=== PATIENT | male | born 1950 | race Caucasian/White ===

== ENCOUNTER 2022-01-24 10:38 | Emergency (ER) | payer MEDICARE, MEDICAID, SELFPAY ==
--- NOTE | ~2022-01-24 | CT_ITS ---
EXAMINATION: CT HEAD WITHOUT CONTRAST CLINICAL INFORMATION: Fall plus head strike. COMPARISON: None TECHNIQUE: Contiguous axial imaging was performed from the skull base to vertex without intravenous administration of contrast. This CT examination was performed using dose optimization techniques as appropriate, variously including the following: *Automated exposure control *Adjustment of mA and/or kV according to patient size (this includes techniques or standardized protocols for targeted exams where dose is matched to indication/reason for exam; i.e. extremities or head) *Use of iterative reconstruction technique DLP: 806 mGy-cm FINDINGS: There is no evidence of acute intracranial hemorrhage or territorial infarction. No abnormal mass effect or midline shift is seen. [place] to white matter differentiation is well preserved. No extra-axial fluid collections are identified. The lateral ventricles are symmetrical and but mildly enlarged. There is no abnormal attenuation within the brain parenchyma. The osseous structures and soft tissues are normal. The mastoid air cells and visualized portions of the paranasal sinuses are well aerated. CT/CT head/brain wo con IMPRESSION: No acute intracranial process seen.
[2022-01-24 11:05] VITALS: BP 107/49; PULSE 92; RESP 18; TEMP 36.3; O2SAT 95; BMI 19.2
--- NOTE | 2022-01-24 11:30 | ECG_ITS ---
Test Reason : FALL Blood Pressure : / mmHG Vent. Rate : 087 BPM Atrial Rate : 087 BPM P-R Int : 172 ms QRS Dur : 098 ms QT Int : 356 ms P-R-T Axes : 057 045 079 degrees QTc Int : 428 ms Normal sinus rhythm Moderate voltage criteria for LVH, may be normal variant ( Sokolow-Freire , Jan product ) Borderline ECG No previous ECGs available Referred By: Joe Camara Electronically Signed By:BRANDON SHANE MD
[2022-01-24 11:34] VITALS: BP 146/68; PULSE 89; RESP 21; O2SAT 98
--- NOTE | 2022-01-24 11:45 | ED_ITS ---
HPI - Fall General Chief Complaint: Fall Stated Complaint: Fall/ forehead lac Time Seen by Provider: 01/24/22 11:30 Source: family Mode of arrival: ambulatory Limitations: other (Patient with intellectual disability at baseline) History of Present Illness HPI Narrative: This is a 71-year-old male past medical history significant for known intellectual disability, schitzophrenia presenting to the emergency department with his brother who is his healthcare proxy who tells me that today patient was standing became dizzy, off balance, he helped his brother into a chair and patient fell forward hitting his head on a baseboard in front of him. Causing a laceration to to the middle of his forehead. According to brother this has been happening often. Patient has been having dizzy spells and hitting his head. At no time has he loss consciousness, he is not on anticoagulation. Patient is unable to answer questions due to his baseline mental status. He appears to be in no signs of acute distress, no distracting injuries. MD complaint: fall Onset (ago): hour(s) (3) Fall from: chair Fall witnessed: yes, by family Place fall occurred: home Loss of consciousness: none Prolonged down time: no Symptoms prior to fall: none Location of injury: head Related Data Allergies Allergy/AdvReac Type Severity Reaction Status Date / Time No Known Allergies Allergy Verified 01/24/22 11:04 [No Known Allergies*] Review of Systems Review of Systems: Yes Unobtainable due to mental status PMFSH Past Medical History Attestation statement: The following information was validated with the patient. Source: old records reviewed and nursing notes reviewed Medical History (Updated 01/24/22 @ 14:37 by JOSEPH Mcfadden) Developmental delay, borderline Schizophrenia Surgical History (Updated 01/24/22 @ 11:10 by Cris Burgos) History of hip replacement Social History Social History Advance Directives: Yes Advance Directives Information Provided: Yes Advance Directives on File: No Physical Exam Vital Signs: Vital Signs: Last Vital Signs Temp 97.8 F 01/24/22 11:56 Pulse 87 01/24/22 16:00 Resp 24 H 01/24/22 16:00 BP 162/93 H 01/24/22 16:00 Pulse Ox 97 01/24/22 16:00 BMI result Body Mass Index 19.2 VSS Appearance: Alert.? Awake. No acute distress.? Head: Normocephalic, atraumatic, no step-offs or deformities Eyes: Pupils equal, round and reactive to light.? ENT: Pharynx normal.? Neck: Normal inspection.? Neck supple.? CVS: Normal heart rate and rhythm.? Pulses normal.? Respiratory: No respiratory distress.? Breath sounds normal.? Abdomen: Soft and nontender.? Skin: Skin warm and dry.? Normal skin color.? Normal skin turgor.?+ linear laceration to forehead 4 cm Extremities: No lower extremity edema.? No calf ttp. 5/5 strength to bilateral upper and lower extremities Back: No midline tenderness, no C-spine tenderness, full range of motion, no CVA tenderness bilaterally Neuro: Awake, alert, moving all extremities, normal tone. No motor deficit.? No sensory deficit. Course Reevaluation(s) Reevaluation #1: Successfully a sutured laceration on patient's forehead using 5, 5-0 sutures. Patient tolerated procedure well. Time: 14:36 Reevaluation #2: Due to this severity of patient's laceration, mechanism of injury and the fact that patient has been feeling dizzy, and has syncopized in the past and has not had a head CT it is important to get 1 today. As patient is not able to hold still I spoke to my attending about this who recommends IM ketamine. Time: 15:19 Reevaluation #3: CT with no acute intracranial process seen. At this time patient will be discharged home. Should return in 3-5 days for suture removal. Troponin flat. Unlikely ACS. Patient appears well. Appears to be at his baseline. At this time I feel comfortable discharge home with PCP follow-up and follow-up with his neurologist. Time: 17:27 MDM - Fall MDM Narrative Medical decision making narrative: 1130 71 yo m pmhx intellectual disability presents to ed w/ head lac s/p dizzy spell and falling forward. Witnessed by patient's brother. Patient's brother tells me that this has been happening often. Physical examination significant for a linear laceration to forehead. Plan at this time labs, EKG, head CT, sutures. Medical Records Attestation: I reviewed the patient's medical records. Lab Data Attestation: I reviewed the patient's lab results. Result diagrams: 01/24/22 11:50 01/24/22 12:22 Labs: Lab Results 01/24/22 01/24/22 01/24/22 Range/Units 11:50 11:50 11:50 WBC 6.0 (4.8-10.8) X10*3/uL RBC 3.38 L (4.60-5.80) X10*6/uL Hgb 10.6 L (14.0-18.0) g/dl Hct 31.4 L (42.0-52.0) % MCV 92.9 (80.0-98.0) fL MCH 31.4 (27.0-33.0) pg MCHC 33.8 (31.0-36.0) g/dl RDW 12.9 (11.0-16.0) % Plt Count 291 (160-400) X10*3/uL MPV 9.4 (9.4-12.4) fL Immature Gran % (Auto) 0.2 (0.0-0.4) % Neut % (Auto) 65.5 (45-73) % Lymph % (Auto) 19.0 L (20-40) % [place] % (Auto) 14.2 H (2-11) % Eos % (Auto) 0.8 (0-4) % Baso % (Auto) 0.3 (0-2) % Lymph # (Auto) 1.1 L (1.2-4.9) X10*3/uL [place] # (Auto) 0.9 (0.1-1.2) X10*3/uL Eos # (Auto) 0.1 (0.0-0.4) X10*3/uL Baso # (Auto) 0.0 (0.0-0.2) X10*3/uL Abs Immat Gran (auto) 0.01 (0.00-0.03) X10*3/uL Absolute Neuts (auto) 3.9 (2.0-8.3) x10*3/uL Absolute Nucleated RBC 0.000 (0.0-0.012) X10*3/uL Nucleated RBC % (auto) 0.0 (0.0-0.2) /100WBC Sodium (135-145) mmol/L Potassium (3.3-5.1) mmol/L Chloride (96-108) mmol/L Carbon Dioxide (22-29) mmol/L Anion Gap (12-20) BUN (9-16) mg/dL Creatinine (0.5-1.4) mg/dL Estim Creat Clear Calc Estimated GFR Random Glucose (60-115) mg/dL Calcium (8.4-10.2) mg/dL Magnesium (1.6-2.6) mg/dL Total Bilirubin (0.0-1.0) mg/dL AST (5-37) U/L ALT (0-40) U/L Alkaline Phosphatase (39-117) U/L Troponin I High Sens 9.9 (<3.5-35.0) ng/L Total Protein (6.5-8.0) g/dL Albumin (3.5-5.0) g/dL COVID-19 ([facility]) Negative (Negative) COVID-19 Clin Com See Note 01/24/22 01/24/22 Range/Units 12:22 15:00 WBC (4.8-10.8) X10*3/uL RBC (4.60-5.80) X10*6/uL Hgb (14.0-18.0) g/dl Hct (42.0-52.0) % MCV (80.0-98.0) fL MCH (27.0-33.0) pg MCHC (31.0-36.0) g/dl RDW (11.0-16.0) % Plt Count (160-400) X10*3/uL MPV (9.4-12.4) fL Immature Gran % (Auto) (0.0-0.4) % Neut % (Auto) (45-73) % Lymph % (Auto) (20-40) % [place] % (Auto) (2-11) % Eos % (Auto) (0-4) % Baso % (Auto) (0-2) % Lymph # (Auto) (1.2-4.9) X10*3/uL [place] # (Auto) (0.1-1.2) X10*3/uL Eos # (Auto) (0.0-0.4) X10*3/uL Baso # (Auto) (0.0-0.2) X10*3/uL Abs Immat Gran (auto) (0.00-0.03) X10*3/uL Absolute Neuts (auto) (2.0-8.3) x10*3/uL Absolute Nucleated RBC (0.0-0.012) X10*3/uL Nucleated RBC % (auto) (0.0-0.2) /100WBC Sodium 132 L (135-145) mmol/L Potassium 4.7 (3.3-5.1) mmol/L Chloride 101 (96-108) mmol/L Carbon Dioxide 23 (22-29) mmol/L Anion Gap 13 (12-20) BUN 27 H (9-16) mg/dL Creatinine 0.87 (0.5-1.4) mg/dL Estim Creat Clear Calc 63.0 Estimated GFR > 60 Random Glucose 87 (60-115) mg/dL Calcium 9.3 (8.4-10.2) mg/dL Magnesium 1.9 (1.6-2.6) mg/dL Total Bilirubin 0.3 (0.0-1.0) mg/dL AST 24 (5-37) U/L ALT 25 (0-40) U/L Alkaline Phosphatase 130 H (39-117) U/L Troponin I High Sens 9.7 (<3.5-35.0) ng/L Total Protein 6.6 (6.5-8.0) g/dL Albumin 3.6 (3.5-5.0) g/dL COVID-19 ([facility]) (Negative) COVID-19 Clin Com Critical Care Time Critical Care Time Critical Care Time: No Discharge Plan Discharge Clinical Impression: Concussion without loss of consciousness, Forehead laceration Patient Disposition: Home, Self-Care Instructions: Laceration (ED), Concussion (ED) Additional Instructions: Take your medications as prescribed. If you were prescribed antibiotics today, it is important that you take your medication to their entirety, do not skip any doses, do not finish them early. Follow-up with your primary care provider this week. Return to the emergency department with new or worsening symptoms. Such as fevers, chills, chest pain, shortness of breath, nausea, vomiting, dizziness, headache, vision changes, lethargy, weakness, changes in mentation Return in 3-5 days for suture removal. In case of emergency call 911 Referrals: Mary Styles MD [Primary Care Provider] - 2 days Nirali Frank MD [Physician] - 2 weeks Stand Alone Forms: Work/School Release
[2022-01-24 11:55] LABS: MANUAL DIFF FLAG NO
[2022-01-24 11:56] VITALS: BP 155/71; PULSE 88; RESP 12; TEMP 36.6; O2SAT 97
[2022-01-24 11:58] LABS: Basophils Percent Auto 0.3 % (0-2); Eosinophils Absolute Auto 0.1 X10*3/uL (0.0-0.4); Eosinophils Percent Auto 0.8 % (0-4); Hematocrit 31.4 % (42.0-52.0); Hemoglobin 10.6 g/dl (14.0-18.0); Imm Gran Abs Auto 0.01 X10*3/uL (0.00-0.03); Imm Gran Pct Auto 0.2 % (0.0-0.4); Lymphocytes Absolute Auto 1.1 X10*3/uL (1.2-4.9); Mean Corpuscular HGB Conc 33.8 g/dl (31.0-36.0); Mean Corpuscular Hemoglobin 31.4 pg (27.0-33.0); Mean Corpuscular Volume 92.9 fL (80.0-98.0); Mean Platelet Volume 9.4 fL (9.4-12.4); Monocytes Absolute Auto 0.9 X10*3/uL (0.1-1.2); Monocytes Percent Auto 14.2 % (2-11); Neutrophils Absolute Auto 3.9 x10*3/uL (2.0-8.3); Neutrophils Percent Auto 65.5 % (45-73); Platelet Count 291 X10*3/uL (160-400); Red Blood Count 3.38 X10*6/uL (4.60-5.80); Red Cell Distribution Width 12.9 % (11.0-16.0)
[2022-01-24] MEDS: LORazepam 2 MG/ML VIAL 1 MG IVPUSH (12:06)
[2022-01-24 12:13] LABS: COVID-19 Test Negative (Negative)
[2022-01-24 12:31] LABS: Troponin-I High Sensitivity 9.9 ng/L (<3.5-35.0)
[2022-01-24 12:47] LABS: Alanine Aminotransferase 25 U/L (0-40); Albumin Level 3.6 g/dL (3.5-5.0); Alkaline Phosphatase 130 U/L (39-117); Anion Gap 13 (12-20); Aspartate Amino Transferase 24 U/L (5-37); Bilirubin Total 0.3 mg/dL (0.0-1.0); Blood Urea Nitrogen 27 mg/dL (9-16); Calcium 9.3 mg/dL (8.4-10.2); Carbon Dioxide 23 mmol/L (22-29); Chloride 101 mmol/L (96-108); Estimated Glomerular Filt Rate > 60; Glucose Random 87 mg/dL (60-115); Magnesium 1.9 mg/dL (1.6-2.6); Potassium 4.7 mmol/L (3.3-5.1); Sodium 132 mmol/L (135-145); Total Protein 6.6 g/dL (6.5-8.0)
[2022-01-24] MEDS: 0.9 % Sodium Chloride 1,000 ML 999 ML IV (13:33)
[2022-01-24 14:52] VITALS: BP 172/84; PULSE 88; RESP 17; O2SAT 96
[2022-01-24 15:23] LABS: Troponin-I High Sensitivity 9.7 ng/L (<3.5-35.0)
[2022-01-24 16:00] VITALS: BP 162/93; PULSE 87; RESP 24; O2SAT 97
[2022-01-24] MEDS: Lidocaine HCl 2 % MPF 5 ML VIAL SUBCUT (16:06)
[2022-01-24] MEDS: Ketamine HCl 500 MG/5 ML VIAL 25 MG IM (16:06)
== END 2022-01-24 17:48 | disposition home or self-care (01) ==
PROVIDERS: Physician Assistant; Emergency Provider Emergency Medicine; PCP Internal Medicine
DX: S01.81XA Laceration without foreign body of other part of head, initial encounter (principal); S06.0X0A Concussion without loss of consciousness, initial encounter; R62.50 Unspecified lack of expected normal physiological development in childhood; W07.XXXA Fall from chair, initial encounter; Y93.9 Activity, unspecified; Y92.009 Unspecified place in unspecified non-institutional (private) residence as the place of occurrence of the external cause; Y99.9 Unspecified external cause status; Z20.822 Contact with and (suspected) exposure to COVID-19
CPT/HCPCS: 12013; 36415; 70450; 80053; 83735; 84484; 85025; 87635; 93005; 96361; 96372; 96374; 99284; J2060

== ENCOUNTER 2022-04-03 20:24 | Inpatient (IN) | payer MEDICARE, MEDICAID, SELFPAY ==
--- NOTE | ~2022-04-03 | CT_ITS ---
EXAMINATION: CT HEAD WITHOUT CONTRAST CLINICAL INFORMATION: Fever and seizure COMPARISON: Head CT 01/24/2022 TECHNIQUE: Imaging was performed from the skull base to vertex without intravenous administration of contrast. This CT examination was performed using dose optimization techniques as appropriate, variously including the following: *Automated exposure control *Adjustment of mA and/or kV according to patient size (this includes techniques or standardized protocols for targeted exams where dose is matched to indication/reason for exam; i.e. extremities or head) *Use of iterative reconstruction technique Total exam dose length product: 776 mGy-cm FINDINGS: No intra or extra-axial fluid collection, hemorrhage, or mass. No ventriculomegaly. No midline shift or herniation. Basal cisterns are patent. Alba-white matter differentiation is maintained. No territorial encephalomalacia. Proportional prominence of the ventricles and sulcal spaces is consistent with mild volume loss. There is no abnormal attenuation within the brain parenchyma. No calvarial fracture or soft tissue abnormality. The mastoid air cells and visualized portions of the paranasal sinuses are well aerated. CT/CT head/brain wo con IMPRESSION: 1. No acute intracranial pathology.
--- NOTE | ~2022-04-03 | XR_ITS ---
EXAMINATION: XR CHEST CLINICAL INFORMATION: Fever COMPARISON: None TECHNIQUE: Frontal view of the chest was obtained. FINDINGS: Hypoinflated lungs. Hazy attenuation increased vascular/reticular markings within both lungs, likely due to pulmonary vascular crowding and atelectasis related to low lung volumes. No appreciable pleural effusion. No pneumothorax. Overall heart size is within normal limits. Prominent gaseous distention of bowel loops in the upper abdomen noted. No acute osseous injury. XR/XR chest 1V IMPRESSION: 1. Hypoinflated lungs with probable bilateral atelectasis and pulmonary vascular crowding. No definite/dense airspace consolidation or appreciable pleural effusion.
[2022-04-03 20:32] VITALS: BP 132/79; BP 154/50; PULSE 112; PULSE 115; RESP 34; TEMP 40.4; O2SAT 94; O2SAT 95; BMI 21.4
--- NOTE | 2022-04-03 20:48 | ECG_ITS ---
Test Reason : FEVER Blood Pressure : / mmHG Vent. Rate : 103 BPM Atrial Rate : 103 BPM P-R Int : 182 ms QRS Dur : 098 ms QT Int : 346 ms P-R-T Axes : 002 041 090 degrees QTc Int : 453 ms Sinus tachycardia Minimal voltage criteria for LVH, may be normal variant ( Jan product ) Cannot rule out Inferior infarct , age undetermined Abnormal ECG When compared with ECG of 24-JAN-2022 11:38, No significant change was found Referred By: Tamy Birmingham Electronically Signed By:BRANDON SHANE MD
[2022-04-03] MEDS: 0.9 % Sodium Chloride 2,259 ML 2259 ML IV (21:00)
[2022-04-03 21:05] LABS: MANUAL DIFF FLAG NO
[2022-04-03 21:10] VITALS: BP 134/76; PULSE 106; RESP 19; O2SAT 99
[2022-04-03 21:10] LABS: Basophils Percent Auto 0.4 % (0-2); Eosinophils Percent Auto 0.2 % (0-4); Hematocrit 29.9 % (42.0-52.0); Hemoglobin 10.3 g/dl (14.0-18.0); Imm Gran Abs Auto 0.04 X10*3/uL (0.00-0.03); Imm Gran Pct Auto 0.5 % (0.0-0.4); Lymphocytes Absolute Auto 0.9 X10*3/uL (1.2-4.9); Lymphocytes Percent Auto 11.1 % (20-40); Mean Corpuscular HGB Conc 34.4 g/dl (31.0-36.0); Mean Corpuscular Hemoglobin 31.9 pg (27.0-33.0); Mean Corpuscular Volume 92.6 fL (80.0-98.0); Mean Platelet Volume 9.4 fL (9.4-12.4); Monocytes Absolute Auto 0.8 X10*3/uL (0.1-1.2); Monocytes Percent Auto 9.6 % (2-11); Neutrophils Absolute Auto 6.4 x10*3/uL (2.0-8.3); Neutrophils Percent Auto 78.2 % (45-73); Platelet Count 299 X10*3/uL (160-400); Red Blood Count 3.23 X10*6/uL (4.60-5.80); Red Cell Distribution Width 12.9 % (11.0-16.0); White Blood Count 8.2 X10*3/uL (4.8-10.8)
[2022-04-03 21:22] LABS: Alanine Aminotransferase 28 U/L (0-40); Albumin Level 4.1 g/dL (3.5-5.0); Alkaline Phosphatase 100 U/L (39-117); Anion Gap 15 (12-20); Aspartate Amino Transferase 34 U/L (5-37); Bilirubin Direct 0.2 mg/dL (0.0-0.5); Bilirubin Total 0.5 mg/dL (0.0-1.0); Blood Urea Nitrogen 35 mg/dL (9-16); Carbon Dioxide 20 mmol/L (22-29); Chloride 98 mmol/L (96-108); Creatinine Clr Calc Pharmacy 38.6; Estimated Glomerular Filt Rate 40; Glucose Random 109 mg/dL (60-115); Lipase 13 U/L (8-78); Potassium 4.7 mmol/L (3.3-5.1); Sodium 128 mmol/L (135-145); Total Protein 7.1 g/dL (6.5-8.0)
[2022-04-03 21:24] LABS: Appearance Urine CLEAR; Color Urine YELLOW; Glucose Urine UA NEG (NEG); Leukocyte Esterase Urine 2+ (NEG); Nitrite Urine NEG (NEG); UACC Culture Trigger YES; Urine Blood NEG (NEG); Urine Ketones 5 MG/DL (NEG); Urine Protein TRACE MG/DL (NEG-TRACE)
--- NOTE | 2022-04-03 21:26 | PC.NURSE ---
Jaime catheter placed per MD verbal order, 350cc urine output noted. Will monitor.
[2022-04-03 21:30] LABS: Lactic Acid 2.4 mmol/L (0.5-2.0)
--- NOTE | 2022-04-03 21:34 | PC.NURSE ---
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
[2022-04-03 21:36] LABS: Bacteria Urine 4+ /LPF; Squamous Epithelial Cell Urine TRACE /LPF
[2022-04-03 21:38] LABS: B Type Natriuretic Peptide 27 pg/mL (<100); Troponin-I High Sensitivity 96.7 ng/L (<3.5-35.0)
[2022-04-03 21:41] VITALS: BP 131/53; PULSE 99; RESP 20; TEMP 39.6; O2SAT 98
[2022-04-03 21:56] LABS: Influenza A PCR NEGATIVE (Negative); Influenza B PCR NEGATIVE (Negative); Resp Syncy Virus RNA Qual PCR NEGATIVE (Negative); SARS COV2 PCR INHOUSE NEGATIVE (Negative)
[2022-04-03 22:00] VITALS: BP 136/66; PULSE 106; RESP 20; TEMP 39; O2SAT 98
[2022-04-03] MEDS: Acetaminophen 325 MG TABLET 650 MG PO (22:00)
[2022-04-03] MEDS: cefTRIAXone sodium 1 GM in 0.9 % Sodium Chloride 50 ML IV (22:29)
[2022-04-03 22:47] VITALS: BP 130/61; PULSE 106; RESP 22; TEMP 38.8; O2SAT 100
[2022-04-03 23:02] LABS: Reflex Lactate? Lactic Acid Added
[2022-04-03 23:29] LABS: ~Lactic Acid-LAB USE ONLY 1.3 mmol/L (0.5-2.0)
[2022-04-04] VITALS (11 sets, daily range): BP systolic 120–140; BP diastolic 58–99; PULSE 76–102; RESP 16–21; TEMP 36.8–38.6; O2SAT 95–100
--- NOTE | 2022-04-04 | ECG_ITS ---
Test Reason : REPECT Blood Pressure : / mmHG Vent. Rate : 095 BPM Atrial Rate : 095 BPM P-R Int : 190 ms QRS Dur : 086 ms QT Int : 354 ms P-R-T Axes : 052 043 085 degrees QTc Int : 444 ms Sinus rhythm with Fusion complexes Nonspecific T wave abnormality Abnormal ECG When compared with ECG of 03-APR-2022 21:21, Fusion complexes are now Present Referred By: Manish Chilel Electronically Signed By:BRANDON SHANE MD
--- NOTE | 2022-04-04 00:21 | PM.IMHP ---
History of Present Illness Date of Service: 04/04/22 Chief Complaint: seizure-like acitivity This is a 71-year-old male with past medical history of developmental delay as well as schizophrenia who is brought into the hospital by his brother after the brother witnessed as seizure. The mother reports that the patient has a documented history of seizure but he has not been on any seizure medications and he has never had a seizure in the past 20 years that he has been living with his brother. Patient is noncommunicative at baseline and history is obtained mostly from his brother who is his primary caregiver. Brother reports that patient was noted to be more weak for the past 1 day, but had no other symptoms. He had no complaints or any new changes. Unable to obtain review of system due to patient's mental status. On arrival to the ED patient was noted to have a temperature of 104.7 degrees, heart rate of 112, respiratory rate of 34, blood pressure 154/50 satting 95% on room air Labs are significant for WBC count of 9.9, hemoglobin of 9.4, hematocrit of 20.2 sodium 128, BUN of 35, creatinine of 1.68 with a baseline of 0. Eight 7, lactic acid of 2.4, troponin of 96.7, increased to 357.9, UA positive for leukocyte Estrace and WBC, patient underwent LP, no significant findings. COVID-19 and influenza negative Patient will be admitted for further management Review of Systems Review of Systems: Yes all other systems are reviewed and are negative [facility] Medical History Developmental delay, borderline Schizophrenia Family History (Updated 04/04/22 @ 07:51 by Manish Chilel MD) Other No family history of coronary artery disease Surgical History History of hip replacement Social History (Updated 04/04/22 @ 07:53 by Manish Chilel MD) Alcohol intake: never Patient Tobacco Use Status: Never used Tobacco Use of substances other than those prescribed or required for medical reasons: No Advance Directives: No Advance Directives Information Provided: No Meds Allergies Allergy/AdvReac Type Severity Reaction Status Date / Time No Known Allergies Allergy Verified 04/03/22 21:30 [No Known Allergies*] Active Medications: Current Medications Pharmacy Consult (Consult Rx Perform Med Rec) 1 each MISCELLANE ONCE PRN PRN Reason: Consult order Home Medications Medication Instructions Recorded Confirmed Last Taken Type alendronate 70 mg tablet tab PO QWEEK 04/03/22 Unknown History budesonide 0.5 mg/2 mL suspension ml inhalation QPM 04/03/22 Unknown History for nebulization cholecalciferol (vitamin D3) 25 cap QAM 04/03/22 04/03/22 07:00 History mcg (1,000 unit) capsule (Vitamin D3) fluoxetine 40 mg capsule 1 cap PO QAM 04/03/22 04/03/22 04/03/22 07:00 History folic acid 1 mg tablet 1 tab PO DAILY 04/03/22 04/03/22 04/03/22 07:00 History lorazepam 1 mg tablet 1 tab PO BID PRN Anxiety 04/03/22 04/03/22 04/03/22 07:00 History nebulizer and compressor (Vios 04/03/22 04/03/22 Unknown History Aerosol Delivery System) quetiapine 300 mg tablet 1 tab PO BID 04/03/22 04/03/22 04/03/22 07:00 History Physical Exam Vital Signs and Narrative: Vital Signs: Last Vital Signs Temp 101.8 F H 04/03/22 22:47 Pulse 106 H 04/03/22 22:47 Resp 22 H 04/03/22 22:47 BP 130/61 04/03/22 22:47 Pulse Ox 100 04/03/22 22:47 O2 Del Method 04/03/22 22:47 O2 Flow Rate 4 04/03/22 22:47 Oxygen Flow Rate 2 04/03/22 20:32 BMI result Body Mass Index 21.4 Const: General: cooperative and no acute distress Eyes: General: appearance normal, both eyes and all related structures Resp: Effort & Inspection: normal respiratory effort Auscultation: clear to auscultation bilaterally Cardio: Rate: regular rate Rhythm: regular rhythm GI: Palpation (GI): Soft to palpation Auscultation: normal bowel sounds Skin: General skin exam: no rashes or lesions noted Extrem: General: Yes normal to inspection and Yes no pedal edema Results Labs CBC and Chem 7: 04/04/22 04:46 04/04/22 04:46 Labs: Laboratory Results - last 24 hr 04/03/22 04/03/22 04/03/22 20:57 20:57 20:58 MCV 92.6 MCH 31.9 MCHC 34.4 RDW 12.9 Plt Count 299 MPV 9.4 Immature Gran % (Auto) 0.5 H Neut % (Auto) 78.2 H Lymph % (Auto) 11.1 L Hand % (Auto) 9.6 Eos % (Auto) 0.2 Baso % (Auto) 0.4 Lymph # (Auto) 0.9 L Hand # (Auto) 0.8 Eos # (Auto) 0.0 Baso # (Auto) 0.0 Abs Immat Gran (auto) 0.04 H Absolute Neuts (auto) 6.4 Absolute Nucleated RBC 0.000 Nucleated RBC % (auto) 0.0 Anion Gap 15 Estim Creat Clear Calc 38.6 Estimated GFR 40 Random Glucose 109 Lactic Acid 2.4 H* Lactic Acid F/U @ 2Hr Calcium 9.0 Total Bilirubin 0.5 Direct Bilirubin 0.2 AST 34 D ALT 28 Alkaline Phosphatase 100 D Troponin I High Sens B-Natriuretic Peptide Total Protein 7.1 Albumin 4.1 Lipase 13 Urine Color Urine Appearance Urine pH Ur Specific [place] Urine Protein Urine Glucose (UA) Urine Ketones Urine Blood Urine Nitrite Ur Leukocyte Esterase Urine RBC Urine WBC Ur Squamous Epith Cells Urine Bacteria Influenza Type A (PCR) Influenza Type B (PCR) RSV RNA Qual (PCR) SARS-CoV-2 RNA (RT-PCR) 04/03/22 04/03/22 04/03/22 21:10 21:11 21:13 MCV MCH MCHC RDW Plt Count MPV Immature Gran % (Auto) Neut % (Auto) Lymph % (Auto) Hand % (Auto) Eos % (Auto) Baso % (Auto) Lymph # (Auto) Hand # (Auto) Eos # (Auto) Baso # (Auto) Abs Immat Gran (auto) Absolute Neuts (auto) Absolute Nucleated RBC Nucleated RBC % (auto) Anion Gap Estim Creat Clear Calc Estimated GFR Random Glucose Lactic Acid Lactic Acid F/U @ 2Hr Calcium Total Bilirubin Direct Bilirubin AST ALT Alkaline Phosphatase Troponin I High Sens 96.7 H D B-Natriuretic Peptide 27 Total Protein Albumin Lipase Urine Color YELLOW Urine Appearance CLEAR Urine pH 7.0 Ur Specific [place] 1.010 Urine Protein TRACE Urine Glucose (UA) NEG Urine Ketones 5 Urine Blood NEG Urine Nitrite NEG Ur Leukocyte Esterase 2+ H Urine RBC 1-4 Urine WBC 5-9 H Ur Squamous Epith Cells TRACE Urine Bacteria 4+ Influenza Type A (PCR) NEGATIVE Influenza Type B (PCR) NEGATIVE RSV RNA Qual (PCR) NEGATIVE SARS-CoV-2 RNA (RT-PCR) NEGATIVE 04/03/22 23:14 MCV MCH MCHC RDW Plt Count MPV Immature Gran % (Auto) Neut % (Auto) Lymph % (Auto) Hand % (Auto) Eos % (Auto) Baso % (Auto) Lymph # (Auto) Hand # (Auto) Eos # (Auto) Baso # (Auto) Abs Immat Gran (auto) Absolute Neuts (auto) Absolute Nucleated RBC Nucleated RBC % (auto) Anion Gap Estim Creat Clear Calc Estimated GFR Random Glucose Lactic Acid Lactic Acid F/U @ 2Hr 1.3 Calcium Total Bilirubin Direct Bilirubin AST ALT Alkaline Phosphatase Troponin I High Sens B-Natriuretic Peptide Total Protein Albumin Lipase Urine Color Urine Appearance Urine pH Ur Specific [place] Urine Protein Urine Glucose (UA) Urine Ketones Urine Blood Urine Nitrite Ur Leukocyte Esterase Urine RBC Urine WBC Ur Squamous Epith Cells Urine Bacteria Influenza Type A (PCR) Influenza Type B (PCR) RSV RNA Qual (PCR) SARS-CoV-2 RNA (RT-PCR) Imaging Radiologist's Impressions: Impressions Chest X-Ray 04/03/22 21:39 IMPRESSION: 1. Hypoinflated lungs with probable bilateral atelectasis and pulmonary vascular crowding. No definite/dense airspace consolidation or appreciable pleural effusion. Head CT 04/03/22 22:07 IMPRESSION: 1. No acute intracranial pathology. Assessment and Plan (1) Sepsis: Status: Acute (2) Acute UTI: Status: Acute (3) Acute hyponatremia: Status: Acute (4) Elevated troponin: Status: Acute (5) Seizure-like activity: Status: Acute Plan 71-year-old male with past medical history of developmental delay as well as schizophrenia presents to the hospital after brother witnesses seizure-like activity # sepsis - secondary to UTI - febrile, tachycardic, tachypneic - will treat with IV antibiotics - follow cultures # acute UTI - UA positive - treat with IV antibiotics - follow cultures # seizure-like activity - brother reports documented history of seizure but no witnessed seizure in the past 20 years - patient not on antiepileptics - possibly driven by acute infection - will consult neurology for further evaluation - will hold off starting any antiepileptics at this time until further evaluated by Neurology # elevated troponin - no evidence of EKG changes suggestive of ACS - there are ST T wave changes that were present on previous EKG - likely acute infection - will continue to monitor # hyponatremia - unclear etiology - will obtain urine studies - NS - follow BMP - nephrology consulted # schizophrenia and developmental delay - continue home medications DVT prophylaxis: Lovenox Given the acute sepsis, requirement for IV antibiotics patient will require a minimum tonight hospital stay for further management Quality Stroke Does the patient have a stroke diagnosis?: No VTE Prior VTE?: No VTE Risk Level:: Medical - moderate - high VTE Device Contraindication: Treatment Not Indicated VTE Drug Contraindication: N/A - Med Ordered
--- NOTE | 2022-04-04 00:35 | PC.NURSE ---
Patient's brother, Loc Rosales: [phone]
[2022-04-04 00:40] LABS: Appearance CSF BLOODY; CSF Tube # 4; CSF Volume 0.3 ML; Color CSF PINK; Red Blood Cell CSF 898 MM*3; White Blood Cell CSF 7 MM*3
[2022-04-04] MEDS: Lactated Ringers 1,000 ML 100 ML IVCONT (00:51)
[2022-04-04] MEDS: Enoxaparin Sodium 40 MG/0.4 ML SYRINGE SUBCUT (00:51)
[2022-04-04 00:53] LABS: Glucose CSF 64 mg/dL; Total Protein CSF 44.5 mg/dL (15-45)
[2022-04-04 00:57] LABS: Lymphocytes CSF 20 %; Neutrophils CSF 80 %
[2022-04-04 01:05] LABS: CSF Appearance Hazy; CSF Tube # 1
--- NOTE | 2022-04-04 01:11 | ED_ITS ---
HPI - General Adult General Chief complaint: Fever Stated complaint: ?SEIZURE/FEVER Time Seen by Provider: 04/03/22 20:48 Source: family (Brother and legal guardian) and EMS Mode of arrival: EMS Limitations: physical limitation (Mentally challenged) History of Present Illness HPI narrative: 71-year-old male history of intellectual disability, schizophrenia, presented after witnessed seizure with fever. Patient was witnessed to have a seizure described by his brother (legal guardian and caregiver) as generalized tonic clonic seizure lasted for few minutes followed by periods of confusion, found by EMS to have high fever of 104. As better brother patient did not have recent sickness, no sick contact, patient received 3 vaccination for COVID. Patient is not taking any anticoagulation, no recent fever coughing, patient was not complaining of chest pain or abdominal pain to his brother. Related Data Home Medications Medication Instructions Recorded Confirmed alendronate 70 mg tablet tab PO QWEEK 04/03/22 budesonide 0.5 mg/2 mL suspension ml inhalation QPM 04/03/22 for nebulization cholecalciferol (vitamin D3) 25 cap QAM 04/03/22 mcg (1,000 unit) capsule (Vitamin D3) fluoxetine 40 mg capsule 1 cap PO QAM 04/03/22 04/03/22 folic acid 1 mg tablet 1 tab PO DAILY 04/03/22 04/03/22 lorazepam 1 mg tablet 1 tab PO BID PRN Anxiety 04/03/22 04/03/22 nebulizer and compressor (Vios 04/03/22 04/03/22 Aerosol Delivery System) quetiapine 300 mg tablet 1 tab PO BID 04/03/22 04/03/22 Allergies Allergy/AdvReac Type Severity Reaction Status Date / Time No Known Allergies Allergy Verified 04/03/22 21:30 [No Known Allergies*] Review of Systems Review of Systems: Yes Unobtainable due to mental condition PMFSH Past Medical History Medical History Developmental delay, borderline Schizophrenia Surgical History History of hip replacement Social History Social History Advance Directives: No Advance Directives Information Provided: No Physical Exam ED Vital Signs: Vital Signs - 24 hr 04/03/22 20:32 04/03/22 21:10 04/03/22 21:41 Temperature 104.7 F H 103.3 F H Pulse Rate 112 H 106 H 99 Respiratory Rate 34 H 19 20 Blood Pressure 154/50 H 134/76 131/53 L Pulse Oximetry 95 99 98 Oxygen Delivery Method Nasal Cannula Nasal Cannula Nasal Cannula Oxygen Flow Rate 4 4 04/03/22 22:00 04/03/22 22:47 Temperature 102.2 F H 101.8 F H Pulse Rate 106 H 106 H Respiratory Rate 20 22 H Blood Pressure 136/66 130/61 Pulse Oximetry 98 100 Oxygen Delivery Method Nasal Cannula Nasal Cannula Oxygen Flow Rate 4 4 BMI result Body Mass Index 21.4 Vital signs have been reviewed as appeared to be correct. Blood pressure normal. Heart rate elevated. Respiration rate normal. Temperature elevated. Oxygen saturation normal. Appearance: Alert. Non historian, slightly agitated. No acute distress. Head: Normal external exam. Normocephalic. Atraumatic. No [place] signs noted. No raccoon eyes noted Eyes: PERRLA. EOMI. Conjunctiva and sclera normal. Eyelids normal. ENT: TM's Normal. Pharynx normal. Uvula midline. Moist mucous membranes. No trismus noted. No drooling noted. No muffled voice noted. Neck: Normal inspection. Neck supple. FROM. No adenopathy. Thyroid Normal. No meningeal signs. No neck mass noted. CVS: Normal heart rate and rhythm. Heart sound normal. No murmurs noted. Pulses normal throughout. Respiratory: No respiratory distress. Painless inspiration. Breath sounds normal. No wheezes/rales/rhonchi noted. Chest nontender. No accessory muscle usage noted or decreased air movement noted. Abdomen: Soft and nontender. Bowel sounds normal in all 4 quadrants. No distention noted. No organomegaly noted. No visible injury noted. Back: No CVA tenderness. Full range of motion noted. Skin: Skin warm and dry. Normal skin color. Normal skin turgor. No rashes/lesions/lacerations noted. Extremities: No lower extremity edema. Extremities exhibit normal range of motion. Extremities nontender. Neuro: Alert, regards examiner only answer ?yes ? for all questions Cranial nerve exam: II-XII are grossly intact No motor deficit. No sensory deficit. Reflexes normal. Course Course Course Narrative: 71 years old male with history of intellectual disability presented with high fever and seizure, labs revealed mild UTI which does not explain the high fever and elevated heart rate patient needed an LP to rule out meningitis. Patient received IV fluids/ceftriaxone to cover for UTI (the only source of patient's high fever). Mild hyponatremia patient is receiving normal saline which should correct the mild hyponatremia. Elevated troponin will do a serial troponin. Procedures Lumbar Puncture Time Out Performed: Yes Patient Position: right lateral decubitus Skin Prep: Povidone-Iodine 1% Local Anesthetic: lidocaine 1% Amount of anesthesia used (mL): 3 Spinal Needle Gauge: 22G Interspace Used: L4-L5 Fluid Initially Obtained: bloody Complications: none Medical Decision Making Lab Data Lab results reviewed: Yes I reviewed the patient's lab results. Result diagrams: 04/03/22 20:57 04/03/22 20:58 Labs: Lab Results 04/03/22 04/03/22 04/03/22 Range/Units 20:57 20:57 20:58 WBC 8.2 (4.8-10.8) X10*3/uL RBC 3.23 L (4.60-5.80) X10*6/uL Hgb 10.3 L (14.0-18.0) g/dl Hct 29.9 L (42.0-52.0) % MCV 92.6 (80.0-98.0) fL MCH 31.9 (27.0-33.0) pg MCHC 34.4 (31.0-36.0) g/dl RDW 12.9 (11.0-16.0) % Plt Count 299 (160-400) X10*3/uL MPV 9.4 (9.4-12.4) fL Immature Gran % (Auto) 0.5 H (0.0-0.4) % Neut % (Auto) 78.2 H (45-73) % Lymph % (Auto) 11.1 L (20-40) % [place] % (Auto) 9.6 (2-11) % Eos % (Auto) 0.2 (0-4) % Baso % (Auto) 0.4 (0-2) % Lymph # (Auto) 0.9 L (1.2-4.9) X10*3/uL [place] # (Auto) 0.8 (0.1-1.2) X10*3/uL Eos # (Auto) 0.0 (0.0-0.4) X10*3/uL Baso # (Auto) 0.0 (0.0-0.2) X10*3/uL Abs Immat Gran (auto) 0.04 H (0.00-0.03) X10*3/uL Absolute Neuts (auto) 6.4 (2.0-8.3) x10*3/uL Absolute Nucleated RBC 0.000 (0.0-0.012) X10*3/uL Nucleated RBC % (auto) 0.0 (0.0-0.2) /100WBC Sodium 128 L (135-145) mmol/L Potassium 4.7 (3.3-5.1) mmol/L Chloride 98 (96-108) mmol/L Carbon Dioxide 20 L (22-29) mmol/L Anion Gap 15 (12-20) BUN 35 H (9-16) mg/dL Creatinine 1.68 H (0.5-1.4) mg/dL Estim Creat Clear Calc 38.6 Estimated GFR 40 Random Glucose 109 (60-115) mg/dL Lactic Acid 2.4 H* (0.5-2.0) mmol/L Lactic Acid F/U @ 2Hr (0.5-2.0) mmol/L Calcium 9.0 (8.4-10.2) mg/dL Total Bilirubin 0.5 (0.0-1.0) mg/dL Direct Bilirubin 0.2 (0.0-0.5) mg/dL AST 34 D (5-37) U/L ALT 28 (0-40) U/L Alkaline Phosphatase 100 D (39-117) U/L Troponin I High Sens (<3.5-35.0) ng/L B-Natriuretic Peptide (<100) pg/mL Total Protein 7.1 (6.5-8.0) g/dL Albumin 4.1 (3.5-5.0) g/dL Lipase 13 (8-78) U/L Urine Color Urine Appearance Urine pH (5.0-8.0) Ur Specific [place] (1.005-1.025) Urine Protein (NEG-TRACE) MG/DL Urine Glucose (UA) (NEG) MG/DL Urine Ketones (NEG) MG/DL Urine Blood (NEG) Urine Nitrite (NEG) Ur Leukocyte Esterase (NEG) Urine RBC (0) /HPF Urine WBC (0-4) /HPF Ur Squamous Epith Cells /LPF Urine Bacteria /LPF CSF Tube Number CSF Volume ML CSF Appearance CSF Color CSF WBC MM*3 CSF RBC MM*3 CSF Neutrophils % CSF Lymphocytes % CSF Appearance (b) CSF Glucose mg/dL CSF Total Protein (15-45) mg/dL Influenza Type A (PCR) (Negative) Influenza Type B (PCR) (Negative) RSV RNA Qual (PCR) (Negative) SARS-CoV-2 RNA (RT-PCR) (Negative) 04/03/22 04/03/22 04/03/22 Range/Units 21:10 21:11 21:13 WBC (4.8-10.8) X10*3/uL RBC (4.60-5.80) X10*6/uL Hgb (14.0-18.0) g/dl Hct (42.0-52.0) % MCV (80.0-98.0) fL MCH (27.0-33.0) pg MCHC (31.0-36.0) g/dl RDW (11.0-16.0) % Plt Count (160-400) X10*3/uL MPV (9.4-12.4) fL Immature Gran % (Auto) (0.0-0.4) % Neut % (Auto) (45-73) % Lymph % (Auto) (20-40) % [place] % (Auto) (2-11) % Eos % (Auto) (0-4) % Baso % (Auto) (0-2) % Lymph # (Auto) (1.2-4.9) X10*3/uL [place] # (Auto) (0.1-1.2) X10*3/uL Eos # (Auto) (0.0-0.4) X10*3/uL Baso # (Auto) (0.0-0.2) X10*3/uL Abs Immat Gran (auto) (0.00-0.03) X10*3/uL Absolute Neuts (auto) (2.0-8.3) x10*3/uL Absolute Nucleated RBC (0.0-0.012) X10*3/uL Nucleated RBC % (auto) (0.0-0.2) /100WBC Sodium (135-145) mmol/L Potassium (3.3-5.1) mmol/L Chloride (96-108) mmol/L Carbon Dioxide (22-29) mmol/L Anion Gap (12-20) BUN (9-16) mg/dL Creatinine (0.5-1.4) mg/dL Estim Creat Clear Calc Estimated GFR Random Glucose (60-115) mg/dL Lactic Acid (0.5-2.0) mmol/L Lactic Acid F/U @ 2Hr (0.5-2.0) mmol/L Calcium (8.4-10.2) mg/dL Total Bilirubin (0.0-1.0) mg/dL Direct Bilirubin (0.0-0.5) mg/dL AST (5-37) U/L ALT (0-40) U/L Alkaline Phosphatase (39-117) U/L Troponin I High Sens 96.7 H D (<3.5-35.0) ng/L B-Natriuretic Peptide 27 (<100) pg/mL Total Protein (6.5-8.0) g/dL Albumin (3.5-5.0) g/dL Lipase (8-78) U/L Urine Color YELLOW Urine Appearance CLEAR Urine pH 7.0 (5.0-8.0) Ur Specific [place] 1.010 (1.005-1.025) Urine Protein TRACE (NEG-TRACE) MG/DL Urine Glucose (UA) NEG (NEG) MG/DL Urine Ketones 5 (NEG) MG/DL Urine Blood NEG (NEG) Urine Nitrite NEG (NEG) Ur Leukocyte Esterase 2+ H (NEG) Urine RBC 1-4 (0) /HPF Urine WBC 5-9 H (0-4) /HPF Ur Squamous Epith Cells TRACE /LPF Urine Bacteria 4+ /LPF CSF Tube Number CSF Volume ML CSF Appearance CSF Color CSF WBC MM*3 CSF RBC MM*3 CSF Neutrophils % CSF Lymphocytes % CSF Appearance (b) CSF Glucose mg/dL CSF Total Protein (15-45) mg/dL Influenza Type A (PCR) NEGATIVE (Negative) Influenza Type B (PCR) NEGATIVE (Negative) RSV RNA Qual (PCR) NEGATIVE (Negative) SARS-CoV-2 RNA (RT-PCR) NEGATIVE (Negative) 04/03/22 04/03/22 04/03/22 Range/Units 23:14 23:57 23:57 WBC (4.8-10.8) X10*3/uL RBC (4.60-5.80) X10*6/uL Hgb (14.0-18.0) g/dl Hct (42.0-52.0) % MCV (80.0-98.0) fL MCH (27.0-33.0) pg MCHC (31.0-36.0) g/dl RDW (11.0-16.0) % Plt Count (160-400) X10*3/uL MPV (9.4-12.4) fL Immature Gran % (Auto) (0.0-0.4) % Neut % (Auto) (45-73) % Lymph % (Auto) (20-40) % [place] % (Auto) (2-11) % Eos % (Auto) (0-4) % Baso % (Auto) (0-2) % Lymph # (Auto) (1.2-4.9) X10*3/uL [place] # (Auto) (0.1-1.2) X10*3/uL Eos # (Auto) (0.0-0.4) X10*3/uL Baso # (Auto) (0.0-0.2) X10*3/uL Abs Immat Gran (auto) (0.00-0.03) X10*3/uL Absolute Neuts (auto) (2.0-8.3) x10*3/uL Absolute Nucleated RBC (0.0-0.012) X10*3/uL Nucleated RBC % (auto) (0.0-0.2) /100WBC Sodium (135-145) mmol/L Potassium (3.3-5.1) mmol/L Chloride (96-108) mmol/L Carbon Dioxide (22-29) mmol/L Anion Gap (12-20) BUN (9-16) mg/dL Creatinine (0.5-1.4) mg/dL Estim Creat Clear Calc Estimated GFR Random Glucose (60-115) mg/dL Lactic Acid (0.5-2.0) mmol/L Lactic Acid F/U @ 2Hr 1.3 (0.5-2.0) mmol/L Calcium (8.4-10.2) mg/dL Total Bilirubin (0.0-1.0) mg/dL Direct Bilirubin (0.0-0.5) mg/dL AST (5-37) U/L ALT (0-40) U/L Alkaline Phosphatase (39-117) U/L Troponin I High Sens (<3.5-35.0) ng/L B-Natriuretic Peptide (<100) pg/mL Total Protein (6.5-8.0) g/dL Albumin (3.5-5.0) g/dL Lipase (8-78) U/L Urine Color Urine Appearance Urine pH (5.0-8.0) Ur Specific [place] (1.005-1.025) Urine Protein (NEG-TRACE) MG/DL Urine Glucose (UA) (NEG) MG/DL Urine Ketones (NEG) MG/DL Urine Blood (NEG) Urine Nitrite (NEG) Ur Leukocyte Esterase (NEG) Urine RBC (0) /HPF Urine WBC (0-4) /HPF Ur Squamous Epith Cells /LPF Urine Bacteria /LPF CSF Tube Number 1 4 CSF Volume 0.3 ML CSF Appearance BLOODY CSF Color PINK CSF WBC 7 MM*3 CSF RBC 898 MM*3 CSF Neutrophils 80 % CSF Lymphocytes 20 % CSF Appearance (b) Hazy CSF Glucose 64 mg/dL CSF Total Protein 44.5 (15-45) mg/dL Influenza Type A (PCR) (Negative) Influenza Type B (PCR) (Negative) RSV RNA Qual (PCR) (Negative) SARS-CoV-2 RNA (RT-PCR) (Negative) Imaging Data CT scan - head: Attestation: I personally reviewed and interpreted this imaging study as follows: Radiologist's impression: No acute intracranial pathology. Chest x-ray: Attestation: I personally reviewed and interpreted this imaging study as follows: Radiologist's impression: 1. Hypoinflated lungs with probable bilateral atelectasis and pulmonary vascular crowding. No definite/dense airspace consolidation or appreciable pleural effusion. ? ECG Data Attestation: I personally reviewed and interpreted this ECG as follows: Interpretation: Normal sinus rhythm at 99 beats per minutes, normal axis deviation, normal intervals, LVH. Discharge Plan Discharge Clinical Impression: Acute UTI, Acute hyponatremia, Elevated troponin Patient Disposition: Admitted As Inpatient
[2022-04-04 02:11] LABS: Troponin-I High Sensitivity 357.9 ng/L (<3.5-35.0)
[2022-04-04] MEDS: 0.9 % Sodium Chloride 1,000 ML 80 ML IVCONT ×2 (02:39→15:15)
[2022-04-04 04:51] LABS: MANUAL DIFF FLAG NO
[2022-04-04 04:52] LABS: Basophils Percent Auto 0.2 % (0-2); Eosinophils Percent Auto 0.1 % (0-4); Hematocrit 28.2 % (42.0-52.0); Hemoglobin 9.4 g/dl (14.0-18.0); Imm Gran Abs Auto 0.04 X10*3/uL (0.00-0.03); Imm Gran Pct Auto 0.4 % (0.0-0.4); Lymphocytes Absolute Auto 1.6 X10*3/uL (1.2-4.9); Lymphocytes Percent Auto 16.3 % (20-40); Mean Corpuscular HGB Conc 33.3 g/dl (31.0-36.0); Mean Corpuscular Hemoglobin 31.3 pg (27.0-33.0); Mean Platelet Volume 9.4 fL (9.4-12.4); Monocytes Absolute Auto 1.5 X10*3/uL (0.1-1.2); Monocytes Percent Auto 15.1 % (2-11); Neutrophils Absolute Auto 6.7 x10*3/uL (2.0-8.3); Neutrophils Percent Auto 67.9 % (45-73); Platelet Count 247 X10*3/uL (160-400); Red Cell Distribution Width 13.2 % (11.0-16.0); White Blood Count 9.9 X10*3/uL (4.8-10.8)
[2022-04-04 05:09] LABS: Anion Gap 10 (12-20); Blood Urea Nitrogen 29 mg/dL (9-16); Calcium 7.9 mg/dL (8.4-10.2); Carbon Dioxide 19 mmol/L (22-29); Chloride 103 mmol/L (96-108); Creatinine Clr Calc Pharmacy 59.6; Estimated Glomerular Filt Rate > 60; Glucose Random 99 mg/dL (60-115); Potassium 4.1 mmol/L (3.3-5.1); Sodium 128 mmol/L (135-145)
[2022-04-04 05:15] LABS: Troponin-I High Sensitivity 253.5 ng/L (<3.5-35.0)
--- NOTE | 2022-04-04 08:08 | PHA.MEDREC ---
Pharmacy Consult ? Medication Reconciliation Pharmacy has completed the medication reconciliation. Reviewed med rec done by Christine Christopher
[2022-04-04 08:42] LABS: Anion Gap 10 (12-20); Blood Urea Nitrogen 26 mg/dL (9-16); Calcium 8.2 mg/dL (8.4-10.2); Carbon Dioxide 21 mmol/L (22-29); Chloride 103 mmol/L (96-108); Creatinine Clr Calc Pharmacy 62.5; Estimated Glomerular Filt Rate > 60; Glucose Random 103 mg/dL (60-115); Potassium 3.8 mmol/L (3.3-5.1); Sodium 130 mmol/L (135-145)
[2022-04-04] MEDS: FLUoxetine HCl 20 MG CAPSULE 40 MG PO (09:00)
[2022-04-04] MEDS: QUEtiapine Fumarate 300 MG TABLET PO ×2 (09:00→20:31)
[2022-04-04] MEDS: Folic Acid 1 MG TABLET PO (09:00)
[2022-04-04 12:55] LABS: Creatinine Urine 13.62 mg/dL
[2022-04-04 13:15] LABS: Osmolality Urine 145 mosm/kg (373-1093)
--- NOTE | 2022-04-04 14:21 | P.PNIM_ITS ---
Subjective Subjective Date of Service: 04/04/22 Interval History: cc: seizure interval history:no complaints Cardiovascular Cardiovascular: Reports no additional cardiovascular complaints Respiratory Respiratory: Reports no additional respiratory complaints Physical Exam Vital Signs: Vital Signs: Last Vital Signs Temp 98.2 F 04/04/22 10:49 Pulse 76 04/04/22 11:24 Resp 16 04/04/22 11:24 BP 129/61 04/04/22 11:24 Pulse Ox 97 04/04/22 11:24 O2 Del Method 04/04/22 11:24 O2 Flow Rate 2 04/04/22 10:49 Oxygen Flow Rate 2 04/03/22 20:32 BMI result Body Mass Index 21.4 General: AO X 3, no acute distress Resp: CTA bilateral, no accessory muscles used CVS: S1,S2,RRR GI: soft, non tender, non distended Neuro: motor grossly intact, alert Psych: appropriate affect, impaired insight Objective Data Active Medications Acetaminophen (Acetaminophen 325 Mg Tablet) 650 mg PO Q6H PRN PRN Reason: Pain, Mild (Pain Scale 1-3) Docusate Sodium (Docusate Sodium 100 Mg Capsule) 100 mg PO DAILY PRN PRN Reason: Constipation Enoxaparin Sodium (Enoxaparin Sodium 40 Mg/0.4 Ml Syringe) 40 mg SUBCUT Q24H [facility] Last Admin: 04/04/22 00:51 Dose: 40 mg Documented By: KAYLA Fluoxetine HCl (Fluoxetine Hcl 20 Mg Capsule) 40 mg PO DAILY [facility] Last Admin: 04/04/22 09:00 Dose: 40 mg Documented By: JYOTHI Folic Acid (Folic Acid 1 Mg Tablet) 1 mg PO DAILY [facility] Last Admin: 04/04/22 09:00 Dose: 1 mg Documented By: JYOTHI Ceftriaxone Sodium 1 gm/ (Sodium Chloride) 50 mls @ 100 mls/hr IV Q24H [facility] Sodium Chloride (Ns) 1,000 mls @ 80 mls/hr IVCONT .[id number] [facility] Last Admin: 04/04/22 02:39 Dose: 80 mls/hr Documented By: KAYLA Lorazepam (Lorazepam 1 Mg Tablet) 1 mg PO BID PRN PRN Reason: Anxiety Ondansetron HCl (Ondansetron Hcl 4 Mg/2 Ml Vial) 4 mg IVPUSH Q8H PRN PRN Reason: Nausea and Vomiting Pharmacy Consult (Consult Rx Perform Med Rec) 1 each MISCELLANE ONCE PRN PRN Reason: Consult order Quetiapine Fumarate (Quetiapine Fumarate 300 Mg Tablet) 300 mg PO BID [facility] Last Admin: 04/04/22 09:00 Dose: 300 mg Documented By: JYOTHI Sodium Chloride (0.9 % Sodium Chloride Flush 3 Ml Syringe) 3 ml IVFLUSH QSHIFT [facility] Last Admin: 04/04/22 06:57 Dose: Not Given Documented By: CHETAN Non-Admin Reason: Med Not Available Labs CBC & Chem 7: 04/04/22 04:46 04/04/22 08:17 Labs: Laboratory Results - last 24 hr 04/03/22 04/03/22 04/03/22 20:57 20:57 20:58 MCV 92.6 MCH 31.9 MCHC 34.4 RDW 12.9 Plt Count 299 MPV 9.4 Immature Gran % (Auto) 0.5 H Neut % (Auto) 78.2 H Lymph % (Auto) 11.1 L [place] % (Auto) 9.6 Eos % (Auto) 0.2 Baso % (Auto) 0.4 Lymph # (Auto) 0.9 L [place] # (Auto) 0.8 Eos # (Auto) 0.0 Baso # (Auto) 0.0 Abs Immat Gran (auto) 0.04 H Absolute Neuts (auto) 6.4 Absolute Nucleated RBC 0.000 Nucleated RBC % (auto) 0.0 Anion Gap 15 Estim Creat Clear Calc 38.6 Estimated GFR 40 Random Glucose 109 Lactic Acid 2.4 H* Lactic Acid F/U @ 2Hr Calcium 9.0 Total Bilirubin 0.5 Direct Bilirubin 0.2 AST 34 D ALT 28 Alkaline Phosphatase 100 D Troponin I High Sens B-Natriuretic Peptide Total Protein 7.1 Albumin 4.1 Lipase 13 Urine Color Urine Appearance Urine pH Ur Specific [place] Urine Protein Urine Glucose (UA) Urine Ketones Urine Blood Urine Nitrite Ur Leukocyte Esterase Urine RBC Urine WBC Ur Squamous Epith Cells Urine Bacteria Urine Osmolality Ur Random Sodium Urine Creatinine CSF Tube Number CSF Volume CSF Appearance CSF Color CSF WBC CSF RBC CSF Neutrophils CSF Lymphocytes CSF Appearance (b) CSF Glucose CSF Total Protein Influenza Type A (PCR) Influenza Type B (PCR) RSV RNA Qual (PCR) SARS-CoV-2 RNA (RT-PCR) 04/03/22 04/03/22 04/03/22 21:10 21:11 21:13 MCV MCH MCHC RDW Plt Count MPV Immature Gran % (Auto) Neut % (Auto) Lymph % (Auto) [place] % (Auto) Eos % (Auto) Baso % (Auto) Lymph # (Auto) [place] # (Auto) Eos # (Auto) Baso # (Auto) Abs Immat Gran (auto) Absolute Neuts (auto) Absolute Nucleated RBC Nucleated RBC % (auto) Anion Gap Estim Creat Clear Calc Estimated GFR Random Glucose Lactic Acid Lactic Acid F/U @ 2Hr Calcium Total Bilirubin Direct Bilirubin AST ALT Alkaline Phosphatase Troponin I High Sens 96.7 H D B-Natriuretic Peptide 27 Total Protein Albumin Lipase Urine Color YELLOW Urine Appearance CLEAR Urine pH 7.0 Ur Specific [place] 1.010 Urine Protein TRACE Urine Glucose (UA) NEG Urine Ketones 5 Urine Blood NEG Urine Nitrite NEG Ur Leukocyte Esterase 2+ H Urine RBC 1-4 Urine WBC 5-9 H Ur Squamous Epith Cells TRACE Urine Bacteria 4+ Urine Osmolality Ur Random Sodium Urine Creatinine CSF Tube Number CSF Volume CSF Appearance CSF Color CSF WBC CSF RBC CSF Neutrophils CSF Lymphocytes CSF Appearance (b) CSF Glucose CSF Total Protein Influenza Type A (PCR) NEGATIVE Influenza Type B (PCR) NEGATIVE RSV RNA Qual (PCR) NEGATIVE SARS-CoV-2 RNA (RT-PCR) NEGATIVE 04/03/22 04/03/22 04/03/22 23:14 23:57 23:57 MCV MCH MCHC RDW Plt Count MPV Immature Gran % (Auto) Neut % (Auto) Lymph % (Auto) [place] % (Auto) Eos % (Auto) Baso % (Auto) Lymph # (Auto) [place] # (Auto) Eos # (Auto) Baso # (Auto) Abs Immat Gran (auto) Absolute Neuts (auto) Absolute Nucleated RBC Nucleated RBC % (auto) Anion Gap Estim Creat Clear Calc Estimated GFR Random Glucose Lactic Acid Lactic Acid F/U @ 2Hr 1.3 Calcium Total Bilirubin Direct Bilirubin AST ALT Alkaline Phosphatase Troponin I High Sens B-Natriuretic Peptide Total Protein Albumin Lipase Urine Color Urine Appearance Urine pH Ur Specific [place] Urine Protein Urine Glucose (UA) Urine Ketones Urine Blood Urine Nitrite Ur Leukocyte Esterase Urine RBC Urine WBC Ur Squamous Epith Cells Urine Bacteria Urine Osmolality Ur Random Sodium Urine Creatinine CSF Tube Number 1 4 CSF Volume 0.3 CSF Appearance BLOODY CSF Color PINK CSF WBC 7 CSF RBC 898 CSF Neutrophils 80 CSF Lymphocytes 20 CSF Appearance (b) Hazy CSF Glucose 64 CSF Total Protein 44.5 Influenza Type A (PCR) Influenza Type B (PCR) RSV RNA Qual (PCR) SARS-CoV-2 RNA (RT-PCR) 04/04/22 04/04/22 04/04/22 01:42 04:46 04:46 MCV 94.0 MCH 31.3 MCHC 33.3 RDW 13.2 Plt Count 247 MPV 9.4 Immature Gran % (Auto) 0.4 Neut % (Auto) 67.9 Lymph % (Auto) 16.3 L [place] % (Auto) 15.1 H Eos % (Auto) 0.1 Baso % (Auto) 0.2 Lymph # (Auto) 1.6 [place] # (Auto) 1.5 H Eos # (Auto) 0.0 Baso # (Auto) 0.0 Abs Immat Gran (auto) 0.04 H Absolute Neuts (auto) 6.7 Absolute Nucleated RBC 0.000 Nucleated RBC % (auto) 0.0 Anion Gap 10 L Estim Creat Clear Calc 59.6 Estimated GFR > 60 Random Glucose 99 Lactic Acid Lactic Acid F/U @ 2Hr Calcium 7.9 L D Total Bilirubin Direct Bilirubin AST ALT Alkaline Phosphatase Troponin I High Sens 357.9 H* D B-Natriuretic Peptide Total Protein Albumin Lipase Urine Color Urine Appearance Urine pH Ur Specific [place] Urine Protein Urine Glucose (UA) Urine Ketones Urine Blood Urine Nitrite Ur Leukocyte Esterase Urine RBC Urine WBC Ur Squamous Epith Cells Urine Bacteria Urine Osmolality Ur Random Sodium Urine Creatinine CSF Tube Number CSF Volume CSF Appearance CSF Color CSF WBC CSF RBC CSF Neutrophils CSF Lymphocytes CSF Appearance (b) CSF Glucose CSF Total Protein Influenza Type A (PCR) Influenza Type B (PCR) RSV RNA Qual (PCR) SARS-CoV-2 RNA (RT-PCR) 04/04/22 04/04/22 04/04/22 04:46 08:17 12:28 MCV MCH MCHC RDW Plt Count MPV Immature Gran % (Auto) Neut % (Auto) Lymph % (Auto) [place] % (Auto) Eos % (Auto) Baso % (Auto) Lymph # (Auto) [place] # (Auto) Eos # (Auto) Baso # (Auto) Abs Immat Gran (auto) Absolute Neuts (auto) Absolute Nucleated RBC Nucleated RBC % (auto) Anion Gap 10 L Estim Creat Clear Calc 62.5 Estimated GFR > 60 Random Glucose 103 Lactic Acid Lactic Acid F/U @ 2Hr Calcium 8.2 L Total Bilirubin Direct Bilirubin AST ALT Alkaline Phosphatase Troponin I High Sens 253.5 H* B-Natriuretic Peptide Total Protein Albumin Lipase Urine Color Urine Appearance Urine pH Ur Specific [place] Urine Protein Urine Glucose (UA) Urine Ketones Urine Blood Urine Nitrite Ur Leukocyte Esterase Urine RBC Urine WBC Ur Squamous Epith Cells Urine Bacteria Urine Osmolality Ur Random Sodium 23.0 Urine Creatinine 13.62 CSF Tube Number CSF Volume CSF Appearance CSF Color CSF WBC CSF RBC CSF Neutrophils CSF Lymphocytes CSF Appearance (b) CSF Glucose CSF Total Protein Influenza Type A (PCR) Influenza Type B (PCR) RSV RNA Qual (PCR) SARS-CoV-2 RNA (RT-PCR) 04/04/22 12:28 MCV MCH MCHC RDW Plt Count MPV Immature Gran % (Auto) Neut % (Auto) Lymph % (Auto) [place] % (Auto) Eos % (Auto) Baso % (Auto) Lymph # (Auto) [place] # (Auto) Eos # (Auto) Baso # (Auto) Abs Immat Gran (auto) Absolute Neuts (auto) Absolute Nucleated RBC Nucleated RBC % (auto) Anion Gap Estim Creat Clear Calc Estimated GFR Random Glucose Lactic Acid Lactic Acid F/U @ 2Hr Calcium Total Bilirubin Direct Bilirubin AST ALT Alkaline Phosphatase Troponin I High Sens B-Natriuretic Peptide Total Protein Albumin Lipase Urine Color Urine Appearance Urine pH Ur Specific [place] Urine Protein Urine Glucose (UA) Urine Ketones Urine Blood Urine Nitrite Ur Leukocyte Esterase Urine RBC Urine WBC Ur Squamous Epith Cells Urine Bacteria Urine Osmolality 145 L Ur Random Sodium Urine Creatinine CSF Tube Number CSF Volume CSF Appearance CSF Color CSF WBC CSF RBC CSF Neutrophils CSF Lymphocytes CSF Appearance (b) CSF Glucose CSF Total Protein Influenza Type A (PCR) Influenza Type B (PCR) RSV RNA Qual (PCR) SARS-CoV-2 RNA (RT-PCR) Microbiology Microbiology Results: Microbiology 04/03/22 Unknown Urine Culture - Preliminary Urine clean catch - Urine luz top Culture in progress. 04/03/22 23:57 Gram Stain - Final Cerebrospinal Fluid CSF Examination - Final Fluid Description - Final Assessment and Plan (1) Seizure-like activity: Status: Acute Plan 71M presented with seizure and fevers sepsis due to uti vs fevers from chemical aspiration and seizure continue rocpehin, follow up cultures seizure first epsidoe in 20 years follow up neuro seizure precautions elevated troponin due to seizure, no acs schizophrenica seroquel dvt prophyalxis - lovenox dnr/dni reason for continued hospitalization: awaiting deferevensence Quality Stroke Does the patient have a stroke diagnosis?: No VTE Prior VTE?: No VTE Risk Level:: Medical - moderate - high VTE Device Contraindication: Treatment Not Indicated VTE Drug Contraindication: N/A - Med Ordered
[2022-04-04] MEDS: Acetaminophen 325 MG TABLET 650 MG PO (20:31)
[2022-04-04] MEDS: cefTRIAXone sodium 1 GM in 0.9 % Sodium Chloride 50 ML IV (20:31)
--- NOTE | 2022-04-04 21:23 | PC.NURSE ---
pt incontinent of bowel. incont care by property maintenance technician, pt had a large formed BM during incont care. difficulty following directions. pt pocketed medications in his cheek. subsequent meds were crushed in pudding. brother/HCP at bedside. pt has no complaints
[2022-04-05] VITALS (7 sets, daily range): BP systolic 113–163; BP diastolic 58–82; PULSE 76–93; RESP 16–20; TEMP 36.7–38.1; O2SAT 95–98; BMI 20.6
[2022-04-05] MEDS: Enoxaparin Sodium 40 MG/0.4 ML SYRINGE SUBCUT ×2 (01:06→23:30)
[2022-04-05] MEDS: 0.9 % Sodium Chloride 1,000 ML 80 ML IVCONT ×2 (01:10→16:36)
[2022-04-05 07:21] LABS: Hematocrit 30.5 % (42.0-52.0); Mean Corpuscular HGB Conc 32.8 g/dl (31.0-36.0); Mean Corpuscular Hemoglobin 31.1 pg (27.0-33.0); Mean Corpuscular Volume 94.7 fL (80.0-98.0); Mean Platelet Volume 9.6 fL (9.4-12.4); Platelet Count 264 X10*3/uL (160-400); Red Blood Count 3.22 X10*6/uL (4.60-5.80); Red Cell Distribution Width 13.1 % (11.0-16.0); White Blood Count 6.2 X10*3/uL (4.8-10.8)
[2022-04-05 07:42] LABS: Anion Gap 7 (12-20); Anion Gap 8 (12-20); Blood Urea Nitrogen 21 mg/dL (9-16); Calcium 8.2 mg/dL (8.4-10.2); Carbon Dioxide 20 mmol/L (22-29); Carbon Dioxide 21 mmol/L (22-29); Chloride 111 mmol/L (96-108); Chloride 112 mmol/L (96-108); Creatinine Clr Calc Pharmacy 86.5; Estimated Glomerular Filt Rate > 60; Glucose Fasting 105 mg/dL (60-99); Glucose Random 105 mg/dL (60-115); Potassium 4.1 mmol/L (3.3-5.1); Sodium 135 mmol/L (135-145); Sodium 136 mmol/L (135-145)
--- NOTE | 2022-04-05 09:00 | MHC.CM.PN ---
IMM 04/05/22 Male 71 DX UTI Sepsis SZ. Patient lives with his Brother/Guardian/HCP. A copy of HCP and Guardianship papers have been requested. requested. Patient requires assist and supervision all functional mobility. He goes to a Day Program Daily. He is currently weak and unable to stand r/t UTI SEPSIS. DP is contingent on the patient's mobility, when medically clear. If he is able to use his walker, home is the plan. STR if he qualifies via BLS.
--- NOTE | 2022-04-05 10:32 | P.CNNE_ITS ---
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 History was obtained from chart and his brother who was sitting next to him. Brother said that he was not sure if he had a seizure but he was generally weak and lethargic for few days. There has been mention of seizure disorder and his history but no definite seizure- like episode recent years. He was unable to provide any meaningful history Review of Systems Review of Systems: no recent cold or flu-like illness PMFSH Past Medical History Medical History Developmental delay, borderline Schizophrenia Family History Family History (Updated 04/04/22 @ 07:51 by Manish Chilel MD) Other No family history of coronary artery disease Surgical History Surgical History History of hip replacement Social History Social History (Updated 04/04/22 @ 07:53 by Manish Chilel MD) Household Members: Other Housing: Care Home Do you presently have visiting nurse or other home services: No Unable to assess alcohol history related to: Unknown Alcohol intake: never Patient Tobacco Use Status: Never used Tobacco service: No Current occupational status: disabled Meds Allergies Allergy/AdvReac Type Severity Reaction Status Date / Time No Known Allergies Allergy Verified 04/03/22 21:30 [No Known Allergies*] Active Medications: Current Medications Acetaminophen (Acetaminophen 325 Mg Tablet) 650 mg PO Q6H PRN PRN Reason: Pain, Mild (Pain Scale 1-3) Last Admin: 04/04/22 20:31 Dose: 650 mg Docusate Sodium (Docusate Sodium 100 Mg Capsule) 100 mg PO DAILY PRN PRN Reason: Constipation Enoxaparin Sodium (Enoxaparin Sodium 40 Mg/0.4 Ml Syringe) 40 mg SUBCUT Q24H [facility] Last Admin: 04/05/22 01:06 Dose: 40 mg Fluoxetine HCl (Fluoxetine Hcl 20 Mg Capsule) 40 mg PO DAILY [facility] Last Admin: 04/04/22 09:00 Dose: 40 mg Folic Acid (Folic Acid 1 Mg Tablet) 1 mg PO DAILY [facility] Last Admin: 04/04/22 09:00 Dose: 1 mg Ceftriaxone Sodium 1 gm/ (Sodium Chloride) 50 mls @ 100 mls/hr IV Q24H [facility] Last Infusion: 04/04/22 21:01 Dose: Infused Sodium Chloride (Ns) 1,000 mls @ 80 mls/hr IVCONT .[id number] [facility] Last Admin: 04/05/22 01:10 Dose: 80 mls/hr Lorazepam (Lorazepam 1 Mg Tablet) 1 mg PO BID PRN PRN Reason: Anxiety Ondansetron HCl (Ondansetron Hcl 4 Mg/2 Ml Vial) 4 mg IVPUSH Q8H PRN PRN Reason: Nausea and Vomiting Pharmacy Consult (Consult Rx Perform Med Rec) 1 each MISCELLANE ONCE PRN PRN Reason: Consult order Quetiapine Fumarate (Quetiapine Fumarate 300 Mg Tablet) 300 mg PO BID [facility] Last Admin: 04/04/22 20:31 Dose: 300 mg Sodium Chloride (0.9 % Sodium Chloride Flush 3 Ml Syringe) 3 ml IVFLUSH QSHIFT [facility] Last Admin: 04/05/22 01:10 Dose: Not Given Home Medications Medication Instructions Recorded Confirmed Last Taken Type budesonide 0.5 mg/2 mL suspension 2 ml inhalation QPM PRN Shortness 04/03/22 04/04/22 Unknown History for nebulization Of Breath cholecalciferol (vitamin D3) 25 1 cap PO DAILY 04/03/22 04/04/22 04/03/22 07:00 History mcg (1,000 unit) capsule (Vitamin D3) fluoxetine 40 mg capsule 1 cap PO QAM 04/03/22 04/03/22 04/03/22 07:00 History folic acid 1 mg tablet 1 tab PO DAILY 04/03/22 04/03/22 04/03/22 07:00 History lorazepam 1 mg tablet 1 tab PO BID PRN Anxiety 04/03/22 04/03/22 04/03/22 07:00 History nebulizer and compressor (Vios 04/03/22 04/03/22 Unknown History Aerosol Delivery System) quetiapine 300 mg tablet 1 tab PO BID 04/03/22 04/03/22 04/03/22 07:00 History Physical Exam Vital Signs: Vital Signs: Last Vital Signs Temp 98.2 F 04/05/22 07:41 Pulse 76 04/05/22 07:41 Resp 20 04/05/22 07:41 BP 163/72 H 04/05/22 07:41 Pulse Ox 96 04/05/22 07:41 O2 Del Method 04/05/22 07:41 O2 Flow Rate 2 04/04/22 10:49 Oxygen Flow Rate 2 04/03/22 20:32 BMI result Body Mass Index 20.6 Neuro: Other: he is alert and awake speaking in nonsensical speech and did not follow commands. Face was symmetrical. Visual villanueva are full. Pupils were equal and reactive to light. There was no obvious focal arm or leg weakness. Plantars were flexors. Deep tendon reflexes were 2+. Results Labs CBC & Chem 7: 04/05/22 06:39 04/05/22 06:39 Labs: Short CBC 04/05/22 Range/Units 06:39 WBC 6.2 (4.8-10.8) X10*3/uL Hgb 10.0 L (14.0-18.0) g/dl Hct 30.5 L (42.0-52.0) % Plt Count 264 (160-400) X10*3/uL BMP 04/05/22 04/05/22 06:39 06:39 Sodium 135 136 Potassium 4.1 4.1 Chloride 111 H 112 H Carbon Dioxide 21 L 20 L BUN 21 H 21 H Creatinine 0.72 0.72 Calcium 8.2 L 8.[address] revealed moderately severe cerebellar and cerebral atrophy. Microbiology Microbiology Results: Microbiology 04/03/22 23:57 Cerebrospinal Fluid Gram Stain - Final 04/03/22 23:57 Cerebrospinal Fluid CSF Examination - Final 04/03/22 23:57 Cerebrospinal Fluid Fluid Description - Final 04/03/22 23:57 Cerebrospinal Fluid CSF Culture - Preliminary No growth after 1 day 04/03/22 21:10 Blood - Venous Blood Culture - Preliminary No growth after 24 hours. 04/03/22 20:57 Blood - Venous Blood Culture - Preliminary No growth after 24 hours. 04/03/22 Unknown Urine clean catch - Urine luz top Urine Culture - Preliminary Culture in progress. 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 Initially he was febrile and a lumbar puncture was performed to rule out meningoence phalitis, which was negative. Head CT did not reveal any obvious abnormality. Overall history was not typical of seizure disorder. Encephalopathy from fever might be the reason for weakness and lethargy. At this time treatment of infection is recommended. As far as seizure disorder is concerned, an outpatient EEG can be arranged for screening. Procedures Date of Service Date of Service: 04/05/22
[2022-04-05] MEDS: Folic Acid 1 MG TABLET PO (12:42)
[2022-04-05] MEDS: QUEtiapine Fumarate 300 MG TABLET PO ×2 (12:42→20:37)
[2022-04-05] MEDS: FLUoxetine HCl 20 MG CAPSULE 40 MG PO (12:42)
--- NOTE | 2022-04-05 12:48 | P.PNIM_ITS ---
Subjective Subjective Date of Service: 04/05/22 Interval History: cc: seizure interval history:no complaints Cardiovascular Cardiovascular: Reports no additional cardiovascular complaints Respiratory Respiratory: Reports no additional respiratory complaints Physical Exam Vital Signs: Vital Signs: Last Vital Signs Temp 99.3 F 04/05/22 11:26 Pulse 91 04/05/22 11:26 Resp 20 04/05/22 11:26 BP 150/66 H 04/05/22 11:26 Pulse Ox 97 04/05/22 11:26 O2 Del Method 04/05/22 11:26 O2 Flow Rate 2 04/04/22 10:49 Oxygen Flow Rate 2 04/03/22 20:32 BMI result Body Mass Index 20.6 General: AO X 3, no acute distress Resp: CTA bilateral, no accessory muscles used CVS: S1,S2,RRR GI: soft, non tender, non distended Neuro: motor grossly intact, alert Psych: appropriate affect, impaired insight Objective Data Active Medications Acetaminophen (Acetaminophen 325 Mg Tablet) 650 mg PO Q6H PRN PRN Reason: Pain, Mild (Pain Scale 1-3) Last Admin: 04/04/22 20:31 Dose: 650 mg Documented By: JOSE Docusate Sodium (Docusate Sodium 100 Mg Capsule) 100 mg PO DAILY PRN PRN Reason: Constipation Enoxaparin Sodium (Enoxaparin Sodium 40 Mg/0.4 Ml Syringe) 40 mg SUBCUT Q24H [facility] Last Admin: 04/05/22 01:06 Dose: 40 mg Documented By: CHI Fluoxetine HCl (Fluoxetine Hcl 20 Mg Capsule) 40 mg PO DAILY [facility] Last Admin: 04/05/22 12:42 Dose: 40 mg Documented By: CTORRMadelaine Folic Acid (Folic Acid 1 Mg Tablet) 1 mg PO DAILY [facility] Last Admin: 04/05/22 12:42 Dose: 1 mg Documented By: CTLILIA Ceftriaxone Sodium 1 gm/ (Sodium Chloride) 50 mls @ 100 mls/hr IV Q24H [facility] Last Infusion: 04/04/22 21:01 Dose: 0 mls/hr Documented By: JOSE Sodium Chloride (Ns) 1,000 mls @ 80 mls/hr IVCONT .[id number] [facility] Last Admin: 04/05/22 01:10 Dose: 80 mls/hr Documented By: CHI Lorazepam (Lorazepam 1 Mg Tablet) 1 mg PO BID PRN PRN Reason: Anxiety Ondansetron HCl (Ondansetron Hcl 4 Mg/2 Ml Vial) 4 mg IVPUSH Q8H PRN PRN Reason: Nausea and Vomiting Pharmacy Consult (Consult Rx Perform Med Rec) 1 each MISCELLANE ONCE PRN PRN Reason: Consult order Quetiapine Fumarate (Quetiapine Fumarate 300 Mg Tablet) 300 mg PO BID [facility] Last Admin: 04/05/22 12:42 Dose: 300 mg Documented By: ADAM Sodium Chloride (0.9 % Sodium Chloride Flush 3 Ml Syringe) 3 ml IVFLUSH QSHIFT [facility] Last Admin: 04/05/22 12:43 Dose: Not Given Documented By: ADAM Non-Admin Reason: IV Running Labs CBC & Chem 7: 04/05/22 06:39 04/05/22 06:39 Labs: Laboratory Results - last 24 hr 04/04/22 04/04/22 04/05/22 12:28 12:28 06:39 MCV MCH MCHC RDW Plt Count MPV Absolute Nucleated RBC Nucleated RBC % (auto) Anion Gap 7 L Estim Creat Clear Calc 86.5 Estimated GFR > 60 Random Glucose 105 Fasting Glucose Calcium 8.2 L Urine Osmolality 145 L Ur Random Sodium 23.0 Urine Creatinine 13.62 04/05/22 04/05/22 06:39 06:39 MCV 94.7 MCH 31.1 MCHC 32.8 RDW 13.1 Plt Count 264 MPV 9.6 Absolute Nucleated RBC 0.000 Nucleated RBC % (auto) 0.0 Anion Gap 8 L Estim Creat Clear Calc 86.5 Estimated GFR > 60 Random Glucose Fasting Glucose 105 H Calcium 8.0 L Urine Osmolality Ur Random Sodium Urine Creatinine Microbiology Microbiology Results: Microbiology 04/03/22 Unknown Urine Culture - Final Urine clean catch - Urine luz top 04/03/22 23:57 Gram Stain - Final Cerebrospinal Fluid CSF Examination - Final Fluid Description - Final CSF Culture - Preliminary No growth after 1 day 04/03/22 21:10 Blood Culture - Preliminary Blood - Venous No growth after 24 hours. 04/03/22 20:57 Blood Culture - Preliminary Blood - Venous No growth after 24 hours. 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
[2022-04-05] MEDS: Acetaminophen 325 MG TABLET 650 MG PO (13:04)
--- NOTE | 2022-04-05 13:05 | PC.NURSE ---
pT FELT WAR, TO TOUCH, CHECK ORAL; 100.5. TYLENOL GIVEN; AWARE
--- NOTE | 2022-04-05 15:35 | MHC.SL.SWA ---
Speech Pathologist Impression: Oropharyngeal dysphagia Risk of Aspiration Due to: Reduced Cognition Dysphasia Diet Status: Downgrade Liquid Consistency and Strategies for Safe Swallow: Liquid Intake Recommendation: [place] Thick Liquid Intake Strategies: Small Sips No Straws Solid Food Consistency: Dietary Recommendations: Chopped/Advanced (NDD3) Additional Modifications to Solid Foods: Recommend start patient on CHOPPED/ADVANCED (NDD3) diet with NECTAR THICK liquids, pills CRUSHED in PUREE. Recommend 1:1 feeding assistance and aspiration precautions. Diet order updated by ROOFING TECHNICIAN. Sent [place] Message to , RN, RD updating of recommendations. ROOFING TECHNICIAN will continue to follow. Oral Medication Intake: Crushed with Puree Please contact the pharmacy regarding appropriate crushable or liquid drug formulations that are available whenever modified delivery is recommended. Compensatory Strategies and Precautions to be Taken for Safe Swallow: Sitting Upright (90 deg) No Straw Small Bites and Sips Alternate Liquids/Solids Rate of Ingestion Change Oral Check Avoid Specific Foods Supervision While Eating and Drinking for Safe Swallow: Total Assistance (1:1) Foods to Avoid: Tough difficult to chew solids, mixed consistencies Swallowing Recommended Treatments: Compens. Strategy Educat. Recommendation for Speech: Inpatient Speech Therapy Comment: ROOFING TECHNICIAN will continue to follow. Assessor Clinican/Clinical Fellow: No Supervisory Statement: I have reviewed and agree with the student/clinical fellow's documentation: N/A Speech Language Pathologist: Camilla Palmer M.A., [facility]-ROOFING TECHNICIAN
[2022-04-05] MEDS: cefTRIAXone sodium 1 GM in 0.9 % Sodium Chloride 50 ML IV (20:37)
[2022-04-05] MEDS: 0.9 % Sodium Chloride Flush 3 ML SYRINGE IVFLUSH (20:38)
[2022-04-06] VITALS: BP 145/68; PULSE 86; RESP 16; TEMP 36.1; O2SAT 94
[2022-04-06 03:05] VITALS: BP 150/71; PULSE 84; RESP 16; TEMP 37; O2SAT 96
[2022-04-06 07:29] LABS: Anion Gap 9 (12-20); Blood Urea Nitrogen 16 mg/dL (9-16); Calcium 7.9 mg/dL (8.4-10.2); Carbon Dioxide 19 mmol/L (22-29); Chloride 111 mmol/L (96-108); Estimated Glomerular Filt Rate > 60; Glucose Random 96 mg/dL (60-115); Potassium 3.6 mmol/L (3.3-5.1); Sodium 135 mmol/L (135-145)
[2022-04-06 08:00] VITALS: BP 134/74; PULSE 90; RESP 20; TEMP 37.2; O2SAT 96
[2022-04-06] MEDS: FLUoxetine HCl 20 MG CAPSULE 40 MG PO (10:56)
[2022-04-06] MEDS: QUEtiapine Fumarate 300 MG TABLET PO (10:56)
[2022-04-06] MEDS: Folic Acid 1 MG TABLET PO (10:57)
[2022-04-06] MEDS: 0.9 % Sodium Chloride Flush 3 ML SYRINGE IVFLUSH ×2 (11:01→19:36)
--- NOTE | 2022-04-06 11:38 | HO.PM.IMPN ---
Subjective Subjective Date of Service: 04/06/22 Interval History: cc: seizure interval history:no complaints Cardiovascular Cardiovascular: Reports no additional cardiovascular complaints Respiratory Respiratory: Reports no additional respiratory complaints Physical Exam Vital Signs: Vital Signs: Last Vital Signs Temp 98.9 F 04/06/22 08:00 Pulse 90 04/06/22 08:00 Resp 20 04/06/22 08:00 BP 134/74 04/06/22 08:00 Pulse Ox 96 04/06/22 08:00 O2 Del Method 04/06/22 08:00 O2 Flow Rate 2 04/04/22 10:49 Oxygen Flow Rate 2 04/03/22 20:32 BMI result Body Mass Index 20.6 General: AO X 3, no acute distress Resp: CTA bilateral, no accessory muscles used CVS: S1,S2,RRR GI: soft, non tender, non distended Neuro: motor grossly intact, alert Psych: appropriate affect, impaired insight Objective Data Active Medications Acetaminophen (Acetaminophen 325 Mg Tablet) 650 mg PO Q6H PRN PRN Reason: Pain, Mild (Pain Scale 1-3) Last Admin: 04/05/22 13:04 Dose: 650 mg Documented By: ADAM Docusate Sodium (Docusate Sodium 100 Mg Capsule) 100 mg PO DAILY PRN PRN Reason: Constipation Enoxaparin Sodium (Enoxaparin Sodium 40 Mg/0.4 Ml Syringe) 40 mg SUBCUT Q24H [facility] Last Admin: 04/05/22 23:30 Dose: 40 mg Documented By: CAROLYNE Fluoxetine HCl (Fluoxetine Hcl 20 Mg Capsule) 40 mg PO DAILY [facility] Last Admin: 04/06/22 10:56 Dose: 40 mg Documented By: ADAM Folic Acid (Folic Acid 1 Mg Tablet) 1 mg PO DAILY [facility] Last Admin: 04/06/22 10:57 Dose: 1 mg Documented By: ADAM Ceftriaxone Sodium 1 gm/ (Sodium Chloride) 50 mls @ 100 mls/hr IV Q24H [facility] Last Infusion: 04/05/22 21:32 Dose: 0 mls/hr Documented By: CAROLYNE Lorazepam (Lorazepam 1 Mg Tablet) 1 mg PO BID PRN PRN Reason: Anxiety Ondansetron HCl (Ondansetron Hcl 4 Mg/2 Ml Vial) 4 mg IVPUSH Q8H PRN PRN Reason: Nausea and Vomiting Pharmacy Consult (Consult Rx Perform Med Rec) 1 each MISCELLANE ONCE PRN PRN Reason: Consult order Quetiapine Fumarate (Quetiapine Fumarate 300 Mg Tablet) 300 mg PO BID [facility] Last Admin: 04/06/22 10:56 Dose: 300 mg Documented By: ADAM Sodium Chloride (0.9 % Sodium Chloride Flush 3 Ml Syringe) 3 ml IVFLUSH QSHIFT [facility] Last Admin: 04/06/22 11:01 Dose: 3 ml Documented By: ADAM Labs CBC & Chem 7: 04/05/22 06:39 04/06/22 06:13 Labs: Laboratory Results - last 24 hr 04/06/22 06:13 Anion Gap 9 L Estim Creat Clear Calc 82.0 Estimated GFR > 60 Random Glucose 96 Calcium 7.9 L Microbiology Microbiology Results: Microbiology 04/03/22 23:57 Gram Stain - Final Cerebrospinal Fluid CSF Examination - Final Fluid Description - Final CSF Culture - Preliminary No growth after 2 days 04/03/22 21:10 Blood Culture - Preliminary Blood - Venous No growth after 48 hours. 04/03/22 20:57 Blood Culture - Preliminary Blood - Venous No growth after 48 hours. 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
[2022-04-06 12:00] VITALS: BP 140/65; PULSE 92; RESP 19; TEMP 36.9; O2SAT 97
[2022-04-06 15:24] VITALS: BP 113/56; PULSE 87; RESP 20; TEMP 36.9; O2SAT 96
[2022-04-06 18:58] VITALS: BP 160/89; PULSE 89; RESP 18; TEMP 36.8; O2SAT 97
[2022-04-07] VITALS: BP 172/84; PULSE 88; RESP 16; TEMP 37.8; O2SAT 93
[2022-04-07] MEDS: Enoxaparin Sodium 40 MG/0.4 ML SYRINGE SUBCUT (00:14)
[2022-04-07] MEDS: QUEtiapine Fumarate 300 MG TABLET PO ×3 (00:15→22:22)
[2022-04-07] MEDS: 0.9 % Sodium Chloride Flush 3 ML SYRINGE IVFLUSH (00:15)
[2022-04-07] MEDS: cefTRIAXone sodium 1 GM in 0.9 % Sodium Chloride 50 ML IV ×2 (00:15→22:19)
[2022-04-07 04:00] VITALS: BP 150/74; PULSE 90; RESP 15; TEMP 37.7; O2SAT 97
[2022-04-07 07:26] LABS: Blood Urea Nitrogen 18 mg/dL (9-16); Calcium 8.1 mg/dL (8.4-10.2); Estimated Glomerular Filt Rate > 60; Glucose Random 101 mg/dL (60-115)
[2022-04-07 07:34] LABS: Anion Gap 10 (12-20); Carbon Dioxide 22 mmol/L (22-29); Chloride 108 mmol/L (96-108); Potassium 2.7 mmol/L (3.3-5.1); Sodium 137 mmol/L (135-145)
[2022-04-07 08:00] VITALS: BP 152/72; PULSE 84; RESP 20; TEMP 36.9; O2SAT 96
--- NOTE | 2022-04-07 09:31 | MHC.CM.PN ---
Male 71 DX Sepsis DP [facility] [place] VS Home with services. A clinical update has been sent. Spoke with BRO/HCP/Guardian re discharge. He is hoping that the patient gains strength, so that he can go home. [facility] [place] is 1st choice for STR. Patient will transport via BLS.
[2022-04-07] MEDS: Folic Acid 1 MG TABLET PO (09:37)
[2022-04-07] MEDS: FLUoxetine HCl 20 MG CAPSULE 40 MG PO (09:37)
[2022-04-07] MEDS: Potassium Chloride/H20 10 MEQ/100 ML PIGGYBACK 100 MEQ IV ×2 (10:59→11:04)
[2022-04-07] MEDS: Potassium Chloride Packet 20 MEQ PACKET 40 MEQ PO ×2 (10:59→13:56)
[2022-04-07 11:59] VITALS: BP 95/56; PULSE 88; RESP 19; TEMP 37.2; O2SAT 97
--- NOTE | 2022-04-07 12:01 | MHC.SLORD ---
Speech Language Pathology Order Status: BATCH PLANT SUPERVISOR attempted to see patient for PO trials, patient unavailable receiving nursing care. Patient is on chopped/advanced (NDD3) diet with nectar thick liquids. Please contact BATCH PLANT SUPERVISOR via [place] or ext. [phone] if there are any concerns. Otherwise, will f/u tomorrow.
[2022-04-07 15:27] VITALS: BP 166/80; PULSE 93; RESP 18; TEMP 36.8; O2SAT 97
--- NOTE | 2022-04-07 15:38 | P.PNIM_ITS ---
Subjective Subjective Date of Service: 04/07/22 Interval History: the patient was seen and evaluated this morning Laying in bed, feels comfortable Denies any fever, chills or shortness of breath No reported other overnight events. Systemic review: No fever, chills No chest pain, palpitation No shortness of breath or coughing No abdominal pain, nausea or vomiting No urinary symptoms No any rash or wounds Physical Exam Vital Signs: Vital Signs: Last Vital Signs Temp 98.3 F 04/07/22 15:27 Pulse 93 04/07/22 15:27 Resp 18 04/07/22 15:27 BP 166/80 H 04/07/22 15:27 Pulse Ox 97 04/07/22 15:27 O2 Del Method 04/07/22 15:27 O2 Flow Rate 2 04/04/22 10:49 Oxygen Flow Rate 2 04/03/22 20:32 BMI result Body Mass Index 20.6 Const: Other: Constitutional : Alert, not in distress Neck : Normal inspection, Supple Cardiovascular : RRR, no JVP, no lower extremity edema Respiratory : fair bilateral air entry, no crackles, wheezes or rhonchi Gastrointestinal: soft, lax, Normal bowel sounds, Non tender Skin : Warm, Dry Neurological : Alert & disoriented, No focal deficit Objective Data Active Medications Acetaminophen (Acetaminophen 325 Mg Tablet) 650 mg PO Q6H PRN PRN Reason: Pain, Mild (Pain Scale 1-3) Last Admin: 04/05/22 13:04 Dose: 650 mg Documented By: CTORRMadelaine Docusate Sodium (Docusate Sodium 100 Mg Capsule) 100 mg PO DAILY PRN PRN Reason: Constipation Enoxaparin Sodium (Enoxaparin Sodium 40 Mg/0.4 Ml Syringe) 40 mg SUBCUT Q24H [facility] Last Admin: 04/07/22 00:14 Dose: 40 mg Documented By: DESROA Fluoxetine HCl (Fluoxetine Hcl 20 Mg Capsule) 40 mg PO DAILY [facility] Last Admin: 04/07/22 09:37 Dose: 40 mg Documented By: WANDER-SOFFA Folic Acid (Folic Acid 1 Mg Tablet) 1 mg PO DAILY [facility] Last Admin: 04/07/22 09:37 Dose: 1 mg Documented By: N-SOFFA Ceftriaxone Sodium 1 gm/ (Sodium Chloride) 50 mls @ 100 mls/hr IV Q24H [facility] Last Infusion: 04/07/22 04:48 Dose: 0 mls/hr Documented By: ELYSSA Lorazepam (Lorazepam 1 Mg Tablet) 1 mg PO BID PRN PRN Reason: Anxiety Ondansetron HCl (Ondansetron Hcl 4 Mg/2 Ml Vial) 4 mg IVPUSH Q8H PRN PRN Reason: Nausea and Vomiting Pharmacy Consult (Consult Rx Perform Med Rec) 1 each MISCELLANE ONCE PRN PRN Reason: Consult order Quetiapine Fumarate (Quetiapine Fumarate 300 Mg Tablet) 300 mg PO BID [facility] Last Admin: 04/07/22 09:37 Dose: 300 mg Documented By: WANDER-SOFTERRENCE Sodium Chloride (0.9 % Sodium Chloride Flush 3 Ml Syringe) 3 ml IVFLUSH QSHIFT [facility] Last Admin: 04/07/22 07:33 Dose: Not Given Documented By: WANDER-SOFTERRENCE Non-Admin Reason: assessed Labs CBC & Chem 7: 04/05/22 06:39 04/07/22 06:46 Labs: Laboratory Results - last 24 hr 04/07/22 06:46 Anion Gap 10 L Estim Creat Clear Calc 82.0 Estimated GFR > 60 Random Glucose 101 Calcium 8.1 L Microbiology Microbiology Results: Microbiology 04/03/22 23:57 Gram Stain - Final Cerebrospinal Fluid CSF Examination - Final Fluid Description - Final CSF Culture - Final No growth after 3 days. Assessment and Plan (1) Acute UTI: Status: Acute (2) Seizure-like activity: Status: Acute (3) Acute hyponatremia: Status: Acute Plan 71M presented with convulasions and fevers sepsis , resolved due to uti & apiration pneuomnia complicated by metbaolic encephlaopathy Mental status improved continue rocephin, cultures negative so far No fever for last 24 hours metabolic encephalopathy, convulations neuro appreciated, seizure unlikely, outpatient eeg dysphagia edi developer appreciated - ndd3 solids, nectar thick liquids elevated troponin due to fevers, no acs schizophrenica seroquel weakness PT eval dvt prophyalxis - lovenox dnr/dni reason for continued hospitalization: pending placement. Quality Stroke Does the patient have a stroke diagnosis?: No VTE Prior VTE?: No VTE Risk Level:: Medical - moderate - high VTE Device Contraindication: Treatment Not Indicated VTE Drug Contraindication: N/A - Med Ordered
--- NOTE | 2022-04-07 15:53 | PC.NURSE ---
Pt's brother at bedside assisting with care and was updated by . Alcira replaced as ordered. pt gotten up to chair with walker. safety and fall precautions in place. call hale within reach.
[2022-04-07 19:24] VITALS: BP 127/86; PULSE 76; RESP 18; TEMP 37.1; O2SAT 98
[2022-04-08] VITALS (9 sets, daily range): BP systolic 108–170; BP diastolic 54–80; PULSE 81–91; RESP 14–20; TEMP 36–37.4; O2SAT 95–98
[2022-04-08] MEDS: Enoxaparin Sodium 40 MG/0.4 ML SYRINGE SUBCUT (01:07)
[2022-04-08] MEDS: 0.9 % Sodium Chloride Flush 3 ML SYRINGE IVFLUSH ×3 (01:07→20:30)
[2022-04-08 07:37] LABS: Anion Gap 10 (12-20); Blood Urea Nitrogen 23 mg/dL (9-16); Calcium 8.3 mg/dL (8.4-10.2); Carbon Dioxide 23 mmol/L (22-29); Chloride 111 mmol/L (96-108); Estimated Glomerular Filt Rate > 60; Glucose Random 108 mg/dL (60-115); Sodium 140 mmol/L (135-145)
[2022-04-08 07:52] LABS: Potassium 3.6 mmol/L (3.3-5.1)
[2022-04-08] MEDS: FLUoxetine HCl 20 MG CAPSULE 40 MG PO (09:57)
[2022-04-08] MEDS: Folic Acid 1 MG TABLET PO (09:57)
[2022-04-08] MEDS: QUEtiapine Fumarate 300 MG TABLET PO ×2 (09:57→20:30)
[2022-04-08 11:01] LABS: COVID-19 Test Positive (Negative); IDNOW Serial# 16C4AD1C
--- NOTE | 2022-04-08 12:32 | MHC.CM.PN ---
Patient tested Covid+. Discharge to [facility] is on hold. 04/18/22 Patient will be covid recovered. He will transport via BLS. The patient is not able to ambulate r/t le weakness. He lives with his brother. He is not able to care for him, safely at home.
--- NOTE | 2022-04-08 12:45 | MHC.SL.SWA ---
Speech Pathologist Impression: Oropharyngeal dysphagia Risk of Aspiration Due to: Reduced Cognition Dysphasia Diet Status: Patient lives with brother/guardian/HCP. Patient goes to a Day Program daily. Patient w/ hx intellectual disability, schizophrenia, developmental delay. Liquid Consistency and Strategies for Safe Swallow: Liquid Intake Recommendation: [place] Thick Liquid Intake Strategies: Small Sips Solid Food Consistency: Dietary Recommendations: Chopped/Advanced (NDD3) Additional Modifications to Solid Foods: Continue on CHOPPED/ADVANCED (NDD3) diet with NECTAR THICK liquids, pills CRUSHED in PUREE. Recommend 1:1 feeding assistance and aspiration precautions. No changes made to diet order at this time. STRATEGIC MANAGER will continue to follow. Oral Medication Intake: Crushed with Puree Please contact the pharmacy regarding appropriate crushable or liquid drug formulations that are available whenever modified delivery is recommended. Compensatory Strategies and Precautions to be Taken for Safe Swallow: Sitting Upright (90 deg) Small Bites and Sips Alternate Liquids/Solids Rate of Ingestion Change Supervision While Eating and Drinking for Safe Swallow: Total Supervision (1:1) Foods to Avoid: Tough difficult to chew solids, mixed consistencies Swallowing Recommended Treatments: Compens. Strategy Educat. Recommendation for Speech: Inpatient Speech Therapy Comment: STRATEGIC MANAGER will continue to follow. Cfd Engineer Clinican/Clinical Fellow: No Supervisory Statement: I have reviewed and agree with the student/clinical fellow's documentation: N/A Speech Language Pathologist: Camilla Palmer M.A., [facility] [place]-STRATEGIC MANAGER
--- NOTE | 2022-04-08 15:55 | HO.PM.IMPN ---
Subjective Subjective Date of Service: 04/08/22 Interval History: the patient was seen and evaluated this morning Laying in bed, feels comfortable Tested positive for COVID Denies any fever, chills or shortness of breath No reported other overnight events. Systemic review: No fever, chills No chest pain, palpitation No shortness of breath or coughing No abdominal pain, nausea or vomiting No urinary symptoms No any rash or wounds Physical Exam Vital Signs: Vital Signs: Last Vital Signs Temp 96.8 F 04/08/22 15:37 Pulse 83 04/08/22 15:37 Resp 16 04/08/22 15:37 BP 138/67 04/08/22 15:37 Pulse Ox 98 04/08/22 15:37 O2 Del Method 04/08/22 15:37 O2 Flow Rate 2 04/04/22 10:49 Oxygen Flow Rate 2 04/03/22 20:32 BMI result Body Mass Index 20.6 Const: Other: Constitutional : Alert, not in distress Neck : Normal inspection, Supple Cardiovascular : RRR, no JVP, no lower extremity edema Respiratory : fair bilateral air entry, no crackles, wheezes or rhonchi Gastrointestinal: soft, lax, Normal bowel sounds, Non tender Skin : Warm, Dry Neurological : Alert & disoriented, No focal deficit Objective Data Active Medications Acetaminophen (Acetaminophen 325 Mg Tablet) 650 mg PO Q6H PRN PRN Reason: Pain, Mild (Pain Scale 1-3) Last Admin: 04/05/22 13:04 Dose: 650 mg Documented By: KEMORRMadelaine Docusate Sodium (Docusate Sodium 100 Mg Capsule) 100 mg PO DAILY PRN PRN Reason: Constipation Enoxaparin Sodium (Enoxaparin Sodium 40 Mg/0.4 Ml Syringe) 40 mg SUBCUT Q24H [facility] Last Admin: 04/08/22 01:07 Dose: 40 mg Documented By: TISHA Fluoxetine HCl (Fluoxetine Hcl 20 Mg Capsule) 40 mg PO DAILY [facility] Last Admin: 04/08/22 09:57 Dose: 40 mg Documented By: ALYCIA Folic Acid (Folic Acid 1 Mg Tablet) 1 mg PO DAILY [facility] Last Admin: 04/08/22 09:57 Dose: 1 mg Documented By: ALYCIA Ceftriaxone Sodium 1 gm/ (Sodium Chloride) 50 mls @ 100 mls/hr IV Q24H [facility] Last Infusion: 04/07/22 23:42 Dose: 0 mls/hr Documented By: MALLORY Lorazepam (Lorazepam 1 Mg Tablet) 1 mg PO BID PRN PRN Reason: Anxiety Ondansetron HCl (Ondansetron Hcl 4 Mg/2 Ml Vial) 4 mg IVPUSH Q8H PRN PRN Reason: Nausea and Vomiting Pharmacy Consult (Consult Rx Perform Med Rec) 1 each MISCELLANE ONCE PRN PRN Reason: Consult order Quetiapine Fumarate (Quetiapine Fumarate 300 Mg Tablet) 300 mg PO BID [facility] Last Admin: 04/08/22 09:57 Dose: 300 mg Documented By: ALYCIA Sodium Chloride (0.9 % Sodium Chloride Flush 3 Ml Syringe) 3 ml IVFLUSH QSHIFT [facility] Last Admin: 04/08/22 09:57 Dose: 3 ml Documented By: ALYCIA Labs CBC & Chem 7: 04/05/22 06:39 04/08/22 06:18 Labs: Laboratory Results - last 24 hr 04/08/22 04/08/22 06:18 10:10 Anion Gap 10 L Estim Creat Clear Calc 89.0 Estimated GFR > 60 Random Glucose 108 Calcium 8.3 L COVID-19 (MIRTHA) Positive A COVID-19 Clin Com See Note Microbiology Microbiology Results: Microbiology 04/03/22 23:57 Gram Stain - Final Cerebrospinal Fluid CSF Examination - Final Fluid Description - Final CSF Culture - Final No growth after 3 days. 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 Quality Stroke Does the patient have a stroke diagnosis?: No VTE Prior VTE?: No VTE Risk Level:: Medical - moderate - high VTE Device Contraindication: Treatment Not Indicated VTE Drug Contraindication: N/A - Med Ordered
--- NOTE | 2022-04-08 18:35 | PC.NURSE ---
patient tested positive for covid, stable, precautions instituted.
[2022-04-08] MEDS: cefTRIAXone sodium 1 GM in 0.9 % Sodium Chloride 50 ML IV (20:30)
[2022-04-09] MEDS: Enoxaparin Sodium 40 MG/0.4 ML SYRINGE SUBCUT (01:49)
[2022-04-09 07:54] VITALS: BP 175/83; PULSE 82; RESP 18; TEMP 36.8; O2SAT 98
[2022-04-09 08:19] LABS: Hematocrit 30.5 % (42.0-52.0); Hemoglobin 10.2 g/dl (14.0-18.0); Mean Corpuscular HGB Conc 33.4 g/dl (31.0-36.0); Mean Corpuscular Hemoglobin 31.7 pg (27.0-33.0); Mean Corpuscular Volume 94.7 fL (80.0-98.0); Mean Platelet Volume 9.6 fL (9.4-12.4); Platelet Count 291 X10*3/uL (160-400); Red Blood Count 3.22 X10*6/uL (4.60-5.80); Red Cell Distribution Width 13.5 % (11.0-16.0); White Blood Count 6.2 X10*3/uL (4.8-10.8)
[2022-04-09 08:36] LABS: C Reactive Protein 0.69 mg/dL (< or = 0.50); Lactate Dehydrogenase 242 U/L (118-273)
[2022-04-09 08:38] LABS: Anion Gap 9 (12-20); Blood Urea Nitrogen 25 mg/dL (9-16); Calcium 8.5 mg/dL (8.4-10.2); Carbon Dioxide 26 mmol/L (22-29); Chloride 109 mmol/L (96-108); Estimated Glomerular Filt Rate > 60; Glucose Random 99 mg/dL (60-115); Potassium 3.2 mmol/L (3.3-5.1); Sodium 141 mmol/L (135-145)
--- NOTE | 2022-04-09 08:54 | MHC.CM.PN ---
PT LIKELY TO REQUIRE STR. HOME WILL ONLY BE AN OPTION OF PT IS AMBULATORY. REFERRALS HAVE BEEN MADE HOWEVER PT TESTED POSITIVE FOR COVID-19 ON 04/08/22 [facility] IS FOLLOWING FOR COVID RECOVERED BED ON 04/19/22 UNLESS PT TESTS NEGATIVE FOR COVID PRIOR TO THAT DATE.
[2022-04-09] MEDS: FLUoxetine HCl 20 MG CAPSULE 40 MG PO (10:58)
[2022-04-09] MEDS: 0.9 % Sodium Chloride Flush 3 ML SYRINGE IVFLUSH ×3 (10:58→22:59)
[2022-04-09] MEDS: Folic Acid 1 MG TABLET PO (10:59)
[2022-04-09] MEDS: QUEtiapine Fumarate 300 MG TABLET PO ×2 (10:59→22:53)
[2022-04-09 12:00] VITALS: BP 170/83; PULSE 82; RESP 18; TEMP 36.8; O2SAT 98
--- NOTE | 2022-04-09 15:06 | P.PNIM_ITS ---
Subjective Subjective Date of Service: 04/09/22 Interval History: the patient was seen and evaluated this morning Laying in bed, feels comfortable Denies any fever, chills or shortness of breath No reported other overnight events. Systemic review: No fever, chills No chest pain, palpitation No shortness of breath or coughing No abdominal pain, nausea or vomiting No urinary symptoms No any rash or wounds Physical Exam Vital Signs: Vital Signs: Last Vital Signs Temp 98.3 F 04/09/22 12:00 Pulse 82 04/09/22 12:00 Resp 18 04/09/22 12:00 BP 170/83 H 04/09/22 12:00 Pulse Ox 98 04/09/22 12:00 O2 Del Method 04/09/22 12:00 O2 Flow Rate 2 04/04/22 10:49 Oxygen Flow Rate 2 04/03/22 20:32 BMI result Body Mass Index 20.6 Const: Other: Constitutional : Alert, not in distress Neck : Normal inspection, Supple Cardiovascular : RRR, no JVP, no lower extremity edema Respiratory : fair bilateral air entry, no crackles, wheezes or rhonchi Gastrointestinal: soft, lax, Normal bowel sounds, Non tender Skin : Warm, Dry Neurological : Alert & disoriented, No focal deficit Objective Data Active Medications Acetaminophen (Acetaminophen 325 Mg Tablet) 650 mg PO Q6H PRN PRN Reason: Pain, Mild (Pain Scale 1-3) Last Admin: 04/05/22 13:04 Dose: 650 mg Documented By: ADAM Docusate Sodium (Docusate Sodium 100 Mg Capsule) 100 mg PO DAILY PRN PRN Reason: Constipation Enoxaparin Sodium (Enoxaparin Sodium 40 Mg/0.4 Ml Syringe) 40 mg SUBCUT Q24H [facility] Last Admin: 04/09/22 01:49 Dose: 40 mg Documented By: CY Fluoxetine HCl (Fluoxetine Hcl 20 Mg Capsule) 40 mg PO DAILY [facility] Last Admin: 04/09/22 10:58 Dose: 40 mg Documented By: LILIANA Folic Acid (Folic Acid 1 Mg Tablet) 1 mg PO DAILY [facility] Last Admin: 04/09/22 10:59 Dose: 1 mg Documented By: LILIANA Ceftriaxone Sodium 1 gm/ (Sodium Chloride) 50 mls @ 100 mls/hr IV Q24H [facility] Last Infusion: 04/08/22 22:00 Dose: 0 mls/hr Documented By: CY Ondansetron HCl (Ondansetron Hcl 4 Mg/2 Ml Vial) 4 mg IVPUSH Q8H PRN PRN Reason: Nausea and Vomiting Pharmacy Consult (Consult Rx Perform Med Rec) 1 each MISCELLANE ONCE PRN PRN Reason: Consult order Quetiapine Fumarate (Quetiapine Fumarate 300 Mg Tablet) 300 mg PO BID [facility] Last Admin: 04/09/22 10:59 Dose: 300 mg Documented By: LILIANA Sodium Chloride (0.9 % Sodium Chloride Flush 3 Ml Syringe) 3 ml IVFLUSH QSHIFT [facility] Last Admin: 04/09/22 10:58 Dose: 3 ml Documented By: LILIANA Labs CBC & Chem 7: 04/09/22 07:53 04/09/22 07:53 Labs: Laboratory Results - last 24 hr 04/09/22 04/09/22 04/09/22 07:53 07:53 07:53 MCV 94.7 MCH 31.7 MCHC 33.4 RDW 13.5 Plt Count 291 MPV 9.6 Absolute Nucleated RBC 0.000 Nucleated RBC % (auto) 0.0 Anion Gap 9 L Estim Creat Clear Calc 89.0 Estimated GFR > 60 Random Glucose 99 Calcium 8.5 Lactate Dehydrogenase 242 C-Reactive Protein 0.69 H Microbiology Microbiology Results: Microbiology 04/03/22 21:10 Blood Culture - Final Blood - Venous No growth after 5 days. 04/03/22 20:57 Blood Culture - Final Blood - Venous No growth after 5 days. 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 Quality Stroke Does the patient have a stroke diagnosis?: No VTE Prior VTE?: No VTE Risk Level:: Medical - moderate - high VTE Device Contraindication: Treatment Not Indicated VTE Drug Contraindication: N/A - Med Ordered
[2022-04-09 15:35] VITALS: BP 128/66; PULSE 88; RESP 16; TEMP 36.9; O2SAT 98
[2022-04-09] MEDS: amLODIPine Besylate 5 MG TABLET PO (15:58)
[2022-04-09] MEDS: cefTRIAXone sodium 1 GM in 0.9 % Sodium Chloride 50 ML IV (22:53)
[2022-04-10] VITALS (7 sets, daily range): BP systolic 94–179; BP diastolic 49–83; PULSE 79–91; RESP 16–20; TEMP 36.6–38.1; O2SAT 95–97
[2022-04-10] MEDS: Folic Acid 1 MG TABLET PO (10:08)
[2022-04-10] MEDS: FLUoxetine HCl 20 MG CAPSULE 40 MG PO (10:08)
[2022-04-10] MEDS: QUEtiapine Fumarate 300 MG TABLET PO ×2 (10:08→21:29)
[2022-04-10] MEDS: 0.9 % Sodium Chloride Flush 3 ML SYRINGE IVFLUSH ×3 (10:08→21:32)
[2022-04-10] MEDS: amLODIPine Besylate 5 MG TABLET PO (10:08)
--- NOTE | 2022-04-10 12:27 | P.PNIM_ITS ---
Subjective Subjective Date of Service: 04/10/22 Interval History: the patient was seen and evaluated this morning Laying in bed, feels comfortable Denies any fever, chills or shortness of breath No reported other overnight events. Systemic review: No fever, chills No chest pain, palpitation No shortness of breath or coughing No abdominal pain, nausea or vomiting No urinary symptoms No any rash or wounds Physical Exam Vital Signs: Vital Signs: Last Vital Signs Temp 97.8 F 04/10/22 12:00 Pulse 85 04/10/22 12:00 Resp 20 04/10/22 12:00 BP 111/52 L 04/10/22 12:00 Pulse Ox 95 04/10/22 12:00 O2 Del Method 04/10/22 12:00 O2 Flow Rate 2 04/04/22 10:49 Oxygen Flow Rate 2 04/03/22 20:32 BMI result Body Mass Index 20.6 Const: Other: Constitutional : Alert, not in distress Neck : Normal inspection, Supple Cardiovascular : RRR, no JVP, no lower extremity edema Respiratory : fair bilateral air entry, no crackles, wheezes or rhonchi Gastrointestinal: soft, lax, Normal bowel sounds, Non tender Skin : Warm, Dry Neurological : Alert & disoriented, No focal deficit Objective Data Active Medications Acetaminophen (Acetaminophen 325 Mg Tablet) 650 mg PO Q6H PRN PRN Reason: Pain, Mild (Pain Scale 1-3) Last Admin: 04/05/22 13:04 Dose: 650 mg Documented By: ADAM Amlodipine Besylate (Amlodipine Besylate 5 Mg Tablet) 5 mg PO DAILY [facility]; Protocol Last Admin: 04/10/22 10:08 Dose: 5 mg Documented By: HUA Docusate Sodium (Docusate Sodium 100 Mg Capsule) 100 mg PO DAILY PRN PRN Reason: Constipation Enoxaparin Sodium (Enoxaparin Sodium 40 Mg/0.4 Ml Syringe) 40 mg SUBCUT Q24H [facility] Last Admin: 04/10/22 02:04 Dose: Not Given Documented By: LI Non-Admin Reason: Patient Refused Fluoxetine HCl (Fluoxetine Hcl 20 Mg Capsule) 40 mg PO DAILY [facility] Last Admin: 04/10/22 10:08 Dose: 40 mg Documented By: HUA Folic Acid (Folic Acid 1 Mg Tablet) 1 mg PO DAILY [facility] Last Admin: 04/10/22 10:08 Dose: 1 mg Documented By: HUA Ondansetron HCl (Ondansetron Hcl 4 Mg/2 Ml Vial) 4 mg IVPUSH Q8H PRN PRN Reason: Nausea and Vomiting Pharmacy Consult (Consult Rx Perform Med Rec) 1 each MISCELLANE ONCE PRN PRN Reason: Consult order Quetiapine Fumarate (Quetiapine Fumarate 300 Mg Tablet) 300 mg PO BID [facility] Last Admin: 04/10/22 10:08 Dose: 300 mg Documented By: HUA Sodium Chloride (0.9 % Sodium Chloride Flush 3 Ml Syringe) 3 ml IVFLUSH QSHIFT [facility] Last Admin: 04/10/22 10:08 Dose: 3 ml Documented By: HUA Labs CBC & Chem 7: 04/09/22 07:53 04/09/22 07:53 Assessment and Plan (1) COVID-19 virus infection: Status: Acute Plan 71M presented with convulasions and fevers sepsis , resolved due to uti & apiration 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 Quality Stroke Does the patient have a stroke diagnosis?: No VTE Prior VTE?: No VTE Risk Level:: Medical - moderate - high VTE Device Contraindication: Treatment Not Indicated VTE Drug Contraindication: N/A - Med Ordered
[2022-04-11] MEDS: Enoxaparin Sodium 40 MG/0.4 ML SYRINGE SUBCUT (01:21)
[2022-04-11 04:00] VITALS: BP 135/67; PULSE 84; RESP 16; TEMP 36.6; O2SAT 96
[2022-04-11 07:31] LABS: Anion Gap 9 (12-20); Blood Urea Nitrogen 31 mg/dL (9-16); Calcium 8.2 mg/dL (8.4-10.2); Carbon Dioxide 26 mmol/L (22-29); Chloride 109 mmol/L (96-108); Creatinine Clr Calc Pharmacy 90.3; Estimated Glomerular Filt Rate > 60; Glucose Random 107 mg/dL (60-115); Potassium 2.6 mmol/L (3.3-5.1); Sodium 141 mmol/L (135-145)
[2022-04-11 08:00] VITALS: BP 143/65; PULSE 84; RESP 20; TEMP 37.1; O2SAT 95
[2022-04-11] MEDS: FLUoxetine HCl 20 MG CAPSULE 40 MG PO (08:35)
[2022-04-11] MEDS: amLODIPine Besylate 5 MG TABLET PO (08:35)
[2022-04-11] MEDS: Folic Acid 1 MG TABLET PO (08:35)
[2022-04-11] MEDS: QUEtiapine Fumarate 300 MG TABLET PO ×2 (08:35→20:27)
[2022-04-11] MEDS: 0.9 % Sodium Chloride Flush 3 ML SYRINGE IVFLUSH ×2 (08:40→20:29)
[2022-04-11 12:00] VITALS: BP 124/57; PULSE 81; RESP 19; TEMP 36.8; O2SAT 95
--- NOTE | 2022-04-11 12:08 | P.PNIM_ITS ---
Subjective Subjective Date of Service: 04/11/22 Interval History: the patient was seen and evaluated this morning Laying in bed, feels comfortable Denies any fever, chills or shortness of breath No reported other overnight events. Systemic review: No fever, chills No chest pain, palpitation No shortness of breath or coughing No abdominal pain, nausea or vomiting No urinary symptoms No any rash or wounds Physical Exam Vital Signs: Vital Signs: Last Vital Signs Temp 98.8 F 04/11/22 08:00 Pulse 84 04/11/22 08:00 Resp 20 04/11/22 08:00 BP 143/65 H 04/11/22 08:00 Pulse Ox 95 04/11/22 08:00 O2 Del Method 04/11/22 08:00 O2 Flow Rate 2 04/04/22 10:49 Oxygen Flow Rate 2 04/03/22 20:32 BMI result Body Mass Index 20.6 Const: Other: Constitutional : Alert, not in distress Neck : Normal inspection, Supple Cardiovascular : RRR, no JVP, no lower extremity edema Respiratory : fair bilateral air entry, no crackles, wheezes or rhonchi Gastrointestinal: soft, lax, Normal bowel sounds, Non tender Skin : Warm, Dry Neurological : Alert & disoriented, No focal deficit Objective Data Active Medications Acetaminophen (Acetaminophen 325 Mg Tablet) 650 mg PO Q6H PRN PRN Reason: Pain, Mild (Pain Scale 1-3) Last Admin: 04/05/22 13:04 Dose: 650 mg Documented By: ADAM Amlodipine Besylate (Amlodipine Besylate 5 Mg Tablet) 5 mg PO DAILY [facility]; Protocol Last Admin: 04/11/22 08:35 Dose: 5 mg Documented By: MICKI Docusate Sodium (Docusate Sodium 100 Mg Capsule) 100 mg PO DAILY PRN PRN Reason: Constipation Enoxaparin Sodium (Enoxaparin Sodium 40 Mg/0.4 Ml Syringe) 40 mg SUBCUT Q24H [facility] Last Admin: 04/11/22 01:21 Dose: 40 mg Documented By: LI Fluoxetine HCl (Fluoxetine Hcl 20 Mg Capsule) 40 mg PO DAILY [facility] Last Admin: 04/11/22 08:35 Dose: 40 mg Documented By: MICKI Folic Acid (Folic Acid 1 Mg Tablet) 1 mg PO DAILY [facility] Last Admin: 04/11/22 08:35 Dose: 1 mg Documented By: MICKI Ondansetron HCl (Ondansetron Hcl 4 Mg/2 Ml Vial) 4 mg IVPUSH Q8H PRN PRN Reason: Nausea and Vomiting Pharmacy Consult (Consult Rx Perform Med Rec) 1 each MISCELLANE ONCE PRN PRN Reason: Consult order Quetiapine Fumarate (Quetiapine Fumarate 300 Mg Tablet) 300 mg PO BID [facility] Last Admin: 04/11/22 08:35 Dose: 300 mg Documented By: MICKI Sodium Chloride (0.9 % Sodium Chloride Flush 3 Ml Syringe) 3 ml IVFLUSH QSHIFT [facility] Last Admin: 04/11/22 08:40 Dose: 3 ml Documented By: MICKI Labs CBC & Chem 7: 04/09/22 07:53 04/11/22 06:29 Labs: Laboratory Results - last 24 hr 04/11/22 06:29 Anion Gap 9 L Estim Creat Clear Calc 90.3 Estimated GFR > 60 Random Glucose 107 Calcium 8.2 L Assessment and Plan (1) COVID-19 virus infection: Status: Acute (2) Seizure-like activity: Status: Acute (3) Hypokalemia: Status: Acute Plan 71M presented with convulasions and fevers sepsis , resolved due to uti & apiration 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 Quality Stroke Does the patient have a stroke diagnosis?: No VTE Prior VTE?: No VTE Risk Level:: Medical - moderate - high VTE Device Contraindication: Treatment Not Indicated VTE Drug Contraindication: N/A - Med Ordered
[2022-04-11] MEDS: Potassium Chloride Packet 20 MEQ PACKET 40 MEQ PO ×2 (13:09→17:39)
[2022-04-11 15:10] VITALS: BP 114/62; PULSE 81; RESP 18; TEMP 36.4; O2SAT 95
[2022-04-11] MEDS: Potassium Chloride/H20 10 MEQ/100 ML PIGGYBACK 100 MEQ IV ×2 (15:18→17:37)
[2022-04-11 18:57] VITALS: BP 164/82; PULSE 97; RESP 20; TEMP 37.3; O2SAT 96
[2022-04-12] VITALS: BP 129/73; PULSE 83; RESP 18; TEMP 36.8; O2SAT 96
[2022-04-12] MEDS: Enoxaparin Sodium 40 MG/0.4 ML SYRINGE SUBCUT (01:13)
[2022-04-12 04:00] VITALS: BP 158/76; PULSE 81; RESP 18; TEMP 37.1; O2SAT 98
[2022-04-12 07:25] LABS: Hematocrit 31.2 % (42.0-52.0); Hemoglobin 10.2 g/dl (14.0-18.0); Mean Corpuscular HGB Conc 32.7 g/dl (31.0-36.0); Mean Corpuscular Hemoglobin 31.6 pg (27.0-33.0); Mean Corpuscular Volume 96.6 fL (80.0-98.0); Mean Platelet Volume 9.4 fL (9.4-12.4); Platelet Count 326 X10*3/uL (160-400); Red Blood Count 3.23 X10*6/uL (4.60-5.80); White Blood Count 5.6 X10*3/uL (4.8-10.8)
[2022-04-12 07:35] LABS: C Reactive Protein 0.36 mg/dL (< or = 0.50)
[2022-04-12 07:44] LABS: Anion Gap 8 (12-20); Blood Urea Nitrogen 29 mg/dL (9-16); Calcium 8.5 mg/dL (8.4-10.2); Carbon Dioxide 26 mmol/L (22-29); Chloride 112 mmol/L (96-108); Creatinine Clr Calc Pharmacy 90.3; Estimated Glomerular Filt Rate > 60; Glucose Random 106 mg/dL (60-115); Lactate Dehydrogenase 237 U/L (118-273); Potassium 3.4 mmol/L (3.3-5.1); Sodium 143 mmol/L (135-145)
[2022-04-12 08:00] VITALS: BP 157/76; PULSE 87; RESP 20; TEMP 36.8; O2SAT 93
[2022-04-12] MEDS: QUEtiapine Fumarate 300 MG TABLET PO ×2 (10:30→20:56)
[2022-04-12] MEDS: amLODIPine Besylate 5 MG TABLET PO (10:30)
[2022-04-12] MEDS: Folic Acid 1 MG TABLET PO (10:31)
[2022-04-12] MEDS: FLUoxetine HCl 20 MG CAPSULE 40 MG PO (10:33)
[2022-04-12] MEDS: Potassium Chloride Packet 20 MEQ PACKET 40 MEQ PO (10:35)
[2022-04-12] MEDS: 0.9 % Sodium Chloride Flush 3 ML SYRINGE IVFLUSH ×3 (10:38→21:00)
[2022-04-12 11:54] VITALS: BP 115/55; PULSE 93; RESP 20; TEMP 36.8; O2SAT 96
--- NOTE | 2022-04-12 12:14 | HO.PM.IMPN ---
Subjective Subjective Date of Service: 04/12/22 Interval History: the patient was seen and evaluated this morning Laying in bed, feels comfortable Denies any fever, chills or shortness of breath No reported other overnight events. Systemic review: No fever, chills No chest pain, palpitation No shortness of breath or coughing No abdominal pain, nausea or vomiting No urinary symptoms No any rash or wounds Physical Exam Vital Signs: Vital Signs: Last Vital Signs Temp 98.3 F 04/12/22 11:54 Pulse 93 04/12/22 11:54 Resp 20 04/12/22 11:54 BP 115/55 L 04/12/22 11:54 Pulse Ox 96 04/12/22 11:54 O2 Del Method 04/12/22 11:54 O2 Flow Rate 2 04/04/22 10:49 Oxygen Flow Rate 2 04/03/22 20:32 BMI result Body Mass Index 20.6 Const: Other: Constitutional : Alert, not in distress Neck : Normal inspection, Supple Cardiovascular : RRR, no JVP, no lower extremity edema Respiratory : fair bilateral air entry, no crackles, wheezes or rhonchi Gastrointestinal: soft, lax, Normal bowel sounds, Non tender Skin : Warm, Dry Neurological : Alert & disoriented, No focal deficit Objective Data Active Medications Acetaminophen (Acetaminophen 325 Mg Tablet) 650 mg PO Q6H PRN PRN Reason: Pain, Mild (Pain Scale 1-3) Last Admin: 04/05/22 13:04 Dose: 650 mg Documented By: ADAM Amlodipine Besylate (Amlodipine Besylate 5 Mg Tablet) 5 mg PO DAILY [facility]; Protocol Last Admin: 04/12/22 10:30 Dose: 5 mg Documented By: MICKI Docusate Sodium (Docusate Sodium 100 Mg Capsule) 100 mg PO DAILY PRN PRN Reason: Constipation Enoxaparin Sodium (Enoxaparin Sodium 40 Mg/0.4 Ml Syringe) 40 mg SUBCUT Q24H [facility] Last Admin: 04/12/22 01:13 Dose: 40 mg Documented By: HIEN Fluoxetine HCl (Fluoxetine Hcl 20 Mg Capsule) 40 mg PO DAILY [facility] Last Admin: 04/12/22 10:33 Dose: 40 mg Documented By: MICKI Folic Acid (Folic Acid 1 Mg Tablet) 1 mg PO DAILY [facility] Last Admin: 04/12/22 10:31 Dose: 1 mg Documented By: MICKI Ondansetron HCl (Ondansetron Hcl 4 Mg/2 Ml Vial) 4 mg IVPUSH Q8H PRN PRN Reason: Nausea and Vomiting Pharmacy Consult (Consult Rx Perform Med Rec) 1 each MISCELLANE ONCE PRN PRN Reason: Consult order Quetiapine Fumarate (Quetiapine Fumarate 300 Mg Tablet) 300 mg PO BID [facility] Last Admin: 04/12/22 10:30 Dose: 300 mg Documented By: MICKI Sodium Chloride (0.9 % Sodium Chloride Flush 3 Ml Syringe) 3 ml IVFLUSH QSHIFT [facility] Last Admin: 04/12/22 10:38 Dose: 3 ml Documented By: MICKI Labs CBC & Chem 7: 04/12/22 07:08 04/12/22 07:08 Labs: Laboratory Results - last 24 hr 04/12/22 04/12/22 04/12/22 07:08 07:08 07:08 MCV 96.6 MCH 31.6 MCHC 32.7 RDW 14.0 Plt Count 326 MPV 9.4 Absolute Nucleated RBC 0.000 Nucleated RBC % (auto) 0.0 Anion Gap 8 L Estim Creat Clear Calc 90.3 Estimated GFR > 60 Random Glucose 106 Calcium 8.5 Lactate Dehydrogenase 237 C-Reactive Protein 0.36 Assessment and Plan (1) COVID-19 virus infection: Status: Acute (2) Hypokalemia: Status: Acute Plan 71M presented with convulasions and fevers sepsis , resolved due to uti & apiration 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 Quality Stroke Does the patient have a stroke diagnosis?: No VTE Prior VTE?: No VTE Risk Level:: Medical - moderate - high VTE Device Contraindication: Treatment Not Indicated VTE Drug Contraindication: N/A - Med Ordered
--- NOTE | 2022-04-12 12:43 | MHC.SLORD ---
Speech Language Pathology Order Status: Patient is on chopped/advanced diet (NDD3) with nectar thick liquids. Per RN, patient is tolerating diet well, no reported concerns at this time. [employer] will continue to follow.
[2022-04-12 15:28] VITALS: BP 122/74; PULSE 86; RESP 17; TEMP 36.9; O2SAT 96
[2022-04-12 20:00] VITALS: BP 157/74; PULSE 92; RESP 17; TEMP 37; O2SAT 97
[2022-04-13] VITALS (8 sets, daily range): BP systolic 102–168; BP diastolic 54–73; PULSE 66–90; RESP 16–20; TEMP 36.8–37.7; O2SAT 93–97
[2022-04-13] MEDS: Enoxaparin Sodium 40 MG/0.4 ML SYRINGE SUBCUT (00:01)
[2022-04-13 07:19] LABS: Anion Gap 9 (12-20); Blood Urea Nitrogen 25 mg/dL (9-16); Calcium 8.4 mg/dL (8.4-10.2); Carbon Dioxide 26 mmol/L (22-29); Chloride 112 mmol/L (96-108); Creatinine Clr Calc Pharmacy 95.9; Estimated Glomerular Filt Rate > 60; Glucose Random 106 mg/dL (60-115); Potassium 3.6 mmol/L (3.3-5.1); Sodium 143 mmol/L (135-145)
[2022-04-13 07:23] LABS: CDiff Gene PCR NEGATIVE (Negative)
[2022-04-13 08:14] LABS: Leukocytes Stool Qualitative NEGATIVE (NEGATIVE)
[2022-04-13] MEDS: 0.9 % Sodium Chloride Flush 3 ML SYRINGE IVFLUSH ×3 (09:13→20:31)
[2022-04-13] MEDS: FLUoxetine HCl 20 MG CAPSULE 40 MG PO (09:13)
[2022-04-13] MEDS: QUEtiapine Fumarate 300 MG TABLET PO ×2 (09:13→20:31)
[2022-04-13] MEDS: amLODIPine Besylate 5 MG TABLET PO (09:13)
[2022-04-13] MEDS: Folic Acid 1 MG TABLET PO (09:13)
--- NOTE | 2022-04-13 15:57 | HO.PM.IMPN ---
Subjective Subjective Date of Service: 04/13/22 Interval History: the patient was seen and evaluated this morning Laying in bed, feels comfortable Denies any fever, chills or shortness of breath No reported other overnight events. Systemic review: No fever, chills No chest pain, palpitation No shortness of breath or coughing No abdominal pain, nausea or vomiting No urinary symptoms No any rash or wounds Physical Exam Vital Signs: Vital Signs: Last Vital Signs Temp 99.2 F 04/13/22 15:04 Pulse 90 04/13/22 15:04 Resp 18 04/13/22 15:04 BP 129/60 04/13/22 15:04 Pulse Ox 95 04/13/22 15:04 O2 Del Method 04/13/22 15:04 O2 Flow Rate 2 04/04/22 10:49 Oxygen Flow Rate 2 04/03/22 20:32 BMI result Body Mass Index 20.6 Const: Other: Constitutional : Alert, not in distress Neck : Normal inspection, Supple Cardiovascular : RRR, no JVP, no lower extremity edema Respiratory : fair bilateral air entry, no crackles, wheezes or rhonchi Gastrointestinal: soft, lax, Normal bowel sounds, Non tender Skin : Warm, Dry Neurological : Alert & disoriented, No focal deficit Objective Data Active Medications Acetaminophen (Acetaminophen 325 Mg Tablet) 650 mg PO Q6H PRN PRN Reason: Pain, Mild (Pain Scale 1-3) Last Admin: 04/05/22 13:04 Dose: 650 mg Documented By: ADAM Amlodipine Besylate (Amlodipine Besylate 5 Mg Tablet) 5 mg PO DAILY COUNT [facility]CLUD[facility]; Protocol Last Admin: 04/13/22 09:13 Dose: 5 mg Documented By: JOSE Docusate Sodium (Docusate Sodium 100 Mg Capsule) 100 mg PO DAILY PRN PRN Reason: Constipation Enoxaparin Sodium (Enoxaparin Sodium 40 Mg/0.4 Ml Syringe) 40 mg SUBCUT Q24H COUNT INCLUDES THE [facility] Last Admin: 04/13/22 00:01 Dose: 40 mg Documented By: HIEN Fluoxetine HCl (Fluoxetine Hcl 20 Mg Capsule) 40 mg PO DAILY COUNT INCLUDES [facility] Last Admin: 04/13/22 09:13 Dose: 40 mg Documented By: JOSE Folic Acid (Folic Acid 1 Mg Tablet) 1 mg PO DAILY COUNT INCLUDES [facility] Last Admin: 04/13/22 09:13 Dose: 1 mg Documented By: JOSE Ondansetron HCl (Ondansetron Hcl 4 Mg/2 Ml Vial) 4 mg IVPUSH Q8H PRN PRN Reason: Nausea and Vomiting Pharmacy Consult (Consult Rx Perform Med Rec) 1 each MISCELLANE ONCE PRN PRN Reason: Consult order Quetiapine Fumarate (Quetiapine Fumarate 300 Mg Tablet) 300 mg PO BID COUNT INCLUDES THE [facility] Last Admin: 04/13/22 09:13 Dose: 300 mg Documented By: JOSE Sodium Chloride (0.9 % Sodium Chloride Flush 3 Ml Syringe) 3 ml IVFLUSH QSHIFT COUNT INCLUDES THE [facility] Last Admin: 04/13/22 09:13 Dose: 3 ml Documented By: JOSE Labs CBC & Chem 7: 04/12/22 07:08 04/13/22 06:33 Labs: Laboratory Results - last 24 hr 04/13/22 04/13/22 04/13/22 05:45 05:45 06:33 Anion Gap 9 L Estim Creat Clear Calc 95.9 Estimated GFR > 60 Random Glucose 106 Calcium 8.4 Stool Leukocytes, Qual NEGATIVE C. 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 Quality Stroke Does the patient have a stroke diagnosis?: No VTE Prior VTE?: No VTE Risk Level:: Medical - moderate - high VTE Device Contraindication: Treatment Not Indicated VTE Drug Contraindication: N/A - Med Ordered
[2022-04-13 16:45] LABS: COVID-19 Test Positive (Negative)
--- NOTE | 2022-04-13 17:28 | MHC.SL.SWA ---
Speech Pathologist Impression: Risk of Aspiration Due to: Reduced Cognition Dysphasia Diet Status: Patient lives with brother/guardian/HCP. Patient goes to a Day Program daily. Patient w/ hx intellectual disability, schizophrenia, developmental delay. Liquid Consistency and Strategies for Safe Swallow: Liquid Intake Recommendation: [place] Thick Liquid Intake Strategies: Small Sips Solid Food Consistency: Dietary Recommendations: Chopped/Advanced (NDD3) Additional Modifications to Solid Foods: Recommend start patient on CHOPPED/ADVANCED (NDD3) diet with NECTAR THICK liquids, pills CRUSHED in PUREE. Recommend 1:1 feeding assistance and aspiration precautions. Diet order updated by LEATHERSMITH. Sent [place] Message to , RN, RD updating of recommendations. LEATHERSMITH will continue to follow. Oral Medication Intake: Crushed with Puree Please contact the pharmacy regarding appropriate crushable or liquid drug formulations that are available whenever modified delivery is recommended. Compensatory Strategies and Precautions to be Taken for Safe Swallow: Sitting Upright (90 deg) Small Bites and Sips Alternate Liquids/Solids Rate of Ingestion Change Supervision While Eating and Drinking for Safe Swallow: Total Supervision (1:1) Foods to Avoid: Tough difficult to chew solids, mixed consistencies Swallowing Recommended Treatments: Compens. Strategy Educat. Recommendation for Speech: Inpatient Speech Therapy: Patient seen for dysphagia treatment during lunch, re-evaluation for potential upgrade. Patient is currently on chopped/advanced diet (NDD3) with nectar thick liquids. Lunch had arrived and was present in the room, notably there were thin liquids on the tray ([place] and juices) as well as a pitcher of water in the room and the patient had an empty cup with a straw. Observed patient taking a sip of thin liquid by straw, Pt took large, chain sip, then coughed repeatedly. Thickened juice that came with tray to nectar thick, and gave by tsp and cup sip, with no clinical signs of aspiration noted on swallow. Lunch tray was chopped chicken, mashed potatoes, chopped carrots. Pt managed puree/mashed potato well, with maladaptive tongue pumping noted but more timely oral phase and timely swallow, no clinical signs of aspiration. On more solid texture (chicken), Pt had more prolonged period of mastication, mostly appeared to mash chicken piece with tongue and gums, produced a timely swallow, but had oral residual which was cleared with a liquid was of NT liquid. Recommend PT continue on Ground/Mechanical w/NECTAR THICK liquids, by cup sip (NO STRAW). No change to current diet. Nursing advised re: thin liquids present on tray and in room, Patients need for FULL SUPPORT through meal. Comment: LEATHERSMITH will continue to follow. Frequency/Duration: Date Range for Service Req: Timeline to reassess: Precipitator Clinican/Clinical Fellow: No Supervisory Statement: I have reviewed and agree with the student/clinical fellow's documentation: N/A Speech Language Pathologist: Bren Ford M.A., CCC-LEATHERSMITH
[2022-04-14] VITALS (8 sets, daily range): BP systolic 103–162; BP diastolic 56–94; PULSE 63–92; RESP 16–20; TEMP 36.8–37.4; O2SAT 91–98
[2022-04-14] MEDS: Enoxaparin Sodium 40 MG/0.4 ML SYRINGE SUBCUT (00:41)
[2022-04-14] MEDS: FLUoxetine HCl 20 MG CAPSULE 40 MG PO (11:00)
[2022-04-14] MEDS: amLODIPine Besylate 5 MG TABLET PO (11:00)
[2022-04-14] MEDS: QUEtiapine Fumarate 300 MG TABLET PO ×2 (11:00→21:10)
[2022-04-14] MEDS: 0.9 % Sodium Chloride Flush 3 ML SYRINGE IVFLUSH ×2 (11:01→18:15)
[2022-04-14] MEDS: Folic Acid 1 MG TABLET PO (11:01)
--- NOTE | 2022-04-14 14:50 | HO.PM.IMPN ---
Subjective Subjective Date of Service: 04/14/22 Interval History: the patient was seen and evaluated this morning Laying in bed, feels comfortable Denies any fever, chills or shortness of breath No reported other overnight events. Systemic review: No fever, chills No chest pain, palpitation No shortness of breath or coughing No abdominal pain, nausea or vomiting No urinary symptoms No any rash or wounds Physical Exam Vital Signs: Vital Signs: Last Vital Signs Temp 99.2 F 04/14/22 11:13 Pulse 92 04/14/22 11:13 Resp 20 04/14/22 11:13 BP 124/94 H 04/14/22 11:13 Pulse Ox 93 04/14/22 11:13 O2 Del Method 04/14/22 11:13 O2 Flow Rate 2 04/04/22 10:49 Oxygen Flow Rate 2 04/03/22 20:32 BMI result Body Mass Index 20.6 Const: Other: Constitutional : Alert, not in distress Neck : Normal inspection, Supple Cardiovascular : RRR, no JVP, no lower extremity edema Respiratory : fair bilateral air entry, no crackles, wheezes or rhonchi Gastrointestinal: soft, lax, Normal bowel sounds, Non tender Skin : Warm, Dry Neurological : Alert & disoriented, No focal deficit Objective Data Active Medications Acetaminophen (Acetaminophen 325 Mg Tablet) 650 mg PO Q6H PRN PRN Reason: Pain, Mild (Pain Scale 1-3) Last Admin: 04/05/22 13:04 Dose: 650 mg Documented By: ADAM Amlodipine Besylate (Amlodipine Besylate 5 Mg Tablet) 5 mg PO DAILY [facility]; Protocol Last Admin: 04/14/22 11:00 Dose: 5 mg Documented By: ANA Docusate Sodium (Docusate Sodium 100 Mg Capsule) 100 mg PO DAILY PRN PRN Reason: Constipation Enoxaparin Sodium (Enoxaparin Sodium 40 Mg/0.4 Ml Syringe) 40 mg SUBCUT Q24H [facility] Last Admin: 04/14/22 00:41 Dose: 40 mg Documented By: TISHA Fluoxetine HCl (Fluoxetine Hcl 20 Mg Capsule) 40 mg PO DAILY [facility] Last Admin: 04/14/22 11:00 Dose: 40 mg Documented By: ANA Folic Acid (Folic Acid 1 Mg Tablet) 1 mg PO DAILY [facility] Last Admin: 04/14/22 11:01 Dose: 1 mg Documented By: ANA Ondansetron HCl (Ondansetron Hcl 4 Mg/2 Ml Vial) 4 mg IVPUSH Q8H PRN PRN Reason: Nausea and Vomiting Pharmacy Consult (Consult Rx Perform Med Rec) 1 each MISCELLANE ONCE PRN PRN Reason: Consult order Quetiapine Fumarate (Quetiapine Fumarate 300 Mg Tablet) 300 mg PO BID [facility] Last Admin: 04/14/22 11:00 Dose: 300 mg Documented By: ANA Sodium Chloride (0.9 % Sodium Chloride Flush 3 Ml Syringe) 3 ml IVFLUSH QSHIFT [facility] Last Admin: 04/14/22 11:01 Dose: 3 ml Documented By: ANA Labs CBC & Chem 7: 04/12/22 07:08 04/13/22 06:33 Labs: Laboratory Results - last 24 hr 04/13/22 04/13/22 10:08 16:22 COVID-19 ([facility]) Cancelled Positive A COVID-19 Clin Com Cancelled See Note Assessment and Plan (1) COVID-19 virus infection: Status: Acute Plan 71M presented with convulasions and fevers sepsis , resolved due to uti & apiration pneuomnia complicated by metbaolic encephlaopathy Mental status improved continue rocephin, cultures negative so far No fever for last 24 hours hypokalemia Potassium of 3.6 Follow BMP convulsions neuro appreciated, seizure unlikely, outpatient eeg COVID-19 infection asymptomatic No active treatment needed at this point Isolation dysphagia electrician ship appreciated - ndd3 solids, nectar thick liquids elevated troponin due to fevers, no acs schizophrenica seroquel weakness PT eval dvt prophyalxis - lovenox dnr/dni reason for continued hospitalization: pending placement Given positive COVID test. Quality Stroke Does the patient have a stroke diagnosis?: No VTE Prior VTE?: No VTE Risk Level:: Medical - moderate - high VTE Device Contraindication: Treatment Not Indicated VTE Drug Contraindication: N/A - Med Ordered
--- NOTE | 2022-04-14 15:47 | MHC.CM.PN ---
Male 71 DX Sepsis UTI. He was ready to discharge last week. He was covid + at dc. He will be covid recovered 04/19/22. He has a few facilities following for dc. 1st choice is [facility]. He will travel via [facility].
--- NOTE | 2022-04-14 16:58 | MHC.SL.SWA ---
Speech Pathologist Impression: Oropharyngeal dysphagia Risk of Aspiration Due to: Reduced Cognition Dysphasia Diet Status: No Change Liquid Consistency and Strategies for Safe Swallow: Liquid Intake Recommendation: [place] Thick Liquid Intake Strategies: Small Sips Solid Food Consistency: Dietary Recommendations: Chopped/Advanced (NDD3) Additional Modifications to Solid Foods: Patient has been tolerating recommended diet CHOPPED/ADVANCED solids (NDD3) and NECTAR THICK liquids, pills CRUSHED in PUREE. Patient is able to feed himself, but requires total supervision during meals, provide assistance as needed w/ tray set up and throughout meal. Continue aspiration precautions. Further ST intervention no longer warranted at this level of care. Please re-refer w/ any changes or concerns. Oral Medication Intake: Crushed with Puree Please contact the pharmacy regarding appropriate crushable or liquid drug formulations that are available whenever modified delivery is recommended. Compensatory Strategies and Precautions to be Taken for Safe Swallow: Sitting Upright (90 deg) Small Bites and Sips Alternate Liquids/Solids Rate of Ingestion Change Supervision While Eating and Drinking for Safe Swallow: Total Supervision (1:1) Foods to Avoid: Tough difficult to chew solids, mixed consistencies Swallowing Recommended Treatments: Compens. Strategy Educat. Recommendation for Speech: D/C Heel Cementer Clinican/Clinical Fellow: No Supervisory Statement: I have reviewed and agree with the student/clinical fellow's documentation: N/A Speech Language Pathologist: Camilla Palmer M.A., [facility]-COMPUTER SYSTEM SPECIALIST
[2022-04-15] VITALS (8 sets, daily range): BP systolic 113–158; BP diastolic 51–94; PULSE 54–112; RESP 12–18; TEMP 36.6–37.8; O2SAT 94–99
[2022-04-15] MEDS: Enoxaparin Sodium 40 MG/0.4 ML SYRINGE SUBCUT ×2 (00:05→23:35)
[2022-04-15] MEDS: 0.9 % Sodium Chloride Flush 3 ML SYRINGE IVFLUSH ×4 (00:06→20:22)
[2022-04-15] MEDS: amLODIPine Besylate 5 MG TABLET PO (08:13)
[2022-04-15] MEDS: QUEtiapine Fumarate 300 MG TABLET PO ×2 (08:13→20:20)
[2022-04-15] MEDS: Folic Acid 1 MG TABLET PO (08:14)
[2022-04-15] MEDS: FLUoxetine HCl 20 MG CAPSULE 40 MG PO (08:14)
--- NOTE | 2022-04-15 09:40 | MHC.CM.PN ---
TANVI MET WITH PTS BROTHER, SALIMA TO REQUEST A COPY OF PTS GUARDIANSHIP. SALIMA HAD A COPY IN HIS WALLET A COPY WAS MADE FOR PTS CHART IT IS UNCLEAR IF SALIMA HAS THE RIGHT TO ADMIT PT TO A STR PER GUARDIANSHIP CM WILL CLARIFY SALIMA DOES REPORT HE HAS SIGNED PT INTO SNFS IN THE PAST
--- NOTE | 2022-04-15 15:24 | P.PNIM_ITS ---
Subjective Subjective Date of Service: 04/15/22 Interval History: Seen and examined this morning Tested positive for [id number] placement No overnight events noted No specific complaints this morning Review of Systems no recent cold or flu-like illness Review of Systems: Yes all other systems are reviewed and are negative Constitutional Constitutional: Denies chills Cardiovascular Cardiovascular: Denies chest pain and Denies dyspnea Respiratory Respiratory: Denies cough and Denies dyspnea Physical Exam Vital Signs: Vital Signs: Last Vital Signs Temp 98.6 F 04/15/22 15:09 Pulse 88 04/15/22 15:09 Resp 18 04/15/22 15:09 BP 125/58 L 04/15/22 15:09 Pulse Ox 95 04/15/22 15:09 O2 Del Method 04/15/22 15:09 O2 Flow Rate 2 04/04/22 10:49 Oxygen Flow Rate 2 04/03/22 20:32 BMI result Body Mass Index 20.6 Const: General: cooperative, comfortable, alert and awake Resp: Effort & Inspection: normal respiratory effort and able to speak in co mplete sentences Cardio: Rate: regular rate Heart sounds: S1 normal heart sound present and S2 normal heart sound present GI: Palpation (GI): Soft to palpation and nontender Extrem: General: Yes no pedal edema Objective Data Active Medications Acetaminophen (Acetaminophen 325 Mg Tablet) 650 mg PO Q6H PRN PRN Reason: Pain, Mild (Pain Scale 1-3) Last Admin: 04/05/22 13:04 Dose: 650 mg Documented By: ADAM Amlodipine Besylate (Amlodipine Besylate 5 Mg Tablet) 5 mg PO DAILY [facility]; Protocol Last Admin: 04/15/22 08:13 Dose: 5 mg Documented By: LILIANA Docusate Sodium (Docusate Sodium 100 Mg Capsule) 100 mg PO DAILY PRN PRN Reason: Constipation Enoxaparin Sodium (Enoxaparin Sodium 40 Mg/0.4 Ml Syringe) 40 mg SUBCUT Q24H [facility] Last Admin: 04/15/22 00:05 Dose: 40 mg Documented By: CHI Fluoxetine HCl (Fluoxetine Hcl 20 Mg Capsule) 40 mg PO DAILY [facility] Last Admin: 04/15/22 08:14 Dose: 40 mg Documented By: LILIANA Folic Acid (Folic Acid 1 Mg Tablet) 1 mg PO DAILY [facility] Last Admin: 04/15/22 08:14 Dose: 1 mg Documented By: LILIANA Ondansetron HCl (Ondansetron Hcl 4 Mg/2 Ml Vial) 4 mg IVPUSH Q8H PRN PRN Reason: Nausea and Vomiting Pharmacy Consult (Consult Rx Perform Med Rec) 1 each MISCELLANE ONCE PRN PRN Reason: Consult order Quetiapine Fumarate (Quetiapine Fumarate 300 Mg Tablet) 300 mg PO BID [facility] Last Admin: 04/15/22 08:13 Dose: 300 mg Documented By: LILIANA Sodium Chloride (0.9 % Sodium Chloride Flush 3 Ml Syringe) 3 ml IVFLUSH QSHIFT [facility] Last Admin: 04/15/22 08:18 Dose: 3 ml Documented By: LILIANA Labs CBC & Chem 7: 04/12/22 07:08 04/13/22 06:33 Assessment and Plan (1) COVID-19 virus infection: Status: Acute Plan 71M presented with convulasions and fevers sepsis , resolved due to uti & apiration pneuomnia complicated by metbaolic encephlaopathy Mental status improved continue rocephin, cultures negative so far Afebrile hypokalemia Resolved with replacement convulsions neuro appreciated, seizure unlikely, outpatient eeg COVID-19 infection asymptomatic No active treatment needed at this point Isolation dysphagia can sterilizer appreciated - ndd3 solids, nectar thick liquids elevated troponin due to fevers, no acs schizophrenia seroquel weakness PT eval dvt prophyalxis - lovenox dnr/dni Attending-Dr. Lam reason for continued hospitalization: pending placement Given positive COVID test- considered recovered on April 19 Quality Stroke Does the patient have a stroke diagnosis?: No VTE Prior VTE?: No VTE Risk Level:: Medical - moderate - high VTE Device Contraindication: Treatment Not Indicated VTE Drug Contraindication: N/A - Med Ordered
[2022-04-16] VITALS (8 sets, daily range): BP systolic 132–193; BP diastolic 63–86; PULSE 58–115; RESP 18–22; TEMP 36.7–38.3; O2SAT 94–97
--- NOTE | 2022-04-16 | ECG_ITS ---
Test Reason : covid Blood Pressure : / mmHG Vent. Rate : 105 BPM Atrial Rate : 105 BPM P-R Int : 166 ms QRS Dur : 090 ms QT Int : 372 ms P-R-T Axes : 054 038 084 degrees QTc Int : 491 ms Sinus tachycardia Left ventricular hypertrophy with repolarization abnormality ( Sokolow-Freire ) Abnormal ECG When compared with ECG of 04-APR-2022 02:22, Fusion complexes are no longer Present Referred By: Neha Hauser Electronically Signed By:Hayder Pan
[2022-04-16] MEDS: QUEtiapine Fumarate 300 MG TABLET PO ×2 (09:21→23:12)
[2022-04-16] MEDS: amLODIPine Besylate 5 MG TABLET PO (09:21)
[2022-04-16] MEDS: 0.9 % Sodium Chloride Flush 3 ML SYRINGE IVFLUSH ×3 (09:22→23:12)
[2022-04-16] MEDS: Folic Acid 1 MG TABLET PO (09:22)
[2022-04-16] MEDS: FLUoxetine HCl 20 MG CAPSULE 40 MG PO (09:22)
--- NOTE | 2022-04-16 12:10 | MHC.CM.PN ---
per rounds pt will be ready for dc 04/19 when pt will be covid recovered,guardianship requires a notice of intent w/less than 30 days
--- NOTE | 2022-04-16 12:30 | MHC.CM.PN ---
per rounds pt is dc ready bed search in progress
--- NOTE | 2022-04-16 12:38 | P.PNIM_ITS ---
Subjective Subjective Date of Service: 04/16/22 Interval History: Seen and examined this morning Observed sitting up in chair Appears comfortable, frequent unintentional movements Patient is non communicative at baseline per previous documentation (h/o developmental delay, schizophrenia) Review of Systems Review of Systems: Yes Unobtainable due to mental condition Physical Exam Vital Signs: Vital Signs: Last Vital Signs Temp 99.8 F 04/16/22 08:00 Pulse 115 H 04/16/22 12:00 Resp 22 H 04/16/22 12:00 BP 171/81 H 04/16/22 12:00 Pulse Ox 96 04/16/22 12:00 O2 Del Method 04/16/22 12:00 O2 Flow Rate 2 04/04/22 10:49 Oxygen Flow Rate 2 04/03/22 20:32 BMI result Body Mass Index 20.6 Const: General: cooperative, comfortable, alert and awake Resp: Effort & Inspection: normal respiratory effort Cardio: Rate: regular rate Heart sounds: S1 normal heart sound present and S2 normal heart sound present GI: Palpation (GI): Soft to palpation and nontender Extrem: General: Yes no pedal edema Objective Data Active Medications Acetaminophen (Acetaminophen 325 Mg Tablet) 650 mg PO Q6H PRN PRN Reason: Pain, Mild (Pain Scale 1-3) Last Admin: 04/05/22 13:04 Dose: 650 mg Documented By: ADAM Amlodipine Besylate (Amlodipine Besylate 10 Mg Tablet) 10 mg PO DAILY [facility]; Protocol Docusate Sodium (Docusate Sodium 100 Mg Capsule) 100 mg PO DAILY PRN PRN Reason: Constipation Enoxaparin Sodium (Enoxaparin Sodium 40 Mg/0.4 Ml Syringe) 40 mg SUBCUT Q24H [facility] Last Admin: 04/15/22 23:35 Dose: 40 mg Documented By: HIEN Fluoxetine HCl (Fluoxetine Hcl 20 Mg Capsule) 40 mg PO DAILY [facility] Last Admin: 04/16/22 09:22 Dose: 40 mg Documented By: ANNEMARIE Folic Acid (Folic Acid 1 Mg Tablet) 1 mg PO DAILY [facility] Last Admin: 04/16/22 09:22 Dose: 1 mg Documented By: ANNEMARIE Ondansetron HCl (Ondansetron Hcl 4 Mg/2 Ml Vial) 4 mg IVPUSH Q8H PRN PRN Reason: Nausea and Vomiting Pharmacy Consult (Consult Rx Perform Med Rec) 1 each MISCELLANE ONCE PRN PRN Reason: Consult order Quetiapine Fumarate (Quetiapine Fumarate 300 Mg Tablet) 300 mg PO BID [facility] Last Admin: 04/16/22 09:21 Dose: 300 mg Documented By: ANNEMARIE Sodium Chloride (0.9 % Sodium Chloride Flush 3 Ml Syringe) 3 ml IVFLUSH QSHIFT [facility] Last Admin: 04/16/22 09:22 Dose: 3 ml Documented By: ANNEMARIE Labs CBC & Chem 7: 04/12/22 07:08 04/13/22 06:33 Assessment and Plan (1) COVID-19 virus infection: Status: Acute Plan 71M presented with convulasions and fevers Tachycardia will check EKG,basic labs sepsis , resolved due to uti & aspiration pneuomnia complicated by metabolic encephlaopathy Mental status improved completed course of ceftriaxone Afebrile hypokalemia Resolved with replacement convulsions neuro appreciated, seizure unlikely, outpatient eeg COVID-19 infection asymptomatic, on room air No active treatment needed at this point Isolation dysphagia metal cnc operator appreciated - ndd3 solids, nectar thick liquids Aspiration precautions elevated troponin due to fevers, no acs schizophrenia seroquel weakness PT eval- PT rec STR dvt prophyalxis - lovenox dnr/dni Attending-Dr. Lam reason for continued hospitalization: pending placement Given positive COVID test- considered recovered on April 19 Quality Stroke Does the patient have a stroke diagnosis?: No VTE Prior VTE?: No VTE Risk Level:: Medical - moderate - high VTE Device Contraindication: Treatment Not Indicated VTE Drug Contraindication: N/A - Med Ordered
[2022-04-16 13:23] LABS: Hematocrit 32.8 % (42.0-52.0); Hemoglobin 10.8 g/dl (14.0-18.0); Mean Corpuscular HGB Conc 32.9 g/dl (31.0-36.0); Mean Corpuscular Hemoglobin 31.9 pg (27.0-33.0); Mean Corpuscular Volume 96.8 fL (80.0-98.0); Mean Platelet Volume 9.5 fL (9.4-12.4); Platelet Count 390 X10*3/uL (160-400); Red Blood Count 3.39 X10*6/uL (4.60-5.80); Red Cell Distribution Width 13.8 % (11.0-16.0); White Blood Count 10.4 X10*3/uL (4.8-10.8)
[2022-04-16 13:56] LABS: Anion Gap 12 (12-20); Blood Urea Nitrogen 33 mg/dL (9-16); Calcium 8.8 mg/dL (8.4-10.2); Carbon Dioxide 23 mmol/L (22-29); Chloride 112 mmol/L (96-108); Creatinine Clr Calc Pharmacy 72.4; Estimated Glomerular Filt Rate > 60; Glucose Random 246 mg/dL (60-115); Sodium 144 mmol/L (135-145)
--- NOTE | 2022-04-16 15:20 | PC.NURSE ---
Rai with very minimal urine output for shift. Started having some blood in catheter. Attempted irrigation per provider order. Not able to get return with irrigation. Provider ok'd to change rai. Upon removing rai, bright red blood came from penis. Once new rai placed, no further bleeding. Urine output tea colored, milky with sediment. Urine sent for culture. 1800cc urine output.
[2022-04-16] MEDS: Potassium Chloride Packet 20 MEQ PACKET 40 MEQ PO (16:40)
[2022-04-16 16:44] LABS: Appearance Urine TURBID; Color Urine DK YELLOW; Glucose Urine UA NEG (NEG); Leukocyte Esterase Urine 2+ (NEG); Nitrite Urine POS (NEG); Specific Gravity - Urine >= 1.030 (1.005-1.025); UACC Culture Trigger YES; Urine Blood 3+ (NEG); Urine Ketones 5 MG/DL (NEG); Urine Protein 2+ MG/DL (NEG-TRACE)
[2022-04-16 16:57] LABS: Bacteria Urine 4+ /LPF; RBC Urine TNTC /HPF (0); UACC CULT YES; WBC Urine TNTC /HPF (0-4)
[2022-04-16] MEDS: cefTRIAXone sodium 1 GM in 0.9 % Sodium Chloride 50 ML IV (18:34)
[2022-04-16] MEDS: Enoxaparin Sodium 40 MG/0.4 ML SYRINGE SUBCUT (23:11)
[2022-04-16] MEDS: Acetaminophen 325 MG TABLET 650 MG PO (23:11)
[2022-04-17 03:49] VITALS: BP 130/67; PULSE 92; RESP 16; TEMP 37.2; O2SAT 96
[2022-04-17 07:53] LABS: Anion Gap 8 (12-20); Blood Urea Nitrogen 33 mg/dL (9-16); Carbon Dioxide 28 mmol/L (22-29); Chloride 115 mmol/L (96-108); Creatinine Clr Calc Pharmacy 85.4; Estimated Glomerular Filt Rate > 60; Glucose Random 116 mg/dL (60-115); Magnesium 2.3 mg/dL (1.6-2.6); Potassium 3.4 mmol/L (3.3-5.1); Sodium 148 mmol/L (135-145)
[2022-04-17 08:00] VITALS: BP 131/61; PULSE 90; RESP 18; TEMP 36.8; O2SAT 98
--- NOTE | 2022-04-17 10:37 | P.PNIM_ITS ---
Subjective Subjective Date of Service: 04/17/22 Review of Systems follow up COVid, UTI, sepsis minimal communication due to Developmental delay Physical Exam Vital Signs: Vital Signs: Last Vital Signs Temp 98.2 F 04/17/22 08:00 Pulse 90 04/17/22 08:00 Resp 18 04/17/22 08:00 BP 131/61 04/17/22 08:00 Pulse Ox 98 04/17/22 08:00 O2 Del Method 04/17/22 08:00 O2 Flow Rate 2 04/04/22 10:49 Oxygen Flow Rate 2 04/03/22 20:32 BMI result Body Mass Index 20.6 Appearing in no acute distress lung sounds are clear to auscultation heart regular rate rhythm, clear S1, S2 positive bowel sounds, abdomen is soft, nontender neuro patient is alert Objective Data Active Medications Acetaminophen (Acetaminophen 325 Mg Tablet) 650 mg PO Q6H PRN PRN Reason: Pain, Mild (Pain Scale 1-3) Last Admin: 04/16/22 23:11 Dose: 650 mg Documented By: CHASE Amlodipine Besylate (Amlodipine Besylate 10 Mg Tablet) 10 mg PO DAILY [facility]; Protocol Docusate Sodium (Docusate Sodium 100 Mg Capsule) 100 mg PO DAILY PRN PRN Reason: Constipation Enoxaparin Sodium (Enoxaparin Sodium 40 Mg/0.4 Ml Syringe) 40 mg SUBCUT Q24H [facility] Last Admin: 04/16/22 23:11 Dose: 40 mg Documented By: CHASE Fluoxetine HCl (Fluoxetine Hcl 20 Mg Capsule) 40 mg PO DAILY [facility] Last Admin: 04/16/22 09:22 Dose: 40 mg Documented By: ANNEMARIE Folic Acid (Folic Acid 1 Mg Tablet) 1 mg PO DAILY [facility] Last Admin: 04/16/22 09:22 Dose: 1 mg Documented By: ANNEMARIE Ceftriaxone Sodium 1 gm/ (Sodium Chloride) 50 mls @ 100 mls/hr IV Q24H [facility] Last Infusion: 04/16/22 19:59 Dose: 0 mls/hr Documented By: CHASE Ondansetron HCl (Ondansetron Hcl 4 Mg/2 Ml Vial) 4 mg IVPUSH Q8H PRN PRN Reason: Nausea and Vomiting Pharmacy Consult (Consult Rx Perform Med Rec) 1 each MISCELLANE ONCE PRN PRN Reason: Consult order Quetiapine Fumarate (Quetiapine Fumarate 300 Mg Tablet) 300 mg PO BID [facility] Last Admin: 04/16/22 23:12 Dose: 300 mg Documented By: CHASE Sodium Chloride (0.9 % Sodium Chloride Flush 3 Ml Syringe) 3 ml IVFLUSH QSHIFT [facility] Last Admin: 04/16/22 23:12 Dose: 3 ml Documented By: CHASE Labs CBC & Chem 7: 04/16/22 13:12 04/17/22 07:00 Labs: Laboratory Results - last 24 hr 04/16/22 04/16/22 04/16/22 13:12 13:12 Unknown MCV 96.8 MCH 31.9 MCHC 32.9 RDW 13.8 Plt Count 390 MPV 9.5 Absolute Nucleated RBC 0.000 Nucleated RBC % (auto) 0.0 Anion Gap 12 Estim Creat Clear Calc 72.4 Estimated GFR > 60 Random Glucose 246 H D Calcium 8.8 Magnesium Urine Color DK YELLOW Urine Appearance TURBID Urine pH 6.0 Ur Specific [facility] >= 1.030 H Urine Protein 2+ H Urine Glucose (UA) NEG Urine Ketones 5 Urine Blood 3+ H Urine Nitrite POS H Ur Leukocyte Esterase 2+ H Urine RBC TNTC H Urine WBC TNTC H Ur Squamous Epith Cells NONE Urine Bacteria 4+ Urine Yeast 4+ 04/17/22 07:00 MCV MCH MCHC RDW Plt Count MPV Absolute Nucleated RBC Nucleated RBC % (auto) Anion Gap 8 L Estim Creat Clear Calc 85.4 Estimated GFR > 60 Random Glucose 116 H D Calcium 9.0 Magnesium 2.3 Urine Color Urine Appearance Urine pH Ur Specific [facility] Urine Protein Urine Glucose (UA) Urine Ketones Urine Blood Urine Nitrite Ur Leukocyte Esterase Urine RBC Urine WBC Ur Squamous Epith Cells Urine Bacteria Urine Yeast Assessment and Plan (1) COVID-19 virus infection: Status: Acute Plan 71M presented with convulsions and fevers UTI Urine cx pending IV rocephin Sepsis. Resolved due to uti & aspiration pneumonia complicated by metabolic encephalopathy Mental status improved completed course of ceftriaxone Afebrile hypokalemia Resolved with replacement convulsions neuro appreciated, seizure unlikely, outpatient eeg COVID-19 infection asymptomatic, on room air No active treatment needed at this point Isolation Covid recovered as of 04/19/22 dysphagia automatic data processing planner appreciated - ndd3 solids, nectar thick liquids Aspiration precautions elevated troponin due to fevers, no acs schizophrenia seroquel weakness PT eval- PT rec STR dvt prophyalxis - lovenox dnr/dni Attending-Dr. Wilcox reason for continued hospitalization: pending placement Given positive COVID test- considered recovered on April 19 Quality Stroke Does the patient have a stroke diagnosis?: No VTE Prior VTE?: No VTE Risk Level:: Medical - moderate - high VTE Device Contraindication: Treatment Not Indicated VTE Drug Contraindication: N/A - Med Ordered
[2022-04-17] MEDS: QUEtiapine Fumarate 300 MG TABLET PO ×2 (10:40→21:18)
[2022-04-17] MEDS: amLODIPine Besylate 10 MG TABLET PO (10:40)
[2022-04-17] MEDS: 0.9 % Sodium Chloride Flush 3 ML SYRINGE IVFLUSH ×3 (10:41→21:18)
[2022-04-17] MEDS: FLUoxetine HCl 20 MG CAPSULE 40 MG PO (10:41)
[2022-04-17] MEDS: Folic Acid 1 MG TABLET PO (10:41)
[2022-04-17 11:12] VITALS: BP 125/55; PULSE 95; RESP 18; TEMP 36.9; O2SAT 98
[2022-04-17] MEDS: 0.9 % Sodium Chloride 500 ML 100 ML IVCONT ×2 (13:32→18:32)
[2022-04-17 15:12] VITALS: BP 117/75; PULSE 92; RESP 20; TEMP 36.7; O2SAT 96
[2022-04-17 15:50] LABS: Anion Gap 12 (12-20); Blood Urea Nitrogen 32 mg/dL (9-16); Calcium 8.8 mg/dL (8.4-10.2); Carbon Dioxide 24 mmol/L (22-29); Chloride 117 mmol/L (96-108); Creatinine Clr Calc Pharmacy 86.5; Estimated Glomerular Filt Rate > 60; Glucose Random 113 mg/dL (60-115); Potassium 3.2 mmol/L (3.3-5.1); Sodium 150 mmol/L (135-145)
[2022-04-17] MEDS: cefTRIAXone sodium 1 GM in 0.9 % Sodium Chloride 50 ML IV (18:31)
[2022-04-17 19:21] VITALS: BP 132/67; PULSE 96; RESP 20; TEMP 36.6; O2SAT 96
[2022-04-17 23:23] VITALS: BP 108/53; RESP 18; TEMP 37; O2SAT 94
[2022-04-18] MEDS: 0.9 % Sodium Chloride 500 ML 100 ML IVCONT ×2 (00:02→04:55)
[2022-04-18] MEDS: Enoxaparin Sodium 40 MG/0.4 ML SYRINGE SUBCUT (00:05)
[2022-04-18 03:58] VITALS: BP 140/67; PULSE 87; RESP 18; TEMP 36.6; O2SAT 96
[2022-04-18] MEDS: FLUoxetine HCl 20 MG CAPSULE 40 MG PO (07:40)
[2022-04-18] MEDS: QUEtiapine Fumarate 300 MG TABLET PO ×2 (07:40→22:09)
[2022-04-18] MEDS: Folic Acid 1 MG TABLET PO (07:40)
[2022-04-18 07:41] VITALS: BP 161/81; PULSE 93; RESP 18; TEMP 37.1; O2SAT 96
[2022-04-18] MEDS: amLODIPine Besylate 10 MG TABLET PO (07:41)
[2022-04-18] MEDS: 0.9 % Sodium Chloride Flush 3 ML SYRINGE IVFLUSH ×2 (07:57→18:43)
--- NOTE | 2022-04-18 10:03 | P.PNIM_ITS ---
Subjective Subjective Date of Service: 04/18/22 Review of Systems follow up COVid, UTI, sepsis minimal communication due to Developmental delay Physical Exam Vital Signs: Vital Signs: Last Vital Signs Temp 98.8 F 04/18/22 07:41 Pulse 93 04/18/22 07:41 Resp 18 04/18/22 07:41 BP 161/81 H 04/18/22 07:41 Pulse Ox 96 04/18/22 07:41 O2 Del Method 04/18/22 07:41 O2 Flow Rate 2 04/04/22 10:49 Oxygen Flow Rate 2 04/03/22 20:32 BMI result Body Mass Index 20.6 Appearing in no acute distress normal lung expansion heart regular rate rhythm positive bowel sounds neuro patient is alert Objective Data Active Medications Acetaminophen (Acetaminophen 325 Mg Tablet) 650 mg PO Q6H PRN PRN Reason: Pain, Mild (Pain Scale 1-3) Last Admin: 04/16/22 23:11 Dose: 650 mg Documented By: CHASE Amlodipine Besylate (Amlodipine Besylate 10 Mg Tablet) 10 mg PO DAILY [facility]; Protocol Last Admin: 04/18/22 07:41 Dose: 10 mg Documented By: ANA Docusate Sodium (Docusate Sodium 100 Mg Capsule) 100 mg PO DAILY PRN PRN Reason: Constipation Enoxaparin Sodium (Enoxaparin Sodium 40 Mg/0.4 Ml Syringe) 40 mg SUBCUT Q24H [facility] Last Admin: 04/18/22 00:05 Dose: 40 mg Documented By: TRAVIS Fluoxetine HCl (Fluoxetine Hcl 20 Mg Capsule) 40 mg PO DAILY [facility] Last Admin: 04/18/22 07:40 Dose: 40 mg Documented By: ANA Folic Acid (Folic Acid 1 Mg Tablet) 1 mg PO DAILY [facility] Last Admin: 04/18/22 07:40 Dose: 1 mg Documented By: ANA Ceftriaxone Sodium 1 gm/ (Sodium Chloride) 50 mls @ 100 mls/hr IV Q24H [facility] Last Infusion: 04/17/22 19:16 Dose: 0 mls/hr Documented By: JOSE Dextrose (D5w) 1,000 mls @ 75 mls/hr IVCONT .[id number] [facility] Ondansetron HCl (Ondansetron Hcl 4 Mg/2 Ml Vial) 4 mg IVPUSH Q8H PRN PRN Reason: Nausea and Vomiting Pharmacy Consult (Consult Rx Perform Med Rec) 1 each MISCELLANE ONCE PRN PRN Reason: Consult order Quetiapine Fumarate (Quetiapine Fumarate 300 Mg Tablet) 300 mg PO BID [facility] Last Admin: 04/18/22 07:40 Dose: 300 mg Documented By: ANA Sodium Chloride (0.9 % Sodium Chloride Flush 3 Ml Syringe) 3 ml IVFLUSH QSHIFT [facility] Last Admin: 04/18/22 07:57 Dose: 3 ml Documented By: JOSE Labs CBC & Chem 7: 04/16/22 13:12 04/17/22 15:16 Labs: Laboratory Results - last 24 hr 04/17/22 15:16 Anion Gap 12 Estim Creat Clear Calc 86.5 Estimated GFR > 60 Random Glucose 113 Calcium 8.8 Microbiology Microbiology Results: Microbiology 04/16/22 Unknown Urine Culture - Preliminary Urine clean catch - Urine luz top Culture in progress. Assessment and Plan (1) COVID-19 virus infection: Status: Acute Plan 71M presented with convulsions and fevers Hypernatremia D5W recheck this afternoon UTI Urine cx pending IV rocephin Sepsis. Resolved due to uti & aspiration pneumonia complicated by metabolic encephalopathy Mental status improved completed course of ceftriaxone Afebrile hypokalemia Resolved with replacement convulsions neuro appreciated, seizure unlikely, outpatient eeg COVID-19 infection asymptomatic, on room air No active treatment needed at this point Isolation Covid recovered as of 04/19/22 dysphagia upholstery cutter appreciated - ndd3 solids, nectar thick liquids Aspiration precautions elevated troponin due to fevers, no acs schizophrenia seroquel weakness PT eval- PT rec STR dvt prophyalxis - lovenox dnr/dni Attending-Dr. Wilcox reason for continued hospitalization: pending placement Given positive COVID test- considered recovered on April 19 Quality Stroke Does the patient have a stroke diagnosis?: No VTE Prior VTE?: No VTE Risk Level:: Medical - moderate - high VTE Device Contraindication: Treatment Not Indicated VTE Drug Contraindication: N/A - Med Ordered
[2022-04-18 11:29] VITALS: BP 131/65; PULSE 89; RESP 18; TEMP 36.7; O2SAT 97
[2022-04-18] MEDS: Dextrose 5 % 1,000 ML 75 ML IVCONT (11:34)
[2022-04-18 16:00] VITALS: BP 124/63; PULSE 92; RESP 18; TEMP 36.8; O2SAT 97
[2022-04-18] MEDS: cefTRIAXone sodium 1 GM in 0.9 % Sodium Chloride 50 ML IV (18:32)
[2022-04-18 20:00] VITALS: BP 110/64; PULSE 86; RESP 17; TEMP 36.7; O2SAT 94
[2022-04-18 23:32] VITALS: BP 129/67; PULSE 74; RESP 18; TEMP 36.9; O2SAT 97
[2022-04-19] VITALS (7 sets, daily range): BP systolic 99–147; BP diastolic 49–70; PULSE 75–83; RESP 17–20; TEMP 36.6–37.2; O2SAT 96–98
[2022-04-19] MEDS: Enoxaparin Sodium 40 MG/0.4 ML SYRINGE SUBCUT
[2022-04-19] MEDS: amLODIPine Besylate 10 MG TABLET PO (07:54)
[2022-04-19] MEDS: QUEtiapine Fumarate 300 MG TABLET PO ×2 (07:54→21:06)
[2022-04-19] MEDS: Folic Acid 1 MG TABLET PO (07:55)
[2022-04-19] MEDS: 0.9 % Sodium Chloride Flush 3 ML SYRINGE IVFLUSH ×3 (07:55→21:07)
[2022-04-19] MEDS: FLUoxetine HCl 20 MG CAPSULE 40 MG PO (07:55)
[2022-04-19] MEDS: Dextrose 5 % 1,000 ML 100 ML IVCONT ×2 (08:24)
[2022-04-19 09:12] LABS: Anion Gap 10 (12-20); Blood Urea Nitrogen 20 mg/dL (9-16); Calcium 8.3 mg/dL (8.4-10.2); Carbon Dioxide 26 mmol/L (22-29); Chloride 106 mmol/L (96-108); Creatinine Clr Calc Pharmacy 100.5; Estimated Glomerular Filt Rate > 60; Glucose Random 107 mg/dL (60-115); Sodium 139 mmol/L (135-145)
--- NOTE | 2022-04-19 09:50 | P.PNIM_ITS ---
Subjective Subjective Date of Service: 04/19/22 Review of Systems follow up COVid, UTI, sepsis minimal communication due to Developmental delay Physical Exam Vital Signs: Vital Signs: Last Vital Signs Temp 98.9 F 04/19/22 08:52 Pulse 75 04/19/22 08:52 Resp 18 04/19/22 08:52 BP 147/70 H 04/19/22 08:52 Pulse Ox 98 04/19/22 08:52 O2 Del Method 04/19/22 08:52 O2 Flow Rate 2 04/04/22 10:49 Oxygen Flow Rate 2 04/03/22 20:32 BMI result Body Mass Index 20.6 Appearing in no acute distress head is normocephalic atraumatic eyes pupils are PERRLA sclera is anicteric mouth throat mucous membranes are intact and moist neck is supple no lymphadenopathy, no JVD noted lung sounds are clear to auscultation heart regular rate rhythm, clear S1, S2 positive bowel sounds, abdomen is soft, nontender neuro patient is alert x3, no focal deficits Objective Data Active Medications Acetaminophen (Acetaminophen 325 Mg Tablet) 650 mg PO Q6H PRN PRN Reason: Pain, Mild (Pain Scale 1-3) Last Admin: 04/16/22 23:11 Dose: 650 mg Documented By: CHASE Amlodipine Besylate (Amlodipine Besylate 10 Mg Tablet) 10 mg PO DAILY [facility]; Protocol Last Admin: 04/19/22 07:54 Dose: 10 mg Documented By: MARICHUY Docusate Sodium (Docusate Sodium 100 Mg Capsule) 100 mg PO DAILY PRN PRN Reason: Constipation Enoxaparin Sodium (Enoxaparin Sodium 40 Mg/0.4 Ml Syringe) 40 mg SUBCUT Q24H [facility] Last Admin: 04/19/22 00:00 Dose: 40 mg Documented By: ELIE Fluoxetine HCl (Fluoxetine Hcl 20 Mg Capsule) 40 mg PO DAILY [facility] Last Admin: 04/19/22 07:55 Dose: 40 mg Documented By: MARICHUY Folic Acid (Folic Acid 1 Mg Tablet) 1 mg PO DAILY [facility] Last Admin: 04/19/22 07:55 Dose: 1 mg Documented By: MARICHUY Ceftriaxone Sodium 1 gm/ (Sodium Chloride) 50 mls @ 100 mls/hr IV Q24H [facility] Last Infusion: 04/18/22 19:06 Dose: 0 mls/hr Documented By: JOSE Dextrose (D5w) 1,000 mls @ 100 mls/hr IVCONT .Q10H [facility] Last Admin: 04/19/22 08:24 Dose: 100 mls/hr Documented By: MARICHUY Ondansetron HCl (Ondansetron Hcl 4 Mg/2 Ml Vial) 4 mg IVPUSH Q8H PRN PRN Reason: Nausea and Vomiting Pharmacy Consult (Consult Rx Perform Med Rec) 1 each MISCELLANE ONCE PRN PRN Reason: Consult order Quetiapine Fumarate (Quetiapine Fumarate 300 Mg Tablet) 300 mg PO BID [facility] Last Admin: 04/19/22 07:54 Dose: 300 mg Documented By: MARICHUY Sodium Chloride (0.9 % Sodium Chloride Flush 3 Ml Syringe) 3 ml IVFLUSH QSHIFT [facility] Last Admin: 04/19/22 07:55 Dose: 3 ml Documented By: MARICHUY Labs CBC & Chem 7: 04/16/22 13:12 04/19/22 08:26 Labs: Laboratory Results - last 24 hr 04/19/22 08:26 Anion Gap 10 L Estim Creat Clear Calc 100.5 Estimated GFR > 60 Random Glucose 107 Calcium 8.3 L Microbiology Microbiology Results: Microbiology 04/16/22 Unknown Urine Culture - Preliminary Urine clean catch - Urine luz top Gram negative kedar Gram positive cocci Assessment and Plan (1) COVID-19 virus infection: Status: Acute Plan 71M presented with convulsions and fevers Hypernatremia. Resolved D5W stopped Hypokalemia. 3.0 replaced follow BMP GNR/GPC UTI IV rocephin ID consult pending Sepsis. Resolved due to uti & aspiration pneumonia complicated by metabolic encephalopathy Mental status improved completed course of ceftriaxone Afebrile convulsions neuro appreciated, seizure unlikely, outpatient eeg COVID-19 infection asymptomatic, on room air No active treatment needed at this point Isolation Covid recovered as of 04/19/22 dysphagia router tender appreciated - ndd3 solids, nectar thick liquids Aspiration precautions elevated troponin due to fevers, no acs schizophrenia seroquel weakness PT eval- PT rec STR dvt prophyalxis - lovenox dnr/dni Attending-Dr. Wilcox reason for continued hospitalization: pending placement Given positive COVID test- considered recovered on April 19 Quality Stroke Does the patient have a stroke diagnosis?: No VTE Prior VTE?: No VTE Risk Level:: Medical - moderate - high VTE Device Contraindication: Treatment Not Indicated VTE Drug Contraindication: N/A - Med Ordered
--- NOTE | 2022-04-19 11:45 | MHC.CM.PN ---
Per ROUNDS discussion, Patient is not yet medically cleared for dc r/t IV Ceftriaxone, positive Covid on 04/13/22, NA value, need for Intent to Place on Guardianship; Broad SNF search in progress.
[2022-04-19] MEDS: Potassium Chloride ER 20 MEQ TAB.ER.PRT 40 MEQ PO (12:23)
--- NOTE | 2022-04-19 14:48 | P.CNID_ITS ---
History of Present Illness Data of Consult Service Date: 04/19/22 Requesting physician: Berna Reina Primary Care Provider: Mary Styles MD [facility] Reason for consult: fever of unknown origin He is a developmentally challenged male presents with weakness after seizure He came to hospital and given IV Ceftriaxone for urine and lung source possible infection and has been on it better part of 13 days. [facility] Past Medical History Medical History (Updated 04/19/22 @ 14:51 by Laura Mays MD) Developmental delay, borderline Pyuria Schizophrenia Family History Family History Other No family history of coronary artery disease Family history: reviewed and not pertinent Surgical History Surgical History History of hip replacement Social History Social History Household Members: Other Housing: [facility] Do you presently have visiting nurse or other home services: No Unable to assess alcohol history related to: Unknown Alcohol intake: never Patient Tobacco Use Status: Never used Tobacco service: No Current occupational status: disabled [employer] Allergies Allergy/AdvReac Type Severity Reaction Status Date / Time No Known Allergies Allergy Verified 04/03/22 21:30 [No Known Allergies*] Active Medications: Current Medications Acetaminophen (Acetaminophen 325 Mg Tablet) 650 mg PO Q6H PRN PRN Reason: Pain, Mild (Pain Scale 1-3) Last Admin: 04/16/22 23:11 Dose: 650 mg Amlodipine Besylate (Amlodipine Besylate 10 Mg Tablet) 10 mg PO DAILY [facility]; Protocol Last Admin: 04/19/22 07:54 Dose: 10 mg Docusate Sodium (Docusate Sodium 100 Mg Capsule) 100 mg PO DAILY PRN PRN Reason: Constipation Enoxaparin Sodium (Enoxaparin Sodium 40 Mg/0.4 Ml Syringe) 40 mg SUBCUT Q24H [facility] Last Admin: 04/19/22 00:00 Dose: 40 mg Fluoxetine HCl (Fluoxetine Hcl 20 Mg Capsule) 40 mg PO DAILY [facility] Last Admin: 04/19/22 07:55 Dose: 40 mg Folic Acid (Folic Acid 1 Mg Tablet) 1 mg PO DAILY [facility] Last Admin: 04/19/22 07:55 Dose: 1 mg Ceftriaxone Sodium 1 gm/ (Sodium Chloride) 50 mls @ 100 mls/hr IV Q24H [facility] Last Infusion: 04/18/22 19:06 Dose: Infused Ondansetron HCl (Ondansetron Hcl 4 Mg/2 Ml Vial) 4 mg IVPUSH Q8H PRN PRN Reason: Nausea and Vomiting Pharmacy Consult (Consult Rx Perform Med Rec) 1 each MISCELLANE ONCE PRN PRN Reason: Consult order Quetiapine Fumarate (Quetiapine Fumarate 300 Mg Tablet) 300 mg PO BID [facility] Last Admin: 04/19/22 07:54 Dose: 300 mg Sodium Chloride (0.9 % Sodium Chloride Flush 3 Ml Syringe) 3 ml IVFLUSH QSHIFT [facility] Last Admin: 04/19/22 07:55 Dose: 3 ml Home Medications Medication Instructions Recorded Confirmed Last Taken Type budesonide 0.5 mg/2 mL suspension 2 ml inhalation QPM PRN Shortness 04/03/22 04/04/22 Unknown History for nebulization Of Breath cholecalciferol (vitamin D3) 25 1 cap PO DAILY 04/03/22 04/04/22 04/03/22 07:00 History mcg (1,000 unit) capsule (Vitamin D3) fluoxetine 40 mg capsule 1 cap PO QAM 04/03/22 04/03/22 04/03/22 07:00 History folic acid 1 mg tablet 1 tab PO DAILY 04/03/22 04/03/22 04/03/22 07:00 History lorazepam 1 mg tablet 1 tab PO BID PRN Anxiety 04/03/22 04/03/22 04/03/22 07:00 History nebulizer and compressor (Vios 04/03/22 04/03/22 Unknown History Aerosol Delivery System) quetiapine 300 mg tablet 1 tab PO BID 04/03/22 04/03/22 04/03/22 07:00 History Physical Exam Vital Signs: Vital Signs: Last Vital Signs Temp 98.0 F 04/19/22 12:04 Pulse 78 04/19/22 12:04 Resp 17 04/19/22 12:04 BP 99/49 L 04/19/22 12:04 Pulse Ox 98 04/19/22 12:04 O2 Del Method 04/19/22 12:04 O2 Flow Rate 2 04/04/22 10:49 Oxygen Flow Rate 2 04/03/22 20:32 BMI result Body Mass Index 20.6 Const: General: cooperative HEENT: Head: Yes normal to inspection Face and sinus: Yes normal facial exam Mouth: Normal oral and palatal mucosa present Teeth and gingiva: dentition normal Eyes: General: appearance normal, both eyes and all related structures Pupils: Equal, round and reactive pupils present Resp: Effort & Inspection: normal respiratory effort Cardio: Rate: regular rate Rhythm: regular rhythm GI: Palpation (GI): Soft to palpation and nontender : General: Yes no CVA tenderness Back/Spine/Pelvis: Back: no CVA tenderness Skin: General skin exam: no rashes or lesions noted Neuro: General: moves all extremities Cranial nerves: Yes Equal, round and reactive pupils present Extrem: General: Yes normal to inspection Psych: Appearance: well kempt Results Labs CBC & Chem 7: 04/16/22 13:12 04/19/22 08:26 Labs: BMP 04/19/22 08:26 Sodium 139 Potassium 3.0 L Chloride 106 Carbon Dioxide 26 BUN 20 H Creatinine 0.62 Calcium 8.3 L Microbiology Microbiology Results: Microbiology 04/16/22 Unknown Urine clean catch - Urine luz top Urine Culture - Preliminary Gram negative kedar Gram positive cocci 04/03/22 21:10 Blood - Venous Blood Culture - Final No growth after 5 days. 04/03/22 20:57 Blood - Venous Blood Culture - Final No growth after 5 days. 04/03/22 23:57 Cerebrospinal Fluid Gram Stain - Final 04/03/22 23:57 Cerebrospinal Fluid CSF Examination - Final 04/03/22 23:57 Cerebrospinal Fluid Fluid Description - Final 04/03/22 23:57 Cerebrospinal Fluid CSF Culture - Final No growth after 3 days. 04/03/22 Unknown Urine clean catch - Urine luz top Urine Culture - Final Assessment and Plan (1) Pyuria: Status: Acute He may have some colonization in bladder. He had brief fever 7/8 only ?mucus plugging He had been on antibiotics about sixteen days Opportunistic pathogens can appear in urine but doesnt look ill (2) COVID-19 virus infection: Status: Acute asymptomatic no oxygen (3) Acute UTI: Status: Acute Plan Would discontinue Ceftriaxone as been many days Await cultures urine but if afebrile and alert may not treat,may be colonization and isolated fever spike
[2022-04-19 18:52] LABS: Anion Gap 10 (12-20); Blood Urea Nitrogen 21 mg/dL (9-16); Calcium 8.8 mg/dL (8.4-10.2); Carbon Dioxide 26 mmol/L (22-29); Chloride 106 mmol/L (96-108); Creatinine Clr Calc Pharmacy 84.2; Estimated Glomerular Filt Rate > 60; Glucose Random 119 mg/dL (60-115); Potassium 3.1 mmol/L (3.3-5.1); Sodium 139 mmol/L (135-145)
[2022-04-20] VITALS (7 sets, daily range): BP systolic 103–152; BP diastolic 59–75; PULSE 77–98; RESP 15–20; TEMP 36.3–37.1; O2SAT 95–98
[2022-04-20] MEDS: Enoxaparin Sodium 40 MG/0.4 ML SYRINGE SUBCUT (01:25)
[2022-04-20 07:30] LABS: Anion Gap 10 (12-20); Blood Urea Nitrogen 20 mg/dL (9-16); Calcium 8.3 mg/dL (8.4-10.2); Carbon Dioxide 25 mmol/L (22-29); Chloride 108 mmol/L (96-108); Creatinine Clr Calc Pharmacy 97.4; Estimated Glomerular Filt Rate > 60; Glucose Random 96 mg/dL (60-115); Potassium 3.1 mmol/L (3.3-5.1); Sodium 140 mmol/L (135-145)
[2022-04-20] MEDS: QUEtiapine Fumarate 300 MG TABLET PO ×2 (08:08→20:37)
[2022-04-20] MEDS: 0.9 % Sodium Chloride Flush 3 ML SYRINGE IVFLUSH ×2 (08:08→16:49)
[2022-04-20] MEDS: amLODIPine Besylate 10 MG TABLET PO (08:08)
[2022-04-20] MEDS: Potassium Chloride ER 20 MEQ TAB.ER.PRT 40 MEQ PO (08:08)
[2022-04-20] MEDS: FLUoxetine HCl 20 MG CAPSULE 40 MG PO (08:08)
[2022-04-20] MEDS: Folic Acid 1 MG TABLET PO (08:08)
--- NOTE | 2022-04-20 11:34 | HO.PM.IMPN ---
Subjective Subjective Date of Service: 04/20/22 Review of Systems follow up COVid, UTI, sepsis minimal communication due to Developmental delay Physical Exam Vital Signs: Vital Signs: Last Vital Signs Temp 97.6 F 04/20/22 07:23 Pulse 98 04/20/22 09:12 Resp 20 04/20/22 07:23 BP 152/72 H 04/20/22 09:12 Pulse Ox 97 04/20/22 09:12 O2 Del Method 04/20/22 07:23 O2 Flow Rate 2 04/04/22 10:49 Oxygen Flow Rate 2 04/03/22 20:32 BMI result Body Mass Index 20.6 Appearing in no acute distress lungs normal expansion heart regular rate rhythm positive bowel sounds neuro patient is alert Objective Data Active Medications Acetaminophen (Acetaminophen 325 Mg Tablet) 650 mg PO Q6H PRN PRN Reason: Pain, Mild (Pain Scale 1-3) Last Admin: 04/16/22 23:11 Dose: 650 mg Documented By: CHASE Amlodipine Besylate (Amlodipine Besylate 10 Mg Tablet) 10 mg PO DAILY [facility]; Protocol Last Admin: 04/20/22 08:08 Dose: 10 mg Documented By: MIRIAM Docusate Sodium (Docusate Sodium 100 Mg Capsule) 100 mg PO DAILY PRN PRN Reason: Constipation Enoxaparin Sodium (Enoxaparin Sodium 40 Mg/0.4 Ml Syringe) 40 mg SUBCUT Q24H [facility] Last Admin: 04/20/22 01:25 Dose: 40 mg Documented By: CLIVE Fluoxetine HCl (Fluoxetine Hcl 20 Mg Capsule) 40 mg PO DAILY [facility] Last Admin: 04/20/22 08:08 Dose: 40 mg Documented By: MIRIAM Folic Acid (Folic Acid 1 Mg Tablet) 1 mg PO DAILY [facility] Last Admin: 04/20/22 08:08 Dose: 1 mg Documented By: MIRIAM Potassium Chloride () 20 meq in 100 mls @ 100 mls/hr IV ONCE ONE Stop: 04/20/22 12:32 Ondansetron HCl (Ondansetron Hcl 4 Mg/2 Ml Vial) 4 mg IVPUSH Q8H PRN PRN Reason: Nausea and Vomiting Pharmacy Consult (Consult Rx Perform Med Rec) 1 each MISCELLANE ONCE PRN PRN Reason: Consult order Quetiapine Fumarate (Quetiapine Fumarate 300 Mg Tablet) 300 mg PO BID [facility] Last Admin: 04/20/22 08:08 Dose: 300 mg Documented By: MIRIAM Sodium Chloride (0.9 % Sodium Chloride Flush 3 Ml Syringe) 3 ml IVFLUSH QSHIFT [facility] Last Admin: 04/20/22 08:08 Dose: 3 ml Documented By: MIRIAM Labs CBC & Chem 7: 04/16/22 13:12 04/20/22 06:33 Labs: Laboratory Results - last 24 hr 04/19/22 04/20/22 18:19 06:33 Anion Gap 10 L 10 L Estim Creat Clear Calc 84.2 97.4 Estimated GFR > 60 > 60 Random Glucose 119 H 96 Calcium 8.8 D 8.3 L Microbiology Microbiology Results: Microbiology 04/16/22 Unknown Urine Culture - Final Urine clean catch - Urine luz top Pseudomonas aeruginosa Enterococcus faecalis Assessment and Plan (1) COVID-19 virus infection: Status: Acute Plan 71M presented with convulsions and fevers Hypernatremia. Resolved D5W stopped Hypokalemia. 3.1 IV and po replacement follow BMP Pseudomonas aeruginosa/enterococcus faecalis UTI IV rocephin completed ID following, likely colonized Sepsis. Resolved due to uti & aspiration pneumonia complicated by metabolic encephalopathy Mental status improved completed course of ceftriaxone Afebrile convulsions neuro appreciated, seizure unlikely, outpatient eeg COVID-19 infection asymptomatic, on room air No active treatment needed at this point Isolation Covid recovered as of 04/19/22 dysphagia recorder gravity prospecting appreciated - ndd3 solids, nectar thick liquids Aspiration precautions elevated troponin due to fevers, no acs schizophrenia seroquel weakness PT eval- PT rec STR dvt prophyalxis - lovenox dnr/dni Attending-Dr. Wilcox reason for continued hospitalization: pending placement Given positive COVID test- considered recovered on April 19, still treating hypokalemia Quality Stroke Does the patient have a stroke diagnosis?: No VTE Prior VTE?: No VTE Risk Level:: Medical - moderate - high VTE Device Contraindication: Treatment Not Indicated VTE Drug Contraindication: N/A - Med Ordered
[2022-04-20] MEDS: Potassium Chloride/H20 10 MEQ/100 ML PIGGYBACK 100 MEQ IV ×2 (12:37→14:10)
[2022-04-20 16:09] LABS: Anion Gap 11 (12-20); Blood Urea Nitrogen 21 mg/dL (9-16); Calcium 8.6 mg/dL (8.4-10.2); Carbon Dioxide 23 mmol/L (22-29); Chloride 109 mmol/L (96-108); Creatinine Clr Calc Pharmacy 85.4; Estimated Glomerular Filt Rate > 60; Glucose Random 114 mg/dL (60-115); Potassium 3.9 mmol/L (3.3-5.1); Sodium 139 mmol/L (135-145)
[2022-04-21] MEDS: Enoxaparin Sodium 40 MG/0.4 ML SYRINGE SUBCUT (00:15)
[2022-04-21] MEDS: 0.9 % Sodium Chloride Flush 3 ML SYRINGE IVFLUSH ×2 (00:15→09:16)
[2022-04-21 03:33] VITALS: BP 119/75; PULSE 88; RESP 16; TEMP 36.3; O2SAT 96
[2022-04-21 07:39] VITALS: BP 146/71; PULSE 84; RESP 18; TEMP 37; O2SAT 100
[2022-04-21 08:52] VITALS: BP 146/71; PULSE 84; O2SAT 100
[2022-04-21] MEDS: FLUoxetine HCl 20 MG CAPSULE 40 MG PO (09:16)
[2022-04-21] MEDS: QUEtiapine Fumarate 300 MG TABLET PO (09:17)
[2022-04-21] MEDS: Folic Acid 1 MG TABLET PO (09:17)
[2022-04-21] MEDS: amLODIPine Besylate 10 MG TABLET PO (09:17)
--- NOTE | 2022-04-21 10:10 | P.PNIM_ITS ---
Subjective Subjective Date of Service: 04/21/22 Review of Systems follow up COVid, UTI, sepsis minimal communication due to Developmental delay Physical Exam Vital Signs: Vital Signs: Last Vital Signs Temp 98.6 F 04/21/22 07:39 Pulse 84 04/21/22 08:52 Resp 18 04/21/22 07:39 BP 146/71 H 04/21/22 08:52 Pulse Ox 100 04/21/22 08:52 O2 Del Method 04/21/22 07:39 O2 Flow Rate 2 04/04/22 10:49 Oxygen Flow Rate 2 04/03/22 20:32 BMI result Body Mass Index 20.6 Appearing in no acute distress lung normal expansion heart regular rate rhythm, clear S1, S2 positive bowel sounds, abdomen is soft, nontender neuro patient is alert, mostly non verbal Objective Data Active Medications Acetaminophen (Acetaminophen 325 Mg Tablet) 650 mg PO Q6H PRN PRN Reason: Pain, Mild (Pain Scale 1-3) Last Admin: 04/16/22 23:11 Dose: 650 mg Documented By: CHASE Amlodipine Besylate (Amlodipine Besylate 10 Mg Tablet) 10 mg PO DAILY [facility]; Protocol Last Admin: 04/21/22 09:17 Dose: 10 mg Documented By: MIRIAM Docusate Sodium (Docusate Sodium 100 Mg Capsule) 100 mg PO DAILY PRN PRN Reason: Constipation Enoxaparin Sodium (Enoxaparin Sodium 40 Mg/0.4 Ml Syringe) 40 mg SUBCUT Q24H [facility] Last Admin: 04/21/22 00:15 Dose: 40 mg Documented By: KAROL Fluoxetine HCl (Fluoxetine Hcl 20 Mg Capsule) 40 mg PO DAILY [facility] Last Admin: 04/21/22 09:16 Dose: 40 mg Documented By: MIRIAM Folic Acid (Folic Acid 1 Mg Tablet) 1 mg PO DAILY [facility] Last Admin: 04/21/22 09:17 Dose: 1 mg Documented By: MIRIAM Ondansetron HCl (Ondansetron Hcl 4 Mg/2 Ml Vial) 4 mg IVPUSH Q8H PRN PRN Reason: Nausea and Vomiting Pharmacy Consult (Consult Rx Perform Med Rec) 1 each MISCELLANE ONCE PRN PRN Reason: Consult order Quetiapine Fumarate (Quetiapine Fumarate 300 Mg Tablet) 300 mg PO BID [facility] Last Admin: 04/21/22 09:17 Dose: 300 mg Documented By: MIRIAM Sodium Chloride (0.9 % Sodium Chloride Flush 3 Ml Syringe) 3 ml IVFLUSH QSHIFT [facility] Last Admin: 04/21/22 09:16 Dose: 3 ml Documented By: MIRIAM Labs CBC & Chem 7: 04/16/22 13:12 04/20/22 15:27 Labs: Laboratory Results - last 24 hr 04/20/22 15:27 Anion Gap 11 L Estim Creat Clear Calc 85.4 Estimated GFR > 60 Random Glucose 114 Calcium 8.6 Microbiology Microbiology Results: Microbiology 04/16/22 Unknown Urine Culture - Final Urine clean catch - Urine luz top Pseudomonas aeruginosa Enterococcus faecalis Assessment and Plan (1) COVID-19 virus infection: Status: Acute Plan 71M presented with convulsions and fevers Hypernatremia. Resolved D5W stopped Hypokalemia. Resolved IV and po replacement follow BMP Pseudomonas aeruginosa/enterococcus faecalis UTI IV rocephin completed ID following, likely colonized Sepsis. Resolved due to uti & aspiration pneumonia complicated by metabolic encephalopathy Mental status improved completed course of ceftriaxone Afebrile convulsions neuro appreciated, seizure unlikely, outpatient eeg COVID-19 infection asymptomatic, on room air No active treatment needed at this point Isolation Covid recovered as of 04/19/22 dysphagia olive packer appreciated - ndd3 solids, nectar thick liquids Aspiration precautions elevated troponin due to fevers, no acs schizophrenia seroquel weakness PT eval- PT rec STR dvt prophyalxis - lovenox dnr/dni Attending-Dr. Lam reason for continued hospitalization: Waiting for guardian placement paperwork to return back to long-term care facility Quality Stroke Does the patient have a stroke diagnosis?: No VTE Prior VTE?: No VTE Risk Level:: Medical - moderate - high VTE Device Contraindication: Treatment Not Indicated VTE Drug Contraindication: N/A - Med Ordered
[2022-04-21 11:20] VITALS: BP 102/49; PULSE 84; RESP 18; TEMP 36.8; O2SAT 96
--- NOTE | 2022-04-21 11:27 | MHC.CM.PN ---
Per ROUNDS discussion, Patient is medically cleared for dc today. CM spoke with Brother/Guardian/Jak @ [phone], who has agreed to accept a bed offer from [facility]. CM Director is assisting with Intent to Admit clause being added to the Guardianship. CM will continue to follow.
--- NOTE | 2022-04-21 14:28 | MHC.CM.PN ---
Per Medical, Patient will be medically cleared for dc to SNF/STR today. Patient will dc to [facility] today at 5PM, via [facility]. IMM addressed with Brother/Guardian/Jak here at the hospital and original has been given to him and a copy has been placed on the chart.Jak is aware of and in agreement with the dc plan.
--- NOTE | 2022-04-21 14:54 | MHC.CM.PN ---
Copy of Intent to Admit has been delivered to Patient's room, where Brother/Guardian/Jak is visiting and Jak has received the document.
--- NOTE | 2022-04-21 14:54 | PM.DS ---
DS: Providers Provider Date of Service: 04/21/22 Date of admission: 04/04/22 00:19 Primary care physician: Mary Styles MD Consults: 04/04/22 07:42 Consult to Neurology Routine Consulting Provider: [facility] Reason for consultation: witnessed seizure Has provider been notified: No 04/19/22 07:49 Consult to Infectious Diseases Routine Consulting Provider: Laura Mays Reason for consultation: GNR, GPC urine Has provider been notified: No DS: Diagnosis Discharge Diagnosis (1) COVID-19 virus infection: Status: Acute (2) Sepsis: Status: Acute (3) Acute UTI: Status: Acute (4) Seizure-like activity: Status: Acute (5) Hypokalemia: Status: Acute (6) Aspiration pneumonia: Status: Acute DS: Summary Hospital Course Hospital Course: HPI From the admission H&P: This is a 71-year-old male with past medical history of developmental delay as well as schizophrenia who is brought into the hospital by his brother after the brother witnessed as seizure.? The mother reports that the patient has a documented history of seizure but he has not been on any seizure medications and he has never had a seizure in the past 20 years that he has been living with his brother.? Patient is noncommunicative at baseline and history is obtained mostly from his brother who is his primary caregiver.? Brother reports that patient was noted to be more weak for the past 1 day, but had no other symptoms.? He had no complaints or any new changes.? Unable to obtain review of system due to patient's mental status.? On arrival to the ED patient was noted to have a temperature of 104.7 degrees, heart rate of 112, respiratory rate of 34, blood pressure 154/50 satting 95% on room air Labs are significant for WBC count of 9.9, hemoglobin of 9.4, hematocrit of 20.2 sodium 128, BUN of 35, creatinine of 1.68 with a baseline of 0.? Eight 7, lactic acid of 2.4, troponin of 96.7, increased to 357.9, UA positive for leukocyte Estrace and WBC, patient underwent LP, no significant findings.? COVID-19 and influenza negative Patient will be admitted for further management Hospital Course: Patient had a prolonged hospitalization, for the full records please see the EMR. The patient had a prolonged hospitalization, for the full details please see the EMR. In brief, the patient presented to [facility] on 04/04/2022 with seizure-like activity and was found to be in sepsis due to suspected aspiration versus urinary tract infection. He was treated with broad-spectrum IV antibiotics and had initial improvement in his symptoms. His hospital course was complicated by COVID-19 but given that he was asymptomatic and not hypoxic he did not require any treatment. In regards to this seizure-like activity which was suspected at the time of admission, neurology saw the patient and felt that this was unlikely seizures and recommended outpatient EEG. Hospital course was further complicated by fevers and Pseudomonas/Enterococcus urinary tract infection for which infectious disease consultation was sought. Given that the patient had completed multiple days of broad-spectrum IV antibiotics, Infectious Disease recommended discontinuation of antibiotics. Patient has remained afebrile for greater than 5 days at the time of discharge. Here are further details by discharge diagnosis: Hypernatremia. Resolved? D5W stopped Hypokalemia. Resolved IV and po replacement follow BMP Pseudomonas aeruginosa/enterococcus faecalis UTI IV rocephin completed ID following, likely colonized Sepsis. Resolved due to uti & aspiration pneumonia complicated by metabolic encephalopathy Mental status improved completed course of ceftriaxone Afebrile convulsions neuro appreciated, seizure unlikely, outpatient eeg COVID-19 infection asymptomatic, on room air No active treatment needed at this point dysphagia hose builder appreciated - ndd3 solids (Chopped), nectar thick liquids Aspiration precautions elevated troponin due to fevers, no acs schizophrenia seroquel, fluoxetine HTN started on norvasc, tolerating will continue Final Discharge diagnosis: 1. Sepsis secondary to aspiration pneumonia versus urinary tract infection 2. Aspiration pneumonia 3. Urinary tract infection with Pseudomonas and Enterococcus faecalis 4. Dysphagia 5. Schizophrenia 6. Elevated troponins due to demand ischemia from sepsis 7. Hypernatremia and hypokalemia 8. Generalized weakness 9. HTN I anticipate that the patient will need less than 30 days at senior living facility. Time Spent with Patient Time attestation: Total time spent providing and/or coordinating discharge services: Discharge coordination time: Greater than 30 minutes Quality: Safe Use of Opioids Does Pt have an Active Cancer Diagnosis on the Problem List?: No Quality: Stroke Does the patient have a stroke diagnosis?: No Physical Exam Vital Signs: Vital Signs: Last Vital Signs Temp 98.3 F 04/21/22 11:20 Pulse 84 04/21/22 11:20 Resp 18 04/21/22 11:20 BP 102/49 L 04/21/22 11:20 Pulse Ox 96 04/21/22 11:20 O2 Del Method 04/21/22 11:20 O2 Flow Rate 2 04/04/22 10:49 Oxygen Flow Rate 2 04/03/22 20:32 BMI result Body Mass Index 20.6 Const: Other: General - no acute distress, appears comfortable Cardiovascular - regular rate and rhythm, S1-S2 Lungs - normal respiratory effort, clear to auscultation bilaterally, no wheezing Abdomen - soft, non-tender, no rebound or guarding Extremities - no edema bilaterally Neuro - awake and alert, non-verbal DS: Data Data Completed and Pending Labs on day of discharge: Laboratory Results - last 24 hr 04/20/22 15:27 Sodium 139 Potassium 3.9 D Chloride 109 H Carbon Dioxide 23 Anion Gap 11 L BUN 21 H Creatinine 0.73 Estim Creat Clear Calc 85.4 Estimated GFR > 60 Random Glucose 114 Calcium 8.6 Discharge Plan Discharge Patient Disposition: Xfer [facility] Discharge Diagnosis: COVID UTI Sepsis dysphagia Referrals: [facility] [Outside] - 1 Week Physician,Unknown J [Physician] - 1 Week Discharge Medications: New amlodipine 10 mg Tablet 10 mg PO DAILY Qty: 30 0RF Protocol: Hold for SBP< HOLD for SBP < : 90 Continued fluoxetine 40 mg capsule 1 cap PO QAM quetiapine 300 mg tablet 1 tab PO BID budesonide 0.5 mg/2 mL suspension for nebulization 2 ml inhalation QPM PRN (Reason: Shortness Of Breath) folic acid 1 mg tablet 1 tab PO DAILY cholecalciferol (vitamin D3) [Vitamin D3] 25 mcg (1,000 unit) capsule 1 cap PO DAILY (DME) nebulizer and compressor [[employer]ios Aerosol Delivery System] Device MISCELLANEOUS DIRECTED lorazepam 1 mg tablet 1 tab PO BID PRN (Reason: Anxiety) Qty: 10 0RF Discharge Orders: Discharge Order (Routine); Ordered 04/21/22 Ordered By: Robinson Lam Diet: Chopped/Rotan Thick liqu Activity on Discharge: As tolerated Stand Alone Forms: Patient Portal Discharge page Care Plan Goals: To get rehab at [facility] Health Concerns: COVID UTI Sepsis dysphagia Plan of Treatment: To get PT/OT at [facility]. Assessment: see d/c summary
== END 2022-04-21 17:59 | disposition skilled nursing facility (03) | DRG 871 ==
LOC: HO.ED 21:00 → HO.EDOVER 04-04 00:36 → HO.IMC 04-04 22:58
PROVIDERS: Internal Medicine; Physician Assistant Medical; Student in an Organized Health Care Education/Training Program; Admitting Provider Internal Medicine; Emergency Provider Emergency Medicine; PCP Internal Medicine; Visit Provider Nurse Practitioner Acute Care
DX: A41.9 Sepsis, unspecified organism (principal); G93.41 Metabolic encephalopathy; J69.0 Pneumonitis due to inhalation of food and vomit; U07.1 COVID-19; G93.49 Other encephalopathy; N39.0 Urinary tract infection, site not specified; E87.1 Hypo-osmolality and hyponatremia; E87.0 Hyperosmolality and hypernatremia; I24.8 Other forms of acute ischemic heart disease; E87.6 Hypokalemia; B96.5 Pseudomonas (aeruginosa) (mallei) (pseudomallei) as the cause of diseases classified elsewhere; B95.2 Enterococcus as the cause of diseases classified elsewhere; R13.10 Dysphagia, unspecified; N36.8 Other specified disorders of urethra; Z66 Do not resuscitate; R62.50 Unspecified lack of expected normal physiological development in childhood; G40.909 Epilepsy, unspecified, not intractable, without status epilepticus; F20.9 Schizophrenia, unspecified; Z75.1 Person awaiting admission to adequate facility elsewhere; Z79.899 Other long term (current) drug therapy
CPT/HCPCS: 0241U; 36415; 70450; 71045; 80048; 80076; 81001; 82945; 83605; 83615; 83690; 83735; 83880; 83935; 84157; 84300; 84484; 85025; 85027; 86140; 87015; 87040; 87070; 87086; 87088; 87186; 87205; 87493; 87635; 89051; 89055; 92526; 92610; 93005; 96361; 96365; 97116; 97163; 97530; 99285; C1758; J0696; J1650

== ENCOUNTER 2023-07-06 15:00 | Outpatient (REF) | payer MEDICARE, MEDICAID, SELFPAY ==
--- NOTE | ~2023-07-06 | FL_ITS ---
EXAMINATION: XR BARIUM SWALLOW CLINICAL INFORMATION: Dysphagia. COMPARISON: None available. TECHNIQUE: Modified barium swallow was performed in lateral fluoroscopy with patient sitting and in presence of speech therapist. FINDINGS: On oral administration of thin, thick food coated barium including nectar honey consistency and solid food, there is slow oral phase with slow propagation bolus from the oral cavity through the pharynx into esophagus without any evidence of lateral penetration or aspiration. No retention of barium seen in the valleculae. FLUOROSCOPY TIME: 11 seconds DOSE AREA PRODUCT: 1998 uGy-m2 (microgray-meter squared) FL/FL barium swallow modified IMPRESSION: 1. Unremarkable modified barium swallow. 2. Correlation with speech therapy results which supersedes this reading.
--- NOTE | 2023-07-08 16:19 | MHC.SL.IMP ---
Date of Plan of Treatment: 07/06/23 Onset of Symptoms/Illness: 04/05/22 Date Treatment Started: 07/06/23 Admitting Diagnosis: Intellectual disability, schizophrenia, developmental delay Primary Speech & Language Diagnosis: R13.12 Oropharyngeal Phase Dysphagia Reason for Today's Visit: 80677 Modified Barium Swallow Study Pre-evaluation Dietary Consistencies: Regular Pre-evaluation Liquid Consistency: [place] Thick Pre-evaluation Medication Administration: Crushed with Puree Medical History: Modified Barium Swallow Study Fluoroscopic Evaluation of Swallowing Function CPT Code 35987 Evaluation Year: 2022 Reason for Study: Hx dysphagia Referring Physician: Mary Stlyes MD Evaluating Clinician: Camilla Palmer MA, [facility]-HOT POND OPERATOR Study Number: 1 Patient Name: Juanito Rosales Status: Outpatient, Wheelchair Age: 72 Gender: Male Medical History Intellectual disability, schizophrenia, developmental delay Current (pre-evaluation) Intake/Diet: Route: PO Diet Grade: Regular Liquid Consistencies: [place] Pre-Study Functional Oral Intake Scale (FOIS): 5- Total oral intake of multiple consistencies requiring special preparation Pain: None reported at time of study SUBJECTIVE: Pt is a 72 year old male referred for a modified barium swallow study (MBSS) by Mary Styles MD. Pt has history of developmental delay, elevated PSA, chronic cough, osteoporosis, macrocytic anemia, urinary incontinence, urinary tension, and vitamin D deficiency. Per review of pt?s electronic medical record, pt was previously hospitalized here at [facility] [place] in March 2022 for acute UTI, acute hyponatremia, and elevated troponin. During that hospitalization, he was evaluated by HOT POND OPERATOR at bedside for concerns of dysphagia, and was recommended a chopped diet (NDD3) and nectar thick liquids, as pt was observed by RN and HOT POND OPERATOR to be coughing on thin liquids. Per pt?s brother, at the time pt was living at home and had no modifications to his food there, but was on thickened liquids at the Day Program he attended. Pt was hospitalized in April 2022 for COVID19 infection, seen for a repeat-evaluation by HOT POND OPERATOR, and again was recommended a chopped diet (NDD3) with nectar thick liquids. Pt now lives in a half-way and is here today for an MBSS to evaluate the extent of his dysphagia and to provide recommendations for safest and least restrictive diet. Oral Motor Exam Oral-Facial Teeth Characteristics: Dentures Tongue Size: Normal Tongue Excursion Description: Normal Tongue Movement Characteristics: Normal/Absent Is patient able to produce volitional cough?: Yes Food and Liquid Trials: Oral Impairment: Lip Closure: 1=Interlabial escape; no progression to anterior tip Oral Impairment: Tongue Control During Bolus Hold: Did not test Oral Impairment: Bolus Preparation/Mastication: 2=Disorganized chewing/mashing with solid pieces of bolus Oral Impairment: Bolus Transport/Lingual Motion: 1= Delayed initiation of tongue motion Oral Impairment: Oral Residue: 2=Residue collection on oral structures Oral Impairment:Initiation of Pharyngeal Swallow: 3=Bolus head in pyriforms Pharyngeal Impairment: Soft Palate Elevation: 0=No bolus between soft palate (SP)/pharyngeal wall (PW) Pharyngeal Impairment: Laryngeal Elevation: 1=Partial thyroid cartilage/arytenoids to epiglottic petiole movement Pharyngeal Impairment: Anterior Hyoid Excursion: 1=Partial anterior movement Pharyngeal Impairment: Epiglottic Movement: 1=Partial inversion Pharyngeal Impairment: Laryngeal Vestibular Closure:: 1=Incomplete: narrow column air/contrast in laryngeal vestibule Pharyngeal Impairment: Pharyngeal Stripping Wave: 0=Present: complete Pharyngeal Impairment: Pharyngeal Contraction: Did not test Pharyngeal Impairment: Pharyngoesophageal Segment Openin=Partial distention/partial duration: partial obstruction of flow Pharyngeal Impairment: Tongue Base (TB) Retraction: 2=Narrow column of contrast/air between TB and posterior PW Pharyngeal Impairment: Pharyngeal Residue: 2=Collection of residue within or on pharyngeal structures Pharyngeal Impairment: Esophageal Clearance Upright Position: Did not test Impressions and Recommendations Clinical Observations: OBJECTIVE: Time-out: performed at 15:30 Evaluation Start: 15:00; Stop: 15:11 Patient Positioning: Seated 70-90 degrees Viewing Planes: LATERAL ONLY Contrast: MBSImP? Standardized Protocol using commercially prepared, standardized Barium viscosities, including: Varibar? THIN LIQUID (40% w/v, <15 cps) , Varibar? NECTAR (40% w/v, <150-450 cps) , Varibar? THIN HONEY (40% w/v, <800-1800 cps) , 1/2 Shortbread Cookie (1 x1 x.25 ) MBSImP ID: [id number] MBSImP Results: Lip closure for intraoral bolus containment resulted in interlabial escape, without progression to the anterior lip. Tongue control during bolus hold could not be assessed due to logistical reasons not related to physiologic impairment. Bolus preparation and mastication demonstrated disorganized chewing/mashing with solid pieces of the bolus unchewed. Bolus transport/lingual motion demonstrated delayed initiation of tongue motion. Oral residue was a collection on oral structures. Initiation of the pharyngeal swallow occurred when the bolus head was in the pyriform sinuses. Soft palate elevation resulted in no bolus between the soft palate and the pharyngeal wall. Laryngeal elevation was decreased, with partial superior movement of the thyroid cartilage/partial approximation of the arytenoids to the epiglottic petiole. Anterior hyoid excursion demonstrated partial anterior movement. Epiglottic movement resulted in partial inversion. Laryngeal vestibular closure was incomplete, with a narrow column of air/contrast noted within the laryngeal vestibule at the height of the swallow. Pharyngeal stripping wave was present and complete. Pharyngeal contraction could not be determined due to logistical reasons not related to physiologic impairment. Pharyngoesophageal segment opening demonstrated partial distension/partial duration, with partial obstruction of bolus flow. Tongue base retraction allowed a narrow column of contrast or air between the retracted tongue base and the posterior pharyngeal wall. Pharyngeal residue was a collection of residue within or on pharyngeal structures. Esophageal clearance in the upright position could not be assessed due to logistical reasons not related to physiologic impairment. Oral Impairment Score: 8 (absence of score, component 2) Pharyngeal Impairment Score: 9 (absence of score, component 13) Esophageal Impairment Score: --- (absence of score, component 17) Laryngeal Penetration and Aspiration: Both Penetration and Aspiration were observed in today's study. Honey-thick Contrast entered the airway, remained above the vocal folds, and was not ejected from the airway. Thin Contrast entered the airway, contacted the vocal folds, and was not ejected from the airway. [place]-thick Contrast entered the airway, passed below the vocal folds, and no effort was made to eject. ASSESSMENT: Clinician Assessment: This exam was conducted by a multidisciplinary team consisting of a speech pathologist, radiologist, and large animal husbandry technician. Pt was seated upright for lateral view only and was fed with 1:1 assistance. Pt trialed the following liquid and solid consistencies: -thin liquid barium by teaspoon and by cup sip -nectar thick liquid barium by teaspoon and by cup sip -honey thick liquid barium by cup sip -pureed solid (applesauce mixed with barium paste) -regular texture solid (Corinne Doone shortbread cookie coated in barium paste) There was interlabial escape on trials of liquids, with no progression to the anterior lip. Posterior lingual motion for the transport of bolus was delayed. Pt demonstrated slowed and prolonged mastication on ground texture, and a more disorganized pattern with regular texture with visible solid pieces of bolus unchewed. There was mild residue coating the tongue, palate, and floor of mouth, which was reduced with subsequent swallows. Pharyngeal swallow trigger was significantly delayed, initiated as the bolus head reached the pyriform sinuses. There was no nasopharyngeal reflux. Incomplete laryngeal elevation with partial anterior hyoid excursion and partial epiglottic inversion. Laryngeal vestibular closure was incomplete. There was kimberly aspiration during the swallow on nectar thick liquid administered via teaspoon. Pt did not produce a spontaneous cough in response to the aspiration event. He was cued for a volitional cough, which reduced contrast from the airway. There deep penetration to the vocal folds on thin liquid administered by cup, with question of possible subsequent aspiration, however, it was difficult to rule in/out due to motion artifact. There was penetration above the vocal folds with honey thick liquid administered by cup. Pt was cued to clear his throat, which reduced residual from airway. There was mild residue with both solids and liquids which coated the tongue base and posterior pharyngeal wall, and pooled in the valleculae. Pharyngeal residue was reduced with subsequent swallows. Liquid Intake Recommendation: Honey Thick Liquid Intake Strategies: Small Sips No Straws Dietary Recommendations: Chopped/Advanced (NDD3) Medication Administration: Crushed with Puree Please contact the pharmacy regarding appropriate crushable or liquid drug formulations that are available whenever modified delivery is recommended. Compensatory Strategies Recommended: Sitting Upright (90 deg) Double Swallow No Straw Small Bites and Sips Rate of Ingestion Change Oral Check Avoid Specific Foods Supervision during eating and or drinking: Total Assistance (1:1) Recommended Treatments: Compens. Strategy Educat. Recommendation for Speech Therapy: Outpatient Speech Therapy Text Comment: PLAN: Intake Recommendations: Route: PO Diet Grade: Chopped/Advanced (NDD3) Liquid Consistencies: Honey Post-Study Functional Oral Intake Scale (FOIS): 5- Total oral intake of multiple consistencies requiring special preparation During this exam, pt presented with kimberly aspiration on nectar thick liquid. Contrast entered the airway and passed below the vocal folds with no spontaneous cough. Pt was able to reduce contrast from the airway with a cued cough. There was trace penetration to the vocal folds with trials of thin liquid. Question possible trace aspiration subsequently, but we were unable to rule in/out d/t motion artifact. There was penetration above the vocal folds with honey thick liquid. Pt reduced contrast from the airway with a cued throat clear. Mild oral and pharyngeal residual, which pt was able to reduce with subsequent swallows. Based on the results of this exam, recommend DOWNGRADE to CHOPPED/ADVANCED solids (NDD3) and HONEY THICK liquids with STRICT ASPIRATION PRECAUTIONS and close monitoring: -1:1 feeding for all PO intake -Monitor closely for any overt signs of aspiration and provide cues as needed for safe eating strategies. -Ensure optimal positioning (upright at 90 degrees) during PO intake and for at least 30 minutes afterwards. -Moisten food with sauces and gravies as needed, which are to be at least honey thick in consistency and blended in well -Avoid mixed textures; hard, tough to chew solids; dry foods; foods that break and crumble into small pieces -Administer small bites of food, one bite at a time -Cue pt for dry swallow between bites to promote oral and pharyngeal clearance -Small sips of liquid administered via teaspoon or controlled cup sips, one sip at a time -No straws -Follow sips with a volitional cough or throat clear, followed by a dry swallow. -Ensure a rigorous daily oral care routine before first meal and after each subsequent meal -Pills crushed with puree (consult with pharmacy) Pt is additionally recommended dysphagia treatment with a speech language pathologist for further education RE: MBSS results, risks of aspiration, and recommended strategies. Recommend continued monitoring of pt?s dysphagia with a repeat-MBSS in 6 months. Suggested Referrals: The patient might benefit from a referral to: -Nutrition Services Indication for Referral: Risk of dehydration w/ conservatively thickened liquids Therapy Recommendations: Therapy will be continued Prognosis for Improvement: The prognosis for the patient to meet nutritional needs by mouth is fair based on degree of impairment, stimulability for treatment. Prison Goals: ? The patient will tolerate the least restrictive diet with a safe/efficient swallow to maintain adequate nutrition and hydration. ? The patient and/or family will participate in further education for swallowing goals. Short Term Goals: ? Guidelines - The patient will comply with/recall the following guidelines/strategies 100% of the time with moderate cuing: Honey-thick Liquid, Bolus Volume Change, Rate of Ingestion Change, Additional Swallow(s) per Bolus, Throat Clear, No Straws. ? Education - The patient, family, caregiver will verbalize/demonstrate understanding of the results of this evaluation, the above recommendations, and the swallowing guidelines. Frequency/Duration: 1x weekly x 4 weeks Date Range for Service Requested: Timeline to reassess: 6 months Clinician - Supplemental, Miscellaneous Communication: It is important to note MBSS objective studies are snapshots in time and Patient function might vary with factors such as time of day or concomitant medical conditions. For this reason, the final treatment plan for this patient should rest with their medical care team. Additional recommendations should be considered with the totality of the Patient in mind. Thank for the opportunity to participate in the care of this patient. If you have any questions about the content of this report, please contact the [facility] at [facility]. Education: Education regarding findings from today's study and plans for therapy were provided to Family/caregiver only through Verbal Instruction, Written Instruction. Understanding was expressed by the Family/caregiver only. Assistant Product Manager Clinician/Clinical Fellow: No Supervisory Statement: N/A Speech Language Pathologist: Camilla Palmer M.A., CCC-HOT POND OPERATOR
== END 2023-07-06 15:01 | disposition home or self-care (01) ==
LOC: HO.XRAY 15:00
PROVIDERS: PCP Internal Medicine; Visit Provider Internal Medicine
DX: R13.10 Dysphagia, unspecified (principal)
CPT/HCPCS: 74230; 92611

== ENCOUNTER → 2023-07-06 15:11 | Outpatient (BNV) | payer MEDICARE, MEDICAID, SELFPAY | PROVIDERS: PCP Internal Medicine; Visit Provider Radiology Diagnostic Radiology | DX: R13.10 Dysphagia, unspecified (principal) | CPT/HCPCS: 74230 ==

== ENCOUNTER 2023-08-09 11:00 | Outpatient (RCR) | payer MEDICARE, MEDICAID, SELFPAY | END 2023-10-05 15:55 | disposition home or self-care (01) | LOC: HO.SH 11:00 | PROVIDERS: Visit Provider Internal Medicine | DX: R13.12 Dysphagia, oropharyngeal phase (principal) | CPT/HCPCS: 92526 ==

== ENCOUNTER 2023-10-02 11:28 | Inpatient (IN) | payer MEDICARE, MEDICAID, SELFPAY ==
[2023-10-02] VITALS (16 sets, daily range): BP systolic 96–172; BP diastolic 40–92; PULSE 70–95; RESP 18–27; TEMP 31–37.9; O2SAT 96–100; BMI 24.4; BMI 21.7; BMI 22.1
--- NOTE | 2023-10-02 | ECG_ITS ---
Test Reason : s/p Cardiac Arrest Blood Pressure : / mmHG Vent. Rate : 085 BPM Atrial Rate : 085 BPM P-R Int : 180 ms QRS Dur : 142 ms QT Int : 428 ms P-R-T Axes : 052 080 -61 degrees QTc Int : 509 ms Normal sinus rhythm with sinus arrhythmia Possible Left atrial enlargement Left ventricular hypertrophy with QRS widening and repolarization abnormality ( Sokolow-Freire ) Abnormal ECG When compared with ECG of 16-APR-2022 13:46, QRS duration has increased ST less depressed in Lateral leads T wave inversion now evident in Inferior leads T wave inversion now evident in Anterolateral leads Referred By: Rosangela Glover Electronically Signed By:BRANDON SHANE MD
--- NOTE | 2023-10-02 | EEG_ITS ---
FINDINGS: The background activity consists of low-voltage with continuous low-voltage 3 hertz, sharp and slow wave complexes occurring over both hemisphere with right-sided predominant. This is a markedly abnormal EKG, consistent with status epilepticus with generalized low voltage discharges at 3 hertz. Clinical correlation suggested. MD SHAYY Donovan/PHILLIP / [id number]
--- NOTE | ~2023-10-02 | CT_ITS ---
EXAMINATION: CT CERVICAL SPINE WITHOUT CONTRAST; UNENHANCED CT OF THE HEAD. CLINICAL INFORMATION: Cardiac arrest. Fell to ground. COMPARISON: CT head 04/03/2022. TECHNIQUE: Routine unenhanced CT of the head with multiple coronal and sagittal reformatted images; routine unenhanced CT of the cervical spine with multiple coronal and sagittal reformatted images. This CT examination was performed using dose optimization techniques as appropriate, variously including the following: *Automated exposure control *Adjustment of mA and/or kV according to patient size (this includes techniques or standardized protocols for targeted exams where dose is matched to indication/reason for exam; i.e. extremities or head) *Use of iterative reconstruction technique DLP: 776 mGy-cm FINDINGS: CT head: Mild diffuse commensurate prominence of the ventricles and sulci is noted. No intracranial hemorrhage, tumors or acute infarcts visualized. No focal parenchymal lesions of the brain noted. Dense segmental calcific atherosclerotic plaques of the cavernous portions of the internal carotid arteries. Orbits and globes are normal in appearance. No gross extra cranial soft tissue inflammatory changes identified. No significant opacification of the visualized paranasal sinuses, mastoid air cells and middle ear cavities. CT cervical spine: Partial visualization is made of enteric and endotracheal tubes. No fractures or acute appearing subluxations of the cervical spine identified. 2 mm degenerative retrolisthesis C3-C4. Marked intervertebral disc space narrowing C3-C4. Elsewhere, mild 7 moderate multilevel intervertebral disc space narrowing and facet hypertrophic changes. No definitive prevertebral fluid collections or soft tissue inflammatory changes. CT/CT cervical spine wo IV con IMPRESSION: CT HEAD: No acute intracranial abnormalities. CT CERVICAL SPINE: 1. No acute abnormalities. 2. Multilevel chronic spondylosis.
--- NOTE | ~2023-10-02 | XR_ITS ---
EXAMINATION: XR CHEST CLINICAL INFORMATION: Fever COMPARISON: 10/02/2023. No vascular congestion, right lung is clear. TECHNIQUE: Frontal view of the chest was obtained. FINDINGS: NG tube is in place, tip not included but below the left hemidiaphragm. ET tube is approximately 3.9 cm above the justin. No vascular congestion, right lung is clear. Left base opacity with obscuration of the left hemidiaphragm and costophrenic angle. Degenerative changes bilateral shoulders, left greater than right. XR/XR chest 1V IMPRESSION: Left base opacity and costophrenic angle blunting, likely atelectasis/consolidation with small effusion. No vascular congestion.
--- NOTE | ~2023-10-02 | XR_ITS ---
EXAMINATION: XR chest 1V CLINICAL INFORMATION: Endotracheal tube placement. COMPARISON: 04/03/2022 TECHNIQUE: Single portable frontal view. Tubes and lines: Endotracheal tube tip is 5 cm above justin. Gastric tube however is in the esophagus, the tip is about 10 cm above the diaphragm. This needs to be advanced further Lungs and pleura: Diffuse increased interstitial lung marking and peribronchial cuffing might be a small airway disease such as bronchiolitis or interstitial pneumonitis, versus interstitial lung disease versus interstitial edema. No dense focal consolidation pneumonia. Heart and mediastinum: The mediastinum is within normal limits.. Bones/soft tissue: Skeletal structures included are normal for patient's age. XR/XR chest 1V IMPRESSION: * Endotracheal tube tip is 5 cm above justin. * Gastric tube tip is about 10 cm above the diaphragm, needs to be advanced further. * Diffuse increased interstitial lung marking and peribronchial cuffing might be a small airway disease such as bronchiolitis or interstitial pneumonitis, versus interstitial lung disease versus interstitial edema. No dense focal consolidation pneumonia. (Referring physician staff is being called, by physician staff assistance, to be alerted of the above critical findings and recommendations.) A Lisbet 10/02/2023 12:16 PM
--- NOTE | ~2023-10-02 | US_ITS ---
EXAMINATION: US VENOUS WITH DOPPLER UPPER EXTREMITY, LEFT CLINICAL INFORMATION: Left arm swelling. COMPARISON: 06/11/2020 TECHNIQUE: Ultrasound of the upper extremity is performed using compression sonography and color and pulse Doppler flow with assessment of augmentation of flow. There is also imaging and Doppler assessment of the jugular and subclavian veins. Spectral analysis with color-flow imaging is performed. FINDINGS: There is edema of subcutaneous tissues of the upper extremity. The grayscale and color Doppler images show normal appearance of the left internal jugular and subclavian veins. There is heterogeneous echotexture of thrombus within the lumen of the axillary vein. This could represent subacute thrombus, and color Doppler images show absence of flow within the occluded segment of the vein (images 26-27 of 30). No evidence of thrombus within the brachial or cephalic veins. There is noncompressible thrombus within the basilic vein of the mid-to upper aspect of the arm. Within the forearm, the radial and ulnar veins are compressible. US/US venous duplex UE LT IMPRESSION: * There is heterogeneous appearance of occlusive thrombus within the left axillary vein. This has the appearance of subacute thrombosis. * There is thrombosis of the basilic vein, which is a superficial vein, and the subcutaneous tissues of the arm are edematous. The critical test result was discussed with Dr. Fleming at 1:41 PM on 10/11/2023 and it was ascertained that the content and the importance of the findings was understood at the time of the direct communication.
--- NOTE | ~2023-10-02 | US_ITS ---
EXAMINATION: ARTERIAL DUPLEX ARMS, left CLINICAL INFORMATION: thrombus? COMPARISON: CT chest 10/02/2023 TECHNIQUE: Vascular ultrasound of the left upper extremity arterial systems was performed using luz scale, color Doppler, and spectral Doppler imaging. FINDINGS: LEFT: Proximal subclavian: PSV 136 cm/s. Triphasic waveform. Mid subclavian: PSV 152 cm/s. Triphasic waveform. Distal subclavian: PSV 113 cm/s. Triphasic waveform. Axillary: PSV 167 cm/s. Triphasic waveform. Proximal brachial: PSV 110 cm/s. Triphasic waveform. Mid brachial: PSV 122 cm/s. Triphasic waveform. Distal brachial: PSV 106 cm/s. Triphasic waveform. Radial: PSV 86 cm/s. Biphasic waveform. Ulnar: PSV 65 cm/s. Biphasic waveform. US/US arterial duplex UE LT IMPRESSION: Small volume of atherosclerotic plaque resulting in mild stenoses of the proximal to mid subclavian artery and axillary artery.
--- NOTE | ~2023-10-02 | US_ITS ---
EXAMINATION: US VENOUS WITH DOPPLER UPPER EXTREMITY, RIGHT CLINICAL INFORMATION: Swelling. COMPARISON: None available. TECHNIQUE: Ultrasound of the upper extremity is performed using compression sonography and color and pulse Doppler flow with assessment of augmentation of flow. There is also imaging and Doppler assessment of the jugular and subclavian veins. Spectral analysis with color-flow imaging is performed. FINDINGS: Respiratory variation, normal compression, and augmented flow are noted throughout the upper extremity deep vein including the axillary, brachial, cubital, and radial and ulnar veins. There is normal flow in the internal jugular and subclavian veins. There is noncompressible thrombus within the distal basilar vein and the cephalic vein. If the patient's symptoms progress, a followup ultrasound in 5 -7 days might be of value to exclude proximal propagation from a nonvisualized distal arm vein. US/US venous duplex UE RT IMPRESSION: No DVT demonstrated in the right upper extremity. There is noncompressible thrombus within the distal basilar vein and the cephalic vein consistent with superficial thrombophlebitis.
--- NOTE | ~2023-10-02 | XR_ITS ---
EXAMINATION: XR CHEST CLINICAL INFORMATION: Endotracheal tube and orogastric tube placement. COMPARISON: Multiple priors with the last chest x-ray of 10/05/2023. TECHNIQUE: Frontal view of the chest was obtained. FINDINGS: An endotracheal tube terminates approximately 3.5 cm above the justin. An orogastric tube terminates in the expected location of the proximal to mid stomach. Multiple cardiac leads and wires overlie the chest. The cardiomediastinal silhouette is stable with normal cardiac size. The lungs are mildly hypoexpanded. Patchy opacities are noted at the left lung base, increased compared to last x-ray. Stable streaky right basilar opacities. Small left pleural effusion is suspected. No evidence of changes of overt pulmonary edema or pneumothorax. XR/XR chest 1V IMPRESSION: An endotracheal tube terminates 3.5 cm above the justin. An orogastric tube terminates in the expected location of the stomach. Mild interval worsening in the patchy opacities at the left lung base.
--- NOTE | ~2023-10-02 | CT_ITS ---
EXAMINATION: CT CHEST WITHOUT CONTRAST CLINICAL INFORMATION: Rib fracture left with CPR. Pain. COMPARISON: None available. TECHNIQUE: Multidetector volumetric CT imaging of the chest was done. Axial MIP volume rendering provided. Sagittal and coronal reformatted images were obtained. This CT examination was performed using dose optimization techniques as appropriate, variously including the following: *Automated exposure control *Adjustment of mA and/or kV according to patient size (this includes techniques or standardized protocols for targeted exams where dose is matched to indication/reason for exam; i.e. extremities or head) *Use of iterative reconstruction technique DLP: 772 mGy-cm FINDINGS: RECOVERY AGENT: Unremarkable. LUNGS: The lungs are well-expanded with patchy bibasilar atelectasis/infiltrate. Bilateral apical parenchymal scarring and/or atelectasis seen as well. Prominent interstitial markings are seen throughout both lungs. There is mild peribronchiolar wall thickening throughout both lungs likely small airway disease. No bronchiectasis seen.. There are small subcentimeter nodules largest measuring 6 mm right lower lobe axial image 226/26, 3 and a nodule parahilar left lower lobe axial image 204/26 MEDIASTINUM: Thyroid lobes are symmetric and normal. The central trachea and the bronchi widely patent. There is endotracheal tube with its tip 2.9 cm above the justin heart size and the great vessels are normal caliber. There is an enteric tube with its tip in the stomach. No pericardial effusion. There is aortic valve prosthesis. No abnormal size mediastinal lymph nodes seen. CORONARY ARTERY CALCIFICATION: There is mild coronary artery calcifications present. PLEURA: There is no pleural effusion. No pleural mass or thickening. AXILLA: No lymphadenopathy. UPPER ABDOMEN: Visualized liver, spleen, pancreas and bilateral adrenal glands unremarkable. OSSEOUS STRUCTURES: No aggressive lytic or sclerotic process seen. There is mild hypertrophic changes at the mandible sternal junction. A nondisplaced fracture left anterior fifth, sixth and seventh ribs. CT/CT chest wo IV con IMPRESSION: Nondisplaced fractures left anterior fifth, sixth and seventh ribs. No pneumothorax or pleural effusion. There is bilateral apical parenchymal scarring and atelectasis. There is bibasilar chronic atelectasis or scarring as well. There is bilateral peribronchial thickening likely sequelae of chronic small airway disease. No parenchymal bases seen. Fleischner guidelines were followed.
--- NOTE | ~2023-10-02 | XR_ITS ---
EXAMINATION: XR CHEST CLINICAL INFORMATION: NG tube advancement. COMPARISON: Chest x-ray 10/02/2023 TECHNIQUE: Frontal view of the chest was obtained. FINDINGS: The endotracheal tube is 5 cm above the justin. Enteric tube tip is in the fundus. The lungs are expanded with interval improvement in the bilateral parahilar prominent markings. Mild peribronchial cuffing is stable.. Heart size and pulmonary vascularity is normal. XR/XR chest 1V IMPRESSION: Endotracheal tube 5 cm above the justin. The enteric tube has been advanced from mid to distal esophagus with its tip now in the fundus. Interval improvement in bilateral parahilar increased interstitial lung markings. Peribronchial cuffing is stable.
--- NOTE | 2023-10-02 11:33 | ED.CPR ---
HPI - CPR General Chief Complaint: Cardiac Arrest/CPR Stated Complaint: CARDIAC ARREST,IN ROSC S/P CHOKING ON DONUT Time Seen by Provider: 10/02/23 11:29 Source: EMS and other Mode of arrival: EMS History of Present Illness HPI narrative: This is a 72-year-old male with history of developmental delay and schizophrenia who is under guardianship by his brother who is currently at bedside is brought in by EMS after patient was eating a donut and had a witnessed choking event that resulted in cardiac arrest with immediate CPR. On arrival, EMS states that patient was noted to be in asystole, Roberto Carlos was applied, 2 rounds of epi and able to get ROSC, patient is intubated with a 7.0 tube and has an IO right anterior tibia Related Data Home Medications Medication Instructions Recorded Confirmed budesonide 0.5 mg/2 mL suspension 2 ml inhalation QPM PRN Shortness 04/03/22 10/02/23 for nebulization Of Breath cholecalciferol (vitamin D3) 25 1 cap PO DAILY 04/03/22 10/02/23 mcg (1,000 unit) capsule (Vitamin D3) fluoxetine 40 mg capsule 1 cap PO DAILY 04/03/22 10/02/23 folic acid 1 mg tablet 1 tab PO DAILY 04/03/22 10/02/23 nebulizer and compressor (Vios 04/03/22 04/03/22 Aerosol Delivery System) acetaminophen 325 mg tablet 650 mg PO Q6H PRN Fever Or Pain 10/02/23 10/02/23 alendronate 70 mg tablet 70 mg PO QWEEK 10/02/23 10/02/23 brimonidine 0.2 % eye drops 1 drp ophthalmic (eye) BID 10/02/23 10/02/23 cyanocobalamin (vitamin B-12) 1,000 mcg PO DAILY 10/02/23 10/02/23 1,000 mcg tablet dorzolamide 22.3 mg-timolol 6.8 1 drp ophthalmic-Right BID 10/02/23 10/02/23 mg/mL eye drops hydrocortisone 1 % topical cream 1 appl topical BID PRN FACIAL RASH 10/02/23 10/02/23 (Cortisone (hydrocortisone)) latanoprost 0.005 % eye drops 1 drp ophthalmic-Right BEDTIME 10/02/23 10/02/23 lorazepam 1 mg tablet 1 tab PO BID PRN Anxiety 10/02/23 10/02/23 magnesium hydroxide 2,400 mg/10 mL 10 ml PO BEDTIME PRN Constipation 10/02/23 10/02/23 oral suspension (Milk Of Magnesia Concentrated) quetiapine 150 mg tablet 150 mg PO BID 10/02/23 10/02/23 sennosides 8.6 mg-docusate sodium 1 tab-cap PO DAILY 10/02/23 10/02/23 50 mg tablet Allergies Allergy/AdvReac Type Severity Reaction Status Date / Time No Known Allergies Allergy Verified 04/03/22 21:30 [No Known Allergies*] Review of Systems Review of Systems: Yes Unobtainable due to mental condition [facility] Past Medical History Source: nursing notes reviewed Medical History Pyuria Hypokalemia COVID-19 virus infection Seizure-like activity Sepsis Elevated troponin Acute hyponatremia Acute UTI Developmental delay, borderline Schizophrenia Surgical History History of hip replacement Family History Family History Other No family history of coronary artery disease Social History Social History Household Members: Other Housing: Prison Do you presently have visiting nurse or other home services: No Unable to assess alcohol history related to: Unknown Alcohol intake: never Patient Tobacco Use Status: Never used Tobacco Advance Directives: Yes Advance Directives Information Provided: Yes Advance Directives on File: No service: No Current occupational status: disabled Physical Exam Vital Signs: Vital Signs: Last Vital Signs Temp 95.2 F L 10/02/23 14:59 Pulse 74 10/02/23 15:00 Resp 18 10/02/23 15:00 BP 172/90 H 10/02/23 15:00 Pulse Ox 98 10/02/23 15:00 O2 Del Method Mechanical Ventil ation 10/02/23 14:59 FiO2 30 10/02/23 11:50 BMI result Body Mass Index 22.1 VITAL SIGNS: Reviewed. GENERAL: INtubated HEAD: Normocephalic/atraumatic EYES: PERRLA EARS: Ext canals without abnormality NOSE: Nares patent bilateral OROPHARYNX: no oral lesions noted, posterior pharynx clear copious amounts of donut present and suctioned out, dentures removed NECK: Supple, no adenopathy LUNGS: Ventilated, but spontaneous breaths noted. SpO2<97> CARDIOVASCULAR: Regular rate and rhythm without noted murmurs, no JVD or lower extremity edema. ABDOMEN: Soft, non-tender, non-distended with bowel sounds. MUSCULOSKELETAL: No tenderness, deformities, or effusions noted on gross inspection. EXTREMITIES: No cyanosis, clubbing or edema, cyanosis initially noted at bilateral finger tips and then completely resolved. SKIN: Inspection of the skin reveals no rashes NEUROLOGIC: Intubated, sedated Medications Administered Generic Name Dose Route Start Last Admin Trade Name Freq PRN Reason Stop Dose Admin Propofol 1,000 mg in 100 mls @ 0 mls/hr 10/02/23 11:45 10/02/23 15:00 Diprivan IVCONT 50 mcg/kg/min .Q0M CHRISTIAN 20 mls/hr Titration Protocol Per Protocol Discontinued Medications Generic Name Dose Route Start Last Admin Trade Name Freq PRN Reason Stop Dose Admin Piperacillin Sod/Tazobactam 50 mls @ 100 mls/hr 10/02/23 12:05 10/02/23 14:02 Sod 3.375 gm/ Sodium Chloride IV 10/02/23 12:34 Infused ONCE ONE Infusion Vancomycin HCl 1,500 mg/ 500 mls @ 333.333 mls/hr 10/02/23 12:32 10/02/23 13:09 Sodium Chloride IV 10/02/23 14:01 333.33 mls/hr ONCE ONE Administration Medical Decision Making Medical Decision Making MDM Narrative: Immediately on arrival, IV access obtained along with lab work, EKG does not demonstrate ST elevations and instead demonstrates global ST depressions indicative of myocardial injury likely secondary to cardiac arrest events secondary to choking event. In addition, patient noted to be responding to the ET tube but due to concerns with injury of the anterior chest wall during chest compressions will keep the patient intubated at this time for his safety and started a propofol drip. Patient remains hemodynamically stable at this time. Nasogastric tube placed, temperature sensing Jaime catheter placed and will initiate cooling measures. 1151: I discussed the case with Dr. Reyna who recommends cooling the patient and agrees with assessment thus far. 1158: Reached out to renal case manager. 1205: Given the nature of the event and suspected aspiration, will draw lactic acid and blood cultures, I fully expect the lactic acidosis secondary to patient's cardiac arrest event not due to sepsis, but will give antibiotics. 1223: I discussed the case with the renal case manager who agrees with current management at this time, will need to assess current staffing in the ICU prior to complete acceptance at this time. 1220: Chest x-ray demonstrates ET tube at 5 cm and known need to advance NG tube. This was completed and will repeat imaging CT chest/head/chest. 1225: Discussed the case with renal case manager and will proceed with head/neck as well as the planned CT of the chest. 1311: I reviewed the chest x-ray which demonstrates the NG progressing past the diaphragm and the tip appears to be located in the fundus of the stomach. 1500: ICU staff being concerns have been alleviated, CT scan of head/neck/chest are only significant for multiple rib fractures that are nondisplaced and no evidence of pneumothorax. All this information was communicated with the renal case manager. In addition, renal case manager recommends cooling is not indicated, I agree and will instruct nursing to stop cooling the patient further. Patient will receive 50 mcg of fentanyl IV push due to nursing concerns regarding increase level of agitation despite being on max dose of propofol. Differential Diagnosis Differential Diagnoses: The differential diagnosis associated with the presentation includes Please see the discussion above Admission/Observation Consideration of admission/observation: Escalation of care including admission/observation considered Please see the discussion above Consult Healthcare Provider Management of the patient was discussed with: Retail Performance Coach Please see the discussion above Lab Data MDM Lab Attestation statement: I reviewed the patient's lab results. Please see the discussion above 10/02/23 11:37 10/02/23 13:22 Labs: Lab Results 10/02/23 10/02/23 10/02/23 Range/Units 11:37 11:39 11:40 WBC 12.9 H (4.8-10.8) X10*3/uL RBC 3.78 L (4.60-5.80) X10*6/uL Hgb 11.3 L (14.0-18.0) g/dl Hct 35.8 L (42.0-52.0) % MCV 94.7 (80.0-98.0) fL MCH 29.9 (27.0-33.0) pg MCHC 31.6 (31.0-36.0) g/dl RDW 13.3 (11.0-16.0) % Plt Count 264 D (160-400) X10*3/uL MPV 9.7 (9.4-12.4) fL Immature Gran % (Auto) 2.8 H (0.0-0.4) % Neut % (Auto) 59.0 (45-73) % Lymph % (Auto) 27.6 (20-40) % [place] % (Auto) 9.1 (2-11) % Eos % (Auto) 1.1 (0-4) % Baso % (Auto) 0.4 (0-2) % Lymph # (Auto) 3.6 (1.2-4.9) X10*3/uL [place] # (Auto) 1.2 (0.1-1.2) X10*3/uL Eos # (Auto) 0.1 (0.0-0.4) X10*3/uL Baso # (Auto) 0.1 (0.0-0.2) X10*3/uL Abs Immat Gran (auto) 0.36 H (0.00-0.03) X10*3/uL Absolute Neuts (auto) 7.6 (2.0-8.3) x10*3/uL Absolute Nucleated RBC 0.000 (0.0-0.012) X10*3/uL Nucleated RBC % (auto) 0.0 (0.0-0.2) /100WBC PT 13.8 H (11.1-13.3) SEC INR 1.1 (0.9-1.1) VBG pH (7.32-7.43) VBG pCO2 mmHg VBG pO2 mmHg VBG HCO3 (22-26) mmol/L VBG O2 Saturation % VBG Base Excess mmol/L Sodium (135-145) mmol/L Potassium (3.3-5.1) mmol/L Chloride (96-108) mmol/L Carbon Dioxide (22-29) mmol/L Anion Gap (12-20) BUN (9-16) mg/dL Creatinine (0.5-1.4) mg/dL Estim Creat Clear Calc Estimated GFR POC Glucose 104 (60-115) mg/dL Random Glucose (60-115) mg/dL Lactic Acid (0.5-2.0) mmol/L Calcium (8.4-10.2) mg/dL Total Bilirubin (0.0-1.0) mg/dL AST (5-37) U/L ALT (0-40) U/L Alkaline Phosphatase (39-117) U/L Troponin I High Sens 12.3 (<3.5-35.0) ng/L Total Protein (6.5-8.0) g/dL Albumin (3.5-5.0) g/dL Urine Color Urine Appearance Urine pH (5.0-9.0) Ur Specific [place] (1.005-1.025) Urine Protein (Neg-Trace) mg/dL Urine Glucose (UA) (Negative) mg/dL Urine Ketones (Negative) mg/dL Urine Blood (Negative) Urine Nitrite (Negative) Ur Leukocyte Esterase (Negative) Urine RBC (0-2) /HPF Urine WBC (0-5) /HPF Ur Squamous Epith Cells (0-2) /HPF Urine Bacteria (None Seen) Hyaline Casts (0-2) /LPF COVID-19 ([facility]) Negative (Negative) COVID-19 Clin Com See Note Influenza Type A ([facility]) Invalid (Negative) Influenza Type B ([facility]) Invalid (Negative) Influenza A & B Note See Note 10/02/23 10/02/23 10/02/23 Range/Units 12:11 12:33 13:22 WBC (4.8-10.8) X10*3/uL RBC (4.60-5.80) X10*6/uL Hgb (14.0-18.0) g/dl Hct (42.0-52.0) % MCV (80.0-98.0) fL MCH (27.0-33.0) pg MCHC (31.0-36.0) g/dl RDW (11.0-16.0) % Plt Count (160-400) X10*3/uL MPV (9.4-12.4) fL Immature Gran % (Auto) (0.0-0.4) % Neut % (Auto) (45-73) % Lymph % (Auto) (20-40) % [place] % (Auto) (2-11) % Eos % (Auto) (0-4) % Baso % (Auto) (0-2) % Lymph # (Auto) (1.2-4.9) X10*3/uL [place] # (Auto) (0.1-1.2) X10*3/uL Eos # (Auto) (0.0-0.4) X10*3/uL Baso # (Auto) (0.0-0.2) X10*3/uL Abs Immat Gran (auto) (0.00-0.03) X10*3/uL Absolute Neuts (auto) (2.0-8.3) x10*3/uL Absolute Nucleated RBC (0.0-0.012) X10*3/uL Nucleated RBC % (auto) (0.0-0.2) /100WBC PT (11.1-13.3) SEC INR (0.9-1.1) VBG pH 7.36 (7.32-7.43) VBG pCO2 34 mmHg VBG pO2 51 mmHg VBG HCO3 19 L (22-26) mmol/L VBG O2 Saturation 78.0 % VBG Base Excess -4.7 mmol/L Sodium 146 H (135-145) mmol/L Potassium 3.9 (3.3-5.1) mmol/L Chloride 107 (96-108) mmol/L Carbon Dioxide 20 L (22-29) mmol/L Anion Gap 23 H (12-20) BUN 26 H (9-16) mg/dL Creatinine 0.86 (0.5-1.4) mg/dL Estim Creat Clear Calc 72.4 Estimated GFR > 60 POC Glucose (60-115) mg/dL Random Glucose 93 (60-115) mg/dL Lactic Acid 3.4 H* (0.5-2.0) mmol/L Calcium 8.4 (8.4-10.2) mg/dL Total Bilirubin 0.3 (0.0-1.0) mg/dL AST 30 (5-37) U/L ALT 24 (0-40) U/L Alkaline Phosphatase 104 (39-117) U/L Troponin I High Sens (<3.5-35.0) ng/L Total Protein 6.8 (6.5-8.0) g/dL Albumin 3.4 L (3.5-5.0) g/dL Urine Color Yellow Urine Appearance Cloudy Urine pH 6.0 (5.0-9.0) Ur Specific [place] 1.015 (1.005-1.025) Urine Protein Trace (Neg-Trace) mg/dL Urine Glucose (UA) Negative (Negative) mg/dL Urine Ketones Negative (Negative) mg/dL Urine Blood Negative (Negative) Urine Nitrite Negative (Negative) Ur Leukocyte Esterase Large (3+) H (Negative) Urine RBC 0-2 (0-2) /HPF Urine WBC >50 H (0-5) /HPF Ur Squamous Epith Cells 0-2 (0-2) /HPF Urine Bacteria 4+ (None Seen) Hyaline Casts 0-2 (0-2) /LPF COVID-19 ([facility]) (Negative) COVID-19 Clin Com Influenza Type A ([facility]) (Negative) Influenza Type B ([facility]) (Negative) Influenza A & B Note 10/02/23 Range/Units 13:26 WBC (4.8-10.8) X10*3/uL RBC (4.60-5.80) X10*6/uL Hgb (14.0-18.0) g/dl Hct (42.0-52.0) % MCV (80.0-98.0) fL MCH (27.0-33.0) pg MCHC (31.0-36.0) g/dl RDW (11.0-16.0) % Plt Count (160-400) X10*3/uL MPV (9.4-12.4) fL Immature Gran % (Auto) (0.0-0.4) % Neut % (Auto) (45-73) % Lymph % (Auto) (20-40) % [place] % (Auto) (2-11) % Eos % (Auto) (0-4) % Baso % (Auto) (0-2) % Lymph # (Auto) (1.2-4.9) X10*3/uL [place] # (Auto) (0.1-1.2) X10*3/uL Eos # (Auto) (0.0-0.4) X10*3/uL Baso # (Auto) (0.0-0.2) X10*3/uL Abs Immat Gran (auto) (0.00-0.03) X10*3/uL Absolute Neuts (auto) (2.0-8.3) x10*3/uL Absolute Nucleated RBC (0.0-0.012) X10*3/uL Nucleated RBC % (auto) (0.0-0.2) /100WBC PT (11.1-13.3) SEC INR (0.9-1.1) VBG pH (7.32-7.43) VBG pCO2 mmHg VBG pO2 mmHg VBG HCO3 (22-26) mmol/L VBG O2 Saturation % VBG Base Excess mmol/L Sodium (135-145) mmol/L Potassium (3.3-5.1) mmol/L Chloride (96-108) mmol/L Carbon Dioxide (22-29) mmol/L Anion Gap (12-20) BUN (9-16) mg/dL Creatinine (0.5-1.4) mg/dL Estim Creat Clear Calc Estimated GFR POC Glucose (60-115) mg/dL Random Glucose (60-115) mg/dL Lactic Acid (0.5-2.0) mmol/L Calcium (8.4-10.2) mg/dL Total Bilirubin (0.0-1.0) mg/dL AST (5-37) U/L ALT (0-40) U/L Alkaline Phosphatase (39-117) U/L Troponin I High Sens (<3.5-35.0) ng/L Total Protein (6.5-8.0) g/dL Albumin (3.5-5.0) g/dL Urine Color Urine Appearance Urine pH (5.0-9.0) Ur Specific [place] (1.005-1.025) Urine Protein (Neg-Trace) mg/dL Urine Glucose (UA) (Negative) mg/dL Urine Ketones (Negative) mg/dL Urine Blood (Negative) Urine Nitrite (Negative) Ur Leukocyte Esterase (Negative) Urine RBC (0-2) /HPF Urine WBC (0-5) /HPF Ur Squamous Epith Cells (0-2) /HPF Urine Bacteria (None Seen) Hyaline Casts (0-2) /LPF COVID-19 ([facility]) (Negative) COVID-19 Clin Com Influenza Type A ([facility]) Negative (Negative) Influenza Type B ([facility]) Negative (Negative) Influenza A & B Note See Note Independent Interpretation I performed an independent interpretation of an: EKG Interpretation: Sinus rhythm, global ST depressions, no STEMI, TX within normal limits, QRS-142, QTC-509. Unable to once again see previous EKGs due to EHR not allowing because the current EKG has not crossed over in the IT system. Radiology Impression Discussion of test interpretation with radiology: I have reviewed the radiologist's reading. Radiologist Impression: Please see the discussion above External Record Review External record reviewed: Outpatient record, Prior outpatient labs and Prior outpatient radiology Critical Care Time Critical Care Time Critical Care Time: Yes Total Critical Care Time: 120 Attestation: I personally attest to this time spent taking care of the patient. Discharge Plan Discharge Clinical Impression: Cardiac arrest, Choking due to food in larynx, Multiple fractures of ribs Patient Disposition: Admitted As Inpatient
[2023-10-02 11:44] LABS: MANUAL DIFF FLAG NO
[2023-10-02 11:46] LABS: Basophils Absolute Auto 0.1 X10*3/uL (0.0-0.2); Basophils Percent Auto 0.4 % (0-2); Eosinophils Absolute Auto 0.1 X10*3/uL (0.0-0.4); Eosinophils Percent Auto 1.1 % (0-4); Hematocrit 35.8 % (42.0-52.0); Hemoglobin 11.3 g/dl (14.0-18.0); Imm Gran Abs Auto 0.36 X10*3/uL (0.00-0.03); Imm Gran Pct Auto 2.8 % (0.0-0.4); Lymphocytes Absolute Auto 3.6 X10*3/uL (1.2-4.9); Lymphocytes Percent Auto 27.6 % (20-40); Mean Corpuscular HGB Conc 31.6 g/dl (31.0-36.0); Mean Corpuscular Hemoglobin 29.9 pg (27.0-33.0); Mean Corpuscular Volume 94.7 fL (80.0-98.0); Mean Platelet Volume 9.7 fL (9.4-12.4); Monocytes Absolute Auto 1.2 X10*3/uL (0.1-1.2); Monocytes Percent Auto 9.1 % (2-11); Neutrophils Absolute Auto 7.6 x10*3/uL (2.0-8.3); Platelet Count 264 X10*3/uL (160-400); Red Blood Count 3.78 X10*6/uL (4.60-5.80); Red Cell Distribution Width 13.3 % (11.0-16.0); White Blood Count 12.9 X10*3/uL (4.8-10.8)
[2023-10-02] MEDS: propofoL 1,000 MG/100 ML VIAL 12 MG IVCONT (11:49)
[2023-10-02 11:55] LABS: INTERNATIONAL NORM RATIO 1.1 (0.9-1.1); Prothrombin Time 13.8 SEC (11.1-13.3)
[2023-10-02 12:04] LABS: COVID-19 Test Negative (Negative); IDNOW Serial# BCCEAD1C
[2023-10-02 12:15] LABS: Troponin-I High Sensitivity 12.3 ng/L (<3.5-35.0)
--- NOTE | 2023-10-02 12:17 | PHA.MEDREC ---
Pharmacy Consult ? Medication Reconciliation Pharmacy has completed the medication reconciliation. MED REC COMPLETE USING LIST PROVIDED BY [facility]
--- NOTE | 2023-10-02 12:37 | PC.NURSE ---
pt brought in by [facility] [address] [place] [address] to [place] when he choked on a donut and went unresponsive. CPR was begun by bystanders and was coded for approx 10 min before EMS arrived on scene.. upon EMS arrival pt was sound to be pulseless, asystole. EMS inserted a 7.0 Et tube and began to bag the pt. after two rounds of Epi before acheiving ROSC at 1118. EMS inserted an IO in the R tib/fib, this was removed after arrival to [facility]. pt arrived to [facility] room 4 at 1129 and maintained ROSC, his HR was 74 and appeared NSR. last BP was 131/61, end tital 56, 100% O2. 7.0 ET tube, 25 at the lip. an OG tube was placed by Dr. Crowder. 20G IV placed to L forearm. 20G placed to R wrist. pt maintains NSR 1138 126/89, HR 86, 100% on mechanical vent, 18RR, 450 30/5, 1148 Propofol gtt started with an estimated rate of 170lb (66.7kg) - stated at 30 mcg/kg/min 1155 116F temp sensing rai cath placed with 200cc yellow staw, cloudy urine. labs obtained, family in [place].
[2023-10-02 12:40] LABS: Appearance Urine Cloudy; Color Urine Yellow; Glucose Urine UA Negative (Negative); Leukocyte Esterase Urine Large (3+) (Negative); Nitrite Urine Negative (Negative); Specific Gravity - Urine 1.015 (1.005-1.025); UMIC TRIGGER UACC YES; Urine Blood Negative (Negative); Urine Ketones Negative (Negative); Urine Protein Trace mg/dL (Neg-Trace)
[2023-10-02 12:41] LABS: VBG Base Excess -4.7 mmol/L; VBG HCO3 19 mmol/L (22-26); VBG pCO2 34 mmHg; VBG pH 7.36 (7.32-7.43); VBG pO2 51 mmHg
[2023-10-02 12:45] LABS: Bacteria Urine 4+ (None Seen); Hyaline Casts Urine 0-2 /LPF (0-2); RBC Urine 0-2 /HPF (0-2); Squamous Epithelial Cell Urine 0-2 /HPF (0-2); UACC Culture Trigger YES; WBC Urine >50 /HPF (0-5)
--- NOTE | 2023-10-02 12:45 | PC.NURSE ---
[facility] sup -
[2023-10-02 12:51] LABS: Venous Blood Gas Refer to POC result
[2023-10-02 12:53] LABS: IDNOW Serial# BCCEAD1C; Influenza A Invalid (Negative); Influenza B2 Invalid (Negative)
[2023-10-02] MEDS: Piperacillin Sodium/Tazobactam 3.375 GM in 0.9 % Sodium Chloride 50 ML IV ×2 (12:54→23:24)
[2023-10-02] MEDS: vancomycin HCL 1,500 MG in 0.9 % Sodium Chloride 500 ML 333.33 MG IV (13:09)
[2023-10-02 13:54] LABS: IDNOW Serial# BCCEAD1C; Influenza A Negative (Negative); Influenza B2 Negative (Negative)
[2023-10-02 14:03] LABS: Glucose, Whole Blood 104 mg/dL (60-115)
[2023-10-02 14:08] LABS: Alanine Aminotransferase 24 U/L (0-40); Albumin Level 3.4 g/dL (3.5-5.0); Alkaline Phosphatase 104 U/L (39-117); Anion Gap 23 (12-20); Aspartate Amino Transferase 30 U/L (5-37); Bilirubin Total 0.3 mg/dL (0.0-1.0); Blood Urea Nitrogen 26 mg/dL (9-16); Calcium 8.4 mg/dL (8.4-10.2); Carbon Dioxide 20 mmol/L (22-29); Chloride 107 mmol/L (96-108); Creatinine Clr Calc Pharmacy 72.4; Estimated Glomerular Filt Rate > 60; Glucose Random 93 mg/dL (60-115); Lactic Acid 3.4 mmol/L (0.5-2.0); Potassium 3.9 mmol/L (3.3-5.1); Sodium 146 mmol/L (135-145); Total Protein 6.8 g/dL (6.5-8.0)
--- NOTE | 2023-10-02 14:28 | PC.NURSE ---
cooling blanket not available ice packs applied to pts axilla and groin
--- NOTE | 2023-10-02 14:48 | PM.CCHP ---
History of Present Illness Date of Service: 10/02/23 Attending physician on admission: Rosangela Glover Chief Complaint: Hypoxic Cardiac Arrest Patient is a 72 Y M with developmental delay, schizophrenia, was in otherwise normal state of health, was eating donut, had witnessed choking episode, c/b cardiac arrest, per EMS asystole w/ total downtime 15 minutes, CPR in progress in ED, intubated, with eventual ROSC; in ED, work-up revealing of CT C demonstrating L non-displaced rib fractures, as well as urinary tract infection; of note, targeted temperature management initiated in ED Review of Systems Review of Systems: Yes Unobtainable due to mental condition PMFSH Past Medical History Medical History Pyuria Hypokalemia COVID-19 virus infection Seizure-like activity Sepsis Elevated troponin Acute hyponatremia Acute UTI Developmental delay, borderline Schizophrenia Family History Family History Other No family history of coronary artery disease Surgical History Surgical History History of hip replacement Social History Social History Household Members: Other Housing: Assisted Do you presently have visiting nurse or other home services: No Unable to assess alcohol history related to: Unknown Alcohol intake: never Patient Tobacco Use Status: Never used Tobacco Advance Directives: Yes Advance Directives Information Provided: Yes Advance Directives on File: No service: No Current occupational status: disabled Meds Allergies Allergy/AdvReac Type Severity Reaction Status Date / Time No Known Allergies Allergy Verified 04/03/22 21:30 [No Known Allergies*] Active Medications: Current Medications Chlorhexidine Gluconate (Chlorhexidine Gluc Oral Rinse 15 Ml Mouthwash) 15 ml BUCCAL Q8H CHRISTIAN Propofol (Diprivan) 1,000 mg in 100 mls @ 0 mls/hr IVCONT .Q0M CHRISTIAN; Protocol Last Titration: 10/02/23 12:04 Dose: 40 mcg/kg/min, 16 mls/hr Propofol (Diprivan) 1,000 mg in 100 mls @ 0 mls/hr IVCONT .Q0M CHRISTIAN; Protocol Piperacillin Sod/Tazobactam (Sod 3.375 gm/ Sodium Chloride) 50 mls @ 100 mls/hr IV Q8H COUNTS INCLUDE 234 BEDS AT THE [facility] Pharmacy Consult (Consult Rx Vancomycin Dosing) 1 each MISCELLANE DAILY PRN PRN Reason: Consult order Home Medications Medication Instructions Recorded Confirmed Last Taken Type budesonide 0.5 mg/2 mL suspension 2 ml inhalation QPM PRN Shortness 04/03/22 10/02/23 Unknown History for nebulization Of Breath cholecalciferol (vitamin D3) 25 1 cap PO DAILY 04/03/22 10/02/23 04/03/22 07:00 History mcg (1,000 unit) capsule (Vitamin D3) fluoxetine 40 mg capsule 1 cap PO DAILY 04/03/22 10/02/23 04/03/22 07:00 History folic acid 1 mg tablet 1 tab PO DAILY 04/03/22 10/02/23 04/03/22 07:00 History nebulizer and compressor (Vios 04/03/22 04/03/22 Unknown History Aerosol Delivery System) acetaminophen 325 mg tablet 650 mg PO Q6H PRN Fever Or Pain 10/02/23 10/02/23 Unknown History alendronate 70 mg tablet 70 mg PO QWEEK 10/02/23 10/02/23 Unknown History brimonidine 0.2 % eye drops 1 drp ophthalmic (eye) BID 10/02/23 10/02/23 Unknown History cyanocobalamin (vitamin B-12) 1,000 mcg PO DAILY 10/02/23 10/02/23 Unknown History 1,000 mcg tablet dorzolamide 22.3 mg-timolol 6.8 1 drp ophthalmic-Right BID 10/02/23 10/02/23 Unknown History mg/mL eye drops hydrocortisone 1 % topical cream 1 appl topical BID PRN FACIAL RASH 10/02/23 10/02/23 Unknown History (Cortisone (hydrocortisone)) latanoprost 0.005 % eye drops 1 drp ophthalmic-Right BEDTIME 10/02/23 10/02/23 Unknown History lorazepam 1 mg tablet 1 tab PO BID PRN Anxiety 10/02/23 10/02/23 Unknown History magnesium hydroxide 2,400 mg/10 mL 10 ml PO BEDTIME PRN Constipation 10/02/23 10/02/23 Unknown History oral suspension (Milk Of Magnesia Concentrated) quetiapine 150 mg tablet 150 mg PO BID 10/02/23 10/02/23 Unknown History sennosides 8.6 mg-docusate sodium 1 tab-cap PO DAILY 10/02/23 10/02/23 Unknown History 50 mg tablet Physical Exam Vital Signs: Vital Signs: Last Vital Signs Temp 95.2 F L 10/02/23 14:28 Pulse 76 10/02/23 14:28 Resp 21 H 10/02/23 14:28 BP 164/85 H 10/02/23 14:28 Pulse Ox 98 10/02/23 14:28 O2 Del Method Mechanical Ventil ation 10/02/23 14:28 FiO2 30 10/02/23 11:50 BMI result Body Mass Index 22.1 Const: Other: intubated, sedated; appreciable intermittent myoclonus of face and shoulders HEENT: Head: Yes normal to inspection, Yes normocephalic and Yes atraumatic Eyes: Other: appeciable upward gaze Neck: Neck: Yes normal visual inspection, Yes full ROM and Yes supple Chest: Other: appreciable ecchymoses sternum Resp: Other: diffuse rhonchi throughout; no appreciable rales, wheezing Cardio: Rate: regular rate Rhythm: regular rhythm GI: Inspection: Yes normal to inspection, No Abdominal wall edema and No distended Palpation (GI): Soft to palpation, not firm, nontender, no guarding and not rigid : Male General Exam: Yes normal external exam Skin: General skin exam: no rashes or lesions noted Neuro: Other: myoclonus, as described Extrem: General: Yes normal to inspection, Yes capillary refill normal and Yes no clubbing, cyanosis or edema Psych: Other: unable to assess Results Labs 10/02/23 11:37 10/02/23 13:22 Labs: Laboratory Results - last 24 hr 10/02/23 10/02/23 10/02/23 11:37 11:39 11:40 MCV 94.7 MCH 29.9 MCHC 31.6 RDW 13.3 Plt Count 264 D MPV 9.7 Immature Gran % (Auto) 2.8 H Neut % (Auto) 59.0 Lymph % (Auto) 27.6 Winkler % (Auto) 9.1 Eos % (Auto) 1.1 Baso % (Auto) 0.4 Lymph # (Auto) 3.6 Winkler # (Auto) 1.2 Eos # (Auto) 0.1 Baso # (Auto) 0.1 Abs Immat Gran (auto) 0.36 H Absolute Neuts (auto) 7.6 Absolute Nucleated RBC 0.000 Nucleated RBC % (auto) 0.0 PT 13.8 H INR 1.1 VBG pH VBG pCO2 VBG pO2 VBG HCO3 VBG O2 Saturation VBG Base Excess Anion Gap Estim Creat Clear Calc Estimated GFR POC Glucose 104 Random Glucose Lactic Acid Calcium Total Bilirubin AST ALT Alkaline Phosphatase Total Protein Albumin Urine Color Urine Appearance Urine pH Ur Specific [place] Urine Protein Urine Glucose (UA) Urine Ketones Urine Blood Urine Nitrite Ur Leukocyte Esterase Urine RBC Urine WBC Ur Squamous Epith Cells Urine Bacteria Hyaline Casts COVID-19 (MIRTHA) Negative COVID-19 Clin Com See Note Influenza Type A (TARAH) Invalid Influenza Type B (TARAH) Invalid Influenza A & B Note See Note 10/02/23 10/02/23 10/02/23 12:11 12:33 13:22 MCV MCH MCHC RDW Plt Count MPV Immature Gran % (Auto) Neut % (Auto) Lymph % (Auto) [place]ink[place] % (Auto) Eos % (Auto) Baso % (Auto) Lymph # (Auto) Wink[place] # (Auto) Eos # (Auto) Baso # (Auto) Abs Immat Gran (auto) Absolute Neuts (auto) Absolute Nucleated RBC Nucleated RBC % (auto) PT INR VBG pH 7.36 VBG pCO2 34 VBG pO2 51 VBG HCO3 19 L VBG O2 Saturation 78.0 VBG Base Excess -4.7 Anion Gap 23 H Estim Creat Clear Calc 72.4 Estimated GFR > 60 POC Glucose Random Glucose 93 Lactic Acid 3.4 H* Calcium 8.4 Total Bilirubin 0.3 AST 30 ALT 24 Alkaline Phosphatase 104 Total Protein 6.8 Albumin 3.4 L Urine Color Yellow Urine Appearance Cloudy Urine pH 6.0 Ur Specific [place] 1.015 Urine Protein Trace Urine Glucose (UA) Negative Urine Ketones Negative Urine Blood Negative Urine Nitrite Negative Ur Leukocyte Esterase Large (3+) H Urine RBC 0-2 Urine WBC >50 H Ur Squamous Epith Cells 0-2 Urine Bacteria 4+ Hyaline Casts 0-2 COVID-19 (MIRTHA) COVID-19 Clin Com Influenza Type A (TARAH) Influenza Type B (TARAH) Influenza A & B Note 10/02/23 13:26 MCV MCH MCHC RDW Plt Count MPV Immature Gran % (Auto) Neut % (Auto) Lymph % (Auto) Wink[place] % (Auto) Eos % (Auto) Baso % (Auto) Lymph # (Auto) [place]ink[place] # (Auto) Eos # (Auto) Baso # (Auto) Abs Immat Gran (auto) Absolute Neuts (auto) Absolute Nucleated RBC Nucleated RBC % (auto) PT INR VBG pH VBG pCO2 VBG pO2 VBG HCO3 VBG O2 Saturation VBG Base Excess Anion Gap Estim Creat Clear Calc Estimated GFR POC Glucose Random Glucose Lactic Acid Calcium Total Bilirubin AST ALT Alkaline Phosphatase Total Protein Albumin Urine Color Urine Appearance Urine pH Ur Specific [place] Urine Protein Urine Glucose (UA) Urine Ketones Urine Blood Urine Nitrite Ur Leukocyte Esterase Urine RBC Urine WBC Ur Squamous Epith Cells Urine Bacteria Hyaline Casts COVID-19 (MIRTHA) COVID-19 Clin Com Influenza Type A (TARAH) Negative Influenza Type B (TARAH) Negative Influenza A & B Note See Note Imaging Radiologist's Impressions: Impressions Chest X-Ray 10/02/23 11:55 IMPRESSION: * Endotracheal tube tip is 5 cm above justin. * Gastric tube tip is about 10 cm above the diaphragm, needs to be advanced further. * Diffuse increased interstitial lung marking and peribronchial cuffing might be a small airway disease such as bronchiolitis or interstitial pneumonitis, versus interstitial lung disease versus interstitial edema. No dense focal consolidation pneumonia. (Referring physician staff is being called, by physician staff assistance, to be alerted of the above critical findings and recommendations.) A J 10/02/2023 12:16 PM Chest X-Ray 10/02/23 13:00 IMPRESSION: Endotracheal tube 5 cm above the justin. The enteric tube has been advanced from mid to distal esophagus with its tip now in the fundus. Interval improvement in bilateral parahilar increased interstitial lung markings. Peribronchial cuffing is stable. Cervical Spine CT 10/02/23 13:50 IMPRESSION: CT HEAD: No acute intracranial abnormalities. CT CERVICAL SPINE: 1. No acute abnormalities. 2. Multilevel chronic spondylosis. Chest CT 10/02/23 13:50 IMPRESSION: Nondisplaced fractures left anterior fifth, sixth and seventh ribs. No pneumothorax or pleural effusion. There is bilateral apical parenchymal scarring and atelectasis. There is bibasilar chronic atelectasis or scarring as well. There is bilateral peribronchial thickening likely sequelae of chronic small airway disease. No parenchymal bases seen. Fleischner guidelines were followed. Head CT 10/02/23 13:50 IMPRESSION: CT HEAD: No acute intracranial abnormalities. CT CERVICAL SPINE: 1. No acute abnormalities. 2. Multilevel chronic spondylosis. Assessment and Plan (1) Cardiac arrest: Status: Acute (2) Aspiration pneumonia: Status: Acute (3) Choking due to food in larynx: Status: Acute (4) Urinary tract infection: Status: Acute Plan Patient is a 72 Y M w/ developmental delay, schizophrenia presenting s/p choking event c/b hypoxic cardiac arrest, also found to have UTI N: intubated, sedated w/ propofol gtt; wean as tolerated; of note, patient w/ spontaneous movements post ROSC; decision made in ED to initiate cooling; in ICU, to avoid hyperthermia, T <37; some appreciable myoclonus; to follow-up EEG CV: asystolic cardiac arrest; hemodynamically stable; to continue to monitor closely R: acute hypoxic respiratory failure d/t choking, intubated, ventilated; to wean ventilator as tolerated GI: NPO; NG tube; aspiration event : anion-gap metabolic acidosis; UTI H: mild leukocytosis; to continue to monitor ID: UTI, c/f aspiration pneumonia; empiric vancomycin, zosyn E: no acute issues; to continue to monitor P: no acute issues; schizophrenia
--- NOTE | 2023-10-02 14:55 | PHA.PROG ---
Admission Date/Time: October 02, 2023 14:40 Indication: Respiratory Weight in k kg Adjusted body weight in Kg: [place] body weight in Kg: Obesity Dosing Indication % IBW: Serum Creatinine - Last 168 Hours 10/02/23 13:22 Creatinine 0.86 Estimated CrCl and GFR - Last 168 Hours 10/02/23 13:22 Estim Creat Clear Calc 72.4 Estimated GFR > 60 Vancomycin Loading Dose: 1500mg x 1 Current Vancomycin Dosing Regimen: 1250mg Q24H Vancomycin Monitoring using AUC goal of 400 - 600 range with trough as surrogate marker: 417 mg/L Date and Time for next Vancomycin Level to be drawn: 10/05/23 @1100 Pharmacist Comments on Vancomycin Plan: Predicted trough 11.3mg/L; will monitor renal function and adjust as necessary Vancomycin dosing will take advantage of [employer] as a clinical decision support tool that uses Bayesian modeling to calculate individual patient's pharmacokinetic parameters and forecast the patient's drug concentration time course with the target goal AUC 24 range of 400 - 600 mg/L/hr.
--- NOTE | 2023-10-02 15:01 | PC.NURSE ---
AIXA soft restraints applied to RA and LA. restraints sheet started for non-behavioral, medical restraints.
[2023-10-02 15:18] LABS: VBG Base Excess -2.5 mmol/L; VBG HCO3 18 mmol/L (22-26); VBG pCO2 22 mmHg; VBG pH 7.51 (7.32-7.43); VBG pO2 223 mmHg
[2023-10-02 15:18] LABS: Venous Blood Gas Refer to POC result
[2023-10-02] MEDS: fentaNYL citrate/PF 100 MCG/2 ML VIAL 50 MCG IVPUSH (15:22)
[2023-10-02 15:31] LABS: Reflex Lactate? Lactic Acid Added
[2023-10-02] MEDS: propofoL 1,000 MG/100 ML VIAL 20 MG IVCONT ×2 (16:04→19:51)
[2023-10-02] MEDS: Lidocaine 4 % Patch ADH..PATCH 2 PATCH TRANSDERMA (16:11)
[2023-10-02] MEDS: Chlorhexidine Gluc Oral Rinse 15 ML MOUTHWASH BUCCAL ×2 (16:13→23:24)
[2023-10-02 16:30] LABS: ~Lactic Acid-LAB USE ONLY 1.5 mmol/L (0.5-2.0)
[2023-10-02] MEDS: levETIRAcetam in NaCl (iso-os) 1,000 MG/100 ML PIGGYBACK 400 MG IV (16:48)
[2023-10-02] MEDS: diphenhydrAMINE HCL 50 MG/ML VIAL IVPUSH (20:00)
[2023-10-02 21:28] LABS: Lactic Acid 1.4 mmol/L (0.5-2.0)
[2023-10-02 21:31] LABS: Anion Gap 12 (12-20); Blood Urea Nitrogen 30 mg/dL (9-16); Calcium 8.7 mg/dL (8.4-10.2); Carbon Dioxide 22 mmol/L (22-29); Chloride 107 mmol/L (96-108); Creatinine Clr Calc Pharmacy 71.6; Estimated Glomerular Filt Rate > 60; Glucose Random 134 mg/dL (60-115); Sodium 137 mmol/L (135-145)
[2023-10-02] MEDS: Midazolam HCl/PF 2 MG/2 ML VIAL 4 MG IVPUSH (23:34)
[2023-10-03] VITALS (30 sets, daily range): BP systolic 104–156; BP diastolic 48–118; PULSE 66–127; RESP 17–27; TEMP 34.5–38.4; O2SAT 94–100; BMI 22.9
[2023-10-03] MEDS: propofoL 1,000 MG/100 ML VIAL 20 MG IVCONT ×3 (00:52→09:49)
[2023-10-03] MEDS: levETIRAcetam in NaCl (iso-os) 500 MG/100 ML PIGGYBACK 400 MG IV (04:48)
[2023-10-03 05:26] LABS: Venous Blood Gas Refer to POC result
[2023-10-03 05:27] LABS: VBG Base Excess -2.7 mmol/L; VBG HCO3 20 mmol/L (22-26); VBG pCO2 31 mmHg; VBG pH 7.42 (7.32-7.43); VBG pO2 60 mmHg
--- NOTE | 2023-10-03 05:30 | P.PNCC_ITS ---
Subjective Subjective Date of Service: 10/03/23 Interval History: 72-year-old male with longstanding mental compromise had a witnessed aspiration at home became hypoxic arrested after usual delay they are with their ensued a 15 minute resuscitation restoring spontaneous circulation brought here on the ventilator with persistent myoclonus and is on propofol getting a Keppra I suppose for seizure prophylaxis and also on a Versed drip but of course the my clonus still persisted despite all this and I think will probably start to wean some of this sedation bedside cardiac assessment by echo showing normal LV function Critical Care Time (minutes): 45 Physical Exam 2 Vital Signs: Vital Signs: Last Vital Signs Temp 100.6 F H 10/03/23 05:00 Pulse 93 10/03/23 05:00 Resp 18 10/03/23 05:00 BP 136/65 10/03/23 05:00 Pulse Ox 98 10/03/23 05:00 O2 Del Method Mechanical Ventil ation 10/03/23 05:00 FiO2 25 10/03/23 05:00 BMI result Body Mass Index 22.1 currently unresponsive with persistent bilateral myoclonus equal and reactive pupils and there is no evidence of a Babinski no neck vein distension and good bilateral carotid upstrokes and peripherally warm and well perfused bedside echo with normal LV function lungs without adventitious sounds Objective Data Labs 10/03/23 05:02 10/03/23 05:02 Labs: Laboratory Results - last 24 hr 10/02/23 10/02/23 10/02/23 11:37 11:39 11:40 WBC 12.9 H RBC 3.78 L Hgb 11.3 L Hct 35.8 L MCV 94.7 MCH 29.9 MCHC 31.6 RDW 13.3 Plt Count 264 D MPV 9.7 Immature Gran % (Auto) 2.8 H Neut % (Auto) 59.0 Lymph % (Auto) 27.6 [place] % (Auto) 9.1 Eos % (Auto) 1.1 Baso % (Auto) 0.4 Lymph # (Auto) 3.6 [place] # (Auto) 1.2 Eos # (Auto) 0.1 Baso # (Auto) 0.1 Abs Immat Gran (auto) 0.36 H Absolute Neuts (auto) 7.6 Absolute Nucleated RBC 0.000 Nucleated RBC % (auto) 0.0 PT 13.8 H INR 1.1 VBG pH VBG pCO2 VBG pO2 VBG HCO3 VBG O2 Saturation VBG Base Excess Sodium Potassium Chloride Carbon Dioxide Anion Gap BUN Creatinine Estim Creat Clear Calc Estimated GFR POC Glucose 104 Random Glucose Lactic Acid Lactic Acid F/U @ 2Hr Calcium Total Bilirubin AST ALT Alkaline Phosphatase Troponin I High Sens 12.3 Total Protein Albumin Urine Color Urine Appearance Urine pH Ur Specific Sarah Urine Protein Urine Glucose (UA) Urine Ketones Urine Blood Urine Nitrite Ur Leukocyte Esterase Urine RBC Urine WBC Ur Squamous Epith Cells Urine Bacteria Hyaline Casts COVID-19 (MIRTHA) Negative COVID-19 Clin Com See Note Influenza Type A (TARAH) Invalid Influenza Type B (TARAH) Invalid Influenza A & B Note See Note Blood Type Antibody Screen 10/02/23 10/02/23 10/02/23 12:11 12:33 13:22 WBC RBC Hgb Hct MCV MCH MCHC RDW Plt Count MPV Immature Gran % (Auto) Neut % (Auto) Lymph % (Auto) [place] % (Auto) Eos % (Auto) Baso % (Auto) Lymph # (Auto) [place] # (Auto) Eos # (Auto) Baso # (Auto) Abs Immat Gran (auto) Absolute Neuts (auto) Absolute Nucleated RBC Nucleated RBC % (auto) PT INR VBG pH 7.36 VBG pCO2 34 VBG pO2 51 VBG HCO3 19 L VBG O2 Saturation 78.0 VBG Base Excess -4.7 Sodium 146 H Potassium 3.9 Chloride 107 Carbon Dioxide 20 L Anion Gap 23 H BUN 26 H Creatinine 0.86 Estim Creat Clear Calc 72.4 Estimated GFR > 60 POC Glucose Random Glucose 93 Lactic Acid 3.4 H* Lactic Acid F/U @ 2Hr Calcium 8.4 Total Bilirubin 0.3 AST 30 ALT 24 Alkaline Phosphatase 104 Troponin I High Sens Total Protein 6.8 Albumin 3.4 L Urine Color Yellow Urine Appearance Cloudy Urine pH 6.0 Ur Specific Sarah 1.015 Urine Protein Trace Urine Glucose (UA) Negative Urine Ketones Negative Urine Blood Negative Urine Nitrite Negative Ur Leukocyte Esterase Large (3+) H Urine RBC 0-2 Urine WBC >50 H Ur Squamous Epith Cells 0-2 Urine Bacteria 4+ Hyaline Casts 0-2 COVID-19 (MIRTHA) COVID-19 Clin Com Influenza Type A (TARAH) Influenza Type B (TARAH) Influenza A & B Note Blood Type Antibody Screen 10/02/23 10/02/2323 13:26 15:08 16:08 WBC RBC Hgb Hct MCV MCH MCHC RDW Plt Count MPV Immature Gran % (Auto) Neut % (Auto) Lymph % (Auto) [place] % (Auto) Eos % (Auto) Baso % (Auto) Lymph # (Auto) [place] # (Auto) Eos # (Auto) Baso # (Auto) Abs Immat Gran (auto) Absolute Neuts (auto) Absolute Nucleated RBC Nucleated RBC % (auto) PT INR VBG pH 7.51 H VBG pCO2 22 VBG pO2 223 VBG HCO3 18 L VBG O2 Saturation 100.0 VBG Base Excess -2.5 Sodium Potassium Chloride Carbon Dioxide Anion Gap BUN Creatinine Estim Creat Clear Calc Estimated GFR POC Glucose Random Glucose Lactic Acid Lactic Acid F/U @ 2Hr 1.5 Calcium Total Bilirubin AST ALT Alkaline Phosphatase Troponin I High Sens Total Protein Albumin Urine Color Urine Appearance Urine pH Ur Specific Sarah Urine Protein Urine Glucose (UA) Urine Ketones Urine Blood Urine Nitrite Ur Leukocyte Esterase Urine RBC Urine WBC Ur Squamous Epith Cells Urine Bacteria Hyaline Casts COVID-19 (MIRTHA) COVID-19 Clin Com Influenza Type A (TARAH) Negative Influenza Type B (TARAH) Negative Influenza A & B Note See Note Blood Type Antibody Screen 10/02/23 10/02/23 10/03/23 17:09 21:10 05:20 WBC RBC Hgb Hct MCV MCH MCHC RDW Plt Count MPV Immature Gran % (Auto) Neut % (Auto) Lymph % (Auto) [place] % (Auto) Eos % (Auto) Baso % (Auto) Lymph # (Auto) [place] # (Auto) Eos # (Auto) Baso # (Auto) Abs Immat Gran (auto) Absolute Neuts (auto) Absolute Nucleated RBC Nucleated RBC % (auto) PT INR VBG pH 7.42 VBG pCO2 31 VBG pO2 60 VBG HCO3 20 L VBG O2 Saturation 90.0 VBG Base Excess -2.7 Sodium 137 Potassium 4.0 Chloride 107 Carbon Dioxide 22 Anion Gap 12 BUN 30 H Creatinine 0.87 Estim Creat Clear Calc 71.6 Estimated GFR > 60 POC Glucose Random Glucose 134 H Lactic Acid 1.4 Lactic Acid F/U @ 2Hr Calcium 8.7 Total Bilirubin AST ALT Alkaline Phosphatase Troponin I High Sens Total Protein Albumin Urine Color Urine Appearance Urine pH Ur Specific Sarah Urine Protein Urine Glucose (UA) Urine Ketones Urine Blood Urine Nitrite Ur Leukocyte Esterase Urine RBC Urine WBC Ur Squamous Epith Cells Urine Bacteria Hyaline Casts COVID-19 (MIRTHA) COVID-19 Clin Com Influenza Type A (TARAH) Influenza Type B (TARAH) Influenza A & B Note Blood Type O Negative Antibody Screen NEGATIVE Progress Note: A&P Assessment and plan (1) Hypoxic ischemic encephalopathy due to cardiac arrest: Status: Acute (2) Multiple fractures of ribs: Status: Acute (3) Urinary tract infection: Status: Acute (4) Choking due to food in larynx: Status: Acute (5) Cardiac arrest: Status: Acute (6) Aspiration pneumonia: Status: Acute (7) Myoclonus: Status: Acute Plan up probably start to wean some of the propofol and all probability. The Keppra as I do not think this is seizure activity will need an EEG in the morning Quality Stroke Does the patient have a stroke diagnosis?: No VTE Prior VTE?: No VTE Risk Level:: Medical - moderate - high VTE Device Contraindication: N/A - Device Ordered VTE Drug Contraindication: N/A - Med Ordered
[2023-10-03] MEDS: Midazolam HCl/PF 2 MG/2 ML VIAL 4 MG IVPUSH (05:32)
[2023-10-03] MEDS: Midazolam HCl/NS 50 MG/50 ML PLAST..BAG IVCONT ×2 (05:34→17:41)
[2023-10-03 05:41] LABS: MANUAL DIFF FLAG NO
[2023-10-03 05:43] LABS: Basophils Percent Auto 0.1 % (0-2); Hematocrit 33.6 % (42.0-52.0); Imm Gran Abs Auto 0.12 X10*3/uL (0.00-0.03); Imm Gran Pct Auto 0.7 % (0.0-0.4); Lymphocytes Percent Auto 5.7 % (20-40); Mean Corpuscular HGB Conc 32.7 g/dl (31.0-36.0); Mean Corpuscular Hemoglobin 30.1 pg (27.0-33.0); Mean Corpuscular Volume 91.8 fL (80.0-98.0); Mean Platelet Volume 10.7 fL (9.4-12.4); Monocytes Absolute Auto 1.4 X10*3/uL (0.1-1.2); Monocytes Percent Auto 7.6 % (2-11); Neutrophils Absolute Auto 15.5 x10*3/uL (2.0-8.3); Neutrophils Percent Auto 85.9 % (45-73); Platelet Count 288 X10*3/uL (160-400); Red Blood Count 3.66 X10*6/uL (4.60-5.80); Red Cell Distribution Width 13.4 % (11.0-16.0); White Blood Count 18.1 X10*3/uL (4.8-10.8)
[2023-10-03 05:57] LABS: Anion Gap 15 (12-20); Blood Urea Nitrogen 30 mg/dL (9-16); Calcium 8.7 mg/dL (8.4-10.2); Carbon Dioxide 20 mmol/L (22-29); Chloride 107 mmol/L (96-108); Creatinine Clr Calc Pharmacy 69.9; Estimated Glomerular Filt Rate > 60; Glucose Random 115 mg/dL (60-115); Potassium 3.9 mmol/L (3.3-5.1); Sodium 138 mmol/L (135-145)
[2023-10-03] MEDS: Chlorhexidine Gluc Oral Rinse 15 ML MOUTHWASH BUCCAL ×3 (06:15→21:47)
[2023-10-03] MEDS: Piperacillin Sodium/Tazobactam 3.375 GM in 0.9 % Sodium Chloride 50 ML IV (06:22)
--- NOTE | 2023-10-03 07:10 | HE.PHANOTE ---
RE MARIA M CONTINUE CURRENT DOSE. NEXT LEVEL DUE 10/05 @1100. PREDICTED AUC 434, TROUGH 12 RANDY
[2023-10-03] MEDS: Lidocaine 4 % Patch ADH..PATCH 2 PATCH TRANSDERMA (08:18)
[2023-10-03] MEDS: Dorzolamide/Timolo 2.23%/0.68% 10 ML DRBTL 1 DROP EYE-RIGHT ×2 (09:48→21:47)
--- NOTE | 2023-10-03 10:20 | MHC.CM.PN ---
IMM ADDRESSED WITH BROTHER/GUARDIAN AT BEDSIDE IN ICU. PT IS CURRENTLY INTUBATED. PER BROTHER, PT LIVES IN A [facility] IN [place] AND PLAN IS TO RETURN THERE WHEN RECOVERED. PT USES A WALKER FOR MOBILITY. +[facility] ON FILE. PCP DR. ZANDER LEVY. DP: TO RETURN TO WHEN RECOVERED. TRANSPORT VIA VS. [facility]. CM WILL CONTINUE TO FOLLOW FOR ANY CHANGE TO DC PLAN/NEEDS.
[2023-10-03] MEDS: vancomycin HCL 1,250 MG in 0.9 % Sodium Chloride 250 ML 166.67 MG IV (12:54)
[2023-10-03] MEDS: propofoL 1,000 MG/100 ML VIAL 20.4 MG IVCONT ×2 (15:21→20:03)
[2023-10-03] MEDS: levETIRAcetam in NaCl (iso-os) 1,000 MG/100 ML PIGGYBACK 400 MG IV (16:57)
[2023-10-03] MEDS: Latanoprost 0.005 % Ophth Sol 2.5 ML DROPS 1 DROP EYE-RIGHT (21:48)
[2023-10-04] VITALS (32 sets, daily range): BP systolic 95–143; BP diastolic 50–70; PULSE 62–76; RESP 13–18; TEMP 34.2–37.1; O2SAT 93–100; BMI 22.3
[2023-10-04] MEDS: propofoL 1,000 MG/100 ML VIAL 20.4 MG IVCONT ×2 (01:15→05:14)
[2023-10-04] MEDS: Piperacillin Sodium/Tazobactam 3.375 GM in 0.9 % Sodium Chloride 50 ML IV ×2 (02:20→10:04)
[2023-10-04] MEDS: levETIRAcetam in NaCl (iso-os) 1,000 MG/100 ML PIGGYBACK 400 MG IV ×2 (03:39→16:42)
[2023-10-04 05:00] LABS: VBG Base Excess -3.4 mmol/L; VBG HCO3 18 mmol/L (22-26); VBG pCO2 22 mmHg; VBG pO2 49 mmHg
[2023-10-04 05:21] LABS: MANUAL DIFF FLAG NO
[2023-10-04 05:23] LABS: Basophils Percent Auto 0.2 % (0-2); Eosinophils Absolute Auto 0.1 X10*3/uL (0.0-0.4); Eosinophils Percent Auto 0.7 % (0-4); Hemoglobin 10.7 g/dl (14.0-18.0); Imm Gran Abs Auto 0.04 X10*3/uL (0.00-0.03); Imm Gran Pct Auto 0.4 % (0.0-0.4); Lymphocytes Absolute Auto 1.6 X10*3/uL (1.2-4.9); Lymphocytes Percent Auto 15.4 % (20-40); Mean Corpuscular HGB Conc 33.4 g/dl (31.0-36.0); Mean Corpuscular Volume 89.6 fL (80.0-98.0); Mean Platelet Volume 9.9 fL (9.4-12.4); Monocytes Absolute Auto 1.4 X10*3/uL (0.1-1.2); Monocytes Percent Auto 13.7 % (2-11); Neutrophils Absolute Auto 7.1 x10*3/uL (2.0-8.3); Neutrophils Percent Auto 69.6 % (45-73); Platelet Count 235 X10*3/uL (160-400); Red Blood Count 3.57 X10*6/uL (4.60-5.80); Red Cell Distribution Width 13.7 % (11.0-16.0); White Blood Count 10.3 X10*3/uL (4.8-10.8)
[2023-10-04 05:25] LABS: Venous Blood Gas Refer to POC result
[2023-10-04 05:40] LABS: Albumin Level 3.2 g/dL (3.5-5.0); Magnesium 2.2 mg/dL (1.6-2.6); Phosphorus 1.9 mg/dL (2.7-4.5)
[2023-10-04 05:45] LABS: Anion Gap 14 (12-20); Blood Urea Nitrogen 31 mg/dL (9-16); Calcium 8.1 mg/dL (8.4-10.2); Carbon Dioxide 17 mmol/L (22-29); Chloride 110 mmol/L (96-108); Creatinine Clr Calc Pharmacy 79.3; Estimated Glomerular Filt Rate > 60; Glucose Random 78 mg/dL (60-115); Potassium 2.9 mmol/L (3.3-5.1); Sodium 138 mmol/L (135-145)
[2023-10-04] MEDS: Pantoprazole Sodium 40 MG/10 ML VIAL IVPUSH (05:57)
[2023-10-04] MEDS: Potassium Phosphate/NS 15 MMOL/250 ML PLAST..BAG 62.5 MMOL IV ×2 (06:00→10:04)
[2023-10-04] MEDS: Midazolam HCl/NS 50 MG/50 ML PLAST..BAG IVCONT ×2 (06:03→17:51)
[2023-10-04] MEDS: Potassium Chloride Packet 20 MEQ PACKET 40 MEQ OG-TUBE (06:20)
[2023-10-04] MEDS: Chlorhexidine Gluc Oral Rinse 15 ML MOUTHWASH BUCCAL ×3 (07:22→20:42)
[2023-10-04] MEDS: Lidocaine 4 % Patch ADH..PATCH 2 PATCH TRANSDERMA (07:22)
[2023-10-04] MEDS: Dorzolamide/Timolo 2.23%/0.68% 10 ML DRBTL 1 DROP EYE-RIGHT ×2 (07:22→20:42)
--- NOTE | 2023-10-04 09:35 | PM.CCPN ---
Subjective Subjective Date of Service: 10/04/23 Interval History: 72-year-old with lifelong mental delay witnessed at food aspiration with hypoxia and secondary cardiac arrest 15 minute resuscitation plus the parent delay and arriving with demonstrable hypoxic encephalopathic picture manifested by the noted persistent myoclonus requiring combinations of drugs and in addition to which there is definitely evidence of underlying seizure activity which we have not seen since the increase in Keppra to a 1000 mg b.i.d. along with an increase in the Versed and propofol drips but he still depends on the on the propofol to calm the myoclonic activity and we do have an EEG reading that is pending from this morning to help us differentiate between these 2 entities but thus far remains unresponsive and he has had some metabolic complications namely hypokalemia and a hyperchloremic very mild metabolic acidosis and a course he remains in a ventilator dependent In addition he has an E coli urinary tract infection and sensitive to ceftriaxone which I switched him to and stop the vancomycin and Zosyn Critical Care Time (minutes): 45 Physical Exam Vital Signs: Vital Signs: Last Vital Signs Temp 97.9 F 10/04/23 09:00 Pulse 71 10/04/23 09:00 Resp 13 10/04/23 09:00 BP 123/61 10/04/23 09:00 Pulse Ox 96 10/04/23 09:00 O2 Del Method Mechanical Ventil ation 10/04/23 09:00 O2 Flow Rate 25 10/03/23 15:00 FiO2 25 10/04/23 09:00 BMI result Body Mass Index 22.3 Remains unresponsive and is no or very minimal demonstrable myoclonic activity and no visible sense of status epilepticus and eyes really at pupils remain reactive no evidence of Babinski reflexes and tone is symmetric Normal echo anatomy of the heart Lungs clear to auscultation no adventitious sounds Abdomen is soft with no evidence of ileus there is no gastric residual a so feedings were started and thus far tolerated Objective Data Labs 10/04/23 04:54 10/04/23 04:54 Labs: Laboratory Results - last 24 hr 10/04/23 04:54 WBC 10.3 RBC 3.57 L Hgb 10.7 L Hct 32.0 L MCV 89.6 MCH 30.0 MCHC 33.4 RDW 13.7 Plt Count 235 MPV 9.9 Immature Gran % (Auto) 0.4 Neut % (Auto) 69.6 Lymph % (Auto) 15.4 L [place] % (Auto) 13.7 H Eos % (Auto) 0.7 Baso % (Auto) 0.2 Lymph # (Auto) 1.6 [place] # (Auto) 1.4 H Eos # (Auto) 0.1 Baso # (Auto) 0.0 Abs Immat Gran (auto) 0.04 H Absolute Neuts (auto) 7.1 Absolute Nucleated RBC 0.000 Nucleated RBC % (auto) 0.0 VBG pH 7.50 H VBG pCO2 22 VBG pO2 49 VBG HCO3 18 L VBG O2 Saturation 80.0 VBG Base Excess -3.4 Sodium 138 Potassium 2.9 L D Chloride 110 H Carbon Dioxide 17 L Anion Gap 14 BUN 31 H Creatinine 0.79 Estim Creat Clear Calc 79.3 Estimated GFR > 60 Random Glucose 78 Calcium 8.1 L D Phosphorus 1.9 L Magnesium 2.2 Albumin 3.2 L Microbiology Microbiology Results: Microbiology 10/02/23 Unknown Urine Catheterized - Jaime Catheter Urine Culture - Final Escherichia coli 10/02/23 12:25 Blood - Venous Blood Culture - Preliminary No growth after 24 hours. 10/02/23 12:11 Blood - Venous Blood Culture - Preliminary No growth after 24 hours. Progress Note: A&P Assessment and plan (1) Myoclonus: Status: Acute (2) Hypoxic ischemic encephalopathy due to cardiac arrest: Status: Acute (3) Multiple fractures of ribs: Status: Acute (4) Urinary tract infection: Status: Acute (5) Choking due to food in larynx: Status: Acute (6) Cardiac arrest: Status: Acute (7) Aspiration pneumonia: Status: Acute Plan So the plan here is to wait the EEG reading so we can make decisions about weaning sedation and evaluate mental status until then we maintained him hopefully on progressive feedings and correction of his metabolic issues Quality Stroke Does the patient have a stroke diagnosis?: No VTE Prior VTE?: No VTE Risk Level:: Medical - moderate - high VTE Device Contraindication: N/A - Device Ordered VTE Drug Contraindication: N/A - Med Ordered
--- NOTE | 2023-10-04 10:25 | MHC.CLN ---
NUTRITION PATIENT IS INTUBATED AND SEDATED. TUBE FEEDING STARTED THIS MORNING. TF ORDER JEVITY 1.0 AT 20 ML/HOUR; FREE WATER FLUSH 120 ML Q 4 HOURS. PROVIDES 509 KCALS (832 KCALS WITH SEDATION); 21 G PROTEIN; TOTAL FREE WATER FROM FORMULA AND PRYRH=8957 ML. RECOMMEND MAX GOAL RATE JEVITY 60 ML PER HOUR, FREE WATER FLUSH 120 ML Q 4 HOURS. PROVIDES 1526 KCALS (1849 KCALS WITH SEDATION), 27 KCALS/LG; 64 G PROTEIN (.94 G/KG); FREE WATER FROM FORMULA AND WKFOS=7653 ML (28.1 ML/KG). CHECK RESIDUALS Q 4 HOURS, HOLD TUBE FEED FOR 2 HOURS IF GREATER THAN 250 ML. FOLLOW FOR TUBE FEED TOLERANCE. SEE [facility] NUTRITION ASSESSMENT 10/04/23.
--- NOTE | 2023-10-04 11:16 | MHC.CM.PN ---
Pt continues care in ICU: on 25% FiO2 vent support. Plans are for an EEG and hopefully extubation. Pt resides in a [facility] shelter and his brother is his legal guardian. Finalization of d/c plans ongoing as pt may require STR depending on functional ability assessment post extubation. CM to follow.
[2023-10-04 11:32] LABS: Vancomycin Random 10.3 mcg/mL (15-20)
--- NOTE | 2023-10-04 11:54 | HE.PHANOTE ---
RE: MARIA M Based on random coming back at 10.3, dose was increased to 1500mg q24h with predicted AUC of 469 and trough of 12.3. Trough is scheduled for 10/05/23 @1100.
[2023-10-04 11:58] LABS: MRSA Nasal PCR NEGATIVE (Negative); SA Nasal PCR NEGATIVE (Negative)
[2023-10-04] MEDS: propofoL 1,000 MG/100 ML VIAL 12.24 MG IVCONT ×2 (12:15→18:41)
[2023-10-04] MEDS: vancomycin HCL 1,500 MG in 0.9 % Sodium Chloride 500 ML 333.33 MG IV (12:36)
--- NOTE | 2023-10-04 14:54 | PC.NURSE ---
RN from [facility] visited. Left this number as a good one to call when contacting the [facility]: [phone]
[2023-10-04 16:55] LABS: Anion Gap 9 (12-20); Blood Urea Nitrogen 27 mg/dL (9-16); Calcium 7.9 mg/dL (8.4-10.2); Carbon Dioxide 21 mmol/L (22-29); Chloride 113 mmol/L (96-108); Creatinine Clr Calc Pharmacy 83.6; Estimated Glomerular Filt Rate > 60; Glucose Random 96 mg/dL (60-115); Magnesium 2.2 mg/dL (1.6-2.6); Potassium 3.8 mmol/L (3.3-5.1); Sodium 139 mmol/L (135-145)
[2023-10-04] MEDS: cefTRIAXone sodium 1 GM in 0.9 % Sodium Chloride 50 ML IV (17:33)
[2023-10-04] MEDS: Latanoprost 0.005 % Ophth Sol 2.5 ML DROPS 1 DROP EYE-RIGHT (20:42)
[2023-10-05] VITALS (30 sets, daily range): BP systolic 86–148; BP diastolic 44–64; PULSE 59–81; RESP 12–15; TEMP 34.2–37.5; O2SAT 90–100; BMI 22.3
[2023-10-05] MEDS: propofoL 1,000 MG/100 ML VIAL 16.32 MG IVCONT (02:00)
[2023-10-05] MEDS: levETIRAcetam in NaCl (iso-os) 1,000 MG/100 ML PIGGYBACK 400 MG IV ×2 (03:22→15:49)
[2023-10-05] MEDS: Midazolam HCl/NS 50 MG/50 ML PLAST..BAG 6 MG IVCONT ×3 (04:18→20:11)
[2023-10-05 04:46] LABS: VBG Base Excess -4.5 mmol/L; VBG HCO3 18 mmol/L (22-26); VBG pCO2 25 mmHg; VBG pH 7.45 (7.32-7.43); VBG pO2 57 mmHg
[2023-10-05 05:19] LABS: MANUAL DIFF FLAG NO
[2023-10-05 05:21] LABS: Basophils Percent Auto 0.3 % (0-2); Eosinophils Absolute Auto 0.1 X10*3/uL (0.0-0.4); Eosinophils Percent Auto 1.4 % (0-4); Hemoglobin 10.1 g/dl (14.0-18.0); Imm Gran Abs Auto 0.02 X10*3/uL (0.00-0.03); Imm Gran Pct Auto 0.3 % (0.0-0.4); Lymphocytes Absolute Auto 1.1 X10*3/uL (1.2-4.9); Lymphocytes Percent Auto 14.6 % (20-40); Mean Corpuscular HGB Conc 32.6 g/dl (31.0-36.0); Mean Corpuscular Hemoglobin 29.9 pg (27.0-33.0); Mean Corpuscular Volume 91.7 fL (80.0-98.0); Mean Platelet Volume 9.9 fL (9.4-12.4); Monocytes Percent Auto 13.6 % (2-11); Neutrophils Absolute Auto 5.2 x10*3/uL (2.0-8.3); Neutrophils Percent Auto 69.8 % (45-73); Platelet Count 213 X10*3/uL (160-400); Red Blood Count 3.38 X10*6/uL (4.60-5.80); White Blood Count 7.4 X10*3/uL (4.8-10.8)
[2023-10-05] MEDS: Pantoprazole Sodium 40 MG/10 ML VIAL IVPUSH (05:29)
[2023-10-05] MEDS: propofoL 1,000 MG/100 ML VIAL 20.4 MG IVCONT (05:31)
[2023-10-05 05:32] LABS: Anion Gap 11 (12-20); Blood Urea Nitrogen 22 mg/dL (9-16); Calcium 7.5 mg/dL (8.4-10.2); Carbon Dioxide 17 mmol/L (22-29); Chloride 112 mmol/L (96-108); Creatinine Clr Calc Pharmacy 93.5; Estimated Glomerular Filt Rate > 60; Glucose Random 126 mg/dL (60-115); Potassium 3.7 mmol/L (3.3-5.1); Sodium 136 mmol/L (135-145)
[2023-10-05 05:36] LABS: Albumin Level 2.8 g/dL (3.5-5.0); Magnesium 2.1 mg/dL (1.6-2.6); Phosphorus 2.2 mg/dL (2.7-4.5)
[2023-10-05 05:43] LABS: Venous Blood Gas Refer to POC result
[2023-10-05] MEDS: Albumin Human 25 % 100 ML IV ×2 (07:09→08:02)
[2023-10-05] MEDS: Linezolid/D5W 600 MG/300 ML PIGGYBACK 300 MG IV (07:10)
[2023-10-05] MEDS: Lidocaine 4 % Patch ADH..PATCH 2 PATCH TRANSDERMA (07:18)
[2023-10-05] MEDS: Chlorhexidine Gluc Oral Rinse 15 ML MOUTHWASH BUCCAL ×3 (07:18→20:11)
[2023-10-05] MEDS: Dorzolamide/Timolo 2.23%/0.68% 10 ML DRBTL 1 DROP EYE-RIGHT ×2 (07:19→20:13)
--- NOTE | 2023-10-05 09:09 | MHC.CLN ---
F/U PATIENT REMAINS INTUBATED AND SEDATED TF CONTINUES JEVITY 1.0 CURRENTLY RUNNING AT 50ML/HOUR WITH FREE WATER FLUSH 120 ML Q 4 HOURS PT TOLERATING WITH LOW RESIDUALS PLAN FOR TF TO INCREASE TO MAX GOAL RATE JEVITY 1.0 AT 60 ML PER HOUR WITH FREE WATER FLUSH 120 ML Q 4 HOURS TO PROVIDE 1526 KCALS (1957 KCALS WITH SEDATION; 28.6KCALS/KG), 64 G PROTEIN (.94 G/KG); 1922ML TOTAL FREE WATER FROM FORMULA AND FLUSH (28.1 ML/KG) MONITOR FOR TOLERANCE, RESIDUALS AND LYTES
[2023-10-05] MEDS: propofoL 1,000 MG/100 ML VIAL 12.24 MG IVCONT ×2 (11:19→19:21)
--- NOTE | 2023-10-05 15:31 | MHC.CM.PN ---
EMR REVIEWED. PT REMAINS SEDATED AND ON VENTILATORY SUPPORT IN ICU. CM WILL CONTINUE TO FOLLOW FOR DC NEEDS/PLAN
[2023-10-05] MEDS: cefTRIAXone sodium 1 GM in 0.9 % Sodium Chloride 50 ML IV (17:51)
--- NOTE | 2023-10-05 18:46 | P.PNCC_ITS ---
Subjective Subjective Date of Service: 10/05/23 Interval History: 72-year-old mentally compromised individual came in with mechanical aspiration with a subsequent cardiac arrest 5-10 minute delay and and then a 15 minute resuscitation resulting in hypoxemic encephalopathy and now by EEG apparently remaining in all likelihood with nonconvulsive status epilepticus requiring propofol and Versed as well as Keppra so that we now adding IV Dilantin at a g and then maintenance Dilantin and then will again attempt to wean the propofol and if he has breakthrough a stents of all seizure activity will probably add yet a 3rd antiseizure drug probably valproic acid Critical Care Time (minutes): 45 Physical Exam 2 Vital Signs: Vital Signs: Last Vital Signs Temp 99.3 F 10/05/23 18:00 Pulse 75 10/05/23 18:00 Resp 14 10/05/23 18:00 BP 133/59 L 10/05/23 18:00 Pulse Ox 90 L 10/05/23 18:00 O2 Del Method Mechanical Ventil ation 10/05/23 18:00 FiO2 25 10/05/23 18:00 BMI result Body Mass Index 22.3 Vital signs unchanged and bedside echo with unchanged and normal cardiac function Lungs without adventitious sounds in unchanged minutes ventilatory and FiO2 requirements Abdomen remains soft tolerating feedings no organomegaly Skin without any evidence of cellulitis no acrocyanosis Objective Data Labs 10/05/23 04:40 10/05/23 04:40 Labs: Laboratory Results - last 24 hr 10/05/23 10/05/23 10/05/23 04:39 04:40 11:38 WBC 7.4 RBC 3.38 L Hgb 10.1 L Hct 31.0 L MCV 91.7 MCH 29.9 MCHC 32.6 RDW 14.0 Plt Count 213 MPV 9.9 Immature Gran % (Auto) 0.3 Neut % (Auto) 69.8 Lymph % (Auto) 14.6 L [place] % (Auto) 13.6 H Eos % (Auto) 1.4 Baso % (Auto) 0.3 Lymph # (Auto) 1.1 L [place] # (Auto) 1.0 Eos # (Auto) 0.1 Baso # (Auto) 0.0 Abs Immat Gran (auto) 0.02 Absolute Neuts (auto) 5.2 Absolute Nucleated RBC 0.000 Nucleated RBC % (auto) 0.0 VBG pH 7.45 H VBG pCO2 25 VBG pO2 57 VBG HCO3 18 L VBG O2 Saturation 89.0 VBG Base Excess -4.5 Sodium 136 Potassium 3.7 Chloride 112 H Carbon Dioxide 17 L Anion Gap 11 L BUN 22 H Creatinine 0.67 Estim Creat Clear Calc 93.5 Estimated GFR > 60 Random Glucose 126 H Calcium 7.5 L Phosphorus 2.2 L Magnesium 2.1 Albumin 2.8 L Phenytoin 12.0 Microbiology Microbiology Results: Microbiology 10/05/23 07:50 Sputum - Suctioned Gram Stain - Final 10/02/23 12:25 Blood - Venous Blood Culture - Preliminary No growth after 48 hours. 10/02/23 12:11 Blood - Venous Blood Culture - Preliminary No growth after 48 hours. 10/02/23 Unknown Urine Catheterized - Jaime Catheter Urine Culture - Final Escherichia coli Progress Note: A&P Assessment and plan (1) Myoclonus: Status: Acute (2) Hypoxic ischemic encephalopathy due to cardiac arrest: Status: Acute (3) Multiple fractures of ribs: Status: Acute (4) Urinary tract infection: Status: Acute (5) Choking due to food in larynx: Status: Acute (6) Cardiac arrest: Status: Acute (7) Aspiration pneumonia: Status: Acute (8) Status epilepticus: Status: Acute Plan Plan is to a at 20 milligrams/kilogram of valproic acid and once equilibrated in several hours will again try to wean the propofol than in the hopes of we could wean sedation we could assess cognitive function Quality Stroke Does the patient have a stroke diagnosis?: No VTE Prior VTE?: No VTE Risk Level:: Medical - moderate - high VTE Device Contraindication: N/A - Device Ordered VTE Drug Contraindication: N/A - Med Ordered
[2023-10-05] MEDS: Latanoprost 0.005 % Ophth Sol 2.5 ML DROPS 1 DROP EYE-RIGHT (20:13)
[2023-10-05 23:17] LABS: Valproate 60.1 mcg/mL (50.0-100.0)
[2023-10-06] VITALS (30 sets, daily range): BP systolic 110–167; BP diastolic 41–70; PULSE 65–86; RESP 14–20; TEMP 34.5–37.2; O2SAT 95–98; BMI 24.5
[2023-10-06] MEDS: propofoL 1,000 MG/100 ML VIAL 8.16 MG IVCONT ×3 (02:15→23:26)
[2023-10-06] MEDS: Midazolam HCl/NS 50 MG/50 ML PLAST..BAG 6 MG IVCONT ×3 (03:46→19:25)
[2023-10-06] MEDS: levETIRAcetam in NaCl (iso-os) 1,000 MG/100 ML PIGGYBACK 400 MG IV (03:47)
[2023-10-06 04:54] LABS: VBG HCO3 20 mmol/L (22-26); VBG pCO2 22 mmHg; VBG pH 7.56 (7.32-7.43); VBG pO2 62 mmHg
[2023-10-06 04:55] LABS: Venous Blood Gas Refer to POC result
[2023-10-06 05:04] LABS: MANUAL DIFF FLAG NO
[2023-10-06 05:09] LABS: Basophils Percent Auto 0.2 % (0-2); Eosinophils Absolute Auto 0.1 X10*3/uL (0.0-0.4); Eosinophils Percent Auto 1.9 % (0-4); Hemoglobin 10.2 g/dl (14.0-18.0); Imm Gran Abs Auto 0.02 X10*3/uL (0.00-0.03); Imm Gran Pct Auto 0.3 % (0.0-0.4); Lymphocytes Absolute Auto 1.1 X10*3/uL (1.2-4.9); Lymphocytes Percent Auto 16.7 % (20-40); Mean Corpuscular HGB Conc 32.9 g/dl (31.0-36.0); Mean Corpuscular Hemoglobin 30.1 pg (27.0-33.0); Mean Corpuscular Volume 91.4 fL (80.0-98.0); Neutrophils Absolute Auto 4.2 x10*3/uL (2.0-8.3); Neutrophils Percent Auto 65.9 % (45-73); Platelet Count 213 X10*3/uL (160-400); Red Blood Count 3.39 X10*6/uL (4.60-5.80); Red Cell Distribution Width 13.9 % (11.0-16.0); White Blood Count 6.4 X10*3/uL (4.8-10.8)
[2023-10-06 05:19] LABS: Albumin Level 3.2 g/dL (3.5-5.0); Anion Gap 11 (12-20); Blood Urea Nitrogen 11 mg/dL (9-16); Calcium 7.9 mg/dL (8.4-10.2); Carbon Dioxide 19 mmol/L (22-29); Chloride 110 mmol/L (96-108); Creatinine Clr Calc Pharmacy 99.5; Estimated Glomerular Filt Rate > 60; Glucose Random 133 mg/dL (60-115); Magnesium 2.1 mg/dL (1.6-2.6); Potassium 3.7 mmol/L (3.3-5.1); Sodium 136 mmol/L (135-145)
[2023-10-06] MEDS: Pantoprazole Sodium 40 MG/10 ML VIAL IVPUSH (05:33)
[2023-10-06] MEDS: Chlorhexidine Gluc Oral Rinse 15 ML MOUTHWASH BUCCAL ×3 (08:42→21:14)
[2023-10-06] MEDS: Dorzolamide/Timolo 2.23%/0.68% 10 ML DRBTL 1 DROP EYE-RIGHT ×2 (08:43→21:15)
[2023-10-06] MEDS: levETIRAcetam in NaCl (iso-os) 1,500 MG/100 ML PIGGYBACK 400 MG IV ×2 (08:55→21:10)
[2023-10-06] MEDS: Phenytoin Sodium 100 MG/2 ML VIAL IVPUSH ×4 (08:55→21:40)
--- NOTE | 2023-10-06 09:52 | HO.SKINPHOTO ---
Location: Coccyx Category: Pressure Stage: Stage 1 Length: 5 Width: 4 Depth: 0 cm
--- NOTE | 2023-10-06 12:27 | MHC.CM.PN ---
Pt continues care in ICU: on ventilatory support and antiepileptics per EEG results of seizure activity. Pt resides in a [facility] custodial with his brother serving as guardian. Pt will likely require placement however, the extent of care needs is undetermined. CM to pend referrals at this time until his needs are better known: pt will need to extubate and have PT/OT evals or need Peg/trach placement for identification of d/c needs. CM to follow.
--- NOTE | 2023-10-06 12:59 | HO.WOUND ---
Wound Consult: Initial 72yr old male admitted [place] [facility] [place]10/02/23 14:40 See progress notes and H&P for detailed history. Wound consult placed for Coccyx wound - unable to assess pts skin at time of arrival to bedside - discussed with direct care team and photo review - after discussion and photo review - Stage 1 Pressure injury to coccyx area per direct care team pink intact tissue did not abundio over observed bony prominence of coccyx - stage 1 Pressure injury. Inpatient wound care team will continue to follow for assessment at future date and or time. Coccyx Etiology: ??Stage 1 pressure injury Wound Bed: intact pink nonblanchable tissue per direct care team Drainage / Odor: None Edges: ? irregular Elena wound: Intact - appears to have MASD component red erythema noted to scrotum and perianal area Goals of Treatment: ?Foam application to protect from friction and moisture and aid in off loading Recommendations: 1. Turn and Reposition every 2 hours and as needed for patient comfort. - Use wedges and or pillows to aid in supportive off loading position. 2. Off Load all bony prominences with use of pillows and heel boots if needed.? Apply Preventative foams where needed. ? 3. Monitor for incontinence and moisture control, use barrier creams when needed for prevention and treatment. 4. Provide adequate and supplemental nutrition. 5. Continue low air loss mattress. 6.Sacrum - Off Load Pressure - Cleanse with routine cleansing, pat dry. ?Cover with foam dressing peel back and assess Q shift and change every 3 days and PRN for soiling. Re-consult wound care Nurse for wound deterioration or wound changes.
--- NOTE | 2023-10-06 15:55 | PM.CCPN ---
Subjective Subjective Date of Service: 10/06/23 Interval History: 72-year-old gentleman with lifelong mental compromise witnessed aspiration with hypoxic respiratory arrest 15-20 minute resuscitation he came in with and still has persistent myoclonus as well as underlying status epilepticus proven by EEG currently on Keppra 1500 mg b.i.d. loaded and maintained on Dilantin at 300 mg daily and loaded maintained on valproic acid at 375 mg twice daily and still has breakthrough seizures if we lower his propofol drip Critical Care Time (minutes): 35 Physical Exam Vital Signs: Vital Signs: Last Vital Signs Temp 98.6 F 10/06/23 15:00 Pulse 73 10/06/23 15:00 Resp 20 10/06/23 15:00 BP 138/56 L 10/06/23 15:00 Pulse Ox 96 10/06/23 15:00 O2 Del Method Mechanical Ventil ation 10/06/23 15:00 FiO2 25 10/06/23 15:32 BMI result Body Mass Index 24.5 Completely unresponsive even to deep pain and negative Babinski's and pupils are reactive bilaterally and equal Bedside echo with class 1 LV function Abdomen benign and tolerating feedings no organomegaly Chest clear bilaterally Objective Data Labs 10/06/23 04:50 10/06/23 04:50 Labs: Laboratory Results - last 24 hr 10/05/23 10/06/23 10/06/23 22:54 04:47 04:50 WBC 6.4 RBC 3.39 L Hgb 10.2 L Hct 31.0 L MCV 91.4 MCH 30.1 MCHC 32.9 RDW 13.9 Plt Count 213 MPV 10.0 Immature Gran % (Auto) 0.3 Neut % (Auto) 65.9 Lymph % (Auto) 16.7 L [place] % (Auto) 15.0 H Eos % (Auto) 1.9 Baso % (Auto) 0.2 Lymph # (Auto) 1.1 L [place] # (Auto) 1.0 Eos # (Auto) 0.1 Baso # (Auto) 0.0 Abs Immat Gran (auto) 0.02 Absolute Neuts (auto) 4.2 Absolute Nucleated RBC 0.000 Nucleated RBC % (auto) 0.0 VBG pH 7.56 H VBG pCO2 22 VBG pO2 62 VBG HCO3 20 L VBG O2 Saturation 94.0 VBG Base Excess 0.0 Sodium 136 Potassium 3.7 Chloride 110 H Carbon Dioxide 19 L Anion Gap 11 L BUN 11 Creatinine 0.63 Estim Creat Clear Calc 99.5 Estimated GFR > 60 Random Glucose 133 H Calcium 7.9 L Phosphorus 2.0 L Magnesium 2.1 Albumin 3.2 L Valproic Acid 60.1 Microbiology Microbiology Results: Microbiology 10/05/23 07:50 Sputum - Suctioned Gram Stain - Final 10/05/23 07:50 Sputum - Suctioned Sputum Culture - Preliminary Culture in progress. 10/02/23 12:25 Blood - Venous Blood Culture - Preliminary No growth after 48 hours. 10/02/23 12:11 Blood - Venous Blood Culture - Preliminary No growth after 48 hours. 10/02/23 Unknown Urine Catheterized - Jaime Catheter Urine Culture - Final Escherichia coli Progress Note: A&P Assessment and plan (1) Status epilepticus: Status: Acute (2) Myoclonus: Status: Acute (3) Hypoxic ischemic encephalopathy due to cardiac arrest: Status: Acute (4) Multiple fractures of ribs: Status: Acute (5) Urinary tract infection: Status: Acute (6) Choking due to food in larynx: Status: Acute (7) Cardiac arrest: Status: Acute (8) Aspiration pneumonia: Status: Acute Plan Plan is once again to try to wean the propofol and if unable to based on recurrent seizures will go up on the doses of the Dilantin and valproic acid Quality Stroke Does the patient have a stroke diagnosis?: No VTE Prior VTE?: No VTE Risk Level:: Medical - moderate - high VTE Device Contraindication: N/A - Device Ordered VTE Drug Contraindication: N/A - Med Ordered
[2023-10-06] MEDS: cefTRIAXone sodium 1 GM in 0.9 % Sodium Chloride 50 ML IV (17:25)
[2023-10-06 19:41] LABS: Phenytoin Dilantin 5.7 ug/mL (10.0-20.0)
[2023-10-06] MEDS: Latanoprost 0.005 % Ophth Sol 2.5 ML DROPS 1 DROP EYE-RIGHT (21:15)
[2023-10-07] VITALS (34 sets, daily range): BP systolic 73–210; BP diastolic 37–94; PULSE 57–94; RESP 14–18; TEMP 34.6–37.7; O2SAT 92–99; BMI 23.5
[2023-10-07] MEDS: Midazolam HCl/NS 50 MG/50 ML PLAST..BAG 6 MG IVCONT ×4 (03:02→19:38)
[2023-10-07 05:25] LABS: VBG Base Excess -0.2 mmol/L; VBG HCO3 22 mmol/L (22-26); VBG pCO2 30 mmHg; VBG pH 7.47 (7.32-7.43); VBG pO2 66 mmHg
[2023-10-07 05:26] LABS: Venous Blood Gas Refer to POC result
[2023-10-07 05:38] LABS: MANUAL DIFF FLAG NO
[2023-10-07 05:40] LABS: Basophils Percent Auto 0.2 % (0-2); Eosinophils Absolute Auto 0.1 X10*3/uL (0.0-0.4); Eosinophils Percent Auto 1.9 % (0-4); Hematocrit 34.1 % (42.0-52.0); Hemoglobin 11.2 g/dl (14.0-18.0); Imm Gran Abs Auto 0.02 X10*3/uL (0.00-0.03); Imm Gran Pct Auto 0.3 % (0.0-0.4); Lymphocytes Absolute Auto 1.1 X10*3/uL (1.2-4.9); Lymphocytes Percent Auto 18.3 % (20-40); Mean Corpuscular HGB Conc 32.8 g/dl (31.0-36.0); Mean Corpuscular Hemoglobin 29.9 pg (27.0-33.0); Mean Corpuscular Volume 91.2 fL (80.0-98.0); Mean Platelet Volume 9.8 fL (9.4-12.4); Monocytes Absolute Auto 0.9 X10*3/uL (0.1-1.2); Monocytes Percent Auto 14.9 % (2-11); Neutrophils Absolute Auto 3.7 x10*3/uL (2.0-8.3); Neutrophils Percent Auto 64.4 % (45-73); Platelet Count 246 X10*3/uL (160-400); Red Blood Count 3.74 X10*6/uL (4.60-5.80); Red Cell Distribution Width 14.1 % (11.0-16.0); White Blood Count 5.8 X10*3/uL (4.8-10.8)
[2023-10-07 05:58] LABS: Albumin Level 3.2 g/dL (3.5-5.0); Anion Gap 11 (12-20); Blood Urea Nitrogen 11 mg/dL (9-16); Calcium 8.3 mg/dL (8.4-10.2); Carbon Dioxide 21 mmol/L (22-29); Chloride 109 mmol/L (96-108); Creatinine Clr Calc Pharmacy 101.2; Estimated Glomerular Filt Rate > 60; Glucose Random 131 mg/dL (60-115); Magnesium 2.2 mg/dL (1.6-2.6); Phosphorus 2.1 mg/dL (2.7-4.5); Potassium 3.9 mmol/L (3.3-5.1); Sodium 137 mmol/L (135-145)
[2023-10-07 06:00] LABS: Phenytoin Dilantin 6.9 ug/mL (10.0-20.0); Valproate 32.9 mcg/mL (50.0-100.0)
[2023-10-07] MEDS: Pantoprazole Sodium 40 MG/10 ML VIAL IVPUSH (06:18)
[2023-10-07] MEDS: Valproic Acid (as Sodium Salt) 250 MG in Dextrose 5 % 50 ML 52.5 MG IV (06:58)
[2023-10-07] MEDS: Chlorhexidine Gluc Oral Rinse 15 ML MOUTHWASH BUCCAL ×3 (08:37→19:40)
[2023-10-07] MEDS: levETIRAcetam in NaCl (iso-os) 1,500 MG/100 ML PIGGYBACK 400 MG IV ×2 (08:38→19:40)
[2023-10-07] MEDS: Dorzolamide/Timolo 2.23%/0.68% 10 ML DRBTL 1 DROP EYE-RIGHT ×2 (08:38→19:46)
[2023-10-07] MEDS: propofoL 1,000 MG/100 ML VIAL 8.16 MG IVCONT (08:51)
[2023-10-07] MEDS: Phenytoin Sodium 100 MG/2 ML VIAL 200 MG IVPUSH ×2 (09:03→21:47)
--- NOTE | 2023-10-07 10:58 | MHC.CLN ---
F/U PATIENT REMAINS INTUBATED AND SEDATED TF CONTINUES JEVITY 1.0 AT MAX GOAL RATE OF 60 ML PER HOUR WITH 120ML FREE WATER FLUSHES Q 4 HOURS PROVIDES 1526 KCALS (1741 KCALS WITH SEDATION; 25 KCALS/KG), 64 G PROTEIN (.94 G/KG); 1922ML TOTAL FREE WATER FROM FORMULA AND FLUSHES (28.1 ML/KG) TOLERATING WELL PER NSG WITH LOW RESIDUALS CONTINUE TO MONITOR FOR TOLERANCE, RESIDUALS AND LYTES
--- NOTE | 2023-10-07 14:01 | P.PNCC_ITS ---
Subjective Subjective Date of Service: 10/07/23 Interval History: 72-year-old lifelong mentally compromised individual with witnessed aspiration and acute hypoxemic respiratory failure resulting in cardiac arrest 20 minute resuscitation and now remains on ventilator with hypoxic encephalopathy He still has intractable seizures on 3 medicines now dose is being titrated to levels and this is Dilantin and were taking between 4 and 500 mg daily valproic acid with another bolus and now up to 500 mg twice daily and Keppra at 1500 mg twice daily and still can drop his propofol below a certain level without developing recurrent Daniel supple seizure activity Critical Care Time (minutes): 35 Physical Exam 2 Vital Signs: Vital Signs: Last Vital Signs Temp 99.0 F 10/07/23 13:00 Pulse 62 10/07/23 13:00 Resp 16 10/07/23 13:00 BP 92/56 L 10/07/23 13:00 Pulse Ox 99 10/07/23 13:00 O2 Del Method Mechanical Ventil ation 10/07/23 13:00 FiO2 25 10/07/23 13:00 BMI result Body Mass Index 23.5 Is it muscle tone is equal bilaterally and he did lateralize to the Babinski reflex by withdrawing the appropriate leg both sides and both toes were downgoing The echo bedside shows preserved LV and RV function Abdomen is benign and tolerating his feedings Lungs are clear Objective Data Labs 10/07/23 05:14 10/07/23 05:14 Labs: Laboratory Results - last 24 hr 10/06/23 10/07/23 10/07/23 19:08 05:14 05:18 WBC 5.8 RBC 3.74 L Hgb 11.2 L Hct 34.1 L MCV 91.2 MCH 29.9 MCHC 32.8 RDW 14.1 Plt Count 246 MPV 9.8 Immature Gran % (Auto) 0.3 Neut % (Auto) 64.4 Lymph % (Auto) 18.3 L [place] % (Auto) 14.9 H Eos % (Auto) 1.9 Baso % (Auto) 0.2 Lymph # (Auto) 1.1 L [place] # (Auto) 0.9 Eos # (Auto) 0.1 Baso # (Auto) 0.0 Abs Immat Gran (auto) 0.02 Absolute Neuts (auto) 3.7 Absolute Nucleated RBC 0.000 Nucleated RBC % (auto) 0.0 VBG pH 7.47 H VBG pCO2 30 VBG pO2 66 VBG HCO3 22 VBG O2 Saturation 92.0 VBG Base Excess -0.2 Sodium 137 Potassium 3.9 Chloride 109 H Carbon Dioxide 21 L Anion Gap 11 L BUN 11 Creatinine 0.64 Estim Creat Clear Calc 101.2 Estimated GFR > 60 Random Glucose 131 H Calcium 8.3 L Phosphorus 2.1 L Magnesium 2.2 Albumin 3.2 L Phenytoin 5.7 L* 6.9 L* Valproic Acid 32.9 L Microbiology Microbiology Results: Microbiology 10/05/23 07:50 Sputum - Suctioned Gram Stain - Final 10/05/23 07:50 Sputum - Suctioned Sputum Culture - Final 10/02/23 12:25 Blood - Venous Blood Culture - Preliminary No growth after 48 hours. 10/02/23 12:11 Blood - Venous Blood Culture - Preliminary No growth after 48 hours. 10/02/23 Unknown Urine Catheterized - Jaime Catheter Urine Culture - Final Escherichia coli Progress Note: A&P Assessment and plan (1) Status epilepticus: Status: Acute (2) Myoclonus: Status: Acute (3) Hypoxic ischemic encephalopathy due to cardiac arrest: Status: Acute (4) Multiple fractures of ribs: Status: Acute (5) Urinary tract infection: Status: Acute (6) Choking due to food in larynx: Status: Acute (7) Cardiac arrest: Status: Acute (8) Aspiration pneumonia: Status: Acute Plan So as we titrate up on antiseizure medication we keep attempting to wean the sedation and if we can reach that point we can give a much better neurologic assessment most especially of cognitive function Quality Stroke Does the patient have a stroke diagnosis?: No VTE Prior VTE?: No VTE Risk Level:: Medical - moderate - high VTE Device Contraindication: N/A - Device Ordered VTE Drug Contraindication: N/A - Med Ordered
[2023-10-07] MEDS: Phenytoin Oral Susp 100 MG/4 ML ORAL.SUSP G-TUBE (15:29)
[2023-10-07] MEDS: cefTRIAXone sodium 1 GM in 0.9 % Sodium Chloride 50 ML IV (17:07)
[2023-10-07] MEDS: dexmedeTOMIDidine HCL/NS 400 MCG/100 ML INFUS..BTL 18.08 MCG IVCONT (19:17)
[2023-10-07] MEDS: Latanoprost 0.005 % Ophth Sol 2.5 ML DROPS 1 DROP EYE-RIGHT (19:46)
[2023-10-07] MEDS: Norepinephrine Bitartrate/D5W 8 MG/250 ML PLAST..BAG 6.78 MG IV (22:06)
[2023-10-07 22:08] LABS: CDiff Gene PCR NEGATIVE (Negative)
[2023-10-08] VITALS (33 sets, daily range): BP systolic 119–161; BP diastolic 52–78; PULSE 61–91; RESP 12–20; TEMP 34.7–37.9; O2SAT 97–100; BMI 23.3
[2023-10-08] MEDS: Midazolam HCl/NS 50 MG/50 ML PLAST..BAG 6 MG IVCONT ×2 (03:56→12:01)
[2023-10-08 04:49] LABS: VBG Base Excess 1.4 mmol/L; VBG HCO3 23 mmol/L (22-26); VBG pCO2 27 mmHg; VBG pH 7.53 (7.32-7.43); VBG pO2 59 mmHg
[2023-10-08 04:53] LABS: Venous Blood Gas Refer to POC result
[2023-10-08 04:58] LABS: Basophils Percent Auto 0.2 % (0-2); Eosinophils Absolute Auto 0.1 X10*3/uL (0.0-0.4); Eosinophils Percent Auto 1.1 % (0-4); Imm Gran Abs Auto 0.04 X10*3/uL (0.00-0.03); Imm Gran Pct Auto 0.4 % (0.0-0.4); Lymphocytes Absolute Auto 1.4 X10*3/uL (1.2-4.9); Lymphocytes Percent Auto 15.1 % (20-40); MANUAL DIFF FLAG SCAN; Mean Corpuscular HGB Conc 31.6 g/dl (31.0-36.0); Mean Corpuscular Hemoglobin 30.2 pg (27.0-33.0); Mean Corpuscular Volume 95.7 fL (80.0-98.0); Mean Platelet Volume 9.6 fL (9.4-12.4); Monocytes Absolute Auto 1.8 X10*3/uL (0.1-1.2); Neutrophils Absolute Auto 5.9 x10*3/uL (2.0-8.3); Neutrophils Percent Auto 64.2 % (45-73); Platelet Count 238 X10*3/uL (160-400); Red Blood Count 3.97 X10*6/uL (4.60-5.80); SCAN SMEAR FLAG 1; White Blood Count 9.2 X10*3/uL (4.8-10.8)
[2023-10-08 05:16] LABS: Albumin Level 2.8 g/dL (3.5-5.0); Anion Gap 12 (12-20); Blood Urea Nitrogen 12 mg/dL (9-16); Calcium 8.3 mg/dL (8.4-10.2); Carbon Dioxide 18 mmol/L (22-29); Chloride 111 mmol/L (96-108); Creatinine Clr Calc Pharmacy 104.5; Estimated Glomerular Filt Rate > 60; Glucose Random 107 mg/dL (60-115); Magnesium 2.3 mg/dL (1.6-2.6); Phosphorus 2.7 mg/dL (2.7-4.5); Potassium 4.5 mmol/L (3.3-5.1); Sodium 136 mmol/L (135-145)
[2023-10-08 05:22] LABS: SLIDE REVIEW VERIFIED
[2023-10-08 05:41] LABS: Phenytoin Dilantin 7.8 ug/mL (10.0-20.0)
[2023-10-08] MEDS: Albumin Human 25 % 100 ML IV (05:43)
[2023-10-08] MEDS: propofoL 200 MG/20 ML VIAL 30 MG IVPUSH (05:57)
[2023-10-08] MEDS: Rocuronium Bromide 50 MG/5 ML VIAL 35 MG IVPUSH (05:58)
--- NOTE | 2023-10-08 06:09 | W.PM.CCHP ---
Procedures Date of Service Date of Service: 10/08/23 <Pamela Hernández NP - Last Filed: 10/08/23 06:12> 10/09/23 <Shannan Munoz MD - Last Filed: 10/09/23 10:27> Intubation Intubation Comments: ETT placed in the field became kinked, had an area that was crushed, unable to use in-line suction. ETT replaced. <Pamela Hernández NP - Last Filed: 10/08/23 06:12> Consent for Procedure: Emergent-no informed consent obtained <Pamela Hernández NP - Last Filed: 10/08/23 06:12> Time out performed: Yes <Pamela Hernández NP - Last Filed: 10/08/23 06:12> Sedative: propofol <Pamela Hernández NP - Last Filed: 10/08/23 06:12> Mg given: 30 <Pamela Hernández NP - Last Filed: 10/08/23 06:12> Paralytic: rocuronium <Pamela Hernández NP - Last Filed: 10/08/23 06:12> Mg given: 35 <Pamela Hernández NP - Last Filed: 10/08/23 06:12> Laryngoscope: fiber optic video scope <Pameal Hernández NP - Last Filed: 10/08/23 06:12> ET tube size: 7.5 <Pamela Hernández NP - Last Filed: 10/08/23 06:12> ET tube uncuffed: Yes <Pamela Hernández NP - Last Filed: 10/08/23 06:12> Tube secured depth (cm): 25 <Pamela Hernández NP - Last Filed: 10/08/23 06:12> Tube secured location: lips <ANDRE Bruce Last Filed: 10/08/23 06:12> Tube placement confirmation: visualized tube passing through cords, equal breath sounds bilaterally and confirmation by capnometry <ANDRE Bruce Last Filed: 10/08/23 06:12> Patient tolerated procedure: well and no complications <ANDRE Bruce Last Filed: 10/08/23 06:12>
--- NOTE | 2023-10-08 07:03 | P.PNCC_ITS ---
Subjective Subjective Date of Service: 10/08/23 Interval History: 72-year-old male a lifelong mental compromise witnessed aspiration of food leading to hypoxic failure and arrest with a 15-20 minute resuscitation to ROSC food of course suction from his endotracheal tube and recently developed a low- grade fever but also in light of the new acute renal insufficiency that was developing along with some mild proteinuria and hematuria I was concerned about medication affects of stopped his antibiotics he was complicated by a non only diffuse myoclonus but apparently status epilepticus documented by EEG and we initiated Keppra and raise the dose to 1500 mg added then Dilantin currently taking 600 mg daily and still with a barely therapeutic level and then a 3rd drug valproic acid at 20 milligrams/kilogram and we were finally able for the 1st time to wean the propofol without of recurrent status epilepticus and with that performing Babinski's he withdrew the appropriate leg each time bilaterally same with his upper extremities and later that day open his eyes to command sore beginning to show some the no signs of improved prognostic features he has got a low-grade temperature and he has got see no significant polys in his sputum and he had diarrhea but the C diff antigen was negative Critical Care Time (minutes): 45 Physical Exam 2 Vital Signs: Vital Signs: Last Vital Signs Temp 99.5 F 10/08/23 06:00 Pulse 82 10/08/23 06:00 Resp 15 10/08/23 06:00 BP 152/78 H 10/08/23 06:00 Pulse Ox 98 10/08/23 06:00 O2 Del Method Mechanical Ventil ation 10/08/23 06:00 FiO2 25 10/08/23 06:01 BMI result Body Mass Index 23.3 again able to awaken to command and he is nonfocal neurologically and no signs of active seizure activity bedside cardiac exam by echo normal LV and RV function lungs with some scattered bilateral rales abdomen soft no organomegaly good bowel sounds and tolerating feedings Objective Data Labs 10/08/23 04:35 10/08/23 04:35 Labs: Laboratory Results - last 24 hr 10/07/23 10/08/23 10/08/23 18:25 04:35 04:37 WBC 9.2 RBC 3.97 L Hgb 12.0 L Hct 38.0 L MCV 95.7 MCH 30.2 MCHC 31.6 RDW 14.0 Plt Count 238 MPV 9.6 Immature Gran % (Auto) 0.4 Neut % (Auto) 64.2 Lymph % (Auto) 15.1 L [place] % (Auto) 19.0 H Eos % (Auto) 1.1 Baso % (Auto) 0.2 Lymph # (Auto) 1.4 [place] # (Auto) 1.8 H Eos # (Auto) 0.1 Baso # (Auto) 0.0 Abs Immat Gran (auto) 0.04 H Absolute Neuts (auto) 5.9 Absolute Nucleated RBC 0.000 Nucleated RBC % (auto) 0.0 Smear Tech's Comments VERIFIED VBG pH 7.53 H VBG pCO2 27 VBG pO2 59 VBG HCO3 23 VBG O2 Saturation 88.0 VBG Base Excess 1.4 Sodium 136 Potassium 4.5 Chloride 111 H Carbon Dioxide 18 L Anion Gap 12 BUN 12 Creatinine 0.62 Estim Creat Clear Calc 104.5 Estimated GFR > 60 Random Glucose 107 Calcium 8.3 L Phosphorus 2.7 Magnesium 2.3 Albumin 2.8 L Phenytoin C. difficile Tox B Gene NEGATIVE 10/08/23 05:11 WBC RBC Hgb Hct MCV MCH MCHC RDW Plt Count MPV Immature Gran % (Auto) Neut % (Auto) Lymph % (Auto) [place] % (Auto) Eos % (Auto) Baso % (Auto) Lymph # (Auto) [place] # (Auto) Eos # (Auto) Baso # (Auto) Abs Immat Gran (auto) Absolute Neuts (auto) Absolute Nucleated RBC Nucleated RBC % (auto) Smear Tech's Comments VBG pH VBG pCO2 VBG pO2 VBG HCO3 VBG O2 Saturation VBG Base Excess Sodium Potassium Chloride Carbon Dioxide Anion Gap BUN Creatinine Estim Creat Clear Calc Estimated GFR Random Glucose Calcium Phosphorus Magnesium Albumin Phenytoin 7.8 L* C. difficile Tox B Gene Microbiology Microbiology Results: Microbiology 10/02/23 12:25 Blood - Venous Blood Culture - Final No growth after 5 days. 10/02/23 12:11 Blood - Venous Blood Culture - Final No growth after 5 days. 10/05/23 07:50 Sputum - Suctioned Gram Stain - Final 10/05/23 07:50 Sputum - Suctioned Sputum Culture - Final 10/02/23 Unknown Urine Catheterized - Jaime Catheter Urine Culture - Final Escherichia coli Progress Note: A&P Assessment and plan (1) Status epilepticus: Status: Acute (2) Myoclonus: Status: Acute (3) Hypoxic ischemic encephalopathy due to cardiac arrest: Status: Acute (4) Multiple fractures of ribs: Status: Acute (5) Urinary tract infection: Status: Acute (6) Choking due to food in larynx: Status: Acute (7) Cardiac arrest: Status: Acute (8) Aspiration pneumonia: Status: Acute Plan so the plan of course is to keep him off sedation at this point continue to follow this fever which may very well be drug related it started after Dilantin was loaded and continue surveillance cultures Quality Stroke Does the patient have a stroke diagnosis?: No VTE Prior VTE?: No VTE Risk Level:: Medical - moderate - high VTE Device Contraindication: N/A - Device Ordered VTE Drug Contraindication: N/A - Med Ordered
[2023-10-08] MEDS: Albuterol Sulfate (0.083%) 2.5 MG/3 ML VIAL.NEB INHALE (07:46)
[2023-10-08] MEDS: Acetylcysteine 10 % 400 MG/4 ML VIAL INHALE (07:46)
[2023-10-08] MEDS: Chlorhexidine Gluc Oral Rinse 15 ML MOUTHWASH BUCCAL ×3 (08:57→20:43)
[2023-10-08] MEDS: levETIRAcetam in NaCl (iso-os) 1,500 MG/100 ML PIGGYBACK 400 MG IV ×2 (08:57→20:43)
[2023-10-08] MEDS: Phenytoin Sodium 100 MG/2 ML VIAL 200 MG IVPUSH ×3 (08:58→20:43)
[2023-10-08] MEDS: Caspofungin Acetate 70 MG in 0.9 % Sodium Chloride 250 ML 250 MG IV (08:58)
[2023-10-08] MEDS: Dorzolamide/Timolo 2.23%/0.68% 10 ML DRBTL 1 DROP EYE-RIGHT ×2 (08:58→20:43)
[2023-10-08] MEDS: Latanoprost 0.005 % Ophth Sol 2.5 ML DROPS 1 DROP EYE-RIGHT (20:43)
[2023-10-08] MEDS: Midazolam HCl/NS 50 MG/50 ML PLAST..BAG IVCONT (22:36)
[2023-10-09] VITALS (31 sets, daily range): BP systolic 125–167; BP diastolic 53–83; PULSE 63–92; RESP 12–17; TEMP 34.1–37.6; O2SAT 95–100; BMI 23.3
[2023-10-09 05:05] LABS: VBG HCO3 24 mmol/L (22-26); VBG pCO2 29 mmHg; VBG pH 7.51 (7.32-7.43); VBG pO2 59 mmHg
[2023-10-09 05:33] LABS: MANUAL DIFF FLAG SCAN
[2023-10-09 05:36] LABS: White Blood Count 7.9 X10*3/uL (4.8-10.8)
[2023-10-09 05:45] LABS: Phenytoin Dilantin 11.3 ug/mL (10.0-20.0)
[2023-10-09 05:48] LABS: Albumin Level 3.2 g/dL (3.5-5.0); Magnesium 2.3 mg/dL (1.6-2.6); Phosphorus 2.3 mg/dL (2.7-4.5)
[2023-10-09 06:07] LABS: Venous Blood Gas Refer to POC result
[2023-10-09 06:09] LABS: Basophils Percent Auto 0.5 % (0-2); Eosinophils Absolute Auto 0.1 X10*3/uL (0.0-0.4); Eosinophils Percent Auto 1.2 % (0-4); Hematocrit 34.2 % (42.0-52.0); Hemoglobin 11.4 g/dl (14.0-18.0); Imm Gran Abs Auto 0.09 X10*3/uL (0.00-0.03); Imm Gran Pct Auto 1.2 % (0.0-0.4); Lymphocytes Absolute Auto 1.4 X10*3/uL (1.2-4.9); Lymphocytes Percent Auto 17.3 % (20-40); Mean Corpuscular HGB Conc 33.3 g/dl (31.0-36.0); Mean Corpuscular Hemoglobin 30.2 pg (27.0-33.0); Mean Corpuscular Volume 90.7 fL (80.0-98.0); Mean Platelet Volume 11.1 fL (9.4-12.4); Monocytes Absolute Auto 1.2 X10*3/uL (0.1-1.2); Monocytes Percent Auto 14.7 % (2-11); NRBC Pct Auto 0.3 /100WBC (0.0-0.2); Neutrophils Absolute Auto 5.1 x10*3/uL (2.0-8.3); Neutrophils Percent Auto 65.1 % (45-73); PLT CLUMP 1; Red Blood Count 3.77 X10*6/uL (4.60-5.80); Red Cell Distribution Width 13.9 % (11.0-16.0); SCAN SMEAR FLAG 1
[2023-10-09 06:10] LABS: Platelet Count 146 X10*3/uL (160-400)
[2023-10-09 06:12] LABS: SLIDE REVIEW VERIFIED
[2023-10-09] MEDS: Dorzolamide/Timolo 2.23%/0.68% 10 ML DRBTL 1 DROP EYE-RIGHT ×2 (08:12→21:49)
[2023-10-09] MEDS: Phenytoin Sodium 100 MG/2 ML VIAL 200 MG IVPUSH ×3 (08:12→21:49)
[2023-10-09] MEDS: levETIRAcetam in NaCl (iso-os) 1,500 MG/100 ML PIGGYBACK 400 MG IV ×2 (08:12→21:49)
[2023-10-09] MEDS: Chlorhexidine Gluc Oral Rinse 15 ML MOUTHWASH BUCCAL ×3 (08:12→21:49)
--- NOTE | 2023-10-09 10:27 | PM.CCPN ---
Subjective Subjective Date of Service: 10/09/23 Interval History: 72-year-old mentally compromised man witnessed food aspiration with hypoxemic respiratory failure requiring CPR for 15-20 minutes came here with severe diffuse persistent myoclonic jerking even status and status epilepticus as well question was whether not that might have been nonconvulsive status epilepticus BP and because we treated him that only with propofol but Versed in addition but we did note evidence of persistent Kayleigh clonus and a stentable convulsive epilepsy Keppra initially started followed by Dilantin and then valproic acid all loaded and titrated up according to the levels and all seizure activity is seemed to cease and we backed him off the propofol with success and now he is off the Versed and if he were to awaken is he did yesterday with good cognitive function will do weaning trial Critical Care Time (minutes): 35 Physical Exam Vital Signs: Vital Signs: Last Vital Signs Temp 99.7 F 10/09/23 10:00 Pulse 67 10/09/23 10:00 Resp 14 10/09/23 10:00 BP 142/64 H 10/09/23 10:00 Pulse Ox 100 10/09/23 10:00 O2 Del Method Mechanical Ventil ation 10/09/23 10:00 FiO2 25 10/09/23 10:00 BMI result Body Mass Index 23.3 vital signs stable with just minimal low-grade temperature all culture surveillance negative bedside echo normal LV function equal bilateral breath sounds no adventitious sounds abdomen soft no organomegaly and tolerating feedings Objective Data Labs 10/09/23 04:55 10/08/23 04:35 Labs: Laboratory Results - last 24 hr 10/09/23 10/09/23 04:55 04:58 WBC 7.9 RBC 3.77 L Hgb 11.4 L Hct 34.2 L MCV 90.7 D MCH 30.2 MCHC 33.3 RDW 13.9 Plt Count 146 L D MPV 11.1 Immature Gran % (Auto) 1.2 H Neut % (Auto) 65.1 Lymph % (Auto) 17.3 L [place] % (Auto) 14.7 H Eos % (Auto) 1.2 Baso % (Auto) 0.5 Lymph # (Auto) 1.4 [place] # (Auto) 1.2 Eos # (Auto) 0.1 Baso # (Auto) 0.0 Abs Immat Gran (auto) 0.09 H Absolute Neuts (auto) 5.1 Absolute Nucleated RBC 0.020 H Nucleated RBC % (auto) 0.3 H Smear Tech's Comments VERIFIED VBG pH 7.51 H VBG pCO2 29 VBG pO2 59 VBG HCO3 24 VBG O2 Saturation 89.0 VBG Base Excess 2.0 Phosphorus 2.3 L Magnesium 2.3 Albumin 3.2 L Phenytoin 11.3 Microbiology Microbiology Results: Microbiology 10/02/23 12:25 Blood - Venous Blood Culture - Final No growth after 5 days. 10/02/23 12:11 Blood - Venous Blood Culture - Final No growth after 5 days. 10/05/23 07:50 Sputum - Suctioned Gram Stain - Final 10/05/23 07:50 Sputum - Suctioned Sputum Culture - Final 10/02/23 Unknown Urine Catheterized - Jaime Catheter Urine Culture - Final Escherichia coli Progress Note: A&P Assessment and plan (1) Status epilepticus: Status: Acute (2) Myoclonus: Status: Acute (3) Hypoxic ischemic encephalopathy due to cardiac arrest: Status: Acute (4) Multiple fractures of ribs: Status: Acute (5) Urinary tract infection: Status: Acute (6) Choking due to food in larynx: Status: Acute (7) Cardiac arrest: Status: Acute (8) Aspiration pneumonia: Status: Acute Plan plan is I stated continue feedings antibiotic support pressure support trial of cognitive function is appropriate and we are going to start with physical and occupational therapy Quality Stroke Does the patient have a stroke diagnosis?: No VTE Prior VTE?: No VTE Risk Level:: Medical - moderate - high VTE Device Contraindication: N/A - Device Ordered VTE Drug Contraindication: N/A - Med Ordered
[2023-10-09 11:10] LABS: Anion Gap 14 (12-20); Blood Urea Nitrogen 16 mg/dL (9-16); Calcium 8.6 mg/dL (8.4-10.2); Carbon Dioxide 17 mmol/L (22-29); Chloride 108 mmol/L (96-108); Creatinine Clr Calc Pharmacy 106.2; Estimated Glomerular Filt Rate > 60; Glucose Random 141 mg/dL (60-115); Potassium 4.5 mmol/L (3.3-5.1); Sodium 134 mmol/L (135-145)
[2023-10-09] MEDS: Latanoprost 0.005 % Ophth Sol 2.5 ML DROPS 1 DROP EYE-RIGHT (21:49)
[2023-10-10] VITALS (31 sets, daily range): BP systolic 136–173; BP diastolic 56–85; PULSE 71–95; RESP 10–26; TEMP 34.5–38.1; O2SAT 92–100; BMI 23.3
[2023-10-10] MEDS: fentaNYL citrate/PF 100 MCG/2 ML VIAL 50 MCG IVPUSH (02:04)
--- NOTE | 2023-10-10 04:14 | PM.EVENT ---
Documented by User: Pamela Hernández NP 10/10/23 04:16 Event Note Date of Service: 10/10/23 Event Note: Pt's right arm appears more edematous and feels more firm than the left. No change in skin color. Fingers cool to the touch. U/S ordered to r/o DVT Time Spent With Patient Time: Total time managing care of this patient today ____ minutes. Documented by User: Ga Busch MD 10/10/23 06:50 Event Note Date of Service: 10/10/23
[2023-10-10] MEDS: Pantoprazole Sodium 40 MG/10 ML VIAL IVPUSH (05:53)
[2023-10-10 08:04] LABS: MANUAL DIFF FLAG NO
[2023-10-10 08:11] LABS: VBG Base Excess -1.1 mmol/L; VBG HCO3 21 mmol/L (22-26); VBG pCO2 29 mmHg; VBG pH 7.46 (7.32-7.43); VBG pO2 101 mmHg
[2023-10-10 08:14] LABS: Basophils Percent Auto 0.1 % (0-2); Eosinophils Absolute Auto 0.1 X10*3/uL (0.0-0.4); Eosinophils Percent Auto 0.9 % (0-4); Hematocrit 34.4 % (42.0-52.0); Hemoglobin 11.5 g/dl (14.0-18.0); Imm Gran Pct Auto 1.1 % (0.0-0.4); Lymphocytes Absolute Auto 1.2 X10*3/uL (1.2-4.9); Lymphocytes Percent Auto 13.6 % (20-40); Mean Corpuscular HGB Conc 33.4 g/dl (31.0-36.0); Mean Corpuscular Volume 89.8 fL (80.0-98.0); Mean Platelet Volume 9.7 fL (9.4-12.4); Monocytes Absolute Auto 1.3 X10*3/uL (0.1-1.2); Neutrophils Absolute Auto 6.4 x10*3/uL (2.0-8.3); Neutrophils Percent Auto 70.3 % (45-73); Platelet Count 282 X10*3/uL (160-400); Red Blood Count 3.83 X10*6/uL (4.60-5.80); Red Cell Distribution Width 13.4 % (11.0-16.0); White Blood Count 9.1 X10*3/uL (4.8-10.8)
[2023-10-10 08:15] LABS: Venous Blood Gas Refer to POC result
[2023-10-10] MEDS: Phenytoin Sodium 100 MG/2 ML VIAL 200 MG IVPUSH ×3 (08:25→20:40)
[2023-10-10] MEDS: Lidocaine 4 % Patch ADH..PATCH 2 PATCH TRANSDERMA (08:25)
[2023-10-10] MEDS: levETIRAcetam in NaCl (iso-os) 1,500 MG/100 ML PIGGYBACK 400 MG IV ×2 (08:26→20:40)
[2023-10-10 08:27] LABS: Phenytoin Dilantin 12.5 ug/mL (10.0-20.0); Valproate 43.1 mcg/mL (50.0-100.0)
[2023-10-10 08:31] LABS: Albumin Level 3.2 g/dL (3.5-5.0); Anion Gap 10 (12-20); Blood Urea Nitrogen 17 mg/dL (9-16); Calcium 8.4 mg/dL (8.4-10.2); Carbon Dioxide 21 mmol/L (22-29); Chloride 104 mmol/L (96-108); Creatinine Clr Calc Pharmacy 113.6; Estimated Glomerular Filt Rate > 60; Glucose Random 181 mg/dL (60-115); Magnesium 1.9 mg/dL (1.6-2.6); Phosphorus 2.2 mg/dL (2.7-4.5); Potassium 4.1 mmol/L (3.3-5.1); Sodium 131 mmol/L (135-145)
--- NOTE | 2023-10-10 09:01 | P.PNCC_ITS ---
Subjective Subjective Date of Service: 10/10/23 Interval History: 72-year-old gentleman with underlying history of developmental delay, schizophrenia, admitted on 10/02/2023 after witnessed food aspiration resulting in cardiopulmonary arrest with return of spontaneous circulation after approximately 15-20 minutes of CPR, intubated during CPR, further complicated by status epilepticus thereafter, now on multiple antiepileptic medications, now being titrated off ventilatory support. No events overnight. Critical Care Time (minutes): 60 Physical Exam 2 Vital Signs: Vital Signs: Last Vital Signs Temp 99.7 F 10/10/23 09:00 Pulse 74 10/10/23 09:00 Resp 15 10/10/23 09:00 BP 140/77 H 10/10/23 09:00 Pulse Ox 96 10/10/23 09:00 O2 Del Method Mechanical Ventil ation 10/10/23 09:00 FiO2 25 10/10/23 09:00 BMI result Body Mass Index 23.3 Const: General: no acute distress and other (Poor arousal with sedation vacation) Eyes: Sclerae: sclerae normal Neck: Neck: Yes no lymphadenopathy, Yes trachea midline and Yes supple Resp: Auscultation: clear to auscultation bilaterally Cardio: Rate: regular rate Rhythm: regular rhythm Heart sounds: no gallops, no murmurs and no rubs GI: Palpation (GI): Soft to palpation and Other GI palpation findings present ( Nontender) Auscultation: normal bowel sounds Extrem: General: Yes no pedal edema, No clubbing and No cyanosis Objective Data Labs 10/10/23 07:53 10/10/23 07:53 Labs: Laboratory Results - last 24 hr 10/09/23 10/10/23 10/10/23 04:55 07:53 08:05 WBC 9.1 RBC 3.83 L Hgb 11.5 L Hct 34.4 L MCV 89.8 MCH 30.0 MCHC 33.4 RDW 13.4 Plt Count 282 D MPV 9.7 Immature Gran % (Auto) 1.1 H Neut % (Auto) 70.3 Lymph % (Auto) 13.6 L [place] % (Auto) 14.0 H Eos % (Auto) 0.9 Baso % (Auto) 0.1 Lymph # (Auto) 1.2 [place] # (Auto) 1.3 H Eos # (Auto) 0.1 Baso # (Auto) 0.0 Abs Immat Gran (auto) 0.10 H Absolute Neuts (auto) 6.4 Absolute Nucleated RBC 0.000 Nucleated RBC % (auto) 0.0 VBG pH 7.46 H VBG pCO2 29 VBG pO2 101 VBG HCO3 21 L VBG O2 Saturation 98.0 VBG Base Excess -1.1 Sodium 134 L 131 L Potassium 4.5 4.1 Chloride 108 104 Carbon Dioxide 17 L 21 L Anion Gap 14 10 L BUN 16 17 H Creatinine 0.61 0.57 Estim Creat Clear Calc 106.2 113.6 Estimated GFR > 60 > 60 Random Glucose 141 H 181 H Calcium 8.6 8.4 Phosphorus 2.2 L Magnesium 1.9 Albumin 3.2 L Phenytoin 12.5 Valproic Acid 43.1 L Microbiology Microbiology Results: Microbiology 10/02/23 12:25 Blood - Venous Blood Culture - Final No growth after 5 days. 10/02/23 12:11 Blood - Venous Blood Culture - Final No growth after 5 days. 10/05/23 07:50 Sputum - Suctioned Gram Stain - Final 10/05/23 07:50 Sputum - Suctioned Sputum Culture - Final 10/02/23 Unknown Urine Catheterized - Jaime Catheter Urine Culture - Final Escherichia coli Progress Note: A&P Assessment and plan (1) Aspiration pneumonia: Status: Acute (2) Cardiac arrest: Status: Acute (3) Status epilepticus: Status: Acute (4) Developmental delay, borderline: Status: Acute (5) Schizophrenia: Status: Acute Plan Assessment: 72-year-old gentleman mild developmental delay and schizophrenia admitted after witnessed food aspiration resultant cardiac arrest with successful resuscitation after approximately 20 minutes, further complicated by status epilepticus Plan: Neuro: Status epilepticus, resolved, now on Keppra, valproic acid, and phenytoin. Cardiac: No acute issues. Pulmonary: Intubated during the CPR, continue to titrate off as tolerated. Underlying aspiration of food. Renal: No acute issues. Endo: No acute issues. GI: No acute issues. ID: No acute issues Heme/Onc: No acute issues. Psych: No acute issues. Miscellaneous: No acute issues. Prophylaxis: Heparin, ppi Diet: Tube feeds Critical care time spent: 60 minutes Quality Stroke Does the patient have a stroke diagnosis?: No VTE Prior VTE?: No VTE Risk Level:: Medical - moderate - high VTE Device Contraindication: N/A - Device Ordered VTE Drug Contraindication: N/A - Med Ordered
[2023-10-10] MEDS: Chlorhexidine Gluc Oral Rinse 15 ML MOUTHWASH BUCCAL ×3 (09:40→20:39)
[2023-10-10] MEDS: Heparin Sodium,Porcine 5,000 UNIT/ML VIAL 5000 UNIT SUBCUT ×2 (09:40→17:14)
[2023-10-10] MEDS: Dorzolamide/Timolo 2.23%/0.68% 10 ML DRBTL 1 DROP EYE-RIGHT ×2 (09:40→20:40)
--- NOTE | 2023-10-10 11:59 | MHC.CLN ---
F/U PATIENT REMAINS INTUBATED WITHOUT SEDATION. TF CONTINUES JEVITY 1.0 AT MAX GOAL RATE OF 60 ML PER HOUR WITH 120ML FREE WATER FLUSHES Q 4 HOURS PROVIDES 1526 KCALS (22 KCALS/KG), 64 G PROTEIN (.94 G/KG); 1922ML TOTAL FREE WATER FROM FORMULA AND FLUSHES (28.1 ML/KG) TOLERATING TF WELL. CONTINUE TO MONITOR FOR TOLERANCE, RESIDUALS AND LYTES
[2023-10-10] MEDS: Midazolam HCl/PF 2 MG/2 ML VIAL 4 MG IVPUSH (20:39)
[2023-10-10] MEDS: Latanoprost 0.005 % Ophth Sol 2.5 ML DROPS 1 DROP EYE-RIGHT (20:40)
[2023-10-11] VITALS (33 sets, daily range): BP systolic 132–187; BP diastolic 51–76; PULSE 73–102; RESP 12–17; TEMP 34.9–38.1; O2SAT 93–100; BMI 23.3
--- NOTE | 2023-10-11 | EEG_ITS ---
FINDINGS: Background activity consists of low-voltage periodic 1 to 2 hertz small amplitude sharp and slow discharges throughout most of the records with some periodicity. There were several periods of build-up of spiky discharges that start in the right hemisphere and becomes generalized. There is no clinical notification of a clinical seizure. These discharges can last 20 to 30 seconds. IMPRESSION: This is a markedly abnormal EEG due to diffuse suppression of electrical activity. Evidence of severe diffuse brain damage with periodic complexes and recurrent episodes of seizure discharges that seem to start in the right hemisphere and become generalized consistent with right hemisphere seizure focused with secondary generalization. The patient is no longer in status epilepticus. MD SHAYY Donovan/PHILLIP / [phone]
[2023-10-11] MEDS: Heparin Sodium,Porcine 5,000 UNIT/ML VIAL 5000 UNIT SUBCUT ×2 (00:38→08:28)
[2023-10-11] MEDS: Midazolam HCl/PF 2 MG/2 ML VIAL 4 MG IVPUSH ×3 (02:15→19:52)
[2023-10-11] MEDS: Pantoprazole Sodium 40 MG/10 ML VIAL IVPUSH (04:49)
[2023-10-11 05:18] LABS: VBG Base Excess 3.8 mmol/L; VBG HCO3 23 mmol/L (22-26); VBG pCO2 21 mmHg; VBG pH 7.63 (7.32-7.43); VBG pO2 78 mmHg
[2023-10-11 05:18] LABS: Venous Blood Gas Refer to POC result
[2023-10-11] MEDS: PHENobarbitaL sodium 65 MG/ML VIAL IVPUSH (05:23)
[2023-10-11 05:55] LABS: Albumin Level 2.9 g/dL (3.5-5.0); Anion Gap 10 (12-20); Blood Urea Nitrogen 18 mg/dL (9-16); Calcium 7.9 mg/dL (8.4-10.2); Carbon Dioxide 22 mmol/L (22-29); Chloride 101 mmol/L (96-108); Creatinine Clr Calc Pharmacy 115.7; Estimated Glomerular Filt Rate > 60; Glucose Random 155 mg/dL (60-115); Magnesium 1.9 mg/dL (1.6-2.6); Phosphorus 2.6 mg/dL (2.7-4.5); Potassium 4.4 mmol/L (3.3-5.1); Sodium 129 mmol/L (135-145)
[2023-10-11] MEDS: Albumin Human 25 % 100 ML IV ×3 (07:19→19:59)
[2023-10-11] MEDS: Potassium Phosphate/NS 15 MMOL/250 ML PLAST..BAG 62.5 MMOL IV (07:24)
[2023-10-11] MEDS: Phenytoin Sodium 100 MG/2 ML VIAL 200 MG IVPUSH ×3 (08:26→20:02)
[2023-10-11] MEDS: Chlorhexidine Gluc Oral Rinse 15 ML MOUTHWASH BUCCAL ×3 (08:26→20:02)
[2023-10-11] MEDS: Dorzolamide/Timolo 2.23%/0.68% 10 ML DRBTL 1 DROP EYE-RIGHT ×2 (08:27→20:26)
[2023-10-11] MEDS: levETIRAcetam in NaCl (iso-os) 1,500 MG/100 ML PIGGYBACK 400 MG IV ×2 (08:27→20:06)
[2023-10-11 08:30] LABS: Basophils Percent Auto 0.3 % (0-2); Eosinophils Absolute Auto 0.1 X10*3/uL (0.0-0.4); Eosinophils Percent Auto 1.3 % (0-4); Hematocrit 31.1 % (42.0-52.0); Hemoglobin 10.6 g/dl (14.0-18.0); Imm Gran Abs Auto 0.13 X10*3/uL (0.00-0.03); Imm Gran Pct Auto 1.3 % (0.0-0.4); Lymphocytes Absolute Auto 1.7 X10*3/uL (1.2-4.9); Lymphocytes Percent Auto 16.3 % (20-40); MANUAL DIFF FLAG SCAN; Mean Corpuscular HGB Conc 34.1 g/dl (31.0-36.0); Mean Corpuscular Volume 90.9 fL (80.0-98.0); Mean Platelet Volume 9.5 fL (9.4-12.4); Monocytes Absolute Auto 2.3 X10*3/uL (0.1-1.2); Monocytes Percent Auto 22.7 % (2-11); Neutrophils Absolute Auto 5.9 x10*3/uL (2.0-8.3); Neutrophils Percent Auto 58.1 % (45-73); Platelet Count 278 X10*3/uL (160-400); Red Blood Count 3.42 X10*6/uL (4.60-5.80); Red Cell Distribution Width 13.3 % (11.0-16.0); SCAN SMEAR FLAG 1; White Blood Count 10.2 X10*3/uL (4.8-10.8)
[2023-10-11 08:54] LABS: SLIDE REVIEW VERIFIED
--- NOTE | 2023-10-11 09:59 | PM.CCPN ---
Subjective Subjective Date of Service: 10/11/23 Interval History: 72-year-old gentleman with underlying history of developmental delay, schizophrenia, admitted on 10/02/2023 after witnessed food aspiration resulting in cardiopulmonary arrest with return of spontaneous circulation after approximately 15-20 minutes of CPR, intubated during CPR, further complicated by status epilepticus thereafter, now on multiple antiepileptic medications, now being titrated off ventilatory support. Breakthrough seizure activity overnight requiring Versed and phenobarbital. Critical Care Time (minutes): 60 Physical Exam Vital Signs: Vital Signs: Last Vital Signs Temp 99.7 F 10/11/23 09:00 Pulse 90 10/11/23 09:00 Resp 13 10/11/23 09:00 BP 180/70 H 10/11/23 09:00 Pulse Ox 96 10/11/23 09:00 O2 Del Method Mechanical Ventil ation 10/11/23 09:00 FiO2 25 10/11/23 09:00 BMI result Body Mass Index 23.3 Const: General: no acute distress Eyes: Sclerae: sclerae normal Neck: Neck: Yes no lymphadenopathy, Yes trachea midline and Yes supple Resp: Auscultation: clear to auscultation bilaterally Cardio: Rate: regular rate Rhythm: regular rhythm Heart sounds: no gallops, no murmurs and no rubs GI: Palpation (GI): Soft to palpation and Other GI palpation findings present ( Nontender) Auscultation: normal bowel sounds Extrem: General: Yes no pedal edema, No clubbing and No cyanosis Objective Data Labs 10/11/23 08:23 10/11/23 05:10 Labs: Laboratory Results - last 24 hr 10/11/23 10/11/23 10/11/23 05:08 05:10 08:23 WBC Cancelled 10.2 RBC Cancelled 3.42 L Hgb Cancelled 10.6 L Hct Cancelled 31.1 L MCV Cancelled 90.9 MCH Cancelled 31.0 MCHC Cancelled 34.1 RDW Cancelled 13.3 Plt Count Cancelled 278 MPV Cancelled 9.5 Immature Gran % (Auto) Cancelled 1.3 H Neut % (Auto) Cancelled 58.1 Lymph % (Auto) Cancelled 16.3 L [place] % (Auto) Cancelled 22.7 H Eos % (Auto) Cancelled 1.3 Baso % (Auto) Cancelled 0.3 Lymph # (Auto) Cancelled 1.7 [place] # (Auto) Cancelled 2.3 H Eos # (Auto) Cancelled 0.1 Baso # (Auto) Cancelled 0.0 Abs Immat Gran (auto) Cancelled 0.13 H Absolute Neuts (auto) Cancelled 5.9 Absolute Nucleated RBC Cancelled 0.000 Nucleated RBC % (auto) Cancelled 0.0 Smear Tech's Comments VERIFIED VBG pH 7.63 H* VBG pCO2 21 VBG pO2 78 VBG HCO3 23 VBG O2 Saturation 98.0 VBG Base Excess 3.8 Sodium 129 L Potassium 4.4 Chloride 101 Carbon Dioxide 22 Anion Gap 10 L BUN 18 H Creatinine 0.56 Estim Creat Clear Calc 115.7 Estimated GFR > 60 Random Glucose 155 H Calcium 7.9 L Phosphorus 2.6 L Magnesium 1.9 Albumin 2.9 L Microbiology Microbiology Results: Microbiology 10/02/23 12:25 Blood - Venous Blood Culture - Final No growth after 5 days. 10/02/23 12:11 Blood - Venous Blood Culture - Final No growth after 5 days. 10/05/23 07:50 Sputum - Suctioned Gram Stain - Final 10/05/23 07:50 Sputum - Suctioned Sputum Culture - Final 10/02/23 Unknown Urine Catheterized - Jaime Catheter Urine Culture - Final Escherichia coli Progress Note: A&P Assessment and plan (1) Status epilepticus: Status: Acute (2) Schizophrenia: Status: Acute (3) Cardiac arrest: Status: Acute (4) Aspiration pneumonia: Status: Acute Plan Assessment: 72-year-old gentleman mild developmental delay and schizophrenia admitted after witnessed food aspiration resultant cardiac arrest with successful resuscitation after approximately 20 minutes, further complicated by status epilepticus Plan: Neuro: Status epilepticus, again with breakthrough seizures, now on Keppra, valproic acid, and phenytoin. Follow-up EEG is ordered. Cardiac: No acute issues. Pulmonary: Intubated during the CPR, continue to titrate off as tolerated. Underlying aspiration of food. Renal: No acute issues. Endo: No acute issues. GI: No acute issues. ID: No acute issues Heme/Onc: No evidence of left upper extremity arterial clot. Psych: No acute issues. Miscellaneous: No acute issues. Prophylaxis: Heparin, ppi Diet: Tube feeds Critical care time spent: 60 minutes Quality Stroke Does the patient have a stroke diagnosis?: No VTE Prior VTE?: No VTE Risk Level:: Medical - moderate - high VTE Device Contraindication: N/A - Device Ordered VTE Drug Contraindication: N/A - Med Ordered
--- NOTE | 2023-10-11 10:20 | P.CDIM_ITS ---
PROVIDER RESPONSE TEXT: To clarify, the appropriate diagnosis supported by the clinical indicators: Pressure (decubitus) ulcer/injury coccyx Stage 1 QUERY TEXT: PHYSICIAN'S DOCUMENTATION REQUEST Date of Query: 10/11/2023 10:04 AM EST Patient Name: Juanito Rosales Admit Date: 10/02/2023 Dear Bhupinder Fleming, A review of the medical record indicates additional documentation may be needed. Please review below and update the documentation accordingly. Clinical Indicators: Wound care notes 10/06 - Pressure injury Stage 1 coccyx Foam application to protect from friction. Based on the above, could you please provide further information regarding the ulcer/wound/injury: Pressure (decubitus) ulcer/injury coccyx Stage 1 Other Other (explain) Clinically unable to determine (explain) Thank you, Monica Vidal, CCS, CDIS Use of terms such as suspected, likely, concern for, or probable (associated with a specific diagnosi s that is being evaluated, monitored, or treated as if it exists) are acceptable and can be coded in the inpatient se tting, when documented at the time of discharge. Please use your independent medical judgment in providing your response. THIS QUERY IS PART OF THE PERMANENT MEDICAL RECORD
--- NOTE | 2023-10-11 12:41 | P.CDIM_ITS ---
PROVIDER RESPONSE TEXT: To clarify, the appropriate diagnosis supported by the clinical indicators: Hyponatremia: Subacute hyponatremia QUERY TEXT: PHYSICIAN'S DOCUMENTATION REQUEST Date of Query: 10/11/2023 12:12 PM EST Patient Name: Juanito Rosales Admit Date: 10/02/2023 Dear Bhupinder Fleming, A review of the medical record indicates additional documentation may be needed. Please review below and update the documentation accordingly. Clinical Indicators: LABS: sodium 129 L Based on the above, is there a diagnosis that correlates with these findings: Hyponatremia resolved, possible, probable, suspected etc. Labs indicate a diagnosis of (please specify) Other (explain) Clinically unable to determine (explain) Thank you, Monica Vidal, CCS, CDIS Use of terms such as suspected, likely, concern for, or probable (associated with a specific diagnosi s that is being evaluated, monitored, or treated as if it exists) are acceptable and can be coded in the inpatient se tting, when documented at the time of discharge. Please use your independent medical judgment in providing your response. THIS QUERY IS PART OF THE PERMANENT MEDICAL RECORD
--- NOTE | 2023-10-11 13:04 | MHC.CM.PN ---
Pt continues on vent support: having seizure activity despite IV anticonvulsants. EEG ordered today - ? MRI to look for anoxic brain injury. Received call from Cate Vargas at [facility] [phone]. She would like a goals of care discussion w/, pt's brother-HCP Loc and herself to discuss prognosis and possible [employer]SM[employer] status. Will update MD and tentatively plan for a Tuesday discussion. CM to follow
[2023-10-11] MEDS: Lidocaine 4 % Patch ADH..PATCH 2 PATCH TRANSDERMA (13:48)
[2023-10-11] MEDS: Enoxaparin Sodium 80 MG/0.8 ML SYRINGE 70 MG SUBCUT (17:10)
--- NOTE | 2023-10-11 17:24 | PC.NURSE ---
Acquired care at 1500. No change with status of the pt. Remains intubated.Off sedation. [facility] Spon. Pressure support. O2 sats at 97%. Brother at bedside. Pt was given SQ lovenox for the DVT to the left arm.
[2023-10-11] MEDS: Latanoprost 0.005 % Ophth Sol 2.5 ML DROPS 1 DROP EYE-RIGHT (20:26)
[2023-10-12] VITALS (31 sets, daily range): BP systolic 111–162; BP diastolic 48–82; PULSE 71–100; RESP 13–20; TEMP 34.9–38.3; O2SAT 95–100; BMI 25.6
[2023-10-12] MEDS: Midazolam HCl/PF 2 MG/2 ML VIAL 4 MG IVPUSH ×5 (01:11→19:50)
[2023-10-12] MEDS: Albumin Human 25 % 100 ML IV (01:15)
[2023-10-12] MEDS: Enoxaparin Sodium 80 MG/0.8 ML SYRINGE 70 MG SUBCUT ×2 (03:10→14:31)
[2023-10-12 04:50] LABS: VBG Base Excess 1.8 mmol/L; VBG HCO3 23 mmol/L (22-26); VBG pCO2 28 mmHg; VBG pH 7.53 (7.32-7.43); VBG pO2 50 mmHg
[2023-10-12 04:51] LABS: Venous Blood Gas Refer to POC result
[2023-10-12 05:28] LABS: Basophils Percent Auto 0.4 % (0-2); Eosinophils Absolute Auto 0.2 X10*3/uL (0.0-0.4); Eosinophils Percent Auto 1.5 % (0-4); Hematocrit 28.7 % (42.0-52.0); Hemoglobin 9.6 g/dl (14.0-18.0); Imm Gran Abs Auto 0.11 X10*3/uL (0.00-0.03); Imm Gran Pct Auto 1.1 % (0.0-0.4); Lymphocytes Absolute Auto 1.6 X10*3/uL (1.2-4.9); Lymphocytes Percent Auto 16.4 % (20-40); MANUAL DIFF FLAG SCAN; Mean Corpuscular HGB Conc 33.4 g/dl (31.0-36.0); Mean Corpuscular Hemoglobin 30.1 pg (27.0-33.0); Monocytes Absolute Auto 2.1 X10*3/uL (0.1-1.2); Monocytes Percent Auto 21.2 % (2-11); Neutrophils Absolute Auto 5.8 x10*3/uL (2.0-8.3); Neutrophils Percent Auto 59.4 % (45-73); Platelet Count 278 X10*3/uL (160-400); Red Blood Count 3.19 X10*6/uL (4.60-5.80); Red Cell Distribution Width 13.2 % (11.0-16.0); SCAN SMEAR FLAG 1; White Blood Count 9.8 X10*3/uL (4.8-10.8)
[2023-10-12 05:42] LABS: Anion Gap 11 (12-20); Blood Urea Nitrogen 16 mg/dL (9-16); Calcium 8.5 mg/dL (8.4-10.2); Carbon Dioxide 23 mmol/L (22-29); Chloride 98 mmol/L (96-108); Creatinine Clr Calc Pharmacy 104.5; Estimated Glomerular Filt Rate > 60; Glucose Random 152 mg/dL (60-115); Phosphorus 2.1 mg/dL (2.7-4.5); Sodium 128 mmol/L (135-145)
[2023-10-12] MEDS: Pantoprazole Sodium 40 MG/10 ML VIAL IVPUSH (05:44)
[2023-10-12] MEDS: Potassium Phosphate/NS 15 MMOL/250 ML PLAST..BAG 62.5 MMOL IV (06:11)
[2023-10-12 06:43] LABS: SLIDE REVIEW VERIFIED
[2023-10-12] MEDS: Chlorhexidine Gluc Oral Rinse 15 ML MOUTHWASH BUCCAL ×2 (07:50→14:31)
[2023-10-12] MEDS: Phenytoin Sodium 100 MG/2 ML VIAL 200 MG IVPUSH ×3 (07:50→20:00)
[2023-10-12] MEDS: Dorzolamide/Timolo 2.23%/0.68% 10 ML DRBTL 1 DROP EYE-RIGHT ×2 (07:51→20:01)
[2023-10-12] MEDS: levETIRAcetam in NaCl (iso-os) 1,500 MG/100 ML PIGGYBACK 400 MG IV ×2 (07:51→20:05)
--- NOTE | 2023-10-12 09:57 | MHC.CLN ---
F/U DISCUSSED AT ROUNDS WITH WATER FLUSHES ON HOLD R/T LOW SERUM NA TF CONTINUES JEVITY 1.0 AT MAX GOAL RATE OF 60 ML PER HOUR PROVIDES 1526 KCALS, 64 G PROTEIN (.94 G/KG); 1202ML TOTAL FREE WATER FROM FORMULA TOLERATING WELL PER NSG WITH LOW RESIDUALS CONTINUE TO MONITOR FOR TOLERANCE, RESIDUALS AND LYTES
--- NOTE | 2023-10-12 10:16 | PM.CCPN ---
Subjective Subjective Date of Service: 10/12/23 Interval History: 72-year-old gentleman with underlying history of developmental delay, schizophrenia, admitted on 10/02/2023 after witnessed food aspiration resulting in cardiopulmonary arrest with return of spontaneous circulation after approximately 15-20 minutes of CPR, intubated during CPR, further complicated by status epilepticus thereafter, now on multiple antiepileptic medications, now being titrated off ventilatory support. Still with breakthrough seizure activity overnight requiring push dose antiepileptics. Critical Care Time (minutes): 60 Physical Exam Vital Signs: Vital Signs: Last Vital Signs Temp 100.2 F 10/12/23 10:00 Pulse 71 10/12/23 10:00 Resp 15 10/12/23 10:00 BP 133/56 L 10/12/23 10:00 Pulse Ox 100 10/12/23 10:00 O2 Del Method Mechanical Ventil ation 10/12/23 10:00 FiO2 25 10/12/23 10:00 BMI result Body Mass Index 25.6 Const: General: no acute distress Eyes: Sclerae: sclerae normal Neck: Neck: Yes no lymphadenopathy, Yes trachea midline and Yes supple Resp: Auscultation: clear to auscultation bilaterally Cardio: Rate: regular rate Rhythm: regular rhythm Heart sounds: no gallops, no murmurs and no rubs GI: Palpation (GI): Soft to palpation and Other GI palpation findings present ( Nontender) Auscultation: normal bowel sounds Extrem: General: Yes no pedal edema, No clubbing and No cyanosis Objective Data Labs 10/12/23 04:44 10/12/23 04:44 Labs: Laboratory Results - last 24 hr 10/12/23 10/12/23 04:43 04:44 WBC 9.8 RBC 3.19 L Hgb 9.6 L Hct 28.7 L MCV 90.0 MCH 30.1 MCHC 33.4 RDW 13.2 Plt Count 278 MPV 10.0 Immature Gran % (Auto) 1.1 H Neut % (Auto) 59.4 Lymph % (Auto) 16.[address] [place] % (Auto) 21.2 H Eos % (Auto) 1.5 Baso % (Auto) 0.4 Lymph # (Auto) 1.6 [place] # (Auto) 2.1 H Eos # (Auto) 0.2 Baso # (Auto) 0.0 Abs Immat Gran (auto) 0.11 H Absolute Neuts (auto) 5.8 Absolute Nucleated RBC 0.000 Nucleated RBC % (auto) 0.0 Smear Tech's Comments VERIFIED VBG pH 7.53 H VBG pCO2 28 VBG pO2 50 VBG HCO3 23 VBG O2 Saturation 82.0 VBG Base Excess 1.8 Sodium 128 L Potassium 4.0 Chloride 98 Carbon Dioxide 23 Anion Gap 11 L BUN 16 Creatinine 0.62 Estim Creat Clear Calc 104.5 Estimated GFR > 60 Random Glucose 152 H Calcium 8.5 D Phosphorus 2.1 L Magnesium 2.0 Albumin 4.0 Microbiology Microbiology Results: Microbiology 10/02/23 12:25 Blood - Venous Blood Culture - Final No growth after 5 days. 10/02/23 12:11 Blood - Venous Blood Culture - Final No growth after 5 days. 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 Follow-up EEG is pending. Will obtain MRI brain. Cardiac: No acute issues. Pulmonary: Intubated during the CPR, continue to titrate off as tolerated. Underlying aspiration of food. Renal: No acute issues. Endo: No acute issues. GI: No acute issues. ID: No acute issues Heme/Onc: No evidence of left upper extremity arterial clot. Does have left upper extremity DVT, started on full-dose Lovenox. Psych: No acute issues. Miscellaneous: No acute issues. Prophylaxis: Lovenox, ppi Diet: Tube feeds Critical care time spent: 60 minutes Quality Stroke Does the patient have a stroke diagnosis?: No VTE Prior VTE?: No VTE Risk Level:: Medical - moderate - high VTE Device Contraindication: N/A - Device Ordered VTE Drug Contraindication: N/A - Med Ordered
--- NOTE | 2023-10-12 10:37 | MHC.CM.PN ---
EMR REVIEWED, PER ICU ROUNDS PLAN TO TITRATE PT OFF VENT, SEDATION STOPPPED, NO PLAN FOR DC AT THIS TIME, CM WILL CONT TO FOLLOW DC NEEDS.
--- NOTE | 2023-10-12 11:47 | MHC.CM.PN ---
CM RECEIVED A CALL FROM KATIA Blum/ROSIE WHO REQUESTED GOALS OF CARE MTG TO BE TOMORROW 10/13 AT 12PM, INVITE TO BE SENT TO CM DIRECTOR/ICU CM, PT'S BROTHER/GUARDIAN BOBBY NOTIFIED AND REPORTS HE WILL BE AT BEDSIDE, [employer] NOTIFIED VIA [email or web address].
[2023-10-12] MEDS: Latanoprost 0.005 % Ophth Sol 2.5 ML DROPS 1 DROP EYE-RIGHT (20:01)
[2023-10-13] VITALS (30 sets, daily range): BP systolic 125–177; BP diastolic 45–84; PULSE 90–105; RESP 17–25; TEMP 34.6–38.5; O2SAT 93–100; BMI 24.4
[2023-10-13] MEDS: Midazolam HCl/PF 2 MG/2 ML VIAL 4 MG IVPUSH ×2 (00:17→03:07)
[2023-10-13] MEDS: Enoxaparin Sodium 80 MG/0.8 ML SYRINGE 70 MG SUBCUT ×2 (03:07→15:05)
[2023-10-13 04:45] LABS: VBG Base Excess 3.6 mmol/L; VBG HCO3 24 mmol/L (22-26); VBG pCO2 26 mmHg; VBG pH 7.57 (7.32-7.43); VBG pO2 39 mmHg
[2023-10-13 04:53] LABS: Basophils Percent Auto 0.2 % (0-2); Eosinophils Absolute Auto 0.1 X10*3/uL (0.0-0.4); Eosinophils Percent Auto 1.1 % (0-4); Hematocrit 33.1 % (42.0-52.0); Hemoglobin 11.2 g/dl (14.0-18.0); Imm Gran Abs Auto 0.15 X10*3/uL (0.00-0.03); Imm Gran Pct Auto 1.2 % (0.0-0.4); Lymphocytes Absolute Auto 1.7 X10*3/uL (1.2-4.9); Lymphocytes Percent Auto 13.8 % (20-40); MANUAL DIFF FLAG SCAN; Mean Corpuscular HGB Conc 33.8 g/dl (31.0-36.0); Mean Corpuscular Hemoglobin 30.3 pg (27.0-33.0); Mean Corpuscular Volume 89.5 fL (80.0-98.0); Mean Platelet Volume 9.6 fL (9.4-12.4); Monocytes Absolute Auto 2.7 X10*3/uL (0.1-1.2); Monocytes Percent Auto 21.7 % (2-11); Neutrophils Absolute Auto 7.7 x10*3/uL (2.0-8.3); Platelet Count 349 X10*3/uL (160-400); Red Cell Distribution Width 13.2 % (11.0-16.0); SCAN SMEAR FLAG 1; White Blood Count 12.4 X10*3/uL (4.8-10.8)
[2023-10-13 05:07] LABS: Albumin Level 3.7 g/dL (3.5-5.0); Anion Gap 11 (12-20); Blood Urea Nitrogen 18 mg/dL (9-16); Calcium 8.6 mg/dL (8.4-10.2); Carbon Dioxide 24 mmol/L (22-29); Chloride 96 mmol/L (96-108); Creatinine Clr Calc Pharmacy 106.2; Estimated Glomerular Filt Rate > 60; Glucose Random 121 mg/dL (60-115); Magnesium 2.1 mg/dL (1.6-2.6); Phosphorus 2.5 mg/dL (2.7-4.5); Potassium 3.7 mmol/L (3.3-5.1); Sodium 127 mmol/L (135-145)
[2023-10-13 05:16] LABS: Venous Blood Gas Refer to POC result
[2023-10-13 05:50] LABS: SLIDE REVIEW VERIFIED
[2023-10-13] MEDS: Pantoprazole Sodium 40 MG/10 ML VIAL IVPUSH (05:58)
[2023-10-13] MEDS: levETIRAcetam in NaCl (iso-os) 1,500 MG/100 ML PIGGYBACK 400 MG IV ×2 (08:40→19:44)
[2023-10-13] MEDS: Phenytoin Sodium 100 MG/2 ML VIAL 200 MG IVPUSH ×3 (08:40→19:46)
[2023-10-13] MEDS: Dorzolamide/Timolo 2.23%/0.68% 10 ML DRBTL 1 DROP EYE-RIGHT ×2 (08:41→21:34)
--- NOTE | 2023-10-13 10:16 | PM.CCPN ---
Subjective Subjective Date of Service: 10/13/23 Interval History: 72-year-old gentleman with underlying history of developmental delay, schizophrenia, admitted on 10/02/2023 after witnessed food aspiration resulting in cardiopulmonary arrest with return of spontaneous circulation after approximately 15-20 minutes of CPR, intubated during CPR, further complicated by status epilepticus thereafter, now on multiple antiepileptic medications, now being titrated off ventilatory support. Repeat EEG with significant;y suppressed brain activity, MRI brain with diffuse anoxic damage. No events overnight. Critical Care Time (minutes): 60 Physical Exam Vital Signs: Vital Signs: Last Vital Signs Temp 100.9 F H 10/13/23 09:00 Pulse 90 10/13/23 09:00 Resp 22 H 10/13/23 09:00 BP 160/70 H 10/13/23 09:00 Pulse Ox 96 10/13/23 09:00 O2 Del Method Mechanical Ventil ation 10/13/23 09:00 O2 Flow Rate 25 10/12/23 17:00 FiO2 25 10/13/23 09:00 BMI result Body Mass Index 24.4 Const: General: no acute distress and other (No arousal with sedation vacation) Eyes: Sclerae: sclerae normal Neck: Neck: Yes no lymphadenopathy, Yes trachea midline and Yes supple Resp: Effort & Inspection: normal respiratory effort and no respiratory distress Auscultation: clear to auscultation bilaterally Cardio: Rate: regular rate Rhythm: regular rhythm Heart sounds: no gallops, no murmurs and no rubs GI: Palpation (GI): Soft to palpation and Other GI palpation findings present ( Nontender) Auscultation: normal bowel sounds Extrem: General: Yes no pedal edema, No clubbing and No cyanosis Objective Data Labs 10/13/23 04:39 10/13/23 04:39 Labs: Laboratory Results - last 24 hr 10/13/23 10/13/23 04:38 04:39 WBC 12.4 H RBC 3.70 L Hgb 11.2 L Hct 33.1 L MCV 89.5 MCH 30.3 MCHC 33.8 RDW 13.2 Plt Count 349 D MPV 9.6 Immature Gran % (Auto) 1.2 H Neut % (Auto) 62.0 Lymph % (Auto) 13.8 L [place] % (Auto) 21.7 H Eos % (Auto) 1.1 Baso % (Auto) 0.2 Lymph # (Auto) 1.7 [place] # (Auto) 2.7 H Eos # (Auto) 0.1 Baso # (Auto) 0.0 Abs Immat Gran (auto) 0.15 H Absolute Neuts (auto) 7.7 Absolute Nucleated RBC 0.000 Nucleated RBC % (auto) 0.0 Smear Tech's Comments VERIFIED VBG pH 7.57 H VBG pCO2 26 VBG pO2 39 VBG HCO3 24 VBG O2 Saturation 70.0 VBG Base Excess 3.6 Sodium 127 L Potassium 3.7 Chloride 96 Carbon Dioxide 24 Anion Gap 11 L BUN 18 H Creatinine 0.61 Estim Creat Clear Calc 106.2 Estimated GFR > 60 Random Glucose 121 H Calcium 8.6 Phosphorus 2.5 L Magnesium 2.1 Albumin 3.7 Microbiology Microbiology Results: Microbiology 10/02/23 12:25 Blood - Venous Blood Culture - Final No growth after 5 days. 10/02/23 12:11 Blood - Venous Blood Culture - Final No growth after 5 days. 10/05/23 07:50 Sputum - Suctioned Gram Stain - Final 10/05/23 07:50 Sputum - Suctioned Sputum Culture - Final 10/02/23 Unknown Urine Catheterized - Jaime Catheter Urine Culture - Final Escherichia coli Progress Note: A&P Assessment and plan (1) Schizophrenia: Status: Acute (2) Developmental delay, borderline: Status: Acute (3) Hypoxic ischemic encephalopathy due to cardiac arrest: Status: Acute (4) Aspiration pneumonia: Status: Acute (5) Cardiac arrest: Status: Acute (6) Choking due to food in larynx: Status: Acute Plan Assessment: 72-year-old gentleman mild developmental delay and schizophrenia admitted after witnessed food aspiration resultant cardiac arrest with successful resuscitation after approximately 20 minutes, further complicated by status epilepticus Plan: Neuro: Status epilepticus, again with breakthrough seizures, now on Keppra, valproic acid, and phenytoin. Follow-up EEG with significantly depressed brain activity, MRI brain with diffuse anoxic injury. Cardiac: No acute issues. Pulmonary: Intubated during the CPR, continue to titrate off as tolerated. Underlying aspiration of food. Renal: No acute issues. Endo: No acute issues. GI: No acute issues. ID: No acute issues Heme/Onc: No evidence of left upper extremity arterial clot. Does have left upper extremity DVT, continue on full-dose Lovenox. Psych: No acute issues. Miscellaneous: Discussions of goals of care are ongoing. Prophylaxis: Lovenox, ppi Diet: Tube feeds Critical care time spent: 60 minutes Quality Stroke Does the patient have a stroke diagnosis?: No VTE Prior VTE?: No VTE Risk Level:: Medical - moderate - high VTE Device Contraindication: N/A - Device Ordered VTE Drug Contraindication: N/A - Med Ordered
--- NOTE | 2023-10-13 13:12 | MHC.CM.PN ---
Pt continues on ventilatory support in ICU: MRI from 10/12 notes anoxic injury to several portions of pt's brain after prolonged hypoxia r/t cardiac arrest. Goals of care meeting today with pt's brother/guardian, [facility], Dr. Fleming and teleconference w/Vannesa and Cate from [facility]. Follow up phone call from Vannesa to CM: Per clearance with [facility] legal consultant Vannesa Ruano stated to CM that [facility] will defer all decision making to Dr. Fleming and pt's brother/guardian. This information was given to Dr. Fleming for discussion w/pt's brother/guardian on care measures for pt. It is expected pt will be extubated and transitioned to a comfort only status. CM to follow for any changes/needs.
[2023-10-13] MEDS: Latanoprost 0.005 % Ophth Sol 2.5 ML DROPS 1 DROP EYE-RIGHT (21:34)
[2023-10-14] VITALS (28 sets, daily range): BP systolic 118–152; BP diastolic 44–83; PULSE 74–93; RESP 14–22; TEMP 34.8–38.5; O2SAT 90–99; BMI 24.3
[2023-10-14] MEDS: Enoxaparin Sodium 80 MG/0.8 ML SYRINGE 70 MG SUBCUT (02:22)
[2023-10-14] MEDS: levETIRAcetam in NaCl (iso-os) 1,500 MG/100 ML PIGGYBACK 400 MG IV ×2 (09:36→20:05)
[2023-10-14] MEDS: Phenytoin Sodium 100 MG/2 ML VIAL 200 MG IVPUSH ×3 (09:37→20:03)
[2023-10-14] MEDS: Dorzolamide/Timolo 2.23%/0.68% 10 ML DRBTL 1 DROP EYE-RIGHT (09:37)
--- NOTE | 2023-10-14 10:16 | MHC.CLN ---
F/U DISCUSSED AT ROUNDS WITH MD-POSSIBLE HOUSE FELLOW ONGOING DISCUSSION WITH FAMILY WATER FLUSHES ON HOLD R/T LOW SERUM NA -SLOWLY IMPROVING TF CONTINUES JEVITY 1.0 AT MAX GOAL RATE OF 60 ML PER HOUR PROVIDES 1526 KCALS, 64 G PROTEIN (.94 G/KG); 1202ML TOTAL FREE WATER FROM FORMULA TOLERATING WELL PER NSG WITH LOW RESIDUALS CONTINUE TO MONITOR FOR TOLERANCE, RESIDUALS AND LYTES FOLLOWING WITH TEAM AND WILL PROVIDE SUPPORT NEEDED
--- NOTE | 2023-10-14 10:35 | PM.CCPN ---
Subjective Subjective Date of Service: 10/14/23 Interval History: 72-year-old gentleman with underlying history of developmental delay, schizophrenia, admitted on 10/02/2023 after witnessed food aspiration resulting in cardiopulmonary arrest with return of spontaneous circulation after approximately 15-20 minutes of CPR, intubated during CPR, further complicated by status epilepticus thereafter, now on multiple antiepileptic medications, now being titrated off ventilatory support. Repeat EEG with significant;y suppressed brain activity, MRI brain with diffuse anoxic damage. Discussions of goals of care are ongoing. No events overnight. Critical Care Time (minutes): 60 Physical Exam Vital Signs: Vital Signs: Last Vital Signs Temp 100.2 F 10/14/23 10:00 Pulse 86 10/14/23 10:00 Resp 19 10/14/23 10:00 BP 147/62 H 10/14/23 10:00 Pulse Ox 98 10/14/23 09:00 O2 Del Method Mechanical Ventil ation 10/14/23 09:00 O2 Flow Rate 25 10/12/23 17:00 FiO2 30 10/14/23 09:00 BMI result Body Mass Index 24.3 Const: General: no acute distress Eyes: Sclerae: sclerae normal Neck: Neck: Yes no lymphadenopathy, Yes trachea midline and Yes supple Resp: Effort & Inspection: normal respiratory effort and no respiratory distress Auscultation: clear to auscultation bilaterally Cardio: Rate: regular rate Rhythm: regular rhythm Heart sounds: no gallops, no murmurs and no rubs GI: Palpation (GI): Soft to palpation and Other GI palpation findings present ( Nontender) Auscultation: normal bowel sounds Extrem: General: Yes no pedal edema, No clubbing and No cyanosis Objective Data Labs 10/14/23 05:44 10/14/23 05:44 Labs: Laboratory Results - last 24 hr 10/14/23 10/14/23 05:44 05:49 WBC 15.4 H RBC 3.84 L Hgb 11.7 L Hct 35.3 L MCV 91.9 MCH 30.5 MCHC 33.1 RDW 13.6 Plt Count 347 MPV 10.0 Immature Gran % (Auto) 1.2 H Neut % (Auto) 68.5 Lymph % (Auto) 10.8 L [place] % (Auto) 18.7 H Eos % (Auto) 0.4 Baso % (Auto) 0.4 Lymph # (Auto) 1.7 [place] # (Auto) 2.9 H Eos # (Auto) 0.1 Baso # (Auto) 0.1 Abs Immat Gran (auto) 0.19 H Absolute Neuts (auto) 10.6 H Absolute Nucleated RBC 0.000 Nucleated RBC % (auto) 0.0 Smear Tech's Comments VERIFIED VBG pH 7.53 H VBG pCO2 30 VBG pO2 34 VBG HCO3 25 VBG O2 Saturation 56.0 VBG Base Excess 4.0 Sodium 129 L Potassium 3.6 Chloride 98 Carbon Dioxide 22 Anion Gap 13 BUN 20 H Creatinine 0.58 Estim Creat Clear Calc 111.7 Estimated GFR > 60 Random Glucose 135 H Calcium 8.5 Phosphorus 2.9 Magnesium 2.2 Albumin 3.3 L Microbiology Microbiology Results: Microbiology 10/02/23 12:25 Blood - Venous Blood Culture - Final No growth after 5 days. 10/02/23 12:11 Blood - Venous Blood Culture - Final No growth after 5 days. 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 Follow-up EEG with significantly depressed brain activity, MRI brain with diffuse anoxic injury. Cardiac: No acute issues. Pulmonary: Intubated during the CPR, continue to titrate off as tolerated. Underlying aspiration of food. Renal: No acute issues. Endo: No acute issues. GI: No acute issues. ID: No acute issues Heme/Onc: No evidence of left upper extremity arterial clot. Does have left upper extremity DVT, continue on full-dose Lovenox. Psych: No acute issues. Miscellaneous: Discussions of goals of care are ongoing. Prophylaxis: Lovenox, ppi Diet: Tube feeds Critical care time spent: 60 minutes Quality Stroke Does the patient have a stroke diagnosis?: No VTE Prior VTE?: No VTE Risk Level:: Medical - moderate - high VTE Device Contraindication: N/A - Device Ordered VTE Drug Contraindication: N/A - Med Ordered
--- NOTE | 2023-10-14 11:49 | MHC.CM.PN ---
Pt continues on vent support: Per goals of care meeting from 10/13, [facility] has given pt's brother/guardian Loc and Dr. Fleming the ability to make all care decisions for pt and will not intervene. Brother would like to extubate and initiate [employer]ULT[employer] SCIENCE PROFESSOR after family has visited this weekend. 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 CM to follow for d/c needs.
[2023-10-15] VITALS (30 sets, daily range): BP systolic 110–177; BP diastolic 47–85; PULSE 73–89; RESP 14–22; TEMP 34.8–37.6; O2SAT 89–100; BMI 25.6
[2023-10-15] MEDS: Phenytoin Sodium 100 MG/2 ML VIAL 200 MG IVPUSH ×3 (07:37→20:09)
--- NOTE | 2023-10-15 09:59 | PM.CCPN ---
Subjective Subjective Date of Service: 10/15/23 Interval History: 72-year-old gentleman with underlying history of developmental delay, schizophrenia, admitted on 10/02/2023 after witnessed food aspiration resulting in cardiopulmonary arrest with return of spontaneous circulation after approximately 15-20 minutes of CPR, intubated during CPR, further complicated by status epilepticus thereafter, now on multiple antiepileptic medications, now being titrated off ventilatory support. Repeat EEG with significant;y suppressed brain activity, MRI brain with diffuse anoxic damage. Discussions of goals of care are ongoing. Breakthrough seizures overnight requiring additional push dose antiepileptics. Critical Care Time (minutes): 60 Physical Exam Vital Signs: Vital Signs: Last Vital Signs Temp 99 F 10/15/23 09:00 Pulse 86 10/15/23 09:00 Resp 22 H 10/15/23 09:00 BP 126/57 L 10/15/23 09:00 Pulse Ox 99 10/15/23 09:00 O2 Del Method Mechanical Ventil ation 10/15/23 09:00 O2 Flow Rate 25 10/12/23 17:00 FiO2 30 10/15/23 09:00 BMI result Body Mass Index 25.6 Const: General: no acute distress and other (No arousal with sedation vacation) Eyes: Sclerae: sclerae normal Neck: Neck: Yes no lymphadenopathy, Yes trachea midline and Yes supple Resp: Auscultation: clear to auscultation bilaterally Cardio: Rate: regular rate Rhythm: regular rhythm Heart sounds: no gallops, no murmurs and no rubs GI: Palpation (GI): Soft to palpation and Other GI palpation findings present ( Nontender) Auscultation: normal bowel sounds Extrem: General: Yes no pedal edema, No clubbing and No cyanosis Objective Data Labs 10/15/23 05:13 10/15/23 05:13 Labs: Laboratory Results - last 24 hr 10/15/23 10/15/23 05:12 05:13 WBC 11.9 H RBC 3.32 L Hgb 10.3 L Hct 30.8 L MCV 92.8 MCH 31.0 MCHC 33.4 RDW 13.6 Plt Count 374 MPV 10.0 Immature Gran % (Auto) 1.3 H Neut % (Auto) 67.4 Lymph % (Auto) 12.0 L [place] % (Auto) 17.7 H Eos % (Auto) 1.3 Baso % (Auto) 0.3 Lymph # (Auto) 1.4 [place] # (Auto) 2.1 H Eos # (Auto) 0.2 Baso # (Auto) 0.0 Abs Immat Gran (auto) 0.15 H Absolute Neuts (auto) 8.1 Absolute Nucleated RBC 0.000 Nucleated RBC % (auto) 0.0 Smear Tech's Comments VERIFIED VBG pH 7.54 H VBG pCO2 29 VBG pO2 50 VBG HCO3 25 VBG O2 Saturation 84.0 VBG Base Excess 3.8 Sodium 131 L Potassium 3.5 Chloride 99 Carbon Dioxide 25 Anion Gap 11 L BUN 21 H Creatinine 0.55 Estim Creat Clear Calc 117.8 Estimated GFR > 60 Random Glucose 135 H Calcium 8.5 Phosphorus 2.5 L Magnesium 2.2 Albumin 3.3 L Microbiology Microbiology Results: Microbiology 10/02/23 12:25 Blood - Venous Blood Culture - Final No growth after 5 days. 10/02/23 12:11 Blood - Venous Blood Culture - Final No growth after 5 days. 10/05/23 07:50 Sputum - Suctioned Gram Stain - Final 10/05/23 07:50 Sputum - Suctioned Sputum Culture - Final 10/02/23 Unknown Urine Catheterized - Jaime Catheter Urine Culture - Final Escherichia coli Progress Note: A&P Assessment and plan (1) Schizophrenia: Status: Acute (2) Developmental delay, borderline: Status: Acute (3) Status epilepticus: Status: Acute (4) Aspiration pneumonia: Status: Acute (5) Cardiac arrest: Status: Acute (6) Choking due to food in larynx: Status: Acute (7) Hypoxic ischemic encephalopathy due to cardiac arrest: Status: Acute Plan Assessment: 72-year-old gentleman mild developmental delay and schizophrenia admitted after witnessed food aspiration resultant cardiac arrest with successful resuscitation after approximately 20 minutes, further complicated by status epilepticus Plan: Neuro: Status epilepticus, again with breakthrough seizures, now on Keppra, valproic acid, and phenytoin. Follow-up EEG with significantly depressed brain activity, MRI brain with diffuse anoxic injury. Cardiac: No acute issues. Pulmonary: Intubated during the CPR, continue ventilatory support. Underlying aspiration of food. Renal: No acute issues. Endo: No acute issues. GI: No acute issues. ID: No acute issues Heme/Onc: No evidence of left upper extremity arterial clot. Does have left upper extremity DVT, continue on full-dose Lovenox. Psych: No acute issues. Miscellaneous: Discussions of goals of care are ongoing. Prophylaxis: Lovenox, ppi Diet: Tube feeds Critical care time spent: 60 minutes Quality Stroke Does the patient have a stroke diagnosis?: No VTE Prior VTE?: No VTE Risk Level:: Medical - moderate - high VTE Device Contraindication: N/A - Device Ordered VTE Drug Contraindication: N/A - Med Ordered
[2023-10-16] VITALS (30 sets, daily range): BP systolic 108–149; BP diastolic 39–65; PULSE 60–82; RESP 14–16; TEMP 34.8–36.8; O2SAT 91–100; BMI 23.9
[2023-10-16 05:44] LABS: Anion Gap 9 (12-20); Blood Urea Nitrogen 16 mg/dL (9-16); Calcium 8.3 mg/dL (8.4-10.2); Carbon Dioxide 25 mmol/L (22-29); Chloride 100 mmol/L (96-108); Creatinine Clr Calc Pharmacy 124.6; Estimated Glomerular Filt Rate > 60; Glucose Random 129 mg/dL (60-115); Magnesium 2.3 mg/dL (1.6-2.6); Phosphorus 2.9 mg/dL (2.7-4.5); Potassium 3.4 mmol/L (3.3-5.1); Sodium 131 mmol/L (135-145)
--- NOTE | 2023-10-16 09:53 | PM.CCPN ---
Subjective Subjective Date of Service: 10/16/23 Interval History: 72-year-old gentleman with underlying history of developmental delay, schizophrenia, admitted on 10/02/2023 after witnessed food aspiration resulting in cardiopulmonary arrest with return of spontaneous circulation after approximately 15-20 minutes of CPR, intubated during CPR, further complicated by status epilepticus thereafter, now on multiple antiepileptic medications, now being titrated off ventilatory support. Repeat EEG with significant;y suppressed brain activity, MRI brain with diffuse anoxic damage. Discussions of goals of care are ongoing. Continues with breakthrough seizures overnight requiring additional push dose antiepileptics. Critical Care Time (minutes): 60 Physical Exam Vital Signs: Vital Signs: Last Vital Signs Temp 97.5 F 10/16/23 09:00 Pulse 77 10/16/23 09:00 Resp 14 10/16/23 09:00 BP 116/54 L 10/16/23 09:00 Pulse Ox 97 10/16/23 09:00 O2 Del Method Mechanical Ventil ation 10/16/23 09:00 O2 Flow Rate 25 10/12/23 17:00 FiO2 40 10/16/23 09:00 BMI result Body Mass Index 23.9 Const: General: no acute distress and other (No arousal with sedation vacation) Eyes: Sclerae: sclerae normal Neck: Neck: Yes no lymphadenopathy, Yes trachea midline and Yes supple Resp: Auscultation: clear to auscultation bilaterally Cardio: Rate: regular rate Rhythm: regular rhythm Heart sounds: no gallops, no murmurs and no rubs GI: Palpation (GI): Soft to palpation and Other GI palpation findings present ( Nontender) Auscultation: normal bowel sounds Extrem: General: Yes no pedal edema, No clubbing and No cyanosis Objective Data Labs 10/16/23 05:16 10/16/23 05:16 Labs: Laboratory Results - last 24 hr 10/16/23 10/16/23 05:16 05:18 WBC 10.0 RBC 3.22 L Hgb 9.7 L Hct 29.7 L MCV 92.2 MCH 30.1 MCHC 32.7 RDW 13.8 Plt Count 297 MPV 10.6 Immature Gran % (Auto) 1.1 H Neut % (Auto) 66.4 Lymph % (Auto) 14.6 L [place] % (Auto) 16.4 H Eos % (Auto) 1.3 Baso % (Auto) 0.2 Lymph # (Auto) 1.5 [place] # (Auto) 1.6 H Eos # (Auto) 0.1 Baso # (Auto) 0.0 Abs Immat Gran (auto) 0.11 H Absolute Neuts (auto) 6.6 Absolute Nucleated RBC 0.000 Nucleated RBC % (auto) 0.0 Smear Tech's Comments VERIFIED VBG pH 7.63 H* VBG pCO2 25 VBG pO2 84 VBG HCO3 26 VBG O2 Saturation 99.0 VBG Base Excess 6.7 Sodium 131 L Potassium 3.4 Chloride 100 Carbon Dioxide 25 Anion Gap 9 L BUN 16 Creatinine 0.52 Estim Creat Clear Calc 124.6 Estimated GFR > 60 Random Glucose 129 H Calcium 8.3 L Phosphorus 2.9 Magnesium 2.3 Albumin 3.0 L Microbiology Microbiology Results: Microbiology 10/02/23 12:25 Blood - Venous Blood Culture - Final No growth after 5 days. 10/02/23 12:11 Blood - Venous Blood Culture - Final No growth after 5 days. 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 Follow-up EEG with significantly depressed brain activity, MRI brain with diffuse anoxic injury. Cardiac: No acute issues. Pulmonary: Intubated during the CPR, continue ventilatory support. Underlying aspiration of food. Renal: No acute issues. Endo: No acute issues. GI: No acute issues. ID: No acute issues Heme/Onc: No evidence of left upper extremity arterial clot. Left upper extremity DVT, continue on full-dose Lovenox. Psych: No acute issues. Miscellaneous: Discussions of goals of care are ongoing. Prophylaxis: Lovenox, ppi Diet: Tube feeds Critical care time spent: 60 minutes Quality Stroke Does the patient have a stroke diagnosis?: No VTE Prior VTE?: No VTE Risk Level:: Medical - moderate - high VTE Device Contraindication: N/A - Device Ordered VTE Drug Contraindication: N/A - Med Ordered
[2023-10-17] VITALS (22 sets, daily range): BP systolic 104–129; BP diastolic 34–60; PULSE 57–79; RESP 14–26; TEMP 34.8–37.1; O2SAT 90–100; BMI 24.6
[2023-10-17 05:16] LABS: Albumin Level 3.2 g/dL (3.5-5.0); Anion Gap 13 (12-20); Blood Urea Nitrogen 18 mg/dL (9-16); Calcium 8.8 mg/dL (8.4-10.2); Carbon Dioxide 26 mmol/L (22-29); Chloride 100 mmol/L (96-108); Creatinine Clr Calc Pharmacy 109.8; Estimated Glomerular Filt Rate > 60; Glucose Random 116 mg/dL (60-115); Magnesium 2.3 mg/dL (1.6-2.6); Potassium 3.8 mmol/L (3.3-5.1); Sodium 135 mmol/L (135-145)
--- NOTE | 2023-10-17 07:39 | PM.CCPN ---
Subjective Subjective Date of Service: 10/17/23 Critical Care Time (minutes): 90 Physical Exam Vital Signs: Vital Signs: Last Vital Signs Temp 98.1 F 10/17/23 07:00 Pulse 72 10/17/23 07:00 Resp 14 10/17/23 07:00 BP 118/47 L 10/17/23 07:00 Pulse Ox 100 10/17/23 07:00 O2 Del Method Mechanical Ventil ation 10/17/23 07:00 O2 Flow Rate 25 10/12/23 17:00 FiO2 40 10/17/23 07:05 BMI result Body Mass Index 24.6 Const: Other: minimally sedated, intubated; no appreciable purposeful movements General: no acute distress HEENT: Head: Yes normocephalic and Yes atraumatic Eyes: Other: no spontaneous eye movements; upward gaze General: appearance normal, both eyes and all related structures Neck: Neck: Yes full ROM, Yes trachea midline and Yes supple Chest: Chest palpation & inspection: normal inspection of the chest Resp: Other: some appreciable rhonchi; no appreciable rales, wheezing Cardio: Rate: regular rate Rhythm: regular rhythm GI: Inspection: Yes normal to inspection, No Abdominal wall edema and No distended Palpation (GI): Soft to palpation, not firm, nontender, no guarding and not rigid : Male General Exam: Yes normal external exam Skin: General skin exam: no rashes or lesions noted Neuro: Other: withdraws bilateral lower extremities to noxious stimulus; grimaces to noxious stimulus to upper extremities; appreciable gag reflex Extrem: Other: 1+ pitting edema to bilateral mid-shins General: Yes capillary refill normal Psych: Other: unable to assess Objective Data Labs 10/17/23 04:40 10/17/23 04:40 Labs: Laboratory Results - last 24 hr 10/17/23 10/17/23 04:40 04:45 WBC 8.5 RBC 3.39 L Hgb 10.3 L Hct 31.8 L MCV 93.8 MCH 30.4 MCHC 32.4 RDW 13.9 Plt Count 443 H D MPV 10.2 Immature Gran % (Auto) 1.3 H Neut % (Auto) 60.8 Lymph % (Auto) 18.4 L [place] % (Auto) 18.1 H Eos % (Auto) 1.2 Baso % (Auto) 0.2 Lymph # (Auto) 1.6 [place] # (Auto) 1.5 H Eos # (Auto) 0.1 Baso # (Auto) 0.0 Abs Immat Gran (auto) 0.11 H Absolute Neuts (auto) 5.2 Absolute Nucleated RBC 0.000 Nucleated RBC % (auto) 0.0 Smear Tech's Comments VERIFIED VBG pH 7.51 H VBG pCO2 34 VBG pO2 39 VBG HCO3 27 H VBG O2 Saturation 68.0 VBG Base Excess 4.9 Sodium 135 Potassium 3.8 Chloride 100 Carbon Dioxide 26 Anion Gap 13 BUN 18 H Creatinine 0.59 Estim Creat Clear Calc 109.8 Estimated GFR > 60 Random Glucose 116 H Calcium 8.8 D Phosphorus 3.0 Magnesium 2.3 Albumin 3.2 L Microbiology Microbiology Results: Microbiology 10/02/23 12:25 Blood - Venous Blood Culture - Final No growth after 5 days. 10/02/23 12:11 Blood - Venous Blood Culture - Final No growth after 5 days. 10/05/23 07:50 Sputum - Suctioned Gram Stain - Final 10/05/23 07:50 Sputum - Suctioned Sputum Culture - Final 10/02/23 Unknown Urine Catheterized - Jaime Catheter Urine Culture - Final Escherichia coli Progress Note: A&P Assessment and plan (1) Status epilepticus: Status: Acute (2) Hypoxic ischemic encephalopathy due to cardiac arrest: Status: Acute (3) Multiple fractures of ribs: Status: Acute (4) Cardiac arrest: Status: Acute (5) Aspiration pneumonia: Status: Acute Plan Patient is a 72 Y M with developmental delay, schizophrenia, initially presenting on 10/02 d/t aspiration c/b hypoxic cardiac arrest, c/b anoxic brain injury, status epilepticus N: anoxic brain injury c/b status epilepticus, on levetiracetam, phenytoin, valproic acid, and propofol gtt; appreciate neurology recommendations CV: s/p cardiac arrest; no acute issues R: aspiration; intubated, wean as tolerated GI: no acute issues; tube feeds : no acute issues H: L UE DVT, on treatment-dose enoxaparin ID: no acute issues P: no acute issues S: ongoing goals of care discussion Quality Stroke Does the patient have a stroke diagnosis?: No VTE Prior VTE?: Yes VTE Risk Level:: Medical - moderate - high VTE Device Contraindication: N/A - Device Ordered VTE Drug Contraindication: N/A - Med Ordered
--- NOTE | 2023-10-17 10:08 | MHC.CLN ---
F/U DISCUSSED AT ROUNDS WITH MD PENDING PAPER COATER TO INITIATE TODAY TF ON HOLD/OGT CLAMPED AT THIS TIME PT PREVIOUSLY RECEIVED JEVITY 1.0 AT MAX GOAL RATE OF 60 ML PER HOUR PROVIDES 1526 KCALS, 64 G PROTEIN (.94 G/KG); 1202ML TOTAL FREE WATER FROM FORMULA FOLLOWING WITH TEAM AND WILL PROVIDE SUPPORT NEEDED
--- NOTE | 2023-10-17 13:59 | W.MHC.ACPN ---
Advanced Care Planning Note Advanced Care Planning Note Discussed with: patient Time spent (in minutes): 15 Narrative: Mr. Rosales's brother and guardian and healthcare proxy present at bedside this morning. We discussed the plan to transition Mr. Rosales's philosophy of care to comfort-focused care today when family is able to be present, at around 14:00. He reports a cad draftsman has already visited Mr. Rosales and offered Mr. Rosales his last rites. Problems Discussed (1) Status epilepticus: (2) Hypoxic ischemic encephalopathy due to cardiac arrest: (3) Multiple fractures of ribs: (4) Cardiac arrest: (5) Aspiration pneumonia:
[2023-10-17] MEDS: fentaNYL citrate/NS 1,000 MCG/100 ML PLAST..BAG 5 MCG IVCONT (14:07)
--- NOTE | 2023-10-17 16:18 | MHC.CM.PN ---
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
[2023-10-17] MEDS: fentaNYL citrate/NS 1,000 MCG/100 ML PLAST..BAG 17.5 MCG IVCONT (19:46)
[2023-10-17] MEDS: LORazepam 2 MG/ML VIAL 1 MG IV ×2 (20:53→23:06)
[2023-10-17] MEDS: Atropine Sulfate 1 MG/10 ML SYRINGE 0.5 MG IVPUSH (21:00)
[2023-10-17] MEDS: Phenytoin Sodium 100 MG/2 ML VIAL 200 MG IVPUSH (21:24)
[2023-10-17] MEDS: levETIRAcetam in NaCl (iso-os) 1,500 MG/100 ML PIGGYBACK 400 MG IV (21:25)
[2023-10-17] MEDS: Valproic Acid (as Sodium Salt) 250 MG in Dextrose 5 % 50 ML 52.5 MG IV (21:53)
[2023-10-18 00:10] VITALS: RESP 20
[2023-10-18] MEDS: fentaNYL citrate/NS 1,000 MCG/100 ML PLAST..BAG 20 MCG IVCONT ×4 (00:10→14:16)
[2023-10-18] MEDS: Valproic Acid (as Sodium Salt) 250 MG in Dextrose 5 % 50 ML 52.5 MG IV ×4 (02:31→20:54)
[2023-10-18 04:38] VITALS: RESP 14
--- NOTE | 2023-10-18 08:20 | P.PNCC_ITS ---
Subjective Subjective Date of Service: 10/18/23 Critical Care Time (minutes): 0 Physical Exam 2 Vital Signs: Vital Signs: Last Vital Signs Temp 98.6 F 10/17/23 13:00 Pulse 62 10/17/23 13:00 Resp 14 10/18/23 04:38 BP 122/44 L 10/17/23 13:00 Pulse Ox 98 10/17/23 13:00 O2 Del Method Mechanical Ventil ation 10/17/23 13:00 O2 Flow Rate 25 10/12/23 17:00 FiO2 40 10/17/23 13:00 BMI result Body Mass Index 24.6 Const: General: comfortable and no acute distress HEENT: Head: Yes normocephalic and Yes atraumatic Neck: Neck: Yes normal visual inspection Chest: Chest palpation & inspection: normal inspection of the chest Resp: Effort & Inspection: symmetric chest movement GI: Inspection: Yes normal to inspection Skin: General skin exam: no rashes or lesions noted Extrem: General: Yes normal to inspection Objective Data Labs 10/17/23 04:40 10/17/23 04:40 Microbiology Microbiology Results: Microbiology 10/02/23 12:25 Blood - Venous Blood Culture - Final No growth after 5 days. 10/02/23 12:11 Blood - Venous Blood Culture - Final No growth after 5 days. 10/05/23 07:50 Sputum - Suctioned Gram Stain - Final 10/05/23 07:50 Sputum - Suctioned Sputum Culture - Final 10/02/23 Unknown Urine Catheterized - Jaime Catheter Urine Culture - Final Escherichia coli Progress Note: A&P Assessment and plan (1) Status epilepticus: Status: Acute (2) Cardiac arrest: Status: Acute (3) Aspiration pneumonia: Status: Acute (4) Hypoxic ischemic encephalopathy due to cardiac arrest: Status: Acute Plan Assessment: Patient is a 72 Y M with developmental delay, schizophrenia, initially presenting on 10/02 d/t aspiration c/b hypoxic cardiac arrest, c/b anoxic brain injury, status epilepticus; decision made to transition philosophy of care to comfort-focused care on 10/17 Plan: - continue with multi-modal comfort-focused care regimen - close monitoring for signs, symptoms of discomfort - family support Quality Stroke Does the patient have a stroke diagnosis?: No VTE Prior VTE?: Yes VTE Risk Level:: Medical - moderate - high VTE Device Contraindication: N/A - Device Ordered VTE Drug Contraindication: Treatment Not Indicated
[2023-10-18] MEDS: Phenytoin Sodium 100 MG/2 ML VIAL 200 MG IVPUSH ×3 (08:26→20:35)
[2023-10-18] MEDS: Lidocaine 4 % Patch ADH..PATCH 2 PATCH TRANSDERMA (08:28)
[2023-10-18 09:13] VITALS: RESP 13
[2023-10-18] MEDS: levETIRAcetam in NaCl (iso-os) 1,500 MG/100 ML PIGGYBACK 400 MG IV ×2 (09:35→20:36)
[2023-10-18 11:32] VITALS: RESP 13
[2023-10-18 11:57] VITALS: PULSE 78; RESP 14; O2SAT 71
[2023-10-18] MEDS: Glycopyrrolate 0.2 MG/ML VIAL IVPUSH ×2 (15:13→18:47)
[2023-10-18 16:00] VITALS: RESP 17
--- NOTE | 2023-10-18 17:08 | PM.EVENT ---
Event Note Date of Service: 10/18/23 Event Note: 72-year-old male with history of developmental delay, schizophrenia who initially presented to the hospital after aspirating on a donut on 10/02 with hypoxic cardiac arrest with ROSC with significnat anoxic brain injury, status epilepticus and was transitioned to comfort care on 10/17. Transferred to med/surg on 10/18 for further comfort-focused care. On arrival pt with some snoring respiration but otherwise comfortable appearing. Given patient's comfort, will dc fentanyl drip. Continue hydromorphone q1h prn. Continue addl orders as prescribed. Discussed wtih family who is at bedside. Time Spent With Patient Time: Total time managing care of this patient today ____ minutes.
[2023-10-18] MEDS: Morphine Sulfate/NS 100 MG/100 ML PLAST..BAG IVCONT (18:48)
[2023-10-19] MEDS: Glycopyrrolate 0.2 MG/ML VIAL IVPUSH (00:31)
[2023-10-19] MEDS: Valproic Acid (as Sodium Salt) 250 MG in Dextrose 5 % 50 ML 52.5 MG IV (02:43)
[2023-10-19] MEDS: levETIRAcetam in NaCl (iso-os) 1,500 MG/100 ML PIGGYBACK 400 MG IV (08:50)
[2023-10-19] MEDS: Lidocaine 4 % Patch ADH..PATCH 2 PATCH TRANSDERMA (08:51)
[2023-10-19] MEDS: Phenytoin Sodium 100 MG/2 ML VIAL 200 MG IVPUSH (08:51)
--- NOTE | 2023-10-19 09:40 | MHC.CLN ---
F/U PATIENT EXTUBATED 10/17. STATUS IS COMFORT MEASURES ONLY.
--- NOTE | 2023-10-19 10:27 | P.DS_ITS ---
DS: Providers Provider Date of Service: 10/19/23 Date of admission: 10/02/23 14:40 Primary care physician: Mary Styles MD DS: Diagnosis Discharge Diagnosis (1) Status epilepticus: Status: Acute (2) Cardiac arrest: Status: Acute (3) Aspiration pneumonia: Status: Acute (4) Hypoxic ischemic encephalopathy due to cardiac arrest: Status: Acute (5) Choking due to food in larynx: Status: Acute (6) Multiple fractures of ribs: Status: Acute DS: Summary Hospital Course Hospital Course: Admission note HPI by ICU provider Patient is a 72 Y M with developmental delay, schizophrenia, was in otherwise normal state of health, was eating donut, had witnessed choking episode, c/b cardiac arrest, per EMS asystole w/ total downtime 15 minutes, CPR in progress in ED, intubated, with eventual ROSC; in ED, work-up revealing of CT C demonstrating L non-displaced rib fractures, as well as urinary tract infection; of note, targeted temperature management initiated in ED Hospital course The patient had prolonged hospital stay. for full details please return to EMR. in summary, 72-year-old male with history of developmental delay, schizophrenia who initially presented to the hospital after aspirating on a donut on 10/02 with hypoxic cardiac arrest with ROSC with significnat anoxic brain injury, status epilepticus and was transitioned to comfort care on 10/17. Transferred to med/surg on 10/18 for further comfort-focused care. On arrival pt with some snoring resp iration but otherwise comfortable appearing. Given patient's comfort, will dc fentanyl drip. Continue hydromorphone q1h prn. Continue addl orders as prescribed. Discussed wtih family who is at bedside. The patient was comfortable and 10/19/2023 on 10:01 AM. Family at the bedside at time of . Time Attestation Discharge coordination time: Greater than 30 minutes Quality: Safe Use of Opioids Does Pt have an Active Cancer Diagnosis on the Problem List?: No Quality: Stroke Does the patient have a stroke diagnosis?: No Physical Exam Vital Signs: Vital Signs: Last Vital Signs Temp 98.6 F 10/17/23 13:00 Pulse 78 10/18/23 11:57 Resp 17 10/18/23 16:00 BP 122/44 L 10/17/23 13:00 Pulse Ox 71 L 10/18/23 11:57 O2 Del Method Room Air 10/18/23 11:57 O2 Flow Rate 25 10/12/23 17:00 FiO2 40 10/17/23 13:00 BMI result Body Mass Index 24.6 Const: Other: DS: Data Data Completed and Pending Completed studies during hospitalization [Text1]: Procedures Drainage of Spinal Canal, Percutaneous Approach, Diagnostic (04/04/22) Imaging Chest x-ray: Radiologist's impression: ITS Impressions Chest X-Ray 10/02/23 11:55 IMPRESSION: * Endotracheal tube tip is 5 cm above justin. * Gastric tube tip is about 10 cm above the diaphragm, needs to be advanced further. * Diffuse increased interstitial lung marking and peribronchial cuffing might be a small airway disease such as bronchiolitis or interstitial pneumonitis, versus interstitial lung disease versus interstitial edema. No dense focal consolidation pneumonia. (Referring physician staff is being called, by physician staff assistance, to be alerted of the above critical findings and recommendations.) A J 10/02/2023 12:16 PM Chest X-Ray 10/02/23 13:00 IMPRESSION: Endotracheal tube 5 cm above the justin. The enteric tube has been advanced from mid to distal esophagus with its tip now in the fundus. Interval improvement in bilateral parahilar increased interstitial lung markings. Peribronchial cuffing is stable. Cervical Spine CT 10/02/23 13:50 IMPRESSION: CT HEAD: No acute intracranial abnormalities. CT CERVICAL SPINE: 1. No acute abnormalities. 2. Multilevel chronic spondylosis. Chest CT 10/02/23 13:50 IMPRESSION: Nondisplaced fractures left anterior fifth, sixth and seventh ribs. No pneumothorax or pleural effusion. There is bilateral apical parenchymal scarring and atelectasis. There is bibasilar chronic atelectasis or scarring as well. There is bilateral peribronchial thickening likely sequelae of chronic small airway disease. No parenchymal bases seen. Fleischner guidelines were followed. Head CT 10/02/23 13:50 IMPRESSION: CT HEAD: No acute intracranial abnormalities. CT CERVICAL SPINE: 1. No acute abnormalities. 2. Multilevel chronic spondylosis. Chest X-Ray 10/05/23 07:26 IMPRESSION: Left base opacity and costophrenic angle blunting, likely atelectasis/consolidation with small effusion. No vascular congestion. Chest X-Ray 10/08/23 06:17 IMPRESSION: An endotracheal tube terminates 3.5 cm above the justin. An orogastric tube terminates in the expected location of the stomach. Mild interval worsening in the patchy opacities at the left lung base. Venous Duplex 10/10/23 03:45 IMPRESSION: No DVT demonstrated in the right upper extremity. There is noncompressible thrombus within the distal basilar vein and the cephalic vein consistent with superficial thrombophlebitis. Duplex Scan Upper Extremity Artery 10/10/23 10:36 IMPRESSION: Small volume of atherosclerotic plaque resulting in mild stenoses of the proximal to mid subclavian artery and axillary artery. Venous Duplex 10/11/23 12:01 IMPRESSION: * There is heterogeneous appearance of occlusive thrombus within the left axillary vein. This has the appearance of subacute thrombosis. * There is thrombosis of the basilic vein, which is a superficial vein, and the subcutaneous tissues of the arm are edematous. The critical test result was discussed with Dr. Fleming at 1:41 PM on 10/11/2023 and it was ascertained that the content and the importance of the findings was understood at the time of the direct communication. Brain MRI 10/12/23 12:47 IMPRESSION: Given initial onset and timing of recent prior reported cardiac arrest, imaging findings are most indicative for the subacute sequelae of anoxic brain injury/hypoxic ischemic encephalopathy. Discharge Plan Discharge Patient Disposition: Discharge Diagnosis: Cardiac arrest Referrals: Mary Styles MD [Primary Care Provider] - 1 Week Discharge Medications: No Action fluoxetine 40 mg capsule 1 cap PO DAILY budesonide 0.5 mg/2 mL suspension for nebulization 2 ml inhalation QPM PRN (Reason: Shortness Of Breath) folic acid 1 mg tablet 1 tab PO DAILY cholecalciferol (vitamin D3) [Vitamin D3] 25 mcg (1,000 unit) capsule 1 cap PO DAILY (DME) nebulizer and compressor [Vios Aerosol Delivery System] Device MISCELLANEOUS DIRECTED alendronate 70 mg tablet 70 mg PO QWEEK cyanocobalamin (vitamin B-12) 1,000 mcg Tablet 1,000 mcg PO DAILY quetiapine 150 mg Tablet 150 mg PO BID lorazepam 1 mg tablet 1 tab PO BID PRN (Reason: Anxiety) Rx Instructions: MUST BE AT LEAST 4 HOURS BETWEEN DOSES latanoprost 0.005 % drops 1 drp ophthalmic-Right BEDTIME brimonidine 0.2 % drops 1 drp ophthalmic (eye) BID dorzolamide-timolol 22.3-6.8 mg/mL drops 1 drp ophthalmic-Right BID acetaminophen 325 mg Tablet 650 mg PO Q6H PRN (Reason: Fever Or Pain) sennosides-docusate sodium [Senna-C Plus] 8.6-50 mg Tablet 1 tab-cap PO DAILY hydrocortisone [Cortisone (hydrocortisone)] 1 % Cream 1 appl TOPICAL BID PRN (Reason: FACIAL RASH) Rx Instructions: APPLY A THIN LAYER magnesium hydroxide [Milk Of Magnesia Concentrated] 2,400 mg/10 mL Suspension 10 ml PO BEDTIME PRN (Reason: Constipation) Rx Instructions: IF NO BM FOR 4 DAYS
--- NOTE | 2023-10-19 12:31 | PC.NURSE ---
Addendum entered by Eder Noyola RN 10/19/23 13:48: [place] [facility] [place] family done visiting. Post mortem care done. Original Note: Pt passed at 10:01 AM, pronounced by Dr. Cat. Brother/HCP/Guardian Jak at bedside at time of passing. [facility] notified spoke to [facility] case# [id number]. Pt had no belongings present.
--- NOTE | 2023-10-21 10:47 | PM.EVENT ---
Event Note Date of Service: 10/21/23 Event Note: I reached out to credit [employer] examiner regarding Mr Rosales case. They will be looking into details in order to accept\refuse the case gave a . Time Spent With Patient Time: Total time managing care of this patient today ____ minutes.
== END 2023-10-19 13:48 | disposition expired | DRG 207 ==
LOC: HO.ED 14:07 → HO.EDOVER 14:47 → HO.ICU 15:09 → HO.S3 10-18 15:00
PROVIDERS: Internal Medicine Cardiovascular Disease; Internal Medicine Pulmonary Disease; Nurse Practitioner Family; Registered Nurse Community Health; Admitting Provider Internal Medicine Critical Care Medicine; Emergency Provider Student in an Organized Health Care Education/Training Program; PCP Internal Medicine; Visit Provider Student in an Organized Health Care Education/Training Program
DX: J69.0 Pneumonitis due to inhalation of food and vomit (principal); J96.01 Acute respiratory failure with hypoxia; G93.1 Anoxic brain damage, not elsewhere classified; N39.0 Urinary tract infection, site not specified; M96.A3 Multiple fractures of ribs associated with chest compression and cardiopulmonary resuscitation; E87.1 Hypo-osmolality and hyponatremia; Z51.5 Encounter for palliative care; L89.151 Pressure ulcer of sacral region, stage 1; T17.320A Food in larynx causing asphyxiation, initial encounter; I46.8 Cardiac arrest due to other underlying condition; F20.9 Schizophrenia, unspecified; G40.901 Epilepsy, unspecified, not intractable, with status epilepticus; R62.50 Unspecified lack of expected normal physiological development in childhood; E87.6 Hypokalemia; B96.20 Unspecified Escherichia coli [E. coli] as the cause of diseases classified elsewhere; Z79.899 Other long term (current) drug therapy
CPT/HCPCS: 36415; 70450; 70551; 71045; 71250; 72125; 80048; 80053; 80164; 80185; 80202; 81001; 82040; 82803; 82947; 83605; 83735; 84100; 84484; 85025; 85610; 86850; 86900; 86901; 87040; 87070; 87086; 87088; 87186; 87205; 87493; 87502; 87635; 87640; 87641; 93005; 93931; 93971; 94002; 94003; 94640; 94799; 95816; 99284; C1758; C9113; J0171; J0461; J0637; J0696; J1165; J1200; J1596; J1644; J1650; J1953; J2020; J2060; J2250; J2251; J2270; J2543; J2560; J2704; J3010; J3371; P9047

== ENCOUNTER → 2023-10-02 11:34 | Outpatient (BNV) | payer MEDICARE, MEDICAID, SELFPAY | PROVIDERS: Admitting Provider Internal Medicine Critical Care Medicine; Emergency Provider Student in an Organized Health Care Education/Training Program; PCP Internal Medicine; Visit Provider Internal Medicine Cardiovascular Disease | DX: I46.9 Cardiac arrest, cause unspecified (principal) | CPT/HCPCS: 93010 ==

== ENCOUNTER → 2023-10-02 14:40 | Outpatient (BNV) | payer MEDICARE, MEDICAID, SELFPAY | PROVIDERS: Admitting Provider Internal Medicine Critical Care Medicine; Emergency Provider Student in an Organized Health Care Education/Training Program; PCP Internal Medicine; Visit Provider Internal Medicine Critical Care Medicine | DX: G40.901 Epilepsy, unspecified, not intractable, with status epilepticus (principal); P91.60 Hypoxic ischemic encephalopathy [HIE], unspecified; I46.9 Cardiac arrest, cause unspecified; J69.0 Pneumonitis due to inhalation of food and vomit; S22.49XA Multiple fractures of ribs, unspecified side, initial encounter for closed fracture | CPT/HCPCS: 31502; 99232; 99291; 99292; 99499 ==

== ENCOUNTER → 2023-10-02 14:40 | Outpatient (BNV) | payer MEDICARE, MEDICAID, SELFPAY | PROVIDERS: Admitting Provider Internal Medicine Critical Care Medicine; Emergency Provider Student in an Organized Health Care Education/Training Program; PCP Internal Medicine; Visit Provider Internal Medicine Pulmonary Disease | DX: G40.901 Epilepsy, unspecified, not intractable, with status epilepticus (principal); I46.9 Cardiac arrest, cause unspecified; T17.320A Food in larynx causing asphyxiation, initial encounter; W44.F3XA Food entering into or through a natural orifice, initial encounter; F20.9 Schizophrenia, unspecified | CPT/HCPCS: 99291 ==

== ENCOUNTER → 2023-10-02 14:40 | Outpatient (BNV) | payer MEDICARE, MEDICAID, SELFPAY | PROVIDERS: Admitting Provider Internal Medicine Critical Care Medicine; Emergency Provider Student in an Organized Health Care Education/Training Program; PCP Internal Medicine; Visit Provider Physician Assistant | DX: G40.901 Epilepsy, unspecified, not intractable, with status epilepticus (principal); I46.9 Cardiac arrest, cause unspecified; J69.0 Pneumonitis due to inhalation of food and vomit; P91.60 Hypoxic ischemic encephalopathy [HIE], unspecified; P29.81 Cardiac arrest of newborn; T17.320A Food in larynx causing asphyxiation, initial encounter; W44.F3XA Food entering into or through a natural orifice, initial encounter; S22.49XA Multiple fractures of ribs, unspecified side, initial encounter for closed fracture | CPT/HCPCS: 99239; 99499 ==